=== PATIENT | male | born 1940 | race Caucasian/White ===

== ENCOUNTER 2021-01-03 23:14 | Inpatient (IN) | payer OTHER ==
--- OUTSIDE RECORDS SUMMARY | 2021-01-03 23:20 | XMS REPORT | Continuity of Care Document ---
:1940 Author Organization [facility] t Address [address] [place] [address] Care Team Providers Name Role Phone Hilary Primary Care Physician NASH ALCARAZ Attending Clinician Unavailable MICHELLE CHAPARRO Attending Clinician Unavailable NASH ALCARAZ Admitting Clinician Unavailable MICHELLE CHAPARRO Admitting Clinician Unavailable Problems Condition Condition Condition Status Onset Resolution Last Treating Co mments Source Name Details Category Date Date Treatment Clinician Date Metabolic Metabolic Disease Active [facility] alkalosis alkalosis 15 [facility] - 00:[facility]: Medical 00 [place] Cirrhosis Cirrhosis Disease Active [facility] liver 03[facility]13 [facility] 00 [place] Loose Loose Disease Active [facility] stools stools 03-11 [facility]: Medical 00 [place] Hypomagnes Hypomagnes Disease Active [facility] emia emia 03-11 [facility]:: Medical 00 [place] 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 [facility] - [facility]:: Medical 00 [place] HTN HTN Disease Active [facility] (hypertens (hypertens 03-11 [facility] - ion) ion) 00:00: Medical 00 [place] Alcohol Alcohol Disease Active [facility] abuse abuse 03-11 [facility] 00 [place] Hypoalbumi Hypoalbumi Disease Active [facility] nemia nemia 03-11 [facility]: Medical 00 [place] Arm Arm Disease Active [facility] weakness weakness 02-27 [facility] Allergies, Adverse Reactions, Alerts This patient has no known allergies or adverse reactions. Family History Family Member Diagnosis Comments Start Date Stop Date Source Natural mother Parkinsonism [facility] Social History Social Habit Start Date Stop Date Quantity Comments Source Sex Assigned At [facility] [place] Alcohol intake 2017-03-11 2017-03-11 Current drinker VIKRAM Tucker - 00:00:00 00:00:00 [facility] alcohol [facility] (finding) Alcohol Comment 2017-03-11 2017-03-11 500 ml of gonzalo VIKRAM Toney - 00:00:00 00:00:00 [facility] night [facility] History of 2015-11-22 Current smoker [facility] - tobacco use [facility]:00 [facility] Smoking Status Start Date Stop Date Source Former smoker 2017-03-11 00:00:00 2017-03-11 00:00:00 [facility] Medications Ordered Filled Start Stop Current Ordering Indication Dosage Frequency Signature Comments Components Source Medication Medication Date Date Medication? Clinician (SIG) Name Name multivitami Yes 1{tbl} QD Take [address] [facility] per 04-09 tablet by [facility] - tablet 13:22: mouth Medical 13 daily. Center Procedures This patient has no known procedures. Results Test Description Test Time Test Comments Results Result Comments Source CBC W/PLT COUNT & AUTO DIFFERENTIAL 2017-04-09 11:38:00 Test Item Value Reference Range Interpretation Comme nts WHITE BLOOD CELL COUNT (BEAKER) (test code = 775) 2.0 K/ L 4.0- 10.0 L RED BLOOD CELL COUNT (BEAKER) (test code = 761) 3.27 M/ L 4.20-5 .80 L HEMOGLOBIN (BEAKER) (test code = 410) 11.2 GM/DL 13.0-16.8 L HEMATOCRIT (BEAKER) (test code = 411) 33.2 % 40.0-50.0 L MEAN CORPUSCULAR VOLUME (BEAKER) (test code = 753) 101.0 fL 82. 0-98.0 H MEAN CORPUSCULAR HEMOGLOBIN (BEAKER) (test code = 751) 34.2 pg 27.0-33.0 H MEAN CORPUSCULAR HEMOGLOBIN CONC (BEAKER) (test code = 752) 33.7 GM/DL 32.0-36.0 RED CELL DISTRIBUTION WIDTH (BEAKER) (test code = 412) 11.9 % 10.3-14.2 PLATELET COUNT (BEAKER) (test code = 756) 58 K/CU MM 150-430 L MEAN PLATELET VOLUME (BEAKER) (test code = 754) 9.7 fL 6.5-10 .5 NUCLEATED RED BLOOD CELLS (BEAKER) (test code = 413) 0 /100 WBC 0 -0 NEUTROPHILS RELATIVE PERCENT (BEAKER) (test code = 429) 41 % LYMPHOCYTES RELATIVE PERCENT (BEAKER) (test code = 430) 43 % MONOCYTES RELATIVE PERCENT (BEAKER) (test code = 431) 11 % EOSINOPHILS RELATIVE PERCENT (BEAKER) (test code = 432) 4 % BASOPHILS RELATIVE PERCENT (BEAKER) (test code = 437) 2 % NEUTROPHILS ABSOLUTE COUNT (BEAKER) (test code = 670) 0.81 K/ L 1.80-8.00 L LYMPHOCYTES ABSOLUTE COUNT (BEAKER) (test code = 414) 0.84 K/ L 1.48-4.50 L MONOCYTES ABSOLUTE COUNT (BEAKER) (test code = 415) 0.21 K/ L 0. 00-1.30 EOSINOPHILS ABSOLUTE COUNT (BEAKER) (test code = 416) 0.09 K/ L 0.00-0.50 BASOPHILS ABSOLUTE COUNT (BEAKER) (test code = 417) 0.03 K/ L 0. 00-0.20 0.00(MANUAL DIFFERENTIAL)2017-04-09 11:38:00 Test Item Value Reference Range Interpretation Comments TOTAL COUNTED (BEAKER) (test code = 1351) WBC MORPHOLOGY (BEAKER) (test code = Normal 487) PLT MORPHOLOGY (BEAKER) (test code = Normal 486) RBC MORPHOLOGY (BEAKER) (test code = Normal 762) [id number] 06:45:00 Test Item Value Reference Range Interpretation Comments PHOSPHORUS (BEAKER) (test code = 3.5 mg/dL 2.3-4.7 604) [id number] 06:45:00 Test Item Value Reference Range Interpretation Comments MAGNESIUM (BEAKER) (test code = 1.7 mg/dL 1.6-2.6 627) BASIC METABOLIC [id number] 06:45:00 Test Item Value Reference Range Interpretation Comments SODIUM (BEAKER) 137 meq/L 136-145 (test code = 381) POTASSIUM (BEAKER) 4.7 meq/L 3.5-5.1 (test code = 379) CHLORIDE (BEAKER) 106 meq/L 98-107 (test code = 382) CO2 (BEAKER) (test 27 meq/L 22-29 code = 355) BLOOD UREA NITROGEN 29 mg/dL 7-21 H (BEAKER) (test code = 354) CREATININE (BEAKER) 0.71 mg/dL 0.57-1.25 (test code = 358) GLUCOSE RANDOM 92 mg/dL 70-105 (BEAKER) (test code = 652) CALCIUM (BEAKER) 9.6 mg/dL 8.4-10.2 (test code = 697) EGFR (BEAKER) (test 107 mL/min/1.73 ESTIM ATED GFR IS code = 1092) sq m NOT ACCURATE CREATININE CLEARANCE IN PREDICTING GLOMERULAR FILTRATION RATE . ESTIMATED GFR I S NOT APPLICABLE FOR DIALYSIS PATIEN TS. [id number] 07:18:00 Test Item Value Reference Range Interpretation Comments PHOSPHORUS (BEAKER) (test code = 3.4 mg/dL 2.3-4.7 604) [id number] 07:18:00 Test Item Value Reference Range Interpretation Comments MAGNESIUM (BEAKER) (test code = 1.6 mg/dL 1.6-2.6 627) BASIC METABOLIC [id number] 07:18:00 Test Item Value Reference Range Interpretation Comments SODIUM (BEAKER) 140 meq/L 136-145 (test code = 381) POTASSIUM (BEAKER) 4.5 meq/L 3.5-5.1 (test code = 379) CHLORIDE (BEAKER) 106 meq/L 98-107 (test code = 382) CO2 (BEAKER) (test 28 meq/L 22-29 code = 355) BLOOD UREA NITROGEN 27 mg/dL 7-21 H (BEAKER) (test code = 354) CREATININE (BEAKER) 0.72 mg/dL 0.57-1.25 (test code = 358) GLUCOSE RANDOM 79 mg/dL 70-105 (BEAKER) (test code = 652) CALCIUM (BEAKER) 9.4 mg/dL 8.4-10.2 (test code = 697) EGFR (BEAKER) (test 106 mL/min/1.73 ESTIM ATED GFR IS code = 1092) sq m NOT ACCURATE CREATININE CLEARANCE IN PREDICTING GLOMERULAR FILTRATION RATE . ESTIMATED GFR I S NOT APPLICABLE FOR DIALYSIS PATIEN TS. [id number] 05:47:00 Test Item Value Reference Range Interpretation Comments MAGNESIUM (BEAKER) (test code = 1.7 mg/dL 1.6-2.6 627) BASIC METABOLIC [id number] 05:47:00 Test Item Value Reference Range Interpretation Comments SODIUM (BEAKER) 137 meq/L 136-145 (test code = 381) POTASSIUM (BEAKER) 4.4 meq/L 3.5-5.1 (test code = 379) CHLORIDE (BEAKER) 105 meq/L 98-107 (test code = 382) CO2 (BEAKER) (test 26 meq/L 22-29 code = 355) BLOOD UREA NITROGEN 36 mg/dL 7-21 H (BEAKER) (test code = 354) CREATININE (BEAKER) 0.70 mg/dL 0.57-1.25 (test code = 358) GLUCOSE RANDOM 91 mg/dL 70-105 (BEAKER) (test code = 652) CALCIUM (BEAKER) 9.4 mg/dL 8.4-10.2 (test code = 697) EGFR (BEAKER) (test 109 mL/min/1.73 ESTIM ATED GFR IS code = 1092) sq m NOT ACCURATE CREATININE CLEARANCE IN PREDICTING GLOMERULAR FILTRATION RATE . ESTIMATED GFR I S NOT APPLICABLE FOR DIALYSIS PATIEN TS. CBC W/PLT COUNT & AUTO [id number] 09:57:00 Test Item Value Reference Range Interpretation Comments WHITE BLOOD CELL COUNT (BEAKER) 2.0 K/ L 4.0-10.0 L (test code = 775) RED BLOOD CELL COUNT (BEAKER) 3.39 M/ L 4.20-5.80 L (test code = 761) HEMOGLOBIN (BEAKER) (test code = 11.0 GM/DL 13.0-16.8 L 410) HEMATOCRIT (BEAKER) (test code = 34.3 % 40.0-50.0 L 411) MEAN CORPUSCULAR VOLUME (BEAKER) 101.0 fL 82.0-98.0 H (test code = 753) MEAN CORPUSCULAR HEMOGLOBIN 32.5 pg 27.0-33.0 (BEAKER) (test code = 751) MEAN CORPUSCULAR HEMOGLOBIN CONC 32.0 GM/DL 32.0-36.0 (BEAKER) (test code = 752) RED CELL DISTRIBUTION WIDTH 13.4 % 10.3-14.2 (BEAKER) (test code = 412) PLATELET COUNT (BEAKER) (test code 62 K/CU MM 150-430 L = 756) MEAN PLATELET VOLUME (BEAKER) 10.7 fL 6.5-10.5 H (test code = 754) NUCLEATED RED BLOOD CELLS (BEAKER) 0 /100 WBC 0-0 (test code = 413) NEUTROPHILS RELATIVE PERCENT 36 % (BEAKER) (test code = 429) LYMPHOCYTES RELATIVE PERCENT 50 % (BEAKER) (test code = 430) MONOCYTES RELATIVE PERCENT 10 % (BEAKER) (test code = 431) EOSINOPHILS RELATIVE PERCENT 5 % (BEAKER) (test code = 432) BASOPHILS RELATIVE PERCENT 0 % (BEAKER) (test code = 437) NEUTROPHILS ABSOLUTE COUNT 0.70 K/ L 1.80-8.00 L (BEAKER) (test code = 670) LYMPHOCYTES ABSOLUTE COUNT 0.98 K/ L 1.48-4.50 L (BEAKER) (test code = 414) MONOCYTES ABSOLUTE COUNT (BEAKER) 0.19 K/ L 0.00-1.30 (test code = 415) EOSINOPHILS ABSOLUTE COUNT 0.10 K/ L 0.00-0.50 (BEAKER) (test code = 416) BASOPHILS ABSOLUTE COUNT (BEAKER) 0.00 K/ L 0.00-0.20 (test code = 417) 0.00(MANUAL DIFFERENTIAL)2017-04-01 09:57:00 Test Item Value Reference Range Interpretation Comments TOTAL COUNTED (BEAKER) (test code = 1351) WBC MORPHOLOGY (BEAKER) (test code = Normal 487) PLT MORPHOLOGY (BEAKER) (test code = Normal 486) RBC MORPHOLOGY (BEAKER) (test code = Normal 762) [id number] 06:06:00 Test Item Value Reference Range Interpretation Comments MAGNESIUM (BEAKER) (test code = 1.7 mg/dL 1.6-2.6 627) BASIC METABOLIC [id number] 06:06:00 Test Item Value Reference Range Interpretation Comments SODIUM (BEAKER) 139 meq/L 136-145 (test code = 381) POTASSIUM (BEAKER) 4.6 meq/L 3.5-5.1 (test code = 379) CHLORIDE (BEAKER) 105 meq/L 98-107 (test code = 382) CO2 (BEAKER) (test 27 meq/L 22-29 code = 355) BLOOD UREA NITROGEN 37 mg/dL 7-21 H (BEAKER) (test code = 354) CREATININE (BEAKER) 0.72 mg/dL 0.57-1.25 (test code = 358) GLUCOSE RANDOM 91 mg/dL 70-105 (BEAKER) (test code = 652) CALCIUM (BEAKER) 9.5 mg/dL 8.4-10.2 (test code = 697) EGFR (BEAKER) (test 106 mL/min/1.73 ESTIM ATED GFR IS code = 1092) sq m NOT ACCURATE CREATININE CLEARANCE IN PREDICTING GLOMERULAR FILTRATION RATE . ESTIMATED GFR I S NOT APPLICABLE FOR DIALYSIS PATIEN TS. [id number] 06:35:00 Test Item Value Reference Range Interpretation Comments PHOSPHORUS (BEAKER) (test code = 3.0 mg/dL 2.3-4.7 604) [id number] 06:35:00 Test Item Value Reference Range Interpretation Comments MAGNESIUM (BEAKER) (test code = 1.7 mg/dL 1.6-2.6 627) BASIC METABOLIC [id number] 06:35:00 Test Item Value Reference Range Interpretation Comments SODIUM (BEAKER) 140 meq/L 136-145 (test code = 381) POTASSIUM (BEAKER) 4.6 meq/L 3.5-5.1 (test code = 379) CHLORIDE (BEAKER) 105 meq/L 98-107 (test code = 382) CO2 (BEAKER) (test 26 meq/L 22-29 code = 355) BLOOD UREA NITROGEN 38 mg/dL 7-21 H (BEAKER) (test code = 354) CREATININE (BEAKER) 0.72 mg/dL 0.57-1.25 (test code = 358) GLUCOSE RANDOM 98 mg/dL 70-105 (BEAKER) (test code = 652) CALCIUM (BEAKER) 9.8 mg/dL 8.4-10.2 (test code = 697) EGFR (BEAKER) (test 106 mL/min/1.73 ESTIM ATED GFR IS code = 1092) sq m NOT ACCURATE CREATININE CLEARANCE IN PREDICTING GLOMERULAR FILTRATION RATE . ESTIMATED GFR I S NOT APPLICABLE FOR DIALYSIS PATIEN TS. [id number] 07:59:00 Test Item Value Reference Range Interpretation Comments MAGNESIUM (BEAKER) (test code = 1.8 mg/dL 1.6-2.6 627) BASIC METABOLIC [id number] 07:59:00 Test Item Value Reference Range Interpretation Comments SODIUM (BEAKER) 141 meq/L 136-145 (test code = 381) POTASSIUM (BEAKER) 4.5 meq/L 3.5-5.1 (test code = 379) CHLORIDE (BEAKER) 105 meq/L 98-107 (test code = 382) CO2 (BEAKER) (test 30 meq/L 22-29 H code = 355) BLOOD UREA NITROGEN 43 mg/dL 7-21 H (BEAKER) (test code = 354) CREATININE (BEAKER) 0.72 mg/dL 0.57-1.25 (test code = 358) GLUCOSE RANDOM 84 mg/dL 70-105 (BEAKER) (test code = 652) CALCIUM (BEAKER) 9.6 mg/dL 8.4-10.2 (test code = 697) EGFR (BEAKER) (test 106 mL/min/1.73 ESTIM ATED GFR IS code = 1092) sq m NOT ACCURATE CREATININE CLEARANCE IN PREDICTING GLOMERULAR FILTRATION RATE . ESTIMATED GFR I S NOT APPLICABLE FOR DIALYSIS PATIEN TS. [id number] 06:28:00 Test Item Value Reference Range Interpretation Comments MAGNESIUM (BEAKER) (test code = 1.7 mg/dL 1.6-2.6 627) BASIC METABOLIC [id number] 06:28:00 Test Item Value Reference Range Interpretation Comments SODIUM (BEAKER) 140 meq/L 136-145 (test code = 381) POTASSIUM (BEAKER) 4.1 meq/L 3.5-5.1 (test code = 379) CHLORIDE (BEAKER) 104 meq/L 98-107 (test code = 382) CO2 (BEAKER) (test 30 meq/L 22-29 H code = 355) BLOOD UREA NITROGEN 44 mg/dL 7-21 H (BEAKER) (test code = 354) CREATININE (BEAKER) 0.76 mg/dL 0.57-1.25 (test code = 358) GLUCOSE RANDOM 92 mg/dL 70-105 (BEAKER) (test code = 652) CALCIUM (BEAKER) 9.6 mg/dL 8.4-10.2 (test code = 697) EGFR (BEAKER) (test 99 mL/min/1.73 ESTIMA NICKO GFR IS code = 1092) sq m NOT ACCURATE CREATININE CLEARANCE IN PREDICTING GLOMERULAR FILTRATION RATE . ESTIMATED GFR I S NOT APPLICABLE FOR DIALYSIS PATIEN TS. [id number] 05:37:00 Test Item Value Reference Range Interpretation Comments MAGNESIUM (BEAKER) (test code = 1.7 mg/dL 1.6-2.6 627) BASIC METABOLIC [id number] 05:37:00 Test Item Value Reference Range Interpretation Comments SODIUM (BEAKER) 140 meq/L 136-145 (test code = 381) POTASSIUM (BEAKER) 4.0 meq/L 3.5-5.1 (test code = 379) CHLORIDE (BEAKER) 103 meq/L 98-107 (test code = 382) CO2 (BEAKER) (test 31 meq/L 22-29 H code = 355) BLOOD UREA NITROGEN 36 mg/dL 7-21 H (BEAKER) (test code = 354) CREATININE (BEAKER) 0.65 mg/dL 0.57-1.25 (test code = 358) GLUCOSE RANDOM 101 mg/dL 70-105 (BEAKER) (test code = 652) CALCIUM (BEAKER) 9.9 mg/dL 8.4-10.2 (test code = 697) EGFR (BEAKER) (test 119 mL/min/1.73 ESTIM ATED GFR IS code = 1092) sq m NOT ACCURATE CREATININE CLEARANCE IN PREDICTING GLOMERULAR FILTRATION RATE . ESTIMATED GFR I S NOT APPLICABLE FOR DIALYSIS PATIEN TS. PROTEIN ELECTROPHORESIS, [id number] 11:32:00 Test Item Value Reference Range Interpretation Comments ALBUMIN FRACTION 3.2 g/dL 3.5-5.5 L (BEAKER) (test code = 405) ALPHA 1 FRACTION 0.3 g/dL 0.2-0.4 (BEAKER) (test code = 389) ALPHA 2 FRACTION 0.5 g/dL 0.5-0.9 (BEAKER) (test code = 390) BETA FRACTION 0.9 g/dL 0.6-1.1 (BEAKER) (test code = 392) GAMMA GLOBULIN 1.1 g/dL 0.7-1.7 FRACTION (BEAKER) (test code = 391) INTERPRETATION-119 All fractions present in (BEAKER) (test code = expected distribution, 2614) with minor nonspecific changes. No monoclonal bands detected. No significant change from previous study of 03-02-17. [id number] Haritha Baptiste MD (BEAKER) (test code = (electronic signature) 6374) PROTEIN TOTAL SERUM, 5.9 gm/dL 6.0-8.3 L SPEP (BEAKER) (test code = 7270) [id number] 06:11:00 Test Item Value Reference Range Interpretation Comments MAGNESIUM (BEAKER) (test code = 1.5 mg/dL 1.6-2.6 L 627) BASIC METABOLIC [id number] 06:11:00 Test Item Value Reference Range Interpretation Comments SODIUM (BEAKER) 140 meq/L 136-145 (test code = 381) POTASSIUM (BEAKER) 4.0 meq/L 3.5-5.1 (test code = 379) CHLORIDE (BEAKER) 102 meq/L 98-107 (test code = 382) CO2 (BEAKER) (test 32 meq/L 22-29 H code = 355) BLOOD UREA NITROGEN 47 mg/dL 7-21 H (BEAKER) (test code = 354) CREATININE (BEAKER) 0.70 mg/dL 0.57-1.25 (test code = 358) GLUCOSE RANDOM 97 mg/dL 70-105 (BEAKER) (test code = 652) CALCIUM (BEAKER) 9.9 mg/dL 8.4-10.2 (test code = 697) EGFR (BEAKER) (test 109 mL/min/1.73 ESTIM ATED GFR IS code = 1092) sq m NOT ACCURATE CREATININE CLEARANCE IN PREDICTING GLOMERULAR FILTRATION RATE . ESTIMATED GFR I S NOT APPLICABLE FOR DIALYSIS PATIEN TS. VITAMIN D, [id number] 08:21:00 Test Item Value Reference Range Interpretation Comments VITAMIN D 25-OH (BEAKER) (test 29.5 ng/mL 13.0-47.8 code = 2764) [id number] 06:15:00 Test Item Value Reference Range Interpretation Comments MAGNESIUM (BEAKER) (test code = 1.8 mg/dL 1.6-2.6 627) BASIC METABOLIC [id number] 06:15:00 Test Item Value Reference Range Interpretation Comments SODIUM (BEAKER) 140 meq/L 136-145 (test code = 381) POTASSIUM (BEAKER) 4.4 meq/L 3.5-5.1 (test code = 379) CHLORIDE (BEAKER) 101 meq/L 98-107 (test code = 382) CO2 (BEAKER) (test 30 meq/L 22-29 H code = 355) BLOOD UREA NITROGEN 49 mg/dL 7-21 H (BEAKER) (test code = 354) CREATININE (BEAKER) 0.78 mg/dL 0.57-1.25 (test code = 358) GLUCOSE RANDOM 94 mg/dL 70-105 (BEAKER) (test code = 652) CALCIUM (BEAKER) 10.4 mg/dL 8.4-10.2 H (test code = 697) EGFR (BEAKER) (test 96 mL/min/1.73 ESTIMA NICKO GFR IS code = 1092) sq m NOT ACCURATE CREATININE CLEARANCE IN PREDICTING GLOMERULAR FILTRATION RATE . ESTIMATED GFR I S NOT APPLICABLE FOR DIALYSIS PATIEN TS. [id number] 05:52:00 Test Item Value Reference Range Interpretation Comments MAGNESIUM (BEAKER) (test code = 1.7 mg/dL 1.6-2.6 627) BASIC METABOLIC [id number] 05:52:00 Test Item Value Reference Range Interpretation Comments SODIUM (BEAKER) 141 meq/L 136-145 (test code = 381) POTASSIUM (BEAKER) 4.5 meq/L 3.5-5.1 (test code = 379) CHLORIDE (BEAKER) 103 meq/L 98-107 (test code = 382) CO2 (BEAKER) (test 31 meq/L 22-29 H code = 355) BLOOD UREA NITROGEN 39 mg/dL 7-21 H (BEAKER) (test code = 354) CREATININE (BEAKER) 0.73 mg/dL 0.57-1.25 (test code = 358) GLUCOSE RANDOM 94 mg/dL 70-105 (BEAKER) (test code = 652) CALCIUM (BEAKER) 10.3 mg/dL 8.4-10.2 H (test code = 697) EGFR (BEAKER) (test 104 mL/min/1.73 ESTIM ATED GFR IS code = 1092) sq m NOT ACCURATE CREATININE CLEARANCE IN PREDICTING GLOMERULAR FILTRATION RATE . ESTIMATED GFR I S NOT APPLICABLE FOR DIALYSIS PATIEN TS. [id number] 06:58:00 Test Item Value Reference Range Interpretation Comments MAGNESIUM (BEAKER) (test code = 1.6 mg/dL 1.6-2.6 627) BASIC METABOLIC [id number] 06:58:00 Test Item Value Reference Range Interpretation Comments SODIUM (BEAKER) 138 meq/L 136-145 (test code = 381) POTASSIUM (BEAKER) 4.8 meq/L 3.5-5.1 (test code = 379) CHLORIDE (BEAKER) 101 meq/L 98-107 (test code = 382) CO2 (BEAKER) (test 30 meq/L 22-29 H code = 355) BLOOD UREA NITROGEN 39 mg/dL 7-21 H (BEAKER) (test code = 354) CREATININE (BEAKER) 0.73 mg/dL 0.57-1.25 (test code = 358) GLUCOSE RANDOM 85 mg/dL 70-105 (BEAKER) (test code = 652) CALCIUM (BEAKER) 10.2 mg/dL 8.4-10.2 (test code = 697) EGFR (BEAKER) (test 104 mL/min/1.73 ESTIM ATED GFR IS code = 1092) sq m NOT ACCURATE CREATININE CLEARANCE IN PREDICTING GLOMERULAR FILTRATION RATE . ESTIMATED GFR I S NOT APPLICABLE FOR DIALYSIS PATIEN TS. [id number] 04:50:00 Test Item Value Reference Range Interpretation Comments MAGNESIUM (BEAKER) (test code = 1.7 mg/dL 1.6-2.6 627) BASIC METABOLIC [id number] 04:50:00 Test Item Value Reference Range Interpretation Comments SODIUM (BEAKER) 139 meq/L 136-145 (test code = 381) POTASSIUM (BEAKER) 5.3 meq/L 3.5-5.1 H (test code = 379) CHLORIDE (BEAKER) 103 meq/L 98-107 (test code = 382) CO2 (BEAKER) (test 30 meq/L 22-29 H code = 355) BLOOD UREA NITROGEN 39 mg/dL 7-21 H (BEAKER) (test code = 354) CREATININE (BEAKER) 0.73 mg/dL 0.57-1.25 (test code = 358) GLUCOSE RANDOM 98 mg/dL 70-105 (BEAKER) (test code = 652) CALCIUM (BEAKER) 10.1 mg/dL 8.4-10.2 (test code = 697) EGFR (BEAKER) (test 104 mL/min/1.73 ESTIM ATED GFR IS code = 1092) sq m NOT ACCURATE CREATININE CLEARANCE IN PREDICTING GLOMERULAR FILTRATION RATE . ESTIMATED GFR I S NOT APPLICABLE FOR DIALYSIS PATIEN TS. [id number] 07:00:00 Test Item Value Reference Range Interpretation Comments MAGNESIUM (BEAKER) (test code = 1.7 mg/dL 1.6-2.6 627) BASIC METABOLIC [id number] 07:00:00 Test Item Value Reference Range Interpretation Comments SODIUM (BEAKER) 139 meq/L 136-145 (test code = 381) POTASSIUM (BEAKER) 5.5 meq/L 3.5-5.1 H (test code = 379) CHLORIDE (BEAKER) 102 meq/L 98-107 (test code = 382) CO2 (BEAKER) (test 30 meq/L 22-29 H code = 355) BLOOD UREA NITROGEN 39 mg/dL 7-21 H (BEAKER) (test code = 354) CREATININE (BEAKER) 0.73 mg/dL 0.57-1.25 (test code = 358) GLUCOSE RANDOM 86 mg/dL 70-105 (BEAKER) (test code = 652) CALCIUM (BEAKER) 10.0 mg/dL 8.4-10.2 (test code = 697) EGFR (BEAKER) (test 104 mL/min/1.73 ESTIM ATED GFR IS code = 1092) sq m NOT ACCURATE CREATININE CLEARANCE IN PREDICTING GLOMERULAR FILTRATION RATE . ESTIMATED GFR I S NOT APPLICABLE FOR DIALYSIS PATIEN TS. HEPATIC FUNCTION [id number] 07:00:00 Test Item Value Reference Range Interpretation Comments TOTAL PROTEIN (BEAKER) (test code = 6.2 gm/dL 6.0-8.3 770) ALBUMIN (BEAKER) (test code = 1145) 3.3 g/dL 3.5-5.0 L BILIRUBIN TOTAL (BEAKER) (test code 1.2 mg/dL 0.2-1.2 = 377) BILIRUBIN DIRECT (BEAKER) (test 0.5 mg/dL 0.1-0.5 code = 706) ALKALINE PHOSPHATASE (BEAKER) (test 94 U/L 40-150 code = 346) AST (SGOT) (BEAKER) (test code = 44 U/L 5-34 H 353) ALT (SGPT) (BEAKER) (test code = 38 U/L 6-55 347) [id number] 07:18:00 Test Item Value Reference Range Interpretation Comments MAGNESIUM (BEAKER) (test code = 1.7 mg/dL 1.6-2.6 627) BASIC METABOLIC [id number] 07:18:00 Test Item Value Reference Range Interpretation Comments SODIUM (BEAKER) 138 meq/L 136-145 (test code = 381) POTASSIUM (BEAKER) 5.7 meq/L 3.5-5.1 H (test code = 379) CHLORIDE (BEAKER) 102 meq/L 98-107 (test code = 382) CO2 (BEAKER) (test 32 meq/L 22-29 H code = 355) BLOOD UREA NITROGEN 34 mg/dL 7-21 H (BEAKER) (test code = 354) CREATININE (BEAKER) 0.77 mg/dL 0.57-1.25 (test code = 358) GLUCOSE RANDOM 82 mg/dL 70-105 (BEAKER) (test code = 652) CALCIUM (BEAKER) 9.9 mg/dL 8.4-10.2 (test code = 697) EGFR (BEAKER) (test 98 mL/min/1.73 ESTIMA NICKO GFR IS code = 1092) sq m NOT ACCURATE CREATININE CLEARANCE IN PREDICTING GLOMERULAR FILTRATION RATE . ESTIMATED GFR I S NOT APPLICABLE FOR DIALYSIS PATIEN TS. CREATININE, RANDOM [id number] 16:52:00 Test Item Value Reference Range Interpretation Comments CREATININE URINE (BEAKER) (test 113.2 mg/dL code = 375) Reference Range: No NormalsMAGNESIUM, RANDOM [id number] 16:52:00 Test Item Value Reference Range Interpretation Comments MAGNESIUM URINE (BEAKER) (test 17.9 mg/dL code = 834) Reference Range: No [id number] 06:52:00 Test Item Value Reference Range Interpretation Comments MAGNESIUM (BEAKER) (test code = 1.5 mg/dL 1.6-2.6 L 627) BASIC METABOLIC [id number] 06:52:00 Test Item Value Reference Range Interpretation Comments SODIUM (BEAKER) 139 meq/L 136-145 (test code = 381) POTASSIUM (BEAKER) 5.1 meq/L 3.5-5.1 (test code = 379) CHLORIDE (BEAKER) 102 meq/L 98-107 (test code = 382) CO2 (BEAKER) (test 30 meq/L 22-29 H code = 355) BLOOD UREA NITROGEN 28 mg/dL 7-21 H (BEAKER) (test code = 354) CREATININE (BEAKER) 0.70 mg/dL 0.57-1.25 (test code = 358) GLUCOSE RANDOM 89 mg/dL 70-105 (BEAKER) (test code = 652) CALCIUM (BEAKER) 9.9 mg/dL 8.4-10.2 (test code = 697) EGFR (BEAKER) (test 109 mL/min/1.73 ESTIM ATED GFR IS code = 1092) sq m NOT ACCURATE CREATININE CLEARANCE IN PREDICTING GLOMERULAR FILTRATION RATE . ESTIMATED GFR I S NOT APPLICABLE FOR DIALYSIS PATIEN TS. [id number] 06:05:00 Test Item Value Reference Range Interpretation Comments MAGNESIUM (BEAKER) (test code = 1.6 mg/dL 1.6-2.6 627) BASIC METABOLIC [id number] 06:05:00 Test Item Value Reference Range Interpretation Comments SODIUM (BEAKER) 139 meq/L 136-145 (test code = 381) POTASSIUM (BEAKER) 5.1 meq/L 3.5-5.1 (test code = 379) CHLORIDE (BEAKER) 103 meq/L 98-107 (test code = 382) CO2 (BEAKER) (test 28 meq/L 22-29 code = 355) BLOOD UREA NITROGEN 23 mg/dL 7-21 H (BEAKER) (test code = 354) CREATININE (BEAKER) 0.63 mg/dL 0.57-1.25 (test code = 358) GLUCOSE RANDOM 89 mg/dL 70-105 (BEAKER) (test code = 652) CALCIUM (BEAKER) 9.8 mg/dL 8.4-10.2 (test code = 697) EGFR (BEAKER) (test 123 mL/min/1.73 ESTIM ATED GFR IS code = 1092) sq m NOT ACCURATE CREATININE CLEARANCE IN PREDICTING GLOMERULAR FILTRATION RATE . ESTIMATED GFR I S NOT APPLICABLE FOR DIALYSIS PATIEN TS. HEPARIN [id number] 14:07:00 Test Item Value Reference Range Interpretation Comments HEPARIN ANTIBODY (BEAKER) (test code Negative Negative = 646) HEPARIN ANTIBODY OD (BEAKER) (test 0.062 <0.400 code = 2659) 4T TOTAL SCORE (BEAKER) (test code = 4 3733) Probability of HIT based on scoring system: 6-8 = High probability; 4-5 = intermediate probability;0-3 = low probabilityBASIC METABOLIC [id number] 05:42:00 Test Item Value Reference Range Interpretation Comments SODIUM (BEAKER) 138 meq/L 136-145 (test code = 381) POTASSIUM (BEAKER) 4.6 meq/L 3.5-5.1 (test code = 379) CHLORIDE (BEAKER) 101 meq/L 98-107 (test code = 382) CO2 (BEAKER) (test 31 meq/L 22-29 H code = 355) BLOOD UREA NITROGEN 17 mg/dL 7-21 (BEAKER) (test code = 354) CREATININE (BEAKER) 0.68 mg/dL 0.57-1.25 (test code = 358) GLUCOSE RANDOM 94 mg/dL 70-105 (BEAKER) (test code = 652) CALCIUM (BEAKER) 9.7 mg/dL 8.4-10.2 (test code = 697) EGFR (BEAKER) (test 113 mL/min/1.73 ESTIM ATED GFR IS code = 1092) sq m NOT ACCURATE CREATININE CLEARANCE IN PREDICTING GLOMERULAR FILTRATION RATE . ESTIMATED GFR I S NOT APPLICABLE FOR DIALYSIS PATIEN TS. [id number] 05:42:00 Test Item Value Reference Range Interpretation Comments MAGNESIUM (BEAKER) (test code = 1.6 mg/dL 1.6-2.6 627) CBC W/PLT COUNT & AUTO [id number] 14:48:00 Test Item Value Reference Range Interpretation Comments WHITE BLOOD CELL COUNT (BEAKER) 2.1 K/ L 4.0-10.0 L (test code = 775) RED BLOOD CELL COUNT (BEAKER) 3.80 M/ L 4.20-5.80 L (test code = 761) HEMOGLOBIN (BEAKER) (test code = 12.7 GM/DL 13.0-16.8 L 410) HEMATOCRIT (BEAKER) (test code = 38.8 % 40.0-50.0 L 411) MEAN CORPUSCULAR VOLUME (BEAKER) 101.0 fL 82.0-98.0 H (test code = 753) MEAN CORPUSCULAR HEMOGLOBIN 33.4 pg 27.0-33.0 H (BEAKER) (test code = 751) MEAN CORPUSCULAR HEMOGLOBIN CONC 33.2 GM/DL 32.0-36.0 (BEAKER) (test code = 752) RED CELL DISTRIBUTION WIDTH 13.6 % 10.3-14.2 (BEAKER) (test code = 412) PLATELET COUNT (BEAKER) (test code 69 K/CU MM 150-430 L = 756) MEAN PLATELET VOLUME (BEAKER) 9.5 fL 6.5-10.5 (test code = 754) NUCLEATED RED BLOOD CELLS (BEAKER) 0 /100 WBC 0-0 (test code = 413) NEUTROPHILS RELATIVE PERCENT 50 % (BEAKER) (test code = 429) LYMPHOCYTES RELATIVE PERCENT 37 % (BEAKER) (test code = 430) MONOCYTES RELATIVE PERCENT 10 % (BEAKER) (test code = 431) EOSINOPHILS RELATIVE PERCENT 3 % (BEAKER) (test code = 432) BASOPHILS RELATIVE PERCENT 1 % (BEAKER) (test code = 437) NEUTROPHILS ABSOLUTE COUNT 1.06 K/ L 1.80-8.00 L (BEAKER) (test code = 670) LYMPHOCYTES ABSOLUTE COUNT 0.79 K/ L 1.48-4.50 L (BEAKER) (test code = 414) MONOCYTES ABSOLUTE COUNT (BEAKER) 0.21 K/ L 0.00-1.30 (test code = 415) EOSINOPHILS ABSOLUTE COUNT 0.07 K/ L 0.00-0.50 (BEAKER) (test code = 416) BASOPHILS ABSOLUTE COUNT (BEAKER) 0.01 K/ L 0.00-0.20 (test code = 417) (MANUAL DIFFERENTIAL)2017-03-14 14:48:00 Test Item Value Reference Range Interpretation Comments TOTAL COUNTED (BEAKER) (test code = 1351) [id number] 14:18:00 Test Item Value Reference Range Interpretation Comments MAGNESIUM (BEAKER) (test code = 1.5 mg/dL 1.6-2.6 L 627) [id number] 14:18:00 Test Item Value Reference Range Interpretation Comments PHOSPHORUS (BEAKER) (test code = 3.4 mg/dL 2.3-4.7 604) BASIC METABOLIC [id number] 14:17:00 Test Item Value Reference Range Interpretation Comments SODIUM (BEAKER) 138 meq/L 136-145 (test code = 381) POTASSIUM (BEAKER) 4.3 meq/L 3.5-5.1 (test code = 379) CHLORIDE (BEAKER) 100 meq/L 98-107 (test code = 382) CO2 (BEAKER) (test 31 meq/L 22-29 H code = 355) BLOOD UREA NITROGEN 13 mg/dL 7-21 (BEAKER) (test code = 354) CREATININE (BEAKER) 0.57 mg/dL 0.57-1.25 (test code = 358) GLUCOSE RANDOM 80 mg/dL 70-105 (BEAKER) (test code = 652) CALCIUM (BEAKER) 9.6 mg/dL 8.4-10.2 (test code = 697) EGFR (BEAKER) (test 138 mL/min/1.73 ESTIM ATED GFR IS code = 1092) sq m NOT ACCURATE CREATININE CLEARANCE IN PREDICTING GLOMERULAR FILTRATION RATE . ESTIMATED GFR I S NOT APPLICABLE FOR DIALYSIS PATIEN TS. [id number] 06:24:00 Test Item Value Reference Range Interpretation Comments MAGNESIUM (BEAKER) (test code = 1.3 mg/dL 1.6-2.6 L 627) BASIC METABOLIC [id number] 06:24:00 Test Item Value Reference Range Interpretation Comments SODIUM (BEAKER) 139 meq/L 136-145 (test code = 381) POTASSIUM (BEAKER) 3.9 meq/L 3.5-5.1 (test code = 379) CHLORIDE (BEAKER) 102 meq/L 98-107 (test code = 382) CO2 (BEAKER) (test 32 meq/L 22-29 H code = 355) BLOOD UREA NITROGEN 12 mg/dL 7-21 (BEAKER) (test code = 354) CREATININE (BEAKER) 0.57 mg/dL 0.57-1.25 (test code = 358) GLUCOSE RANDOM 84 mg/dL 70-105 (BEAKER) (test code = 652) CALCIUM (BEAKER) 9.4 mg/dL 8.4-10.2 (test code = 697) EGFR (BEAKER) (test 138 mL/min/1.73 ESTIM ATED GFR IS code = 1092) sq m NOT ACCURATE CREATININE CLEARANCE IN PREDICTING GLOMERULAR FILTRATION RATE . ESTIMATED GFR I S NOT APPLICABLE FOR DIALYSIS PATIEN TS. [id number] 07:11:00 Test Item Value Reference Range Interpretation Comments MAGNESIUM (BEAKER) 1.7 mg/dL 1.6-2.6 Specimen slightly (test code = 627) hemolyzed BASIC METABOLIC [id number] 07:11:00 Test Item Value Reference Range Interpretation Comments SODIUM (BEAKER) 138 meq/L 136-145 (test code = 381) POTASSIUM (BEAKER) 3.7 meq/L 3.5-5.1 Specimen slightly (test code = 379) hemolyzed CHLORIDE (BEAKER) 100 meq/L 98-107 (test code = 382) CO2 (BEAKER) (test 29 meq/L 22-29 code = 355) BLOOD UREA NITROGEN 13 mg/dL 7-21 (BEAKER) (test code = 354) CREATININE (BEAKER) 0.54 mg/dL 0.57-1.25 L Specimen slightly (test code = 358) hemolyzed GLUCOSE RANDOM 84 mg/dL 70-105 (BEAKER) (test code = 652) CALCIUM (BEAKER) 9.4 mg/dL 8.4-10.2 (test code = 697) EGFR (BEAKER) (test 147 mL/min/1.73 ESTIM ATED GFR IS code = 1092) sq m NOT ACCURATE CREATININE CLEARANCE IN PREDICTING GLOMERULAR FILTRATION RATE . ESTIMATED GFR I S NOT APPLICABLE FOR DIALYSIS PATIEN TS. PTH, [id number] 06:59:00 Test Item Value Reference Range Interpretation Comments PARATHYROID HORMONE INTACT 27.9 pg/mL 8.5-72.5 (BEAKER) (test code = 577) Effective 08/21/2014: Reference Range ChangeNew: 8.5-72.5 Previous: 15.0-90.0 CREATININE, RANDOM [id number] 14:27:00 Test Item Value Reference Range Interpretation Comments CREATININE URINE (BEAKER) (test 174.8 mg/dL code = 375) Reference Range: No NormalsMAGNESIUM, RANDOM [id number] 14:27:00 Test Item Value Reference Range Interpretation Comments MAGNESIUM URINE (BEAKER) (test code = > mg/dL 834) Reference Range: No NormalsTISSUE [id number] 13:29:00Surgical Pathology Report Case: [id number] Authorizing Provider: Estuardo Chaparro MD Collected: [id number]/[id number] Ordering Location: [address] Received: 03/02/2017 0948 Service Pathologist: Patel Burton MD Specimen: Di sc C3-4 VERTEBRAL COLUMN,INTERVERTEBRAL DISC, C3-4, DISCECTOMY:FRAGMENTS OF FIBROCARTILAGE WITH MILD DEGENERATIVE CHANGES [id number]; [id number] myelopathyDisc C3-4The specimen is received in formalin-filled container and labeled with the patient's information and labeled "disc C3-4" and consists of multiple fragments of alicea fibrocartilaginous tissue measuring 2.5 x 0.8 x 0.5 cm in aggregate. The specimen is entirely submitted A1 for decalcification. CG/plPerformedMAGNESIUM 2017-03-11 04:50:00 Test Item Value Reference Range Interpretation Comments MAGNESIUM (BEAKER) (test code = 1.2 mg/dL 1.6-2.6 L 627) BASIC METABOLIC [id number] 04:50:00 Test Item Value Reference Range Interpretation Comments SODIUM (BEAKER) 136 meq/L 136-145 (test code = 381) POTASSIUM (BEAKER) 3.8 meq/L 3.5-5.1 (test code = 379) CHLORIDE (BEAKER) 100 meq/L 98-107 (test code = 382) CO2 (BEAKER) (test 30 meq/L 22-29 H code = 355) BLOOD UREA NITROGEN 13 mg/dL 7-21 (BEAKER) (test code = 354) CREATININE (BEAKER) 0.56 mg/dL 0.57-1.25 L (test code = 358) GLUCOSE RANDOM 93 mg/dL 70-105 (BEAKER) (test code = 652) CALCIUM (BEAKER) 9.1 mg/dL 8.4-10.2 (test code = 697) EGFR (BEAKER) (test 141 mL/min/1.73 ESTIM ATED GFR IS code = 1092) sq m NOT ACCURATE CREATININE CLEARANCE IN PREDICTING GLOMERULAR FILTRATION RATE . ESTIMATED GFR I S NOT APPLICABLE FOR DIALYSIS PATIEN TS. [id number] 07:04:00 Test Item Value Reference Range Interpretation Comments MAGNESIUM (BEAKER) (test code = 1.3 mg/dL 1.6-2.6 L 627) BASIC METABOLIC [id number] 07:04:00 Test Item Value Reference Range Interpretation Comments SODIUM (BEAKER) 137 meq/L 136-145 (test code = 381) POTASSIUM (BEAKER) 3.9 meq/L 3.5-5.1 (test code = 379) CHLORIDE (BEAKER) 99 meq/L 98-107 (test code = 382) CO2 (BEAKER) (test 30 meq/L 22-29 H code = 355) BLOOD UREA NITROGEN 17 mg/dL 7-21 (BEAKER) (test code = 354) CREATININE (BEAKER) 0.57 mg/dL 0.57-1.25 (test code = 358) GLUCOSE RANDOM 89 mg/dL 70-105 (BEAKER) (test code = 652) CALCIUM (BEAKER) 9.3 mg/dL 8.4-10.2 (test code = 697) EGFR (BEAKER) (test 138 mL/min/1.73 ESTIM ATED GFR IS code = 1092) sq m NOT ACCURATE CREATININE CLEARANCE IN PREDICTING GLOMERULAR FILTRATION RATE . ESTIMATED GFR I S NOT APPLICABLE FOR DIALYSIS PATIEN TS. [id number] 11:59:00 Test Item Value Reference Range Interpretation Comments MAGNESIUM (BEAKER) (test code = 1.4 mg/dL 1.6-2.6 L 627) BASIC METABOLIC [id number] 06:16:00 Test Item Value Reference Range Interpretation Comments SODIUM (BEAKER) 135 meq/L 136-145 L (test code = 381) POTASSIUM (BEAKER) 3.6 meq/L 3.5-5.1 (test code = 379) CHLORIDE (BEAKER) 98 meq/L 98-107 (test code = 382) CO2 (BEAKER) (test 29 meq/L 22-29 code = 355) BLOOD UREA NITROGEN 10 mg/dL 7-21 (BEAKER) (test code = 354) CREATININE (BEAKER) 0.58 mg/dL 0.57-1.25 (test code = 358) GLUCOSE RANDOM 90 mg/dL 70-105 (BEAKER) (test code = 652) CALCIUM (BEAKER) 9.0 mg/dL 8.4-10.2 (test code = 697) EGFR (BEAKER) (test 136 mL/min/1.73 ESTIM ATED GFR IS code = 1092) sq m NOT ACCURATE CREATININE CLEARANCE IN PREDICTING GLOMERULAR FILTRATION RATE . ESTIMATED GFR I S NOT APPLICABLE FOR DIALYSIS PATIEN TS. PERIPHERAL BLOOD SMEAR - HOLD [id number] 09:09:00 Test Item Value Reference Range Interpretation Comments PERIPHERAL SMEAR SAVE Mild (BEAKER) (test code = anisopikilocytosis. 1815) Essentially unremarkable white cells and platelets. No circulating blasts. Correlation with clinical follow up required to assess need for hematologic evaulation. URINE [id number] 08:40:00 Test Item Value Reference Range Interpretation Comments CULTURE (BEAKER) PSEUDOMONAS A >100,000 co l/mL (test code = 1095) AERUGINOSA Pseudomon as aeruginosa Amikacin (test code = Susceptible 0-16 S 1) , Resistant <0 or >16 Ampicillin (test code = 26) Ampicillin + Sulbactam (test code = 6) Aztreonam (test code Susceptible 0-8 S = 32) , Resistant <0 or >8 Cefazolin (test code = 9) Cefepime (test code = Susceptible 0-8 S 51) , Resistant <0 or >8 Ceftazidime (test Susceptible 0-8 S code = 27) , Resistant <0 or >8 Ceftriaxone (test code = 52) Ciprofloxacin (test Susceptible 0-1 S code = 7) , Resistant <0 or >1 Doripenem (test code Susceptible 0-2 S = 100) , Resistant <0 or >2 Ertapenem (test code = 38) Gentamicin (test code Susceptible 0-4 S = 18) , Resistant <0 or >4 Imipenem (test code = Susceptible 0-2 S 19) , Resistant <0 or >2 Levofloxacin (test Susceptible 0-2 S code = 22) , Resistant <0 or >2 Meropenem (test code Susceptible 0-2 S = 34) , Resistant <0 or >2 Minocycline (test code = 35) Nitrofurantoin (test code = 23) Piperacillin (test Susceptible 0-16 S code = 24) , Resistant <0 or >16 Piperacillin + Susceptible 0-16 S Tazobactam (test code , Resistant <0 = 29) or >16 Tetracycline (test code = 2) Ticarcillin + Clavulanic Acid (test code = 80) Tigecycline (test code = 133) Tobramycin (test code Susceptible 0-4 S = 25) , Resistant <0 or >4 Trimethoprim + Sulfamethoxazole (test code = 47) CULTURE (BEAKER) ENTEROBACTER A 10-19,000 c ol/mL (test code = 1095) CLOACAE COMPLEX Entero bacter cloacae complex Amikacin (test code = S 1) Ampicillin + Sulbactam (test code = 62) Aztreonam (test code R = 32) Cefazolin (test code = 92) Cefepime (test code = S 51) Cefoxitin (test code R = 68) Ceftazidime (test R code = 27) Ceftriaxone (test R code = 52) Ertapenem (test code = 382) Gentamicin (test code S = 18) Levofloxacin (test S code = 22) Meropenem (test code S = 34) Nitrofurantoin (test R code = 23) Piperacillin + R Tazobactam (test code = 29) Tetracycline (test S code = 2) Tigecycline (test code = 1332) Tobramycin (test code S = 25) Trimethoprim + S Sulfamethoxazole (test code = 47) CBC W/PLT COUNT & AUTO [id number] 06:12:00 Test Item Value Reference Range Interpretation Comments WHITE BLOOD CELL COUNT (BEAKER) 3.8 K/ L 4.0-10.0 L (test code = 775) RED BLOOD CELL COUNT (BEAKER) 4.12 M/ L 4.20-5.80 L (test code = 761) HEMOGLOBIN (BEAKER) (test code = 13.6 GM/DL 13.0-16.8 410) HEMATOCRIT (BEAKER) (test code = 41.1 % 40.0-50.0 411) MEAN CORPUSCULAR VOLUME (BEAKER) 99.9 fL 82.0-98.0 H (test code = 753) MEAN CORPUSCULAR HEMOGLOBIN 33.1 pg 27.0-33.0 H (BEAKER) (test code = 751) MEAN CORPUSCULAR HEMOGLOBIN CONC 33.2 GM/DL 32.0-36.0 (BEAKER) (test code = 752) RED CELL DISTRIBUTION WIDTH 13.6 % 10.3-14.2 (BEAKER) (test code = 412) PLATELET COUNT (BEAKER) (test code 68 K/CU MM 150-430 L = 756) MEAN PLATELET VOLUME (BEAKER) 8.9 fL 6.5-10.5 (test code = 754) NUCLEATED RED BLOOD CELLS (BEAKER) 0 /100 WBC 0-0 (test code = 413) NEUTROPHILS RELATIVE PERCENT 59 % (BEAKER) (test code = 429) LYMPHOCYTES RELATIVE PERCENT 23 % (BEAKER) (test code = 430) MONOCYTES RELATIVE PERCENT 14 % (BEAKER) (test code = 431) EOSINOPHILS RELATIVE PERCENT 3 % (BEAKER) (test code = 432) BASOPHILS RELATIVE PERCENT 1 % (BEAKER) (test code = 437) NEUTROPHILS ABSOLUTE COUNT 2.22 K/ L 1.80-8.00 (BEAKER) (test code = 670) LYMPHOCYTES ABSOLUTE COUNT 0.88 K/ L 1.48-4.50 L (BEAKER) (test code = 414) MONOCYTES ABSOLUTE COUNT (BEAKER) 0.53 K/ L 0.00-1.30 (test code = 415) EOSINOPHILS ABSOLUTE COUNT 0.11 K/ L 0.00-0.50 (BEAKER) (test code = 416) BASOPHILS ABSOLUTE COUNT (BEAKER) 0.02 K/ L 0.00-0.20 (test code = 417) [id number] 06:03:00 Test Item Value Reference Range Interpretation Comments MAGNESIUM (BEAKER) (test code = 1.2 mg/dL 1.6-2.6 L 627) BASIC METABOLIC [id number] 06:03:00 Test Item Value Reference Range Interpretation Comments SODIUM (BEAKER) 134 meq/L 136-145 L (test code = 381) POTASSIUM (BEAKER) 3.8 meq/L 3.5-5.1 (test code = 379) CHLORIDE (BEAKER) 97 meq/L 98-107 L (test code = 382) CO2 (BEAKER) (test 30 meq/L 22-29 H code = 355) BLOOD UREA NITROGEN 11 mg/dL 7-21 (BEAKER) (test code = 354) CREATININE (BEAKER) 0.57 mg/dL 0.57-1.25 (test code = 358) GLUCOSE RANDOM 89 mg/dL 70-105 (BEAKER) (test code = 652) CALCIUM (BEAKER) 8.9 mg/dL 8.4-10.2 (test code = 697) EGFR (BEAKER) (test 138 mL/min/1.73 ESTIM ATED GFR IS code = 1092) sq m NOT ACCURATE CREATININE CLEARANCE IN PREDICTING GLOMERULAR FILTRATION RATE . ESTIMATED GFR I S NOT APPLICABLE FOR DIALYSIS PATIEN TS. CBC W/PLT COUNT & AUTO [id number] 08:37:00 Test Item Value Reference Range Interpretation Comments WHITE BLOOD CELL COUNT (BEAKER) 3.9 K/ L 4.0-10.0 L (test code = 775) RED BLOOD CELL COUNT (BEAKER) 3.99 M/ L 4.20-5.80 L (test code = 761) HEMOGLOBIN (BEAKER) (test code = 13.2 GM/DL 13.0-16.8 410) HEMATOCRIT (BEAKER) (test code = 39.8 % 40.0-50.0 L 411) MEAN CORPUSCULAR VOLUME (BEAKER) 99.8 fL 82.0-98.0 H (test code = 753) MEAN CORPUSCULAR HEMOGLOBIN 33.0 pg 27.0-33.0 (BEAKER) (test code = 751) MEAN CORPUSCULAR HEMOGLOBIN CONC 33.1 GM/DL 32.0-36.0 (BEAKER) (test code = 752) RED CELL DISTRIBUTION WIDTH 11.9 % 10.3-14.2 (BEAKER) (test code = 412) PLATELET COUNT (BEAKER) (test code 73 K/CU MM 150-430 L = 756) MEAN PLATELET VOLUME (BEAKER) 9.4 fL 6.5-10.5 (test code = 754) NUCLEATED RED BLOOD CELLS (BEAKER) 0 /100 WBC 0-0 (test code = 413) NEUTROPHILS RELATIVE PERCENT 65 % (BEAKER) (test code = 429) LYMPHOCYTES RELATIVE PERCENT 18 % (BEAKER) (test code = 430) MONOCYTES RELATIVE PERCENT 13 % (BEAKER) (test code = 431) EOSINOPHILS RELATIVE PERCENT 3 % (BEAKER) (test code = 432) BASOPHILS RELATIVE PERCENT 1 % (BEAKER) (test code = 437) NEUTROPHILS ABSOLUTE COUNT 2.52 K/ L 1.80-8.00 (BEAKER) (test code = 670) LYMPHOCYTES ABSOLUTE COUNT 0.71 K/ L 1.48-4.50 L (BEAKER) (test code = 414) MONOCYTES ABSOLUTE COUNT (BEAKER) 0.51 K/ L 0.00-1.30 (test code = 415) EOSINOPHILS ABSOLUTE COUNT 0.10 K/ L 0.00-0.50 (BEAKER) (test code = 416) BASOPHILS ABSOLUTE COUNT (BEAKER) 0.03 K/ L 0.00-0.20 (test code = 417) [id number] 06:58:00 Test Item Value Reference Range Interpretation Comments MAGNESIUM (BEAKER) (test code = 1.5 mg/dL 1.6-2.6 L 627) BASIC METABOLIC [id number] 06:58:00 Test Item Value Reference Range Interpretation Comments SODIUM (BEAKER) 135 meq/L 136-145 L (test code = 381) POTASSIUM (BEAKER) 3.7 meq/L 3.5-5.1 (test code = 379) CHLORIDE (BEAKER) 95 meq/L 98-107 L (test code = 382) CO2 (BEAKER) (test 33 meq/L 22-29 H code = 355) BLOOD UREA NITROGEN 11 mg/dL 7-21 (BEAKER) (test code = 354) CREATININE (BEAKER) 0.54 mg/dL 0.57-1.25 L (test code = 358) GLUCOSE RANDOM 90 mg/dL 70-105 (BEAKER) (test code = 652) CALCIUM (BEAKER) 8.8 mg/dL 8.4-10.2 (test code = 697) EGFR (BEAKER) (test 147 mL/min/1.73 ESTIM ATED GFR IS code = 1092) sq m NOT ACCURATE CREATININE CLEARANCE IN PREDICTING GLOMERULAR FILTRATION RATE . ESTIMATED GFR I S NOT APPLICABLE FOR DIALYSIS GRZEGORZMOHAN TS. [id number] 05:57:00 Test Item Value Reference Range Interpretation Comments MAGNESIUM (BEAKER) (test code = 1.3 mg/dL 1.6-2.6 L 627) COMPREHENSIVE METABOLIC [id number] 05:57:00 Test Item Value Reference Range Interpretation Comments TOTAL PROTEIN 5.7 gm/dL 6.0-8.3 L (BEAKER) (test code = 770) ALBUMIN (BEAKER) 3.1 g/dL 3.5-5.0 L (test code = 1145) ALKALINE PHOSPHATASE 89 U/L 40-150 (BEAKER) (test code = 346) BILIRUBIN TOTAL 1.9 mg/dL 0.2-1.2 H (BEAKER) (test code = 377) SODIUM (BEAKER) (test 131 meq/L 136-145 L code = 381) POTASSIUM (BEAKER) 3.7 meq/L 3.5-5.1 (test code = 379) CHLORIDE (BEAKER) 94 meq/L 98-107 L (test code = 382) CO2 (BEAKER) (test 31 meq/L 22-29 H code = 355) BLOOD UREA NITROGEN 9 mg/dL 7-21 (BEAKER) (test code = 354) CREATININE (BEAKER) 0.54 mg/dL 0.57-1.25 L (test code = 358) GLUCOSE RANDOM 94 mg/dL 70-105 (BEAKER) (test code = 652) CALCIUM (BEAKER) 8.8 mg/dL 8.4-10.2 (test code = 697) AST (SGOT) (BEAKER) 36 U/L 5-34 H (test code = 353) ALT (SGPT) (BEAKER) 31 U/L 6-55 (test code = 347) EGFR (BEAKER) (test 147 ESTIMATE D GFR IS code = 1092) mL/min/1.73 sq NOT ACCURA TE m CREATININE CLEARANCE IN PREDICTING GLOMERULAR FILTRATION RATE . ESTIMATED GFR I S NOT APPLICABLE FOR DIALYSIS PATIEN TS. Specimen slightly ictericCBC W/PLT COUNT & AUTO [id number] 05:49:00 Test Item Value Reference Range Interpretation Comments WHITE BLOOD CELL COUNT (BEAKER) 3.4 K/ L 4.0-10.0 L (test code = 775) RED BLOOD CELL COUNT (BEAKER) 4.07 M/ L 4.20-5.80 L (test code = 761) HEMOGLOBIN (BEAKER) (test code = 14.2 GM/DL 13.0-16.8 410) HEMATOCRIT (BEAKER) (test code = 40.8 % 40.0-50.0 411) MEAN CORPUSCULAR VOLUME (BEAKER) 100.0 fL 82.0-98.0 H (test code = 753) MEAN CORPUSCULAR HEMOGLOBIN 35.0 pg 27.0-33.0 H (BEAKER) (test code = 751) MEAN CORPUSCULAR HEMOGLOBIN CONC 34.9 GM/DL 32.0-36.0 (BEAKER) (test code = 752) RED CELL DISTRIBUTION WIDTH 11.9 % 10.3-14.2 (BEAKER) (test code = 412) PLATELET COUNT (BEAKER) (test code 72 K/CU MM 150-430 L = 756) MEAN PLATELET VOLUME (BEAKER) 9.0 fL 6.5-10.5 (test code = 754) NUCLEATED RED BLOOD CELLS (BEAKER) 0 /100 WBC 0-0 (test code = 413) NEUTROPHILS RELATIVE PERCENT 62 % (BEAKER) (test code = 429) LYMPHOCYTES RELATIVE PERCENT 20 % (BEAKER) (test code = 430) MONOCYTES RELATIVE PERCENT 13 % (BEAKER) (test code = 431) EOSINOPHILS RELATIVE PERCENT 5 % (BEAKER) (test code = 432) BASOPHILS RELATIVE PERCENT 0 % (BEAKER) (test code = 437) NEUTROPHILS ABSOLUTE COUNT 2.15 K/ L 1.80-8.00 (BEAKER) (test code = 670) LYMPHOCYTES ABSOLUTE COUNT 0.69 K/ L 1.48-4.50 L (BEAKER) (test code = 414) MONOCYTES ABSOLUTE COUNT (BEAKER) 0.43 K/ L 0.00-1.30 (test code = 415) EOSINOPHILS ABSOLUTE COUNT 0.16 K/ L 0.00-0.50 (BEAKER) (test code = 416) BASOPHILS ABSOLUTE COUNT (BEAKER) 0.01 K/ L 0.00-0.20 (test code = 417) 0.00PROTHROMBIN [id number] 05:38:00 Test Item Value Reference Range Interpretation Comments PROTIME (BEAKER) (test code = 14.2 seconds 11.7-14.7 759) INR (BEAKER) (test code = 370) 1.1 <=5.9 RECOMMENDED COUMADIN/WARFARIN INR THERAPY RANGESSTANDARD DOSE: 2.0 - 3.0 Includes: PROPHYLAXIS forvenous thrombosis, systemic embolization; TREATMENT for venous thrombosis and/or pulmonary embolus.HIGH RISK: Target INR is 2.5-3.5 for patients with mechanical heart valves.URINALYSIS W/ [id number] 14:55:00 Test Item Value Reference Range Interpretation Comments COLOR (BEAKER) (test code Yellow = 470) CLARITY (BEAKER) (test Hazy code = 469) SPECIFIC GRAVITY UA 1.012 1.001-1.035 (BEAKER) (test code = 468) PH UA (BEAKER) (test code 8.0 5.0-8.0 = 467) PROTEIN UA (BEAKER) (test Negative Negative code = 464) GLUCOSE UA (BEAKER) (test Negative Negative code = 365) KETONES UA (BEAKER) (test Negative Negative code = 371) BILIRUBIN UA (BEAKER) Negative Negative (test code = 462) BLOOD UA (BEAKER) (test Negative Negative code = 461) NITRITE UA (BEAKER) (test Negative Negative code = 465) LEUKOCYTE ESTERASE UA Negative Negative (BEAKER) (test code = 466) UROBILINOGEN UA (BEAKER) 6.0 mg/dL 0.2-1.0 H (test code = 463) RBC UA (BEAKER) (test code 1 /HPF = 519) WBC UA (BEAKER) (test code 0 /HPF = 520) SQUAMOUS EPITHELIAL < /HPF (BEAKER) (test code = 516) CRYSTALS, URINE (BEAKER) Few (test code = 1521) AMORPHOUS CRYSTALS Rare (BEAKER) (test code = 1584) SOURCE(BEAKER) (test code Urine, Clean Catch = 2282) [id number] 21:24:00 Test Item Value Reference Range Interpretation Comments MAGNESIUM (BEAKER) (test code = 1.1 mg/dL 1.6-2.6 L 627) BASIC METABOLIC [id number] 21:24:00 Test Item Value Reference Range Interpretation Comments SODIUM (BEAKER) 133 meq/L 136-145 L (test code = 381) POTASSIUM (BEAKER) 4.1 meq/L 3.5-5.1 (test code = 379) CHLORIDE (BEAKER) 96 meq/L 98-107 L (test code = 382) CO2 (BEAKER) (test 30 meq/L 22-29 H code = 355) BLOOD UREA NITROGEN 18 mg/dL 7-21 (BEAKER) (test code = 354) CREATININE (BEAKER) 0.64 mg/dL 0.57-1.25 (test code = 358) GLUCOSE RANDOM 194 mg/dL 70-105 H (BEAKER) (test code = 652) CALCIUM (BEAKER) 9.0 mg/dL 8.4-10.2 (test code = 697) EGFR (BEAKER) (test 121 mL/min/1.73 ESTIM ATED GFR IS code = 1092) sq m NOT ACCURATE CREATININE CLEARANCE IN PREDICTING GLOMERULAR FILTRATION RATE . ESTIMATED GFR I S NOT APPLICABLE FOR DIALYSIS PATIEN TS. VITAMIN B12 AND [id number] 08:41:00 Test Item Value Reference Range Interpretation Comments VITAMIN B12 (BEAKER) (test code = 604 pg/mL 213-816 774) FOLATE (BEAKER) (test code = 362) 9.9 ng/mL >=7.0 Effective 08/21/2014: Folate Reference Range ChangeNew: >=7.0 Previous: >=5.4PERIPHERAL BLOOD SMEAR - HOLD [id number] 08:19:00 Test Item Value Reference Range Interpretation Comments PERIPHERAL SMEAR SAVE (BEAKER) (test saved code = 1815) [id number] 05:49:00 Test Item Value Reference Range Interpretation Comments PROSTATE SPECIFIC ANTIGEN (BEAKER) 5.1 ng/mL 0.0-4.0 H (test code = 844) HIV-1 ANTIGEN WITH HIV-1/2 [id number] 05:49:00 Test Item Value Reference Range Interpretation Comments HIV-1 ANTIGEN WITH HIV 1\\T\\2 Nonreactive Nonreactive ANTIBODY (2) (BEAKER) (test code = 2586) [id number] 05:43:00 Test Item Value Reference Range Interpretation Comments PHOSPHORUS (BEAKER) (test code = 2.9 mg/dL 2.3-4.7 604) [id number] 05:43:00 Test Item Value Reference Range Interpretation Comments MAGNESIUM (BEAKER) (test code = 1.4 mg/dL 1.6-2.6 L 627) BASIC METABOLIC [id number] 05:43:00 Test Item Value Reference Range Interpretation Comments SODIUM (BEAKER) 136 meq/L 136-145 (test code = 381) POTASSIUM (BEAKER) 4.5 meq/L 3.5-5.1 (test code = 379) CHLORIDE (BEAKER) 99 meq/L 98-107 (test code = 382) CO2 (BEAKER) (test 31 meq/L 22-29 H code = 355) BLOOD UREA NITROGEN 21 mg/dL 7-21 (BEAKER) (test code = 354) CREATININE (BEAKER) 0.56 mg/dL 0.57-1.25 L (test code = 358) GLUCOSE RANDOM 97 mg/dL 70-105 (BEAKER) (test code = 652) CALCIUM (BEAKER) 8.7 mg/dL 8.4-10.2 (test code = 697) EGFR (BEAKER) (test 141 mL/min/1.73 ESTIM ATED GFR IS code = 1092) sq m NOT ACCURATE CREATININE CLEARANCE IN PREDICTING GLOMERULAR FILTRATION RATE . ESTIMATED GFR I S NOT APPLICABLE FOR DIALYSIS PATIEN TS. CBC W/PLT COUNT & AUTO [id number] 05:25:00 Test Item Value Reference Range Interpretation Comments WHITE BLOOD CELL COUNT (BEAKER) 3.4 K/ L 4.0-10.0 L (test code = 775) RED BLOOD CELL COUNT (BEAKER) 3.72 M/ L 4.20-5.80 L (test code = 761) HEMOGLOBIN (BEAKER) (test code = 13.4 GM/DL 13.0-16.8 410) HEMATOCRIT (BEAKER) (test code = 38.1 % 40.0-50.0 L 411) MEAN CORPUSCULAR VOLUME (BEAKER) 102.0 fL 82.0-98.0 H (test code = 753) MEAN CORPUSCULAR HEMOGLOBIN 35.9 pg 27.0-33.0 H (BEAKER) (test code = 751) MEAN CORPUSCULAR HEMOGLOBIN CONC 35.1 GM/DL 32.0-36.0 (BEAKER) (test code = 752) RED CELL DISTRIBUTION WIDTH 12.0 % 10.3-14.2 (BEAKER) (test code = 412) PLATELET COUNT (BEAKER) (test code 82 K/CU MM 150-430 L = 756) MEAN PLATELET VOLUME (BEAKER) 8.9 fL 6.5-10.5 (test code = 754) NUCLEATED RED BLOOD CELLS (BEAKER) 0 /100 WBC 0-0 (test code = 413) NEUTROPHILS RELATIVE PERCENT 56 % (BEAKER) (test code = 429) LYMPHOCYTES RELATIVE PERCENT 24 % (BEAKER) (test code = 430) MONOCYTES RELATIVE PERCENT 15 % (BEAKER) (test code = 431) EOSINOPHILS RELATIVE PERCENT 3 % (BEAKER) (test code = 432) BASOPHILS RELATIVE PERCENT 1 % (BEAKER) (test code = 437) NEUTROPHILS ABSOLUTE COUNT 1.92 K/ L 1.80-8.00 (BEAKER) (test code = 670) LYMPHOCYTES ABSOLUTE COUNT 0.81 K/ L 1.48-4.50 L (BEAKER) (test code = 414) MONOCYTES ABSOLUTE COUNT (BEAKER) 0.52 K/ L 0.00-1.30 (test code = 415) EOSINOPHILS ABSOLUTE COUNT 0.12 K/ L 0.00-0.50 (BEAKER) (test code = 416) BASOPHILS ABSOLUTE COUNT (BEAKER) 0.04 K/ L 0.00-0.20 (test code = 417) 0.00PROTEIN ELECTROPHORESIS, [id number] 16:22:00 Test Item Value Reference Range Interpretation Comments ALBUMIN FRACTION 2.7 g/dL 3.5-5.5 L (BEAKER) (test code = 405) ALPHA 1 FRACTION 0.2 g/dL 0.2-0.4 (BEAKER) (test code = 389) ALPHA 2 FRACTION 0.6 g/dL 0.5-0.9 (BEAKER) (test code = 390) BETA FRACTION 0.9 g/dL 0.6-1.1 (BEAKER) (test code = 392) GAMMA GLOBULIN 0.9 g/dL 0.7-1.7 FRACTION (BEAKER) (test code = 391) INTERPRETATION-119 Decreased albumin with (BEAKER) (test code = concurrent relative 2615) nonspecific elevation of alpha and beta globulin fractions. No monoclonal bands detected. [id number] Haritha Bapitste MD (BEAKER) (test code = (electronic signature) 8340) PROTEIN TOTAL SERUM, 5.3 gm/dL 6.0-8.3 L SPEP (BEAKER) (test code = 2660) CBC W/PLT COUNT & AUTO [id number] 13:14:00 Test Item Value Reference Range Interpretation Comments WHITE BLOOD CELL COUNT (BEAKER) 6.1 K/ L 4.0-10.0 (test code = 775) RED BLOOD CELL COUNT (BEAKER) 4.19 M/ L 4.20-5.80 L (test code = 761) HEMOGLOBIN (BEAKER) (test code = 13.8 GM/DL 13.0-16.8 410) HEMATOCRIT (BEAKER) (test code = 42.5 % 40.0-50.0 411) MEAN CORPUSCULAR VOLUME (BEAKER) 101.0 fL 82.0-98.0 H (test code = 753) MEAN CORPUSCULAR HEMOGLOBIN 33.0 pg 27.0-33.0 (BEAKER) (test code = 751) MEAN CORPUSCULAR HEMOGLOBIN CONC 32.5 GM/DL 32.0-36.0 (BEAKER) (test code = 752) RED CELL DISTRIBUTION WIDTH 13.1 % 10.3-14.2 (BEAKER) (test code = 412) PLATELET COUNT (BEAKER) (test 106 K/CU MM 150-430 L code = 756) MEAN PLATELET VOLUME (BEAKER) 8.9 fL 6.5-10.5 (test code = 754) NUCLEATED RED BLOOD CELLS 0 /100 WBC 0-0 (BEAKER) (test code = 413) NEUTROPHILS RELATIVE PERCENT 72 % (BEAKER) (test code = 429) LYMPHOCYTES RELATIVE PERCENT 16 % (BEAKER) (test code = 430) MONOCYTES RELATIVE PERCENT 12 % (BEAKER) (test code = 431) EOSINOPHILS RELATIVE PERCENT 0 % (BEAKER) (test code = 432) BASOPHILS RELATIVE PERCENT 0 % (BEAKER) (test code = 437) NEUTROPHILS ABSOLUTE COUNT 4.39 K/ L 1.80-8.00 (BEAKER) (test code = 670) LYMPHOCYTES ABSOLUTE COUNT 0.95 K/ L 1.48-4.50 L (BEAKER) (test code = 414) MONOCYTES ABSOLUTE COUNT (BEAKER) 0.77 K/ L 0.00-1.30 (test code = 415) EOSINOPHILS ABSOLUTE COUNT 0.02 K/ L 0.00-0.50 (BEAKER) (test code = 416) BASOPHILS ABSOLUTE COUNT (BEAKER) 0.02 K/ L 0.00-0.20 (test code = 417) [id number] 06:18:00 Test Item Value Reference Range Interpretation Comments MAGNESIUM (BEAKER) 1.3 mg/dL 1.6-2.6 L Specimen slightly (test code = 627) hemolyzed [id number] 06:18:00 Test Item Value Reference Range Interpretation Comments PHOSPHORUS (BEAKER) 2.3 mg/dL 2.3-4.7 Specimen slightly (test code = 604) hemolyzed BASIC METABOLIC [id number] 06:18:00 Test Item Value Reference Range Interpretation Comments SODIUM (BEAKER) 133 meq/L 136-145 L (test code = 381) POTASSIUM (BEAKER) 4.5 meq/L 3.5-5.1 Specimen slightly (test code = 379) hemolyzed CHLORIDE (BEAKER) 101 meq/L 98-107 (test code = 382) CO2 (BEAKER) (test 25 meq/L 22-29 code = 355) BLOOD UREA NITROGEN 14 mg/dL 7-21 (BEAKER) (test code = 354) CREATININE (BEAKER) 0.53 mg/dL 0.57-1.25 L Specimen slightly (test code = 358) hemolyzed GLUCOSE RANDOM 97 mg/dL 70-105 (BEAKER) (test code = 652) CALCIUM (BEAKER) 8.4 mg/dL 8.4-10.2 (test code = 697) EGFR (BEAKER) (test 150 mL/min/1.73 ESTIM ATED GFR IS code = 1092) sq m NOT ACCURATE CREATININE CLEARANCE IN PREDICTING GLOMERULAR FILTRATION RATE . ESTIMATED GFR I S NOT APPLICABLE FOR DIALYSIS PATIEN TS. HEPATITIS PANEL, [id number] 14:32:00 Test Item Value Reference Range Interpretation Comments HEPATITIS A IGM ANTIBODY (BEAKER) Nonreactive Nonreactive (test code = 498) HEPATITIS B CORE IGM ANTIBODY Nonreactive Nonreactive (BEAKER) (test code = 645) HEPATITIS C ANTIBODY (BEAKER) Nonreactive Nonreactive (test code = 367) HEPATITIS B SURFACE ANTIGEN (2) Nonreactive Nonreactive (BEAKER) (test code = 2585) [id number] 14:13:00 Test Item Value Reference Range Interpretation Comments FIBRINOGEN LEVEL (BEAKER) (test 282 mg/dl 225-434 code = 658) LACTATE DEHYDROGENASE (LDH)[id number] 14:12:00 Test Item Value Reference Range Interpretation Comments LACTATE DEHYDROGENASE (BEAKER) (test 200 U/L 125-220 code = 635) HEPATIC FUNCTION [id number] 14:12:00 Test Item Value Reference Range Interpretation Comments TOTAL PROTEIN (BEAKER) (test code = 5.6 gm/dL 6.0-8.3 L 770) ALBUMIN (BEAKER) (test code = 1145) 3.1 g/dL 3.5-5.0 L BILIRUBIN TOTAL (BEAKER) (test code 1.4 mg/dL 0.2-1.2 H = 377) BILIRUBIN DIRECT (BEAKER) (test 0.6 mg/dL 0.1-0.5 H code = 706) ALKALINE PHOSPHATASE (BEAKER) (test 72 U/L 40-150 code = 346) AST (SGOT) (BEAKER) (test code = 35 U/L 5-34 H 353) ALT (SGPT) (BEAKER) (test code = 32 U/L 6-55 347) URINE [id number] 10:51:00 Test Item Value Reference Interpretation Comments Range CULTURE (BEAKER) STAPHYLOCOCCUS A >100,000 col/mL (test code = 1095) AUREUS Staphyloc occus aureus Ampicillin (test code = 26) Ciprofloxacin (test code = 7) Clindamycin (test S code = 10) Daptomycin (test code = 59) Erythromycin (test S code = 4) Gentamicin (test code = 18) Gentamicin High Level Synergy (test code = 241) Levofloxacin (test code = 22) Linezolid (test code S = 40) Moxifloxacin (test code = 36) Nitrofurantoin (test S code = 23) Oxacillin (test code S = 14) Rifampin (test code = S 43) Streptomycin High Level Synergy (test code = 242) Tetracycline (test S code = 2) Tigecycline (test code = 133) Trimethoprim + S Sulfamethoxazole (test code = 47) Vancomycin (test code S = 13) CBC W/PLT COUNT & AUTO [id number] 04:34:00 Test Item Value Reference Range Interpretation Comments WHITE BLOOD CELL COUNT (BEAKER) 5.1 K/ L 4.0-10.0 (test code = 775) RED BLOOD CELL COUNT (BEAKER) 4.04 M/ L 4.20-5.80 L (test code = 761) HEMOGLOBIN (BEAKER) (test code = 13.4 GM/DL 13.0-16.8 410) HEMATOCRIT (BEAKER) (test code = 40.3 % 40.0-50.0 411) MEAN CORPUSCULAR VOLUME (BEAKER) 99.9 fL 82.0-98.0 H (test code = 753) MEAN CORPUSCULAR HEMOGLOBIN 33.2 pg 27.0-33.0 H (BEAKER) (test code = 751) MEAN CORPUSCULAR HEMOGLOBIN CONC 33.3 GM/DL 32.0-36.0 (BEAKER) (test code = 752) RED CELL DISTRIBUTION WIDTH 13.4 % 10.3-14.2 (BEAKER) (test code = 412) PLATELET COUNT (BEAKER) (test code 79 K/CU MM 150-430 L = 756) MEAN PLATELET VOLUME (BEAKER) 8.9 fL 6.5-10.5 (test code = 754) NUCLEATED RED BLOOD CELLS (BEAKER) 0 /100 WBC 0-0 (test code = 413) NEUTROPHILS RELATIVE PERCENT 85 % (BEAKER) (test code = 429) LYMPHOCYTES RELATIVE PERCENT 7 % (BEAKER) (test code = 430) MONOCYTES RELATIVE PERCENT 7 % (BEAKER) (test code = 431) EOSINOPHILS RELATIVE PERCENT 0 % (BEAKER) (test code = 432) BASOPHILS RELATIVE PERCENT 0 % (BEAKER) (test code = 437) NEUTROPHILS ABSOLUTE COUNT 4.34 K/ L 1.80-8.00 (BEAKER) (test code = 670) LYMPHOCYTES ABSOLUTE COUNT 0.36 K/ L 1.48-4.50 L (BEAKER) (test code = 414) MONOCYTES ABSOLUTE COUNT (BEAKER) 0.38 K/ L 0.00-1.30 (test code = 415) EOSINOPHILS ABSOLUTE COUNT 0.01 K/ L 0.00-0.50 (BEAKER) (test code = 416) BASOPHILS ABSOLUTE COUNT (BEAKER) 0.01 K/ L 0.00-0.20 (test code = 417) [id number] 04:32:00 Test Item Value Reference Range Interpretation Comments MAGNESIUM (BEAKER) 1.1 mg/dL 1.6-2.6 L Specimen slightly (test code = 627) hemolyzed [id number] 04:32:00 Test Item Value Reference Range Interpretation Comments PHOSPHORUS (BEAKER) 2.6 mg/dL 2.3-4.7 Specimen slightly (test code = 604) hemolyzed BASIC METABOLIC [id number] 04:32:00 Test Item Value Reference Range Interpretation Comments SODIUM (BEAKER) 134 meq/L 136-145 L (test code = 381) POTASSIUM (BEAKER) 4.2 meq/L 3.5-5.1 Specimen slightly (test code = 379) hemolyzed CHLORIDE (BEAKER) 97 meq/L 98-107 L (test code = 382) CO2 (BEAKER) (test 30 meq/L 22-29 H code = 355) BLOOD UREA NITROGEN 14 mg/dL 7-21 (BEAKER) (test code = 354) CREATININE (BEAKER) 0.63 mg/dL 0.57-1.25 Specimen slightly (test code = 358) hemolyzed GLUCOSE RANDOM 145 mg/dL 70-105 H (BEAKER) (test code = 652) CALCIUM (BEAKER) 8.5 mg/dL 8.4-10.2 (test code = 697) EGFR (BEAKER) (test 123 mL/min/1.73 ESTIM ATED GFR IS code = 1092) sq m NOT ACCURATE CREATININE CLEARANCE IN PREDICTING GLOMERULAR FILTRATION RATE . ESTIMATED GFR I S NOT APPLICABLE FOR DIALYSIS PATIEN TS. [id number] 05:03:00 Test Item Value Reference Range Interpretation Comments MAGNESIUM (BEAKER) (test code = 1.1 mg/dL 1.6-2.6 L 627) CBC W/PLT COUNT & AUTO [id number] 18:39:00 Test Item Value Reference Range Interpretation Comments WHITE BLOOD CELL COUNT (BEAKER) 5.6 K/ L 4.0-10.0 (test code = 775) RED BLOOD CELL COUNT (BEAKER) 4.13 M/ L 4.20-5.80 L (test code = 761) HEMOGLOBIN (BEAKER) (test code = 14.7 GM/DL 13.0-16.8 410) HEMATOCRIT (BEAKER) (test code = 41.1 % 40.0-50.0 411) MEAN CORPUSCULAR VOLUME (BEAKER) 99.5 fL 82.0-98.0 H (test code = 753) MEAN CORPUSCULAR HEMOGLOBIN 35.5 pg 27.0-33.0 H (BEAKER) (test code = 751) MEAN CORPUSCULAR HEMOGLOBIN CONC 35.7 GM/DL 32.0-36.0 (BEAKER) (test code = 752) RED CELL DISTRIBUTION WIDTH 11.7 % 10.3-14.2 (BEAKER) (test code = 412) PLATELET COUNT (BEAKER) (test 108 K/CU MM 150-430 L code = 756) MEAN PLATELET VOLUME (BEAKER) 8.2 fL 6.5-10.5 (test code = 754) NUCLEATED RED BLOOD CELLS 0 /100 WBC 0-0 (BEAKER) (test code = 413) NEUTROPHILS RELATIVE PERCENT 81 % (BEAKER) (test code = 429) LYMPHOCYTES RELATIVE PERCENT 11 % (BEAKER) (test code = 430) MONOCYTES RELATIVE PERCENT 8 % (BEAKER) (test code = 431) EOSINOPHILS RELATIVE PERCENT 0 % (BEAKER) (test code = 432) BASOPHILS RELATIVE PERCENT 0 % (BEAKER) (test code = 437) NEUTROPHILS ABSOLUTE COUNT 4.51 K/ L 1.80-8.00 (BEAKER) (test code = 670) LYMPHOCYTES ABSOLUTE COUNT 0.59 K/ L 1.48-4.50 L (BEAKER) (test code = 414) MONOCYTES ABSOLUTE COUNT (BEAKER) 0.43 K/ L 0.00-1.30 (test code = 415) EOSINOPHILS ABSOLUTE COUNT 0.02 K/ L 0.00-0.50 (BEAKER) (test code = 416) BASOPHILS ABSOLUTE COUNT (BEAKER) 0.01 K/ L 0.00-0.20 (test code = 417) 0.00URINALYSIS W/ [id number] 11:52:00 Test Item Value Reference Range Interpretation Comments COLOR (BEAKER) (test code = Yellow 470) CLARITY (BEAKER) (test code = Hazy 469) SPECIFIC GRAVITY UA (BEAKER) 1.013 1.001-1.035 (test code = 468) PH UA (BEAKER) (test code = 7.0 5.0-8.0 467) PROTEIN UA (BEAKER) (test code 20 mg/dL Negative A = 464) GLUCOSE UA (BEAKER) (test code Negative Negative = 365) KETONES UA (BEAKER) (test code Trace Negative A = 371) BILIRUBIN UA (BEAKER) (test Negative Negative code = 462) BLOOD UA (BEAKER) (test code = Negative Negative 461) NITRITE UA (BEAKER) (test code Negative Negative = 465) LEUKOCYTE ESTERASE UA (BEAKER) Small Negative A (test code = 466) UROBILINOGEN UA (BEAKER) (test 2.0 mg/dL 0.2-1.0 H code = 463) RBC UA (BEAKER) (test code = < /HPF 519) WBC UA (BEAKER) (test code = < /HPF 520) BACTERIA (BEAKER) (test code = Occasional 517) AMORPHOUS CRYSTALS (BEAKER) Rare (test code = 1584) SOURCE(BEAKER) (test code = Urine, Voided 4225) CBC W/PLT COUNT & AUTO [id number] 11:13:00 Test Item Value Reference Range Interpretation Comments WHITE BLOOD CELL COUNT (BEAKER) 2.1 K/ L 4.0-10.0 L (test code = 775) RED BLOOD CELL COUNT (BEAKER) 4.69 M/ L 4.20-5.80 (test code = 761) HEMOGLOBIN (BEAKER) (test code = 15.4 GM/DL 13.0-16.8 410) HEMATOCRIT (BEAKER) (test code = 46.1 % 40.0-50.0 411) MEAN CORPUSCULAR VOLUME (BEAKER) 98.3 fL 82.0-98.0 H (test code = 753) MEAN CORPUSCULAR HEMOGLOBIN 32.9 pg 27.0-33.0 (BEAKER) (test code = 751) MEAN CORPUSCULAR HEMOGLOBIN CONC 33.4 GM/DL 32.0-36.0 (BEAKER) (test code = 752) RED CELL DISTRIBUTION WIDTH 13.3 % 10.3-14.2 (BEAKER) (test code = 412) PLATELET COUNT (BEAKER) (test code 85 K/CU MM 150-430 L = 756) MEAN PLATELET VOLUME (BEAKER) 8.9 fL 6.5-10.5 (test code = 754) NUCLEATED RED BLOOD CELLS (BEAKER) 0 /100 WBC 0-0 (test code = 413) NEUTROPHILS RELATIVE PERCENT 82 % (BEAKER) (test code = 429) LYMPHOCYTES RELATIVE PERCENT 14 % (BEAKER) (test code = 430) MONOCYTES RELATIVE PERCENT 3 % (BEAKER) (test code = 431) EOSINOPHILS RELATIVE PERCENT 0 % (BEAKER) (test code = 432) BASOPHILS RELATIVE PERCENT 1 % (BEAKER) (test code = 437) NEUTROPHILS ABSOLUTE COUNT 1.68 K/ L 1.80-8.00 L (BEAKER) (test code = 670) LYMPHOCYTES ABSOLUTE COUNT 0.28 K/ L 1.48-4.50 L (BEAKER) (test code = 414) MONOCYTES ABSOLUTE COUNT (BEAKER) 0.07 K/ L 0.00-1.30 (test code = 415) EOSINOPHILS ABSOLUTE COUNT 0.00 K/ L 0.00-0.50 (BEAKER) (test code = 416) BASOPHILS ABSOLUTE COUNT (BEAKER) 0.02 K/ L 0.00-0.20 (test code = 417) [id number](MANUAL DIFFERENTIAL) 2017-02-27 11:13:00 Test Item Value Reference Range Interpretation Comments TOTAL COUNTED (BEAKER) (test code = 1351) WBC MORPHOLOGY (BEAKER) (test code = Normal 487) PLT MORPHOLOGY (BEAKER) (test code = Normal 486) RBC MORPHOLOGY (BEAKER) (test code = Normal 762) COMPREHENSIVE METABOLIC [id number] 11:03:00 Test Item Value Reference Range Interpretation Comments TOTAL PROTEIN 6.9 gm/dL 6.0-8.3 (BEAKER) (test code = 770) ALBUMIN (BEAKER) 3.8 g/dL 3.5-5.0 (test code = 1145) ALKALINE PHOSPHATASE 87 U/L 40-150 (BEAKER) (test code = 346) BILIRUBIN TOTAL 1.4 mg/dL 0.2-1.2 H (BEAKER) (test code = 377) SODIUM (BEAKER) (test 133 meq/L 136-145 L code = 381) POTASSIUM (BEAKER) 4.7 meq/L 3.5-5.1 (test code = 379) CHLORIDE (BEAKER) 93 meq/L 98-107 L (test code = 382) CO2 (BEAKER) (test 34 meq/L 22-29 H code = 355) BLOOD UREA NITROGEN 12 mg/dL 7-21 (BEAKER) (test code = 354) CREATININE (BEAKER) 0.69 mg/dL 0.57-1.25 (test code = 358) GLUCOSE RANDOM 145 mg/dL 70-105 H (BEAKER) (test code = 652) CALCIUM (BEAKER) 9.5 mg/dL 8.4-10.2 (test code = 697) AST (SGOT) (BEAKER) 56 U/L 5-34 H (test code = 353) ALT (SGPT) (BEAKER) 46 U/L 6-55 (test code = 347) EGFR (BEAKER) (test 111 ESTIMATE D GFR IS code = 1092) mL/min/1.73 sq NOT ACCURA TE m CREATININE CLEARANCE IN PREDICTING GLOMERULAR FILTRATION RATE . ESTIMATED GFR I S NOT APPLICABLE FOR DIALYSIS PATIEN TS. COMPREHENSIVE METABOLIC [id number] 11:03:00 Test Item Value Reference Range Interpretation Comments TOTAL PROTEIN 6.9 gm/dL 6.0-8.3 (BEAKER) (test code = 770) ALBUMIN (BEAKER) 3.8 g/dL 3.5-5.0 (test code = 1145) ALKALINE PHOSPHATASE 86 U/L 40-150 (BEAKER) (test code = 346) BILIRUBIN TOTAL 1.4 mg/dL 0.2-1.2 H (BEAKER) (test code = 377) SODIUM (BEAKER) (test 132 meq/L 136-145 L code = 381) POTASSIUM (BEAKER) 4.5 meq/L 3.5-5.1 (test code = 379) CHLORIDE (BEAKER) 92 meq/L 98-107 L (test code = 382) CO2 (BEAKER) (test 33 meq/L 22-29 H code = 355) BLOOD UREA NITROGEN 12 mg/dL 7-21 (BEAKER) (test code = 354) CREATININE (BEAKER) 0.68 mg/dL 0.57-1.25 (test code = 358) GLUCOSE RANDOM 144 mg/dL 70-105 H (BEAKER) (test code = 652) CALCIUM (BEAKER) 9.5 mg/dL 8.4-10.2 (test code = 697) AST (SGOT) (BEAKER) 55 U/L 5-34 H (test code = 353) ALT (SGPT) (BEAKER) 45 U/L 6-55 (test code = 347) EGFR (BEAKER) (test 113 ESTIMATE D GFR IS code = 1092) mL/min/1.73 sq NOT ACCURA TE m CREATININE CLEARANCE IN PREDICTING GLOMERULAR FILTRATION RATE . ESTIMATED GFR I S NOT APPLICABLE FOR DIALYSIS PATIEN TS. [id number] 10:45:00 Test Item Value Reference Range Interpretation Comments PROTIME (BEAKER) (test code = 14.4 seconds 11.7-14.7 759) INR (BEAKER) (test code = 370) 1.1 <=5.9 PARTIAL THROMBOPLASTIN TIME 28.4 seconds 22.5-36.0 (BEAKER) (test code = 760) RECOMMENDED COUMADIN/WARFARIN INR THERAPY RANGESSTANDARD DOSE: 2.0 - 3.0 Includes: PROPHYLAXIS forvenous thrombosis, systemic embolization; TREATMENT for venous thrombosis and/or pulmonary embolus.HIGH RISK: Target INR is 2.5-3.5 for patients with mechanical heart valves.
[2021-01-03] MEDS ORDERED: IPRATROPIUM BROM 0.5MG/2.5ML ONE (23:45)
[2021-01-03] MEDS ORDERED: LEVALBUTEROL 1.25 MG/3 ML NEB ONE (23:45)
[2021-01-03] MEDS ORDERED: THIAMINE 200 MG/2 ML INJ ONE (23:45)
[2021-01-03] MEDS ORDERED: VANCOMYCIN 1 GM/VIAL ONE (23:45)
[2021-01-03] MEDS ORDERED: NA CHLORIDE 0.9% 250 ML ONE (23:46)
[2021-01-03] MEDS ORDERED: FAMOTIDINE 20 MG/2 ML VIAL IV ONE (23:46)
[2021-01-03] MEDS ORDERED: NA CHLORIDE 0.9% 1,000 ML ONE (23:46)
[2021-01-03] MEDS ORDERED: PIPER/TAZO/NS 3.375gm 3.375 GM/100 ML BAG ONE (23:46)
[2021-01-04] LABS: Protime INR 1.15
[2021-01-04 00:01] LABS: Absolute Lymphocytes (CBC) 0.3 K/uL (0.7-4.9); Basophils % 0.3 % (0-1.3); Hematocrit 37.7 % (39.6-49.0); Lymphocytes % 4.9 % (15.3-44.8); MPV 10.2 fL (7.6-11.3); RBC Red Blood Cell Count 3.96 M/uL (4.33-5.43)
--- NOTE | 2021-01-04 00:31 | ER ---
Nurse's Notes [facility] Juanis Name: Travon Melendez Age: 80 yrs Sex: Male : 1940 Arrival Date: 01/03/2021 Time: 23:15 Bed 2 Private MD: Diagnosis: Dyspnea;Obesity, unspecified;Hypoxemia;Chronic obstructive pulmonary disease with (acute) exacerbation;Hypomagnesemia;Respiratory failure, unspecified with hypercapnia;Acidosis-respiratory Presentation: 01/03 23:17 Chief complaint: EMS states: Pt living alone, initially called for lift assist, but wh when EMS got at the scene Pt with wheezing and SOB. Pt was initially hypotensive as well per EMS. Breathing treatments were given together with solu medrol. Coronavirus screen: Client denies travel out of the [place] in the last 14 days. shortness of breath, Client presents with at least one sign or symptom that may indicate coronavirus-19. Standard/surgical mask placed on the client. Provider contacted for isolation considerations. Ebola Screen: Patient negative for fever greater than or equal to 101.5 degrees Fahrenheit, and additional compatible Ebola Virus Disease symptoms Patient denies exposure to infectious person. Initial Sepsis Screen: Does the patient meet any 2 criteria? RR > 20 per min. HR > 90 bpm. Does the patient have a suspected source of infection? Yes: Productive cough/pneumonia. Risk Assessment: Do you want to hurt yourself or someone else? Patient reports no desire to harm self or others. Onset of symptoms was January 03, 2021. Care prior to arrival: Medication(s) given: Albuterol Neb Atrovent Neb Solumedrol 125 mg IV initiated. 18 GA, in the left antecubital area, Glucose check: 198 Med neb given. Oxygen administered. via nasal cannula. 23:17 Method Of Arrival: EMS: [facility] 23:17 Acuity: EVELYN 3 wh Triage Assessment: 01/04 00:30 Respiratory: Reports shortness of breath Onset: The symptoms/episode began/occurred wh suddenly, the patient has mild shortness of breath. Historical: - Allergies: 01/03 23:21 No Known Allergies; wh - PMHx: 23:21 Hypertension; wh - Immunization history:: Adult Immunizations not up to date. - Social history:: Smoking status: Patient denies any tobacco usage or history of. Screenin:22 Abuse screen: Denies threats or abuse. Denies injuries from another. Nutritional wh screening: No deficits noted. Tuberculosis screening: No symptoms or risk factors identified. Fall Risk Fall in past 12 months (25 points). Assessment: 23:24 General: Appears Behavior is calm, cooperative, appropriate for age. ea 23:24 Pain: Denies pain. Neuro: Level of Consciousness is awake, alert, obeys commands, ea Oriented to person, place, time. Cardiovascular: Patient's skin is warm and dry. Respiratory: Airway is patent Respiratory effort is labored, Respiratory pattern is symmetrical, tachypnea. Derm: Skin is pink, warm \T\ dry. 01/04 00:00 Reassessment: Patient and/or family updated on plan of care and expected duration. Pain ea level reassessed. Patient is alert, oriented x 3, equal unlabored respirations, skin warm/dry/pink. 01:50 Reassessment: Patient and/or family updated on plan of care and expected duration. Pain ea level reassessed. Pt alert and oriented x 3, remains tachypneic but symptoms improved. Vital Signs: 01/03 23:21 BP 182 / 72; Pulse 98; Resp 28; Temp 100.5; Pulse Ox 97% on 2 lpm NC; Weight 111.13 kg; Height 5 ft. 10 in. (177.80 cm); 01/04 01:13 BP 134 / 57; Pulse 100; Resp 26; Pulse Ox 97% ; ea 01:14 Temp 99.7; ea 01:56 BP 106 / 43; Pulse 103; Resp 24; Pulse Ox 91% on 2 lpm NC; 01/03 23:21 Body Mass Index 35.15 (111.13 kg, 177.80 cm) ED Course: 01/03 23:15 Patient arrived in ED. cl3 23:19 Edward Nguyen MD is Attending Physician. heraclio 23:21 Triage completed. 23:23 Patient has correct armband on for positive identification. Placed in gown. Bed in low wh position. Call light in reach. Side rails up X 1. nurse monitoring on. Pulse ox on. NIBP on. 23:24 Diya العراقي RN is Primary Nurse. ea 23:30 Arm band placed on Patient placed in an exam room, on a stretcher, on oxygen, on ea monitoring specialist, on pulse oximetry. 23:40 Inserted saline lock: 20 gauge in left hand, using aseptic technique. ea 23:44 XRAY Chest (1 view) In Process Unspecified. EDOH 01/04 00:30 Felipe Benavides DO is Hospitalizing Provider. heraclio 01:54 No provider procedures requiring assistance completed. Patient admitted, IV remains in wh place. Administered Medications: Discontinued: NS 0.9% 1000 ml IV at 1 bolus Per protocol; 1000 mL bolus 01/03 23:42 Drug: Xopenex 2.5 mg Route: Inhalation; ea 23:42 Drug: AtroVENT Aerosol 0.5 mg Route: Inhalation; ea 23:42 Drug: Thiamine 100 mg Route: IV; Rate: bolus; Site: left hand; ea 01/04 01:58 Follow up: IV Status: Completed infusion ea 01/03 23:43 Drug: Pepcid (famotidine) 20 mg Route: IVP; Site: left hand; ea 01/04 01:57 Follow up: Response: No adverse reaction ea 01/03 23:43 Drug: Zosyn 3.375 grams Route: IVPB; Infused Over: 60 mins; Site: left hand; ea 01/04 00:00 Follow up: IV Status: Completed infusion ea 01/03 23:43 Drug: NS 0.9% 1000 ml Route: IV; Rate: 1 bolus; Site: left hand; ea 01/04 00:25 Drug: Decadron - Dexamethasone 4 mg Route: IVP; Site: left hand; ea 01:57 Follow up: Response: No adverse reaction ea 00:50 Drug: Tylenol 650 mg Route: PO; ea 01:57 Follow up: Response: No adverse reaction ea 01:13 Drug: Magnesium Sulfate 2 grams Route: IVPB; Infused Over: 2 hrs; Site: left hand; ea 01:57 Follow up: IV Status: Completed infusion ea 01:20 Drug: vancoMYCIN 1 grams Route: IVPB; Infused Over: 2 hrs; Site: left hand; ea 01:59 Follow up: Response: No adverse reaction; IV Status: Infusion continued upon transfer ea 01:58 Drug: Lasix (furosemide) 40 mg Route: IVP; Site: left hand; ea 02:06 Follow up: Response: No adverse reaction ea Outcome: 00:31 Decision to Hospitalize by Provider. heraclio 01:56 Admitted to Med/surg accompanied by tech, via stretcher, room 221, with oxygen, with chart, Report called to Suzanne Rothman RN 01:56 Condition: stable 01:56 Instructed on the need for admit. 02:07 Patient left the ED. ea Signatures: Dispatcher [employer] EDEdward Johnson MD MD cha Antunez, Elena RN Edie Foster ea, RN RN wh Lewis, Charde cl3 Corrections: (The following items were deleted from the chart) 00:08 01/03 23:24 General: Appears ea ea 01/04 00:08 04 23:24 Respiratory: Airway is patent Respiratory effort is even, unlabored, ea Respiratory pattern is regular, symmetrical, ea 01/04 01:56 01:55 Respiratory: Reports [facility]
--- NOTE | 2021-01-04 00:32 | EDPHYS ---
Physician Documentation [facility] Name: Travon Melendez Age: 80 yrs Sex: Male : 1940 Arrival Date: 01/03/2021 Time: 23:15 Bed 2 Private MD: ED Physician Edawrd Nguyen HPI: 01/04 00:23 This 80 yrs old Male presents to ER via EMS with complaints of Shortness Of heraclio Breath. 00:23 The patient has shortness of breath at rest. Onset: The symptoms/episode began/occurred heraclio 3 day(s) ago. Duration: The symptoms are continuous, and are steadily getting worse. The patient's shortness of breath is aggravated by coughing, light activity, is alleviated by rest, sitting up, application of supplemental oxygen. Associated signs and symptoms: Pertinent positives: non-productive cough, dizziness, fever, nausea. Severity of symptoms: At their worst the symptoms were moderate in the emergency department the symptoms have improved mildly. The patient has experienced similar episodes in the past, multiple times. Historical: - Allergies: 01/03 23:21 No Known Allergies; wh - PMHx: 23:21 Hypertension; wh - Immunization history:: Adult Immunizations not up to date. - Social history:: Smoking status: Patient denies any tobacco usage or history of. ROS: 01/04 00:25 Eyes: Negative for injury, pain, redness, and discharge, ENT: Negative for injury, heraclio pain, and discharge, Neck: Negative for injury, pain, and swelling, Cardiovascular: Negative for chest pain, palpitations, and edema, Abdomen/GI: Negative for abdominal pain, nausea, vomiting, diarrhea, and constipation, Back: Negative for injury and pain, : Negative for injury, bleeding, discharge, and swelling, Skin: Negative for injury, rash, and discoloration, Neuro: Negative for headache, weakness, numbness, tingling, and seizure, Psych: Negative for depression, anxiety, suicide ideation, homicidal ideation, and hallucinations, Allergy/Immunology: Negative for hives, rash, and allergies, Endocrine: Negative for neck swelling, polydipsia, polyuria, polyphagia, and marked weight changes, Hematologic/Lymphatic: Negative for swollen nodes, abnormal bleeding, and unusual bruising. Constitutional: Positive for body aches, chills, fever, malaise. Respiratory: Positive for cough, shortness of breath, wheezing, inspiratory, expiratory. Abdomen/GI: Negative for abdominal pain. MS/extremity: Positive for pain, swelling, tenderness, warmth, of the right leg and left leg. Exam: 00:25 Constitutional: This is a well developed, well nourished patient who is awake, alert, heraclio and in no acute distress. Head/Face: Normocephalic, atraumatic. Eyes: Pupils equal round and reactive to light, extra-ocular motions intact. Lids and lashes normal. Conjunctiva and sclera are non-icteric and not injected. Cornea within normal limits. Periorbital areas with no swelling, redness, or edema. ENT: Nares patent. No nasal discharge, no septal abnormalities noted. Tympanic membranes are normal and external auditory canals are clear. Oropharynx with no redness, swelling, or masses, exudates, or evidence of obstruction, uvula midline. Mucous membranes moist. Neck: Trachea midline, no thyromegaly or masses palpated, and no cervical lymphadenopathy. Supple, full range of motion without nuchal rigidity, or vertebral point tenderness. No Meningismus. Chest/axilla: Normal chest wall appearance and motion. Nontender with no deformity. No lesions are appreciated. Cardiovascular: Regular rate and rhythm with a normal S1 and S2. No gallops, murmurs, or rubs. Normal PMI, no JVD. No pulse deficits. Abdomen/GI: Soft, non-tender, with normal bowel sounds. No distension or tympany. No guarding or rebound. No evidence of tenderness throughout. Back: No spinal tenderness. No costovertebral tenderness. Full range of motion. Male : Normal genitalia with no discharge or lesions. Skin: Warm, dry with normal turgor. Normal color with no rashes, no lesions, and no evidence of cellulitis. Neuro: Awake and alert, GCS 15, oriented to person, place, time, and situation. Cranial nerves II-XII grossly intact. Motor strength 5/5 in all extremities. Sensory grossly intact. Cerebellar exam normal. Normal gait. Psych: Awake, alert, with orientation to person, place and time. Behavior, mood, and affect are within normal limits. 00:25 ECG was reviewed by the Attending Physician. 00:25 Respiratory: mild respiratory distress is noted, Respirations: labored breathing, that is mild, Breath sounds: bronchial sounds, decreased breath sounds, rhonchi, wheezing: inspiratory expiratory Respiratory rate: 28 Vital Signs: 01/03 23:21 BP 182 / 72; Pulse 98; Resp 28; Temp 100.5; Pulse Ox 97% on 2 lpm NC; Weight 111.13 kg; Height 5 ft. 10 in. (177.80 cm); 01/04 01:13 BP 134 / 57; Pulse 100; Resp 26; Pulse Ox 97% ; ea 01:14 Temp 99.7; ea 01:56 BP 106 / 43; Pulse 103; Resp 24; Pulse Ox 91% on 2 lpm NC; 01/03 23:21 Body Mass Index 35.15 (111.13 kg, 177.80 cm) wh MDM: 01/03 23:19 Patient medically screened. [facility] 01/04 00:27 Differential diagnosis: asthma, Bronchitis CHF exacerbation, Chronic Obstructive heraclio Pulmonary Disease bronchitis, flu, pneumonia, pulmonary edema, Pulmonary Embolism reactive airway disease, Sepsis. Antibiotic administration: zosyn, vancomycin. The patient's Wells Deep Vein Thrombosis Score was calculated as follows: Imm/Surg in last 4 wks (1.5 Pts) Total Score: 0-2 Pts- Low Risk. The patient's pulmonary embolism risk score was calculated as follows: patient has experienced immobilization or surgery in the last four weeks (1.5 Pts) Total Score: 0-2 points. This patient was found to be at low risk for a pulmonary embolism by using the Well's assessment criteria. Immunization status: Pneumococcal vaccine: Not up to date Influenza vaccine: Not up to date. Data reviewed: vital signs, nurses notes, lab test result(s), EKG, radiologic studies, plain films. Data interpreted: research and development specialist: rate is 98 beats/min, rhythm is regular, Pulse oximetry: on room air is 97 %. Test interpretation: by ED physician or midlevel provider: ECG, plain radiologic studies. Counseling: I had a detailed discussion with the patient and/or guardian regarding: the historical points, exam findings, and any diagnostic results supporting the discharge/admit diagnosis, lab results, radiology results, the need for further work-up and treatment in the hospital. 01/03 23:23 Order name: Basic Metabolic Panel [facility] 01/03 23:23 Order name: CBC with Diff [facility] 04/02 23:23 Order name: LFT's [facility] 01/03 23:23 Order name: Magnesium [facility] 01/03 23:23 Order name: NT PRO-BNP [facility] 01/03 23:23 Order name: PT-INR [facility] 01/03 23:23 Order name: Troponin (emerg Dept Use Only) [facility] 01/03 23:23 Order name: Blood Culture Adult (2) [facility] 01/03 23:23 Order name: Lactate; Complete Time: 00:23 [facility] 01/03 23:23 Order name: Urine Culture [facility] 01/03 23:24 Order name: Basic Metabolic Panel; Complete Time: 01:04 EDMS 01/03 23:24 Order name: CBC with Automated Diff; Complete Time: 00:23 EDMS 01/03 23:23 Order name: XRAY Chest (1 view) [facility] 01/03 23:24 Order name: Liver (Hepatic) Function; Complete Time: 01:04 EDMS 01/03 23:24 Order name: Magnesium; Complete Time: 01:04 EDTN 01/03 23:24 Order name: NT PRO-BNP; Complete Time: 01:04 EDTN 01/03 23:24 Order name: Protime (+INR); Complete Time: 00:23 EDMS 01/03 23:24 Order name: Troponin (Emerg Dept Use Only); Complete Time: 01:04 EDTN 01/04 00:58 Order name: COVID-19/FLU A+B; Complete Time: 01:04 EDTN 01/04 01:35 Order name: ABG la1 01/04 01:40 Order name: Procalcitonin [facility] 01/04 01:41 Order name: Procalcitonin [facility] 01/03 23:23 Order name: EKG; Complete Time: 23:24 [facility] 01/03 23:23 Order name: Cardiac monitoring; Complete Time: 23:53 [facility] 01/03 23:23 Order name: EKG - Nurse/Tech; Complete Time: 23:53 [facility] 01/03 23:23 Order name: IV Saline Lock; Complete Time: 23:53 [facility] 01/03 23:23 Order name: Labs collected and sent; Complete Time: 23:53 [facility] 01/03 23:23 Order name: O2 Per Protocol; Complete Time: 23:53 [facility] 01/03 23:23 Order name: O2 Sat Monitoring; Complete Time: 23:53 [facility] 01/03 23:58 Order name: IV Saline Lock - Large Bore; Complete Time: 00:05 heraclio EC:25 Rate is 102 beats/min. QRS [place] is Normal. SD interval is normal. QRS interval is heraclio normal. QT interval is normal. No Q waves. T waves are Normal. No ST changes noted. Clinical impression: Abnormal EKG without significant change and No evidence of ischemia. Interpreted by me. Reviewed by me. Administered Medications: Discontinued: NS 0.9% 1000 ml IV at 1 bolus Per protocol; 1000 mL bolus 01/03 23:42 Drug: Xopenex 2.5 mg Route: Inhalation; ea 23:42 Drug: AtroVENT Aerosol 0.5 mg Route: Inhalation; ea 23:42 Drug: Thiamine 100 mg Route: IV; Rate: bolus; Site: left hand; ea 01/04 01:58 Follow up: IV Status: Completed infusion ea 01/03 23:43 Drug: Pepcid (famotidine) 20 mg Route: IVP; Site: left hand; ea 01/04 01:57 Follow up: Response: No adverse reaction ea 01/03 23:43 Drug: Zosyn 3.375 grams Route: IVPB; Infused Over: 60 mins; Site: left hand; ea 01/04 00:00 Follow up: IV Status: Completed infusion ea 01/03 23:43 Drug: NS 0.9% 1000 ml Route: IV; Rate: 1 bolus; Site: left hand; ea 01/04 00:25 Drug: Decadron - Dexamethasone 4 mg Route: IVP; Site: left hand; ea 01:57 Follow up: Response: No adverse reaction ea 00:50 Drug: Tylenol 650 mg Route: PO; ea 01:57 Follow up: Response: No adverse reaction ea 01:13 Drug: Magnesium Sulfate 2 grams Route: IVPB; Infused Over: 2 hrs; Site: left hand; ea 01:57 Follow up: IV Status: Completed infusion ea 01:20 Drug: vancoMYCIN 1 grams Route: IVPB; Infused Over: 2 hrs; Site: left hand; ea 01:59 Follow up: Response: No adverse reaction; IV Status: Infusion continued upon transfer ea 01:58 Drug: Lasix (furosemide) 40 mg Route: IVP; Site: left hand; ea 02:06 Follow up: Response: No adverse reaction ea Disposition: 01/04/21 00:31 Hospitalization ordered by Felipe Benavides for Inpatient Admission. Preliminary diagnosis are Dyspnea, Obesity, unspecified, Hypoxemia, Chronic obstructive pulmonary disease with (acute) exacerbation, Hypomagnesemia, Respiratory failure, unspecified with hypercapnia, Acidosis - respiratory. - Bed requested for Telemetry/MedSurg (Inpatient). - Status is Inpatient Admission. ea - Condition is Fair. - Problem is new. - Symptoms have worsened. Signatures: Dispatcher [employer] [facility] Edward Nguyen MD MD cha Attema, Lee, LEGAL FILE CLERK-C LEGAL FILE [id number] Page Olvera, RN RN Diya Macedo RN RN ea Habalo, Winsy, RN RN Corrections: (The following items were deleted from the chart) 00:08 01/03 23:24 Influenza Screen (A \T\ B)+BA.LAB.BRZ ordered. [facility] 01/04 00:08 01/03 23:24 CORONAVIRUS+MR.LAB.BRZ ordered. [facility] 01/04 01:05 00:31 Hospitalization Ordered by Felipe Benavides DO for Inpatient Admission. Preliminary [facility] diagnosis is Dyspnea; Obesity, unspecified; Hypoxemia; Chronic obstructive pulmonary disease with (acute) exacerbation. Bed requested for Telemetry/MedSurg (Inpatient). Status is Inpatient Admission. Condition is Fair. Problem is new. Symptoms have worsened. [facility] 01:44 01:05 01/04/2021 00:31 Hospitalization Ordered by Felipe Benavides DO for Inpatient cg Admission. Preliminary diagnosis is Dyspnea; Obesity, unspecified; Hypoxemia; Chronic obstructive pulmonary disease with (acute) exacerbation; Hypomagnesemia. Bed requested for Telemetry/MedSurg (Inpatient). Status is Inpatient Admission. Condition is Fair. Problem is new. Symptoms have worsened. [facility] 01:57 01:44 01/04/2021 00:31 Hospitalization Ordered by Felipe Benavides DO for Inpatient heraclio Admission. Preliminary diagnosis is Dyspnea; Obesity, unspecified; Hypoxemia; Chronic obstructive pulmonary disease with (acute) exacerbation; Hypomagnesemia. Bed requested for Telemetry/MedSurg (Inpatient). Status is Inpatient Admission. Condition is Fair. Problem is new. Symptoms have worsened. 01:57 01:57 01/04/2021 00:31 Hospitalization Ordered by Felipe Benavides DO for Inpatient heraclio Admission. Preliminary diagnosis is Dyspnea; Obesity, unspecified; Hypoxemia; Chronic obstructive pulmonary disease with (acute) exacerbation; Hypomagnesemia; Respiratory failure, unspecified with hypercapnia. Bed requested for Telemetry/MedSurg (Inpatient). Status is Inpatient Admission. Condition is Fair. Problem is new. Symptoms have worsened. heraclio 02:07 01:57 01/04/2021 00:31 Hospitalization Ordered by Felipe Benavides DO for Inpatient ea Admission. Preliminary diagnosis is Dyspnea; Obesity, unspecified; Hypoxemia; Chronic obstructive pulmonary disease with (acute) exacerbation; Hypomagnesemia; Respiratory failure, unspecified with hypercapnia; Acidosis - respiratory. Bed requested for Telemetry/MedSurg (Inpatient). Status is Inpatient Admission. Condition is Fair. Problem is new. Symptoms have worsened. heraclio
[2021-01-04 00:38] LABS: ALT/SGPT 21 U/L (12-78); AST/SGOT 32 U/L (15-37); Albumin 3.7 g/dL (3.4-5.0); Alkaline Phosphatase 69 U/L (45-117); BUN Blood Urea Nitrogen 13 mg/dL (7-18); Bicarbonate 30 mmol/L (21-32); Bilirubin Direct 0.5 mg/dL (0-0.2); Bilirubin Total 1.6 mg/dL (0.2-1.0); Glucose Level 172 mg/dL (74-106); NT PRO-BNP 276 pg/mL (<450); Potassium 4.1 mmol/L (3.5-5.1); Protein, Total 7.1 g/dL (6.4-8.2); Sodium Level 131 mmol/L (136-145); Troponin (Emerg Dept Use Only) < 0.02 ng/mL (0.0-0.045)
[2021-01-04] MEDS ORDERED: dexAMETHasone 4 MG/ML VIAL ONE (00:38)
[2021-01-04 00:40] LABS: Magnesium 1.2 mg/dL (1.8-2.4)
[2021-01-04 00:57] LABS: SARS-COV-2 RT PCR NEGATIVE (NEGATIVE)
[2021-01-04] MEDS ORDERED: Magnesium Sulfate 2gm IVPB 2 G/50 ML BAG IV ONE ×2 (01:26→09:00)
[2021-01-04 01:53] LABS: Arterial Blood Carboxyhemoglob 1.5 % (0-1.5); Blood Gas Oxyhemoglobin 94.2 % (94-97); Blood O2 Saturation 96.6 % (92-98.5)
--- NOTE | 2021-01-04 02:01 | P.HP ---
Certification for Inpatient Patient admitted to: Inpatient With expected LOS: >2 Midnights Patient will require the following post-hospital care: Home Health Services Practitioner: I am a practitioner with admitting privileges, knowledge of patient current condition, hospital course, and medical plan of care. Services: Services provided to patient in accordance with Admission requirements found in Title 42 Section 412.3 of the Code of Federal Regulations Patient History Date of Service: 01/04/21 Primary Care Provider: none Reason for admission: COPD exacerbation History of Present Illness: 80-year-old male with history of hypertension, tobacco abuse not currently taking any home medications presents emergency department for shortness of breath. Patient had fallen at home and call for lift assist but upon arrival of EMS patient was significantly short of breath, wheezing. Patient was transferred to the emergency department for evaluation. Patient reports that he lives alone, uses a walker to get around but I cannot get up to the shower so he has been using a wash cloth 2 days but is unable to bathe the completion of his lower extremities. Patient evaluated in the emergency department found to have significant expiratory wheezing, hypoxic in the high 80s on room air, patient given nebs, magnesium, steroids, antibiotics. Patient also noted to have pitting edema to bilateral lower extremities given Lasix. Patient very unkempt, smells of urine lower extremities very dirty. Labs in the ER significant for sodium 131, glucose 172 lactic acid 2.6 magnesium 1 point to white blood count 6.8 hemoglobin 12.7 hematocrit 37.7 COVID negative, chest x- ray suggest volume overload pattern. Patient still wheezing after treatments, ED provider wishes to admit for further evaluation and management. Allergies No Known Allergies Allergy (Verified 06/24/15 08:04) Home Medications: Multivit,Ther Iron,Ca,FA & Min [Centrum Tablet] 1 tab PO DAILY 06/23/15 Hydrocodone 7.5/APAP 325 [[place] 7.5/325 mg*] 1 tab PO Q4HP PRN #30 tab 06/25/15 Minocycline HCl [Minocin] 100 mg PO BID #20 capsule 06/25/15 Mupirocin Oint [Bactroban 2% Ointment] 22 appl TOP BID #1 tube 06/25/15 Smz./Tmp. [Bactrim Ds 800 MG/160 MG] 1 tab PO BID #20 tab 06/25/15 - Past Medical/Surgical History Diabetic: No -: Hypertension -: Suspected COPD history of tobacco abuse -: left ankle 2x Psychosocial/ Personal History: Patient is retired, lives alone - Family History Mother -: Other (see notes) Notes: parkinsons - Social History Smoking Status: Former smoker Alcohol use: Yes CD- Drugs: No Caffeine use: No Place of Residence: Home Review of Systems 10-point ROS is otherwise unremarkable General: Fever, Weakness, Malaise Respiratory: Shortness of Breath, SOB with Excertion Musculoskeletal: Pedal edema Physical Examination - Physical Exam General: Alert, In no apparent distress, Oriented x3, Obese, Other (Unkempt) HEENT: Atraumatic, Normocephalic, Mucous membr. moist/pink Neck: Supple Respiratory: Diminished, Crackles/rales, Expiratory wheezes Cardiovascular: Normal S1 S2, No murmurs, Edema (2+ pitting edema bilateral lower extremities) Capillary refill: <2 Seconds Gastrointestinal: Normal bowel sounds, No tenderness, No masses, No rebound Musculoskeletal: No contractures, No erythema, No tenderness Integumentary: Other (Bilateral lower extremities very dirty, stained with what appears to be a urine/fecal matter) Neurological: Normal strength at 5/5 x4 extr, Normal tone, Sensation intact Lymphatics: No axilla or inguinal lymphadenopathy Urinary: Martinez catheter - Studies Laboratory Data (last 24 hrs) 01/03/21 23:28: PT 13.3 H, INR 1.15 01/03/21 23:28: WBC 6.80, Hgb 12.7 L, Hct 37.7 L, Plt Count 73 L 01/03/21 23:28: Sodium 131 L, Potassium 4.1, BUN 13, Creatinine 0.61, Glucose 172 H, Magnesium 1.2 L*, Total Bilirubin 1.6 H, AST 32, ALT 21, Alkaline Phosphatase 69 Assessment and Plan - Plan Assessment Dyspnea, hypoxia secondary to COPD with exacerbation Peripheral edema suspect underlying diastolic dysfunction Hypomagnesemia Weakness, obesity, debility Chronic alcohol abuse Hypertension Hyperglycemia-not a known diabetic Plan Dyspnea, hypoxia secondary to COPD with exacerbation: Continue with IV steroids, scheduled nebs, inhaler. Patient with elevated lactic acid, fever possible pneumonia versus cellulitis, continue with Levaquin/vancomycin at this time. Pro calcitonin pending, ABG pending. Chest x-ray appears to suggest volume overload pending official read from radiology, patient still with expiratory wheezing and requiring oxygen. DVT prophylaxis Lovenox 40 mg subcutaneous once daily. Peripheral edema suspect underlying diastolic dysfunction: No previous echo available for review, patient has not seen physician in a long time, noted to have 2+ pitting edema bilateral lower extremities, will continue with cardiology consult, 1500 cc per day fluid restriction, daily weights. Lasix 40 mg IV b.i.d.. Appreciate further input from cardiology. DVT study pending. Hypomagnesemia: Magnesium protocol in place. Weakness, obesity, debility: Physical therapy consult in place, patient will likely need home health at discharge, does not wish for skilled placement. administrative services assistant consulted. Chronic alcohol abuse: Patient reports drinking half a bottle of wine and 2 16 ounce beers per day, will monitor patient for signs of withdrawal, p.r.n. Ativan. Hypertension: Patient was reportedly hypotensive upon EMS arrival but upon arrival to the ED patient was hypertensive, will monitor blood pressure and provide medication as necessary. Patient not currently taking any medications at home. Hyperglycemia-not a known diabetic: A1c with morning labs. Discharge Plan: Home Plan to discharge in: Greater than 2 days - Advance Directives Does patient have a Living Will: No Does patient have a Durable POA for Healthcare: Yes - Code Status/Comfort Care Code Status Assessed: Yes (Full code) Critical Care: No Time Spent Managing Pts Care (In Minutes): 55
[2021-01-04] MEDS ORDERED: FUROSEMIDE 40 MG/4 ML VIAL ONE (02:06)
[2021-01-04] MEDS ORDERED: LORazepam 2 MG/ML VIAL IV PRN ×2 (03:10→08:14)
[2021-01-04] MEDS ORDERED: Levofloxacin500mg IV 500 MG/100 ML BAG IV SCH (03:10)
[2021-01-04] MEDS ORDERED: VANCOMYCIN/NS 1 gm 1 GM/250 ML BAG IVPB SCH (03:10)
[2021-01-04] MEDS ORDERED: ONDANSETRON 4 MG/2 ML VIAL IV PRN (03:10)
[2021-01-04] MEDS ORDERED: ACETAMINOPHEN 500 MG TAB PO PRN (03:10)
[2021-01-04 03:51] LABS: Absolute Lymphocytes (CBC) 0.1 K/uL (0.7-4.9); Basophils % 0.3 % (0-1.3); Hematocrit 37.3 % (39.6-49.0); Lymphocytes % 1.6 % (15.3-44.8); MPV 9.8 fL (7.6-11.3); RBC Red Blood Cell Count 3.94 M/uL (4.33-5.43)
[2021-01-04] MEDS ORDERED: NA CHLORIDE 0.9% 250 ML ONE ×2 (03:52→04:04)
[2021-01-04] MEDS ORDERED: VANCOMYCIN 1 GM/VIAL ONE (04:00)
[2021-01-04] MEDS ORDERED: VANCOMYCIN/NS 1 gm 1 GM/250 ML BAG IVPB ONE (04:00)
[2021-01-04 04:14] LABS: ALT/SGPT 21 U/L (12-78); AST/SGOT 30 U/L (15-37); Albumin 3.5 g/dL (3.4-5.0); Alkaline Phosphatase 60 U/L (45-117); BUN Blood Urea Nitrogen 12 mg/dL (7-18); Bicarbonate 30 mmol/L (21-32); Bilirubin Total 1.7 mg/dL (0.2-1.0); Glucose Level 218 mg/dL (74-106); HDL Cholesterol 90 mg/dL (40-60); LDL Cholesterol, Calculated 58 (<130); Magnesium 1.5 mg/dL (1.8-2.4); Potassium 3.2 mmol/L (3.5-5.1); Protein, Total 6.8 g/dL (6.4-8.2); Sodium Level 133 mmol/L (136-145)
[2021-01-04 04:28] VITALS: BMI 39.0
[2021-01-04] MEDS: ALBUTEROL 2.5 MG/3 ML NEB SOL NEB SCH ×2 (04:30→07:56)
[2021-01-04] MEDS: IPRATROPIUM BROM 0.5MG/2.5ML NEB SCH ×2 (04:30→07:56)
--- NOTE | 2021-01-04 08:10 | P.PN ---
Subjective Date of Service: 01/04/21 Primary Care Provider: none Chief Complaint: COPD exacerbation Subjective: Other (Patient reports improvement. Stable on 4 L per nasal cannula. Patient appears disheveled and not well-kept.) Physical Examination - Vital Signs Temperature: 98.2 F Blood Pressure: 151/65 Pulse: 92 Respirations: 19 Pulse Ox (%): 95 - Studies Laboratory Data (last 24 hrs) 01/03/21 23:28: PT 13.3 H, INR 1.15 01/03/21 23:28: WBC 6.80, Hgb 12.7 L, Hct 37.7 L, Plt Count 73 L 01/03/21 23:28: Sodium 131 L, Potassium 4.1, BUN 13, Creatinine 0.61, Glucose 172 H, Magnesium 1.2 L*, Total Bilirubin 1.6 H, AST 32, ALT 21, Alkaline Phosphatase 69 Assessment & Plan Discharge Plan: Home (with HH/PT) Plan to discharge in: Greater than 2 days Physician Review Additional Text: Physical exam: Patient alert, cooperative. Patient not well kept and disheveled. Patient lives alone at home. Heart: Regular rate and rhythm Lungs: Some crackles to the bases with wheezing bilateral Abdomen: Patient obese. Soft, nontender Extremities: Patient not well kept. Mild erythema to the right lower extremity. Some edema noted bilateral. Poor foot care. Assessment Dyspnea, hypoxia secondary to COPD exacerbation complicated with likely acute on chronic diastolic CHF Peripheral edema suspect secondary to acute on chronic diastolic CHF Right lower extremity cellulitis with poor foot care hypomagnesemia Weakness, obesityBMI 39, debility Chronic alcohol abuse Hypertension Hyperglycemia likely related to steroids Thrombocytopenia suspect underlying chronic alcoholic cirrhosis Suspect underlying obstructive sleep apnea Plan Dyspnea, hypoxia secondary to COPD exacerbation complicated with likely acute on chronic diastolic CHF: Patient currently on 4 L per nasal cannula. Continue COPD medication including IV steroids and nebulizer. Continue to wean off oxygen. We will continue with IV Levaquin and vancomycin to cover for cellulitis. Pulmonology consulted to further evaluate. Await recommendation. We will also provide IV Lasix as CHF is suspected. Echocardiogram ordered. Cardiology consulted. Patient may also have underlying chronic alcoholic cirrhosis. Will need to monitor for alcohol withdrawal. DVT prophylaxis changed to SCD due to low platelets. Liver ultrasound to be obtained. We will continue to monitor patient closely. Physical therapy occupational therapy to evaluate ambulation. Patient would benefit with home health and physical therapy at discharge. Patient agrees. Will have psych social worker arrange at discharge. Patient also needs PCP at discharge. Will have social work help with this. Patient may have underlying obstructive sleep apnea. Patient should have sleep study to be done as an outpatient. Continue to wean off oxygen. Continue to monitor closely. Anticipate improvement over the next 72 hours. Peripheral edema suspect secondary to acute on chronic diastolic CHF: Continue IV Lasix. Will obtain echocardiogram. Venous Doppler pending. Cardiology consulted. Will teach on 1500 cc/day fluid restriction. Will monitor weight daily. Strict input and output. Right lower extremity cellulitis with poor foot care: Continue IV Levaquin and vancomycin. Will monitor closely. Consult Wound care to address and treat wound. Hypomagnesemia: Magnesium protocol in place. Weakness, obesityBMI 39, debility: Physical therapy and occupational therapy to be consulted. Await recommendation. Social work to help with home health and physical therapy at discharge. Chronic alcohol abuse: Patient admits alcohol use. Will monitor for alcohol withdrawal. Continue thiamine and folic acid. Will monitor closely. Hypertension: Review home medication. Will start low-dose AGUSTIN inhibitor. Hyperglycemia likely related to steroids: A1c 5.4. Will monitor lab closely. May need to check Accu-Cheks. Sliding scale may be required. Thrombocytopenia suspect underlying chronic alcoholic cirrhosis: We will monitor lab closely. Liver ultrasound to be obtained. Suspect underlying obstructive sleep apnea: Would benefit with sleep study as an outpatient. Time Spent Managing Pts Care (In Minutes): 55
[2021-01-04] MEDS ORDERED: IPRATROPIUM BROM 0.5MG/2.5ML NEB PRN (08:14)
[2021-01-04] MEDS ORDERED: ALBUTEROL 2.5 MG/3 ML NEB SOL NEB PRN (08:14)
[2021-01-04] MEDS ORDERED: FUROSEMIDE 40 MG/4 ML VIAL IV SCH (09:00)
[2021-01-04] MEDS: FAMOTIDINE 20 MG TAB PO SCH ×3 (09:00→21:07)
[2021-01-04] MEDS: THIAMINE HCL 100 MG TABLET PO SCH (09:00)
[2021-01-04] MEDS ORDERED: DULERA 100/5 (MOMETASONE/FORMOTEROL) INHALER IH SCH ×2 (09:00)
[2021-01-04] MEDS ORDERED: METHYLPREDNISOLONE 125 MG INJ IV SCH (09:00)
[2021-01-04] MEDS: lisinopriL 5 MG TAB PO SCH ×3 (09:00→21:06)
[2021-01-04] MEDS ORDERED: ENOXAPARIN 40 MG/0.4 ML SQ SCH (09:00)
[2021-01-04] MEDS: FOLIC ACID 1 MG TABLET PO SCH ×2 (09:00→11:41)
[2021-01-04] MEDS: POTASSIUM CL SA 10 MEQ TAB PO ONE ×2 (09:00→11:42)
[2021-01-04 09:52] LABS: Ferritin 46.8 ng/mL (26-388)
[2021-01-04 10:40] LABS: Barbiturates NEGATIVE (NEGATIVE); Benzodiazepines NEGATIVE (NEGATIVE); Cocaine NEGATIVE (NEGATIVE); METHAMPHETAM NEGATIVE (NEGATIVE); Methadone NEGATIVE (NEGATIVE); Opiates NEGATIVE (NEGATIVE); Phencyclidine NEGATIVE (NEGATIVE); THC Cannibis NEGATIVE (NEGATIVE)
--- NOTE | 2021-01-04 11:00 | RAD REPORT ---
EXAM DESCRIPTION: USExtrem Venous W Compress Bil01/04/2021 10:38 am CLINICAL HISTORY: Leg swelling COMPARISON: none FINDINGS: The common femoral, superficial femoral, popliteal and posterior tibial veins bilaterally are compressible and demonstrate augmentation. Doppler demonstrates good flow. IMPRESSION: No evidence of deep venous thrombosis involving either lower extremity.
--- NOTE | 2021-01-04 11:01 | RAD REPORT ---
EXAM DESCRIPTION: US - Abdomen Exam Limited - 01/04/2021 10:38 am CLINICAL HISTORY: Abdominal pain. COMPARISON: None. FINDINGS: 2.3 centimeter stone is present within the neck the gallbladder. The gallbladder wall is thickened. The common bile duct is upper limits normal caliber IMPRESSION: Cholelithiasis. Thickened gallbladder wall suspicious for cholecystitis
[2021-01-04] MEDS ORDERED: PNEUMOCOCCAL VACCINE 0.5 ML IMVAC ONE (12:00)
--- NOTE | 2021-01-04 12:00 | P.CNS ---
Date of Consult: 01/04/21 Primary Care Provider: none Chief Complaint: COPD exacerbation History of Present Illness: Patient is 80 years of age was admitted with a fall he is an alcoholic active smoker has a history of COPD does not see any doctor at leave is taking some lisinopril as not take any bronchodilators at home admitted with hypokalemia of toxemia the doing better Allergies No Known Allergies Allergy (Verified 06/24/15 08:04) Home Medications: NK [No Home Meds] 01/04/21 - Past Medical/Surgical History Diabetic: No -: Hypertension -: Suspected COPD history of tobacco abuse -: left ankle 2x Psychosocial/ Personal History: Patient is retired, lives alone - Family History Mother Medical History: Other (see notes) Notes: parkinsons - Social History Alcohol use: Yes CD- Drugs: No Caffeine use: No Place of Residence: Home Review of Systems 10-point ROS is otherwise unremarkable General: Weakness Respiratory: Shortness of Breath Physical Examination Temp Pulse Resp BP Pulse Ox 98.2 F 92 H 19 151/65 H 95 01/04/21 08:19 01/04/21 11:41 01/04/21 08:19 01/04/21 11:41 01/04/21 08:19 General: Alert, In no apparent distress, Oriented x3 Respiratory: Expiratory wheezes Cardiovascular: Edema Gastrointestinal: Normal bowel sounds, Soft and benign Laboratory Data (last 24 hrs) 01/03/21 23:28: PT 13.3 H, INR 1.15 01/03/21 23:28: WBC 6.80, Hgb 12.7 L, Hct 37.7 L, Plt Count 73 L 01/03/21 23:28: Sodium 131 L, Potassium 4.1, BUN 13, Creatinine 0.61, Glucose 172 H, Magnesium 1.2 L*, Total Bilirubin 1.6 H, AST 32, ALT 21, Alkaline Phosphatase 69 - Problems (1) COPD exacerbation Current Visit: Yes Status: Acute Plan: Patient is 80 years of age very and Chem man was on alcoholic history of COPD admitted with a fall exacerbation change him over to p.o. prednisone he will benefit from a long-acting bronchodilator also a may qualify for home oxygen Juan has underlying cirrhosis patient is thrombocytopenic ultrasound shows cirrhosis patient is also hypokalemia
[2021-01-04] MEDS: SPIRONOLACTONE 25 MG TABLET PO SCH (13:44)
--- NOTE | 2021-01-04 14:16 | RAD REPORT ---
EXAM DESCRIPTION: RAD - Chest Single View - 01/03/2021 11:44 pm CLINICAL HISTORY: 80 years, Male, Cough;COPD COMPARISON: None FINDINGS: Single view of the chest was obtained portable. No prior films are available for compariso n. There is mild hyperinflation. The cardiomediastinal silhouette demonstrate to be unremarkable. The heart is not enlarged. The thoracic aorta is mildly tortuous with intimal calcification. Minimal reticulonodular densities throughout the lungs could suggest the possibility of chronic lung changes . There is deformity of the superior lateral left ribs corresponding to old left rib fractures. No si gnificant pleural effusions is/or focal areas of consolidation. The rest of the soft tissue and bony structures demonstrate to be unremarkable. IMPRESSION: Chronic lung changes. No focal areas of acute airspace disease. Electronically signed by: Vinay Herndon MD 01/04/2021 2:07 AM CDT Due to temporary technical issues with the PACS/Fluency reporting system, reports are being signed by the in house radiologists without review as a courtesy to insure prompt reporting. The interpreting radiologist is fully responsible for the content of the report.
[2021-01-04 17:49] LABS: Magnesium 1.8 mg/dL (1.8-2.4); Potassium 3.5 mmol/L (3.5-5.1)
[2021-01-04] MEDS ORDERED: ARFORMOTEROL TARTRATE 15 MCG/2 ML VIAL.NEB NEB SCH (20:00)
[2021-01-04] MEDS: DULERA 200/5 (MOMETASONE/FORMOTEROL) INHALER IH SCH (21:00)
[2021-01-04] MEDS: predniSONE 20 MG TAB PO SCH (21:07)
[2021-01-04] MEDS: DOXYCYCLINE 100 MG CAP PO SCH (21:07)
[2021-01-04] MEDS ORDERED: VANCOMYCIN 2 GM in NA CHLORIDE 0.9% 500 ML IVPB SCH (22:00)
[2021-01-05 06:41] LABS: Absolute Lymphocytes (CBC) 0.3 K/uL (0.7-4.9); Basophils % 0.1 % (0-1.3); Hematocrit 34.1 % (39.6-49.0); MPV 10.1 fL (7.6-11.3)
[2021-01-05 07:01] LABS: ALT/SGPT 18 U/L (12-78); AST/SGOT 33 U/L (15-37); Albumin 3.1 g/dL (3.4-5.0); Alkaline Phosphatase 44 U/L (45-117); BUN Blood Urea Nitrogen 18 mg/dL (7-18); Bicarbonate 35 mmol/L (21-32); Bilirubin Total 0.9 mg/dL (0.2-1.0); Glucose Level 151 mg/dL (74-106); Magnesium 1.9 mg/dL (1.8-2.4); Potassium 3.9 mmol/L (3.5-5.1); Protein, Total 6.1 g/dL (6.4-8.2); Sodium Level 135 mmol/L (136-145)
[2021-01-05 07:43] LABS: Blood Morphology Comment NOT SEEN (NOT SEEN); Platelet Estimate DECR; White Blood Cell Scan OK (OK)
--- NOTE | 2021-01-05 08:32 | P.PN ---
Subjective Date of Service: 01/05/21 Primary Care Provider: none Chief Complaint: COPD exacerbation Subjective: Improving, Doing well (Currently on 3 L per nasal cannula.) Physical Examination - Vital Signs Temperature: 98.5 F Blood Pressure: 128/60 Pulse: 79 Respirations: 20 Pulse Ox (%): 92 Assessment & Plan Discharge Plan: Home (with Home health/PT) Plan to discharge in: 24 Hours Physician Review Additional Text: Physical exam: Patient alert, cooperative. Patient lives at home alone. Patient improved. No significant nausea, vomiting, shortness of breath or abdominal pain. Heart: Regular rate and rhythm Lungs: No crackles to the bases. Minimal wheezing bilateral. Abdomen: Patient obese. Soft, nontender, no ascites. No distention noted. Extremities: The mid to the lower extremity significantly improved. No erythema noted to the right lower extremity. Poor foot care. 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 Currently on 3 L per nasal cannula. Spoke with pulmonology yesterday. Patient will continue with Dulera, prednisone taper and COPD medication at discharge. Physical therapy recommended skilled placement but patient prefers to go home with home health. We will set up home health and physical therapy at discharge. Patient with chronic alcoholic cirrhosis. Patient now on Aldactone. Continue 1500 cc/day fluid restriction and low-salt diet. Echocardiogram pe nding to evaluate for CHF. Patient also being treated for cellulitis of the right lower extremity. Patient may continue with antibiotic at discharge. Physical therapy to continue to maximize therapy today. Alcohol cessation addressed in detail. Do not think patient will quit. Anticipate discharge tomorrow with set up of home health and physical therapy. Home oxygen will need to be arranged to maintain sats above 93%. Will ask social work to address advanced directives at discharge. Patient may benefit with hospice in the future. Patient appeared amenable to this if his condition declined in the future. Patient plans to follow-up and establish care with Dr. Landa. I will turn the service over to the hospitalist team tomorrow. I will go over the plan of care with him. Peripheral edema suspect secondary to acute on chronic diastolic CHF: Patient now on Aldactone. Await echocardiogram. Continue 1500 cc/day fluid restriction and low-salt diet. Venous Doppler negative. Continue CHF and cirrhosis education on fluids and salt restriction. Right lower extremity cellulitis with poor foot care: Continue with wound care. Continue with doxycycline as an outpatient. Hypomagnesemia: Magnesium protocol in place. Weakness, obesityBMI 39, debility: As mentioned above physical therapy recommended skilled placement. Patient prefers home health and physical therapy. We will help arrange for home health and physical therapy at discharge. Anticipate discharge tomorrow. Physical therapy to continue to maximize therapy at this time. Chronic alcohol abuse: Patient admits alcohol use. Continue thiamine and folic acid. Cessation education addressed in detail. It does not appear patient will plan to quit. Patient will need to limit fluid intake. Hypertension: Blood pressure controlled with lisinopril. Hyperglycemia likely related to steroids: A1c 5.4. Will monitor lab closely. Accu-Cheks in place. 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 Liver ultrasound confirms chronic cirrhosis. Continue Aldactone. Continue fluid restriction. Will monitor lab closely. Suspect underlying obstructive sleep apnea: Would benefit with sleep study as an outpatient. This can be done with the help of pulmonology as an outpatient. Incidental finding of cholelithiasis with 2.3 cm stone in the neck of the gallbladder: Patient without pain, nausea or vomiting. Recommend bland diet. Spoke with surgery. No surgical intervention needed at this time. This can be followed up as an outpatient. If with pain and nausea in the future then patient will need to see surgery as an outpatient. Time Spent Managing Pts Care (In Minutes): 55
[2021-01-05] MEDS: FAMOTIDINE 20 MG TAB PO SCH ×2 (08:50→20:08)
[2021-01-05] MEDS: lisinopriL 5 MG TAB PO SCH ×2 (08:50→20:08)
[2021-01-05] MEDS: FOLIC ACID 1 MG TABLET PO SCH (08:50)
[2021-01-05] MEDS: predniSONE 20 MG TAB PO SCH ×2 (08:50→20:09)
[2021-01-05] MEDS: THIAMINE HCL 100 MG TABLET PO SCH (08:50)
[2021-01-05] MEDS: DOXYCYCLINE 100 MG CAP PO SCH ×2 (08:50→20:08)
[2021-01-05] MEDS: DULERA 200/5 (MOMETASONE/FORMOTEROL) INHALER IH SCH ×2 (08:50→20:07)
[2021-01-05] MEDS: SPIRONOLACTONE 25 MG TABLET PO SCH (08:51)
--- NOTE | 2021-01-05 10:01 | RAD REPORT ---
EXAM DESCRIPTION: RAD - Chest Single View - 01/05/2021 7:08 am CLINICAL HISTORY: follow up CHF/COPD Chest pain. COMPARISON: Chest Single View dated 01/03/2021; Chest Single View dated 02/27/2017; CHEST SINGLE VIEW d ated 06/23/2015; CHEST SINGLE VIEW dated 01/23/2009 FINDINGS: Portable technique limits examination quality. The lungs are mildly emphysematous but grossly clear. The heart is normal in size. No displaced fract ures.Aortic atherosclerosis. IMPRESSION: Mild COPD.
--- NOTE | 2021-01-05 20:44 | PN ---
Subjective: Seen by bedside, is doing better, lying flat. Review of Systems: No chest pain. Minimal shortness of breath. No nausea, vomiting, diarrhea. No abdominal pain. No dysuria, polyuria, or urinary urgency. All other systems reviewed are negative. Physical Examination: Vital Signs: Temperature is 97.4, pulse 81, breathing 18, blood pressure 113/62. General: Pleasant elderly male, in no distress. Head and Neck: Pupils are equal, reactive to light. Intact eye movements. No JVD. No cervical lym phadenopathy. Neck: Supple. Thyroid is not enlarged. Lungs: Decreased breathing sounds with rhonchi and wheezing. No accessory muscle use. Heart: Regular. No extra sounds. Abdomen: Soft, nontender. Bowel sounds positive. No organomegaly. No masses or hernia. No rigidi ty or rebound. Extremities: No clubbing, cyanosis. Intact pulses. Skin: No rashes. Neurologic: Alert, awake. No acute focal deficits appreciated. Investigations: Hemoglobin 11.1 and creatinine is 0.8. Troponins are negative. Assessment And Recommendation: Hypoxia due to a combination of chronic obstructive pulmonary disease exacerbation and congestive heart failure exacerbation, responding well to diuresis. Continue curre nt management and further management of chronic obstructive pulmonary disease by primary hospitalist. Plan for echocardiogram as an outpatient. Thank you for consultation. /LIAM Voice ID: [id number] Report ID: [id number]
[2021-01-06 06:14] LABS: Absolute Lymphocytes (CBC) 0.5 K/uL (0.7-4.9); Hematocrit 35.7 % (39.6-49.0); Lymphocytes % 8.3 % (15.3-44.8); MPV 9.9 fL (7.6-11.3); RBC Red Blood Cell Count 3.75 M/uL (4.33-5.43)
[2021-01-06 06:31] LABS: ALT/SGPT 22 U/L (12-78); AST/SGOT 43 U/L (15-37); Albumin 3.1 g/dL (3.4-5.0); Alkaline Phosphatase 47 U/L (45-117); BUN Blood Urea Nitrogen 17 mg/dL (7-18); Bicarbonate 34 mmol/L (21-32); Glucose Level 127 mg/dL (74-106); Potassium 3.8 mmol/L (3.5-5.1); Protein, Total 6.2 g/dL (6.4-8.2); Sodium Level 136 mmol/L (136-145)
[2021-01-06] MEDS ORDERED: POTASSIUM CL SA 10 MEQ TAB PO ONE (07:11)
[2021-01-06] MEDS: DOXYCYCLINE 100 MG CAP PO SCH ×2 (08:12→21:23)
[2021-01-06] MEDS: FOLIC ACID 1 MG TABLET PO SCH (08:12)
[2021-01-06] MEDS: lisinopriL 5 MG TAB PO SCH ×2 (08:12→21:24)
[2021-01-06] MEDS: FAMOTIDINE 20 MG TAB PO SCH ×2 (08:12→21:23)
[2021-01-06] MEDS: predniSONE 20 MG TAB PO SCH ×2 (08:13→21:24)
[2021-01-06] MEDS: DULERA 200/5 (MOMETASONE/FORMOTEROL) INHALER IH SCH ×2 (08:13→21:24)
[2021-01-06] MEDS: SPIRONOLACTONE 25 MG TABLET PO SCH (08:14)
[2021-01-06] MEDS: THIAMINE HCL 100 MG TABLET PO SCH (08:14)
[2021-01-06] MEDS: JUVEN PACKET PO SCH (21:00)
[2021-01-06 22:29] VITALS: O2SAT 98
[2021-01-07 05:29] LABS: Absolute Lymphocytes (CBC) 0.4 K/uL (0.7-4.9); Basophils % 0.3 % (0-1.3); Hematocrit 37.5 % (39.6-49.0); Lymphocytes % 9.5 % (15.3-44.8); MPV 9.9 fL (7.6-11.3); RBC Red Blood Cell Count 3.92 M/uL (4.33-5.43)
[2021-01-07 05:42] LABS: ALT/SGPT 27 U/L (12-78); AST/SGOT 42 U/L (15-37); Albumin 3.1 g/dL (3.4-5.0); Alkaline Phosphatase 48 U/L (45-117); BUN Blood Urea Nitrogen 18 mg/dL (7-18); Bicarbonate 31 mmol/L (21-32); Bilirubin Total 1.2 mg/dL (0.2-1.0); Glucose Level 143 mg/dL (74-106); Magnesium 1.6 mg/dL (1.8-2.4); Potassium 4.4 mmol/L (3.5-5.1); Protein, Total 6.2 g/dL (6.4-8.2); Sodium Level 135 mmol/L (136-145)
[2021-01-07] MEDS ORDERED: MAGNESIUM SULFATE 1 gm IVPB 1 GM/100 ML BAG IV ONE (06:36)
--- NOTE | 2021-01-07 08:33 | ECHO ---
HEIGHT: 5 ft 11 in WEIGHT: 270 lb 9.6 oz DATE OF STUDY: 01/06/[address]: Felipe Benavides DO 2-DIMENSIONAL: YES M.MODE: YES DOPPLER: YES COLOR FLOW: YES TDS: PORTABLE: DEFINITY: BUBBLE STUDY: DIAGNOSIS: EVALUATE FOR CONGESTIVE HEART FAILURE CARDIAC HISTORY: CATHERIZATION: NO SURGERY: NO PROSTHETIC VALVE: NO PACEMAKER: NO MEASUREMENTS (cm) DIASTOLIC (NORMALS) SYSTOLIC (NORMALS) IVSd 1.2 (0.6-1.2) LA Diam 3.1 (1.9-4.0) LVEF 85% LVIDd 4.7 (3.5-5.7) LVIDs 2.1 (2.0-3.5) %FS 54% LVPWd 1.3 (0.6-1.2) Ao Diam 3.1 (2.0-3.7) 2 DIMENSIONAL ASSESSMENT: RIGHT ATRIUM: NORMAL LEFT ATRIUM: NORMAL RIGHT VENTRICLE: NORMAL LEFT VENTRICLE: NORMAL TRICUSPID VALVE: MILD TRICUSPID REGURGITAITON MITRAL VALVE: MILD MITRAL REGURGITATION PULMONIC VALVE: NORMAL AORTIC VALVE: NORMAL PERICARDIAL EFFUSION: NONE AORTIC ROOT: NORMAL LEFT VENTRICULAR WALL MOTION: NORMAL DOPPLER/COLOR FLOW: SEE BELOW COMMENTS: NORMAL LEFT VENTRICULAR EJECTION FRACTION 55-60%. NORMAL WALL MOTION. MODERATE DIASTOLIC DYSFUNCTION. MILD MITRAL REGURGITATION. MILD TRICUSPID REGURGITATION. TECHNOLOGIST: LIV CAMPUZANO
[2021-01-07] MEDS: lisinopriL 5 MG TAB PO SCH (08:43)
[2021-01-07] MEDS: FAMOTIDINE 20 MG TAB PO SCH (08:43)
[2021-01-07] MEDS: SPIRONOLACTONE 25 MG TABLET PO SCH (08:44)
[2021-01-07] MEDS: FOLIC ACID 1 MG TABLET PO SCH (08:44)
[2021-01-07] MEDS: THIAMINE HCL 100 MG TABLET PO SCH (08:44)
[2021-01-07] MEDS: predniSONE 20 MG TAB PO SCH (08:44)
[2021-01-07] MEDS: DULERA 200/5 (MOMETASONE/FORMOTEROL) INHALER IH SCH (08:45)
[2021-01-07] MEDS: DOXYCYCLINE 100 MG CAP PO SCH (08:46)
[2021-01-07] MEDS: JUVEN PACKET PO SCH (09:00)
[2021-01-07 13:29] VITALS: BP 150/63; TEMP 97.5
[2021-01-08 11:47] LABS: HIV AG/AB 4TH GEN Non-reactive (Non-reactive)
[2021-01-08 19:29] LABS: HBsAG Nonreactive (Nonreactive)
--- NOTE | 2021-01-15 05:56 | P.PN ---
Subjective Date of Service: 01/06/21 Subjective: No new changes, No C/O voiced, Improving Patient respiratory status continues to improve. Patient no new complaints. Review of Systems 10-point ROS is otherwise unremarkable Physical Examination - Vital Signs Temperature: 97.5 F Blood Pressure: 150/63 Pulse: 73 Respirations: 18 Pulse Ox (%): 96 - Physical Exam General: Alert, In no apparent distress, Oriented x3 Respiratory: Clear to auscultation bilaterally, Normal air movement Cardiovascular: Regular rate/rhythm, Normal S1 S2, No murmurs Gastrointestinal: Normal bowel sounds, Soft and benign, Non-distended, No tenderness Musculoskeletal: No clubbing, No swelling, No tenderness Neurological: Sensation intact, Cranial nerves 3-12 intact - Studies Medications List Reviewed: Yes Assessment & Plan - Problems (Diagnosis) (1) COPD exacerbation Status: Acute (2) Cellulitis of right lower extremity Onset Date: 06/24/15 Status: Acute - Plan PLAN: - nebs, steroids, and antibiotics - O2 per protocol. - outpatient spirometry or pulmonary function testing - repeat chest x-ray - pulmonary consultation - Continue with local wound care - Monitor CBC - Strict blood sugar monitoring - Pain control - GI and DVT prophylaxis Discharge Plan: Home Plan to discharge in: Greater than 2 days - Advance Directives Does patient have a Living Will: No Does patient have a Durable POA for Healthcare: Yes - Code Status/Comfort Care Code Status Assessed: Yes Code Status: Full Code Critical Care: No Time Spent Managing PTS Care (In Minutes): 45
--- NOTE | 2021-01-15 05:58 | P.DS ---
Discharge Date: 01/07/21 Primary Care Provider: none Disposition: DC HOME/HOME HEALTH CARE Discharge Condition: GOOD Reason for Admission: COPD exacerbation - Problems (1) COPD exacerbation Status: Acute (2) Cellulitis of right lower extremity Onset Date: 06/24/15 Status: Acute Brief History of Present Illness: 80-year-old male with history of hypertension, tobacco abuse not currently taking any home medications presents emergency department for shortness of breath. Patient had fallen at home and call for lift assist but upon arrival of EMS patient was significantly short of breath, wheezing. Patient was transferred to the emergency department for evaluation. Patient reports that he lives alone, uses a walker to get around but I cannot get up to the shower so he has been using a wash cloth 2 days but is unable to bathe the completion of his lower extremities. Patient evaluated in the emergency department found to have significant expiratory wheezing, hypoxic in the high 80s on room air, patient given nebs, magnesium, steroids, antibiotics. Patient also noted to have pitting edema to bilateral lower extremities given Lasix. Patient very unkempt, smells of urine lower extremities very dirty. Labs in the ER significant for sodium 131, glucose 172 lactic acid 2.6 magnesium 1 point to white blood count 6.8 hemoglobin 12.7 hematocrit 37.7 COVID negative, chest x- ray suggest volume overload pattern. Patient still wheezing after treatments, ED provider wishes to admit for further evaluation and management. Hospital Course: Patient is clinically doing much better. Patient denies any new complaints. Patient is stable for discharge home. At this time will continue with antibiotic therapy. Outpatient treatment with nebs and steroids as well. Pulmonary followup. Vital Signs/Physical Exam: Temp Pulse Resp BP Pulse Ox 97.5 F 73 18 150/63 H 96 01/15/21 05:56 01/15/21 05:56 01/15/21 05:56 01/15/21 05:56 01/15/21 05:56 General: Alert, In no apparent distress, Oriented x3 Laboratory Data at Discharge: WBC 3.90 K/uL (4.3-10.9) L D 01/07/21 05:12 Hgb 12.5 g/dL (13.6-17.9) L 01/07/21 05:12 Hct 37.5 % (39.6-49.0) L 01/07/21 05:12 Plt Count 81 K/uL (152-406) L 01/07/21 05:12 PT 13.3 SECONDS (9.5-12.5) H 01/03/21 23:28 INR 1.15 01/03/21 23:28 Sodium 135 mmol/L (136-145) L 01/07/21 05:12 Potassium 4.4 mmol/L (3.5-5.1) 01/07/21 05:12 BUN 18 mg/dL (7-18) 01/07/21 05:12 Creatinine 0.47 mg/dL (0.55-1.3) L 01/07/21 05:12 Glucose 143 mg/dL (74-106) H 01/07/21 05:12 Magnesium 1.6 mg/dL (1.8-2.4) L 01/07/21 05:12 Total Bilirubin 1.2 mg/dL (0.2-1.0) H 01/07/21 05:12 AST 42 U/L (15-37) H 01/07/21 05:12 ALT 27 U/L (12-78) 01/07/21 05:12 Alkaline Phosphatase 48 U/L (45-117) 01/07/21 05:12 Triglycerides 39 mg/dL (<150) 01/04/21 03:38 Cholesterol 156 mg/dL (<200) 01/04/21 03:38 HDL Cholesterol 90 mg/dL (40-60) H 01/04/21 03:38 Cholesterol/HDL Ratio 1.73 01/04/21 03:38 Lipase 127 U/L (73-393) 01/04/21 17:27 Home Medications: Albuterol Neb [Proventil 0.083% Neb Soln] 2.5 mg NEB [id number] PRN #60 amp 01/07/21 Famotidine [Pepcid*] 20 mg PO BID #60 tab 01/07/21 Ipratropium Neb [Atrovent*] 0.5 mg NEB [id number] PRN #60 amp 01/07/21 Gus [Gus*] 1 pkt PO BID #60 powd.pack 01/07/21 Spironolactone [Aldactone*] 25 mg PO DAILY #30 tab 01/07/21 Thiamine HCl [Vitamin B-1*] 100 mg PO DAILY #30 tablet 01/07/21 lisinopriL [Prinivil*] 5 mg PO BID #60 tab 01/07/21 predniSONE [Prednisone*] 20 mg PO BID #17 tab 01/07/21 New Medications: Spironolactone [Aldactone*] 25 mg PO DAILY #30 tab Ipratropium Neb [Atrovent*] 0.5 mg NEB [id number] PRN #60 amp PRN Reason: Shortness Of Breath Gus [Gus*] 1 pkt PO BID #60 powd.pack Famotidine [Pepcid*] 20 mg PO BID #60 tab predniSONE [Prednisone*] 20 mg PO BID #17 tab lisinopriL [Prinivil*] 5 mg PO BID #60 tab Albuterol Neb [Proventil 0.083% Neb Soln] 2.5 mg NEB [id number] PRN #60 amp PRN Reason: Shortness Of Breath Thiamine HCl [Vitamin B-1*] 100 mg PO DAILY #30 tablet Physician Discharge Instructions: OK TO DC IV AND DC HOME FOLLOW-UP WITH PRIMARY CARE PROVIDER IN 1-2 WEEKS FOLLOW-UP WITH CARDIOLOGY and scheduling agent IN 1-2 WEEKS RETURN TO THE ER IF symptoms worsen CALL or TEXT DR. PINEDA AT [phone] IF ANY QUESTIONS REGARDING HOSPITAL STAY. PLEASE CALL THE FLOOR AT [phone] IF ANY MEDICATION OR NURSING QUESTIONS. Diet: AHA Activity: Fall precautions Followup: Christopher Sims MD [ACTIVE - CAN ADMIT] - Unknown,U [Primary Care Provider] - Time spent managing pt's care (in minutes): 35
== END 2021-01-07 14:19 | disposition home health service (06) | DRG 190 ==
LOC: ER 23:14 → ERHOLD 01-04 01:35 → 2ND 01-04 01:59
PROVIDERS: ADMIT Family Medicine; ATTEND Hospitalist
DX: J44.1 Chronic obstructive pulmonary disease with (acute) exacerbation (principal); J96.01 Acute respiratory failure with hypoxia; I50.33 Acute on chronic diastolic (congestive) heart failure; L03.115 Cellulitis of right lower limb; I11.0 Hypertensive heart disease with heart failure; K70.30 Alcoholic cirrhosis of liver without ascites; L89.322 Pressure ulcer of left buttock, stage 2; F10.10 Alcohol abuse, uncomplicated; E83.42 Hypomagnesemia; D69.6 Thrombocytopenia, unspecified; K80.20 Calculus of gallbladder without cholecystitis without obstruction; F17.200 Nicotine dependence, unspecified, uncomplicated; E87.6 Hypokalemia; E66.9 Obesity, unspecified; R73.9 Hyperglycemia, unspecified; T38.0X5A Adverse effect of glucocorticoids and synthetic analogues, initial encounter; Z68.39 Body mass index [BMI] 39.0-39.9, adult; Z60.2 Problems related to living alone; Z79.899 Other long term (current) drug therapy; Z20.822 Contact with and (suspected) exposure to COVID-19
CPT/HCPCS: 0240U; 36415; 71045; 76705; 80048; 80053; 80061; 80074; 80076; 80307; 82607; 82728; 82805; 83036; 83540; 83605; 83690; 83735; 83880; 84132; 84145; 84439; 84443; 84466; 84484; 85025; 85610; 87040; 87086; 87088; 87205; 87389; 93005; 93306; 93970; 94640; 96365; 96367; 96375; 97110; 97112; 97116; 97161; 97530; 99285; J1100; J1940; J2543; J2930; J3370; J3411; J3475; J7030; J7040; J7050; J7512; J7606

== ENCOUNTER 2021-06-12 07:56 | Inpatient (IN) | payer OTHER ==
--- OUTSIDE RECORDS SUMMARY | 2021-06-12 08:02 | XMS REPORT | Continuity of Care Document ---
:1940 Author Organization [facility] t Address [address] [place] [address] Care Team Providers Name Role Phone Hilary [...] 15 [facility] s - 00:00: Medical 00 [place] Cirrhosis Cirrhosis Disease Active [facility] 00 [place] Loose Loose Disease Active [facility] stools stools 03-11 [facility] - [facility]: [facility] 00 [place] Hypomagnes Hypomagnes Disease Active [facility] emia 03-11 [facility]:: Medical 00 [place] 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 - [facility]:: Medical 00 [place] HTN HTN Disease Active [facility] (hypertens (hypertens 03-11 [facility] - ion) ion) 00:00: Medical 00 [place] Alcohol Alcohol Disease Active [facility] abuse abuse 03-11 [facility] 00 [place] Hypoalbumi Hypoalbumi Disease Active [facility] nemia nemia 03-11 [facility] - [facility]: Medical 00 [place] Arm Arm Disease Active [facility] weakness weakness 02-27 [facility] Allergies, Adverse Reactions, Alerts This patient has no known allergies or adverse reactions. Family History Family Member Diagnosis Comments Start Date Stop Date Source Natural mother Parkinsonism [facility] Social History Social Habit Start Date Stop Date Quantity Comments Source Sex Assigned At [facility] Alcohol intake 2017-03-11 2017-03-11 Current drinker VIKRAM Tucker - 00:00:00 [facility]:00 [facility] ([facility] Alcohol Comment 2017-03-11 2017-03-11 500 ml of gonzalo VIKRAM Toney - 00:00:00 00:00:00 [facility] History of 2015-11-22 Current smoker [facility] - tobacco use [facility] Sm[facility] Status Start Date Stop Date Source Former smoker 2017-03-11 00:00:00 2017-03-11 00:00:00 [facility] Medications Ordered Filled Start Stop [...] MORPHOLOGY (BEAKER) (test code = Normal 762) [id number] 06:45:00 Test Item Value Reference Range Interpretation Comments PHOSPHORUS (BEAKER) (test code = 3.5 mg/dL 2.3-4.7 604) [id number] 06:45:00 Test Item Value Reference Range Interpretation Comments MAGNESIUM (BEAKER) (test code = 1.7 mg/dL 1.6-2.6 627) BASIC METABOLIC [id number] 06:45:00 Test Item Value Reference Range Interpretation [...] S NOT APPLICABLE FOR DIALYSIS PATIEN TS. [id number] 07:18:00 Test Item Value Reference Range Interpretation Comments PHOSPHORUS (BEAKER) (test code = 3.4 mg/dL 2.3-4.7 604) [id number] 07:18:00 Test Item Value Reference Range Interpretation Comments MAGNESIUM (BEAKER) (test code = 1.6 mg/dL 1.6-2.6 627) BASIC METABOLIC [id number] 07:18:00 Test Item Value Reference Range Interpretation [...] S NOT APPLICABLE FOR DIALYSIS PATIEN TS. [id number] 05:47:00 Test Item Value Reference Range Interpretation Comments MAGNESIUM (BEAKER) (test code = 1.7 mg/dL 1.6-2.6 627) BASIC METABOLIC [id number] 05:47:00 Test Item Value Reference Range Interpretation [...] PATIEN TS. CBC W/PLT COUNT & AUTO [id number] 09:57:00 Test Item Value Reference Range Interpretation [...] MORPHOLOGY (BEAKER) (test code = Normal 762) [id number] 06:06:00 Test Item Value Reference Range Interpretation Comments MAGNESIUM (BEAKER) (test code = 1.7 mg/dL 1.6-2.6 627) BASIC METABOLIC [id number] 06:06:00 Test Item Value Reference Range Interpretation [...] S NOT APPLICABLE FOR DIALYSIS PATIEN TS. [id number] 06:35:00 Test Item Value Reference Range Interpretation Comments PHOSPHORUS (BEAKER) (test code = 3.0 mg/dL 2.3-4.7 604) [id number] 06:35:00 Test Item Value Reference Range Interpretation Comments MAGNESIUM (BEAKER) (test code = 1.7 mg/dL 1.6-2.6 627) BASIC METABOLIC [id number] 06:35:00 Test Item Value Reference Range Interpretation [...] S NOT APPLICABLE FOR DIALYSIS PATIEN TS. [id number] 07:59:00 Test Item Value Reference Range Interpretation Comments MAGNESIUM (BEAKER) (test code = 1.8 mg/dL 1.6-2.6 627) BASIC METABOLIC [id number] 07:59:00 Test Item Value Reference Range Interpretation [...] S NOT APPLICABLE FOR DIALYSIS PATIEN TS. [id number] 06:28:00 Test Item Value Reference Range Interpretation Comments MAGNESIUM (BEAKER) (test code = 1.7 mg/dL 1.6-2.6 627) BASIC METABOLIC [id number] 06:28:00 Test Item Value Reference Range Interpretation [...] S NOT APPLICABLE FOR DIALYSIS PATIEN TS. [id number] 05:37:00 Test Item Value Reference Range Interpretation Comments MAGNESIUM (BEAKER) (test code = 1.7 mg/dL 1.6-2.6 627) BASIC METABOLIC [id number] 05:37:00 Test Item Value Reference Range Interpretation [...] APPLICABLE FOR DIALYSIS PATIEN TS. PROTEIN ELECTROPHORESIS, [id number] 11:32:00 Test Item Value Reference Range Interpretation [...] in (BEAKER) (test code = expected distribution, 2613) with minor nonspecific changes. No monoclonal bands detected. No significant change from previous study of 03-02-17. [id number] Haritha Baptiste MD (BEAKER) (test code = (electronic signature) 1414) PROTEIN TOTAL SERUM, 5.9 gm/dL 6.0-8.3 L SPEP (BEAKER) (test code = 7100) [id number] 06:11:00 Test Item Value Reference Range Interpretation Comments MAGNESIUM (BEAKER) (test code = 1.5 mg/dL 1.6-2.6 L 627) BASIC METABOLIC [id number] 06:11:00 Test Item Value Reference Range Interpretation [...] APPLICABLE FOR DIALYSIS PATIEN TS. VITAMIN D, [id number] 08:21:00 Test Item Value Reference Range Interpretation Comments VITAMIN D 25-OH (BEAKER) (test 29.5 ng/mL 13.0-47.8 code = 2764) [id number] 06:15:00 Test Item Value Reference Range Interpretation Comments MAGNESIUM (BEAKER) (test code = 1.8 mg/dL 1.6-2.6 627) BASIC METABOLIC [id number] 06:15:00 Test Item Value Reference Range Interpretation [...] S NOT APPLICABLE FOR DIALYSIS PATIEN TS. [id number] 05:52:00 Test Item Value Reference Range Interpretation Comments MAGNESIUM (BEAKER) (test code = 1.7 mg/dL 1.6-2.6 627) BASIC METABOLIC [id number] 05:52:00 Test Item Value Reference Range Interpretation [...] S NOT APPLICABLE FOR DIALYSIS PATIEN TS. [id number] 06:58:00 Test Item Value Reference Range Interpretation Comments MAGNESIUM (BEAKER) (test code = 1.6 mg/dL 1.6-2.6 627) BASIC METABOLIC [id number] 06:58:00 Test Item Value Reference Range Interpretation [...] S NOT APPLICABLE FOR DIALYSIS PATIEN TS. [id number] 04:50:00 Test Item Value Reference Range Interpretation Comments MAGNESIUM (BEAKER) (test code = 1.7 mg/dL 1.6-2.6 627) BASIC METABOLIC [id number] 04:50:00 Test Item Value Reference Range Interpretation [...] S NOT APPLICABLE FOR DIALYSIS PATIEN TS. [id number] 07:00:00 Test Item Value Reference Range Interpretation Comments MAGNESIUM (BEAKER) (test code = 1.7 mg/dL 1.6-2.6 627) BASIC METABOLIC [id number] 07:00:00 Test Item Value Reference Range Interpretation [...] APPLICABLE FOR DIALYSIS PATIEN TS. HEPATIC FUNCTION [id number] 07:00:00 Test Item Value Reference Range Interpretation [...] (test code = 38 U/L 6-55 347) [id number] 07:18:00 Test Item Value Reference Range Interpretation Comments MAGNESIUM (BEAKER) (test code = 1.7 mg/dL 1.6-2.6 627) BASIC METABOLIC [id number] 07:18:00 Test Item Value Reference Range Interpretation [...] APPLICABLE FOR DIALYSIS PATIEN TS. CREATININE, RANDOM [id number] 16:52:00 Test Item Value Reference Range Interpretation Comments CREATININE URINE (BEAKER) (test 113.2 mg/dL code = 375) Reference Range: No NormalsMAGNESIUM, RANDOM [id number] 16:52:00 Test Item Value Reference Range Interpretation Comments MAGNESIUM URINE (BEAKER) (test 17.9 mg/dL code = 834) Reference Range: No [id number] 06:52:00 Test Item Value Reference Range Interpretation Comments MAGNESIUM (BEAKER) (test code = 1.5 mg/dL 1.6-2.6 L 627) BASIC METABOLIC [id number] 06:52:00 Test Item Value Reference Range Interpretation [...] S NOT APPLICABLE FOR DIALYSIS PATIEN TS. [id number] 06:05:00 Test Item Value Reference Range Interpretation Comments MAGNESIUM (BEAKER) (test code = 1.6 mg/dL 1.6-2.6 627) BASIC METABOLIC [id number] 06:05:00 Test Item Value Reference Range Interpretation [...] NOT APPLICABLE FOR DIALYSIS PATIEN TS. HEPARIN [id number] 14:07:00 Test Item Value Reference Range Interpretation Comments HEPARIN ANTIBODY (BEAKER) (test code Negative Negative = 646) HEPARIN ANTIBODY OD (BEAKER) (test 0.062 <0.400 code = 2659) 4T TOTAL SCORE (BEAKER) (test code = 4 9575) Probability of HIT based on scoring system: 6-8 = High probability; 4-5 = intermediate probability;0-3 = low probabilityBASIC METABOLIC [id number] 05:42:00 Test Item Value Reference Range Interpretation [...] S NOT APPLICABLE FOR DIALYSIS PATIEN TS. [id number] 05:42:00 Test Item Value Reference Range Interpretation Comments MAGNESIUM (BEAKER) (test code = 1.6 mg/dL 1.6-2.6 627) CBC W/PLT COUNT & AUTO [id number] 14:48:00 Test Item Value Reference Range Interpretation [...] TOTAL COUNTED (BEAKER) (test code = 1351) [id number] 14:18:00 Test Item Value Reference Range Interpretation Comments MAGNESIUM (BEAKER) (test code = 1.5 mg/dL 1.6-2.6 L 627) [id number] 14:18:00 Test Item Value Reference Range Interpretation Comments PHOSPHORUS (BEAKER) (test code = 3.4 mg/dL 2.3-4.7 604) BASIC METABOLIC [id number] 14:17:00 Test Item Value Reference Range Interpretation [...] S NOT APPLICABLE FOR DIALYSIS PATIEN TS. [id number] 06:24:00 Test Item Value Reference Range Interpretation Comments MAGNESIUM (BEAKER) (test code = 1.3 mg/dL 1.6-2.6 L 627) BASIC METABOLIC [id number] 06:24:00 Test Item Value Reference Range Interpretation [...] S NOT APPLICABLE FOR DIALYSIS PATIEN TS. [id number] 07:11:00 Test Item Value Reference Range Interpretation Comments MAGNESIUM (BEAKER) 1.7 mg/dL 1.6-2.6 Specimen slightly (test code = 627) hemolyzed BASIC METABOLIC [id number] 07:11:00 Test Item Value Reference Range Interpretation [...] NOT APPLICABLE FOR DIALYSIS PATIEN TS. PTH, [id number] 06:59:00 Test Item Value Reference Range Interpretation Comments PARATHYROID HORMONE INTACT 27.9 pg/mL 8.5-72.5 (BEAKER) (test code = 577) Effective 08/21/2014: Reference Range ChangeNew: 8.5-72.5 Previous: 15.0-90.0 CREATININE, RANDOM [id number] 14:27:00 Test Item Value Reference Range Interpretation Comments CREATININE URINE (BEAKER) (test 174.8 mg/dL code = 375) Reference Range: No NormalsMAGNESIUM, RANDOM [id number] 14:27:00 Test Item Value Reference Range Interpretation Comments MAGNESIUM URINE (BEAKER) (test code = > mg/dL 834) Reference Range: No NormalsTISSUE [id number] 13:29:00Surgical Pathology Report Case: [id number] Authorizing Provider: Estuardo Chaparro MD Collected: 02/28/2017918 Ordering Location: [address] Received: 03/02/2017 0948 Service Pathologist: Patel Burton MD Specimen: Di sc C3-4 VERTEBRAL COLUMN,INTERVERTEBRAL DISC, C3-4, DISCECTOMY:FRAGMENTS OF FIBROCARTILAGE WITH MILD DEGENERATIVE CHANGES 69868; [id number] myelopathyDisc C3-4The specimen is received in formalin-filled [...] 1.2 mg/dL 1.6-2.6 L 627) BASIC METABOLIC [id number] 04:50:00 Test Item Value Reference Range Interpretation [...] S NOT APPLICABLE FOR DIALYSIS PATIEN TS. [id number] 07:04:00 Test Item Value Reference Range Interpretation Comments MAGNESIUM (BEAKER) (test code = 1.3 mg/dL 1.6-2.6 L 627) BASIC METABOLIC [id number] 07:04:00 Test Item Value Reference Range Interpretation [...] S NOT APPLICABLE FOR DIALYSIS PATIEN TS. [id number] 11:59:00 Test Item Value Reference Range Interpretation Comments MAGNESIUM (BEAKER) (test code = 1.4 mg/dL 1.6-2.6 L 627) BASIC METABOLIC [id number] 06:16:00 Test Item Value Reference Range Interpretation [...] PATIEN TS. PERIPHERAL BLOOD SMEAR - HOLD [id number] 09:09:00 Test Item Value Reference Range Interpretation Comments PERIPHERAL SMEAR SAVE Mild (BEAKER) (test code = anisopikilocytosis. 1815) Essentially unremarkable white cells and platelets. No circulating blasts. Correlation with clinical follow up required to assess need for hematologic evaulation. URINE [id number] 08:40:00 Test Item Value Reference Range Interpretation [...] = 47) CBC W/PLT COUNT & AUTO [id number] 06:12:00 Test Item Value Reference Range Interpretation [...] K/ L 0.00-0.20 (test code = 417) [id number] 06:03:00 Test Item Value Reference Range Interpretation Comments MAGNESIUM (BEAKER) (test code = 1.2 mg/dL 1.6-2.6 L 627) BASIC METABOLIC [id number] 06:03:00 Test Item Value Reference Range Interpretation [...] PATIEN TS. CBC W/PLT COUNT & AUTO [id number] 08:37:00 Test Item Value Reference Range Interpretation [...] K/ L 0.00-0.20 (test code = 417) [id number] 06:58:00 Test Item Value Reference Range Interpretation Comments MAGNESIUM (BEAKER) (test code = 1.5 mg/dL 1.6-2.6 L 627) BASIC METABOLIC [id number] 06:58:00 Test Item Value Reference Range Interpretation [...] S NOT APPLICABLE FOR DIALYSIS GRZEGORZMOHAN TS. [id number] 05:57:00 Test Item Value Reference Range Interpretation Comments MAGNESIUM (BEAKER) (test code = 1.3 mg/dL 1.6-2.6 L 627) COMPREHENSIVE METABOLIC [id number] 05:57:00 Test Item Value Reference Range Interpretation [...] Specimen slightly ictericCBC W/PLT COUNT & AUTO [id number] 05:49:00 Test Item Value Reference Range Interpretation [...] L 0.00-0.20 (test code = 417) 0.00PROTHROMBIN [id number] 05:38:00 Test Item Value Reference Range Interpretation Comments PROTIME (BEAKER) (test code = 14.2 seconds 11.7-14.7 759) INR (BEAKER) (test code = 370) 1.1 <=5.9 RECOMMENDED COUMADIN/WARFARIN INR THERAPY RANGESSTANDARD DOSE: 2.0 - 3.0 Includes: PROPHYLAXIS forvenous thrombosis, systemic embolization; TREATMENT for venous thrombosis and/or pulmonary embolus.HIGH RISK: Target INR is 2.5-3.5 for patients with mechanical heart valves.URINALYSIS W/ [id number] 14:55:00 Test Item Value Reference Range Interpretation [...] SOURCE(BEAKER) (test code Urine, Clean Catch = 2973) [id number] 21:24:00 Test Item Value Reference Range Interpretation Comments MAGNESIUM (BEAKER) (test code = 1.1 mg/dL 1.6-2.6 L 627) BASIC METABOLIC [id number] 21:24:00 Test Item Value Reference Range Interpretation [...] FOR DIALYSIS PATIEN TS. VITAMIN B12 AND [id number] 08:41:00 Test Item Value Reference Range Interpretation Comments VITAMIN B12 (BEAKER) (test code = 604 pg/mL 213-816 774) FOLATE (BEAKER) (test code = 362) 9.9 ng/mL >=7.0 Effective 08/21/2014: Folate Reference Range ChangeNew: >=7.0 Previous: >=5.4PERIPHERAL BLOOD SMEAR - HOLD [id number] 08:19:00 Test Item Value Reference Range Interpretation Comments PERIPHERAL SMEAR SAVE (BEAKER) (test saved code = 1815) [id number] 05:49:00 Test Item Value Reference Range Interpretation Comments PROSTATE SPECIFIC ANTIGEN (BEAKER) 5.1 ng/mL 0.0-4.0 H (test code = 844) HIV-1 ANTIGEN WITH HIV-1/2 [id number] 05:49:00 Test Item Value Reference Range Interpretation Comments HIV-1 ANTIGEN WITH HIV 1\\T\\2 Nonreactive Nonreactive ANTIBODY (2) (BEAKER) (test code = 2586) [id number] 05:43:00 Test Item Value Reference Range Interpretation Comments PHOSPHORUS (BEAKER) (test code = 2.9 mg/dL 2.3-4.7 604) [id number] 05:43:00 Test Item Value Reference Range Interpretation Comments MAGNESIUM (BEAKER) (test code = 1.4 mg/dL 1.6-2.6 L 627) BASIC METABOLIC [id number] 05:43:00 Test Item Value Reference Range Interpretation [...] PATIEN TS. CBC W/PLT COUNT & AUTO [id number] 05:25:00 Test Item Value Reference Range Interpretation [...] 0.00-0.20 (test code = 417) 0.00PROTEIN ELECTROPHORESIS, [id number] 16:22:00 Test Item Value Reference Range Interpretation [...] beta globulin fractions. No monoclonal bands detected. [id number] Haritha Baptiste MD (BEAKER) (test code = (electronic signature) 9607) PROTEIN TOTAL SERUM, 5.3 gm/dL 6.0-8.3 L SPEP (BEAKER) (test code = 2660) CBC W/PLT COUNT & AUTO [id number] 13:14:00 Test Item Value Reference Range Interpretation [...] K/ L 0.00-0.20 (test code = 417) [id number] 06:18:00 Test Item Value Reference Range Interpretation Comments MAGNESIUM (BEAKER) 1.3 mg/dL 1.6-2.6 L Specimen slightly (test code = 627) hemolyzed [id number] 06:18:00 Test Item Value Reference Range Interpretation Comments PHOSPHORUS (BEAKER) 2.3 mg/dL 2.3-4.7 Specimen slightly (test code = 604) hemolyzed BASIC METABOLIC [id number] 06:18:00 Test Item Value Reference Range Interpretation [...] APPLICABLE FOR DIALYSIS PATIEN TS. HEPATITIS PANEL, [id number] 14:32:00 Test Item Value Reference Range Interpretation Comments HEPATITIS A IGM ANTIBODY (BEAKER) Nonreactive Nonreactive (test code = 498) HEPATITIS B CORE IGM ANTIBODY Nonreactive Nonreactive (BEAKER) (test code = 645) HEPATITIS C ANTIBODY (BEAKER) Nonreactive Nonreactive (test code = 367) HEPATITIS B SURFACE ANTIGEN (2) Nonreactive Nonreactive (BEAKER) (test code = 2585) [id number] 14:13:00 Test Item Value Reference Range Interpretation Comments FIBRINOGEN LEVEL (BEAKER) (test 282 mg/dl 225-434 code = 658) LACTATE DEHYDROGENASE (LDH)2017-03-01 14:12:00 Test Item Value Reference Range Interpretation Comments LACTATE DEHYDROGENASE (BEAKER) (test 200 U/L 125-220 code = 635) HEPATIC FUNCTION [id number] 14:12:00 Test Item Value Reference Range Interpretation [...] code = 32 U/L 6-55 347) URINE [id number] 10:51:00 Test Item Value Reference Interpretation Comments [...] = 13) CBC W/PLT COUNT & AUTO [id number] 04:34:00 Test Item Value Reference Range Interpretation [...] K/ L 0.00-0.20 (test code = 417) [id number] 04:32:00 Test Item Value Reference Range Interpretation Comments MAGNESIUM (BEAKER) 1.1 mg/dL 1.6-2.6 L Specimen slightly (test code = 627) hemolyzed [id number] 04:32:00 Test Item Value Reference Range Interpretation Comments PHOSPHORUS (BEAKER) 2.6 mg/dL 2.3-4.7 Specimen slightly (test code = 604) hemolyzed BASIC METABOLIC [id number] 04:32:00 Test Item Value Reference Range Interpretation [...] S NOT APPLICABLE FOR DIALYSIS PATIEN TS. [id number] 05:03:00 Test Item Value Reference Range Interpretation Comments MAGNESIUM (BEAKER) (test code = 1.1 mg/dL 1.6-2.6 L 627) CBC W/PLT COUNT & AUTO [id number] 18:39:00 Test Item Value Reference Range Interpretation [...] 0.00-0.20 (test code = 417) 0.00URINALYSIS W/ [id number] 11:52:00 Test Item Value Reference Range Interpretation [...] 1584) SOURCE(BEAKER) (test code = Urine, Voided 6720) CBC W/PLT COUNT & AUTO [id number] 11:13:00 Test Item Value Reference Range Interpretation [...] (test code = Normal 762) COMPREHENSIVE METABOLIC [id number] 11:03:00 Test Item Value Reference Range Interpretation [...] APPLICABLE FOR DIALYSIS PATIEN TS. COMPREHENSIVE METABOLIC [id number] 11:03:00 Test Item Value Reference Range Interpretation [...] S NOT APPLICABLE FOR DIALYSIS PATIEN TS. [id number] 10:45:00 Test Item Value Reference Range Interpretation [...]
[2021-06-12 09:20] LABS: Absolute Lymphocytes (CBC) 0.4 K/uL (0.7-4.9); Basophils % 0.1 % (0-1.3); Hematocrit 40.3 % (39.6-49.0); Lymphocytes % 5.2 % (15.3-44.8); MPV 8.9 fL (7.6-11.3); RBC Red Blood Cell Count 4.22 M/uL (4.33-5.43)
[2021-06-12 09:23] LABS: Protime INR 1.18
[2021-06-12 09:33] LABS: ALT/SGPT 19 U/L (12-78); AST/SGOT 27 U/L (15-37); Albumin 3.7 g/dL (3.4-5.0); Alkaline Phosphatase 109 U/L (45-117); Amylase 45 U/L (25-115); BUN Blood Urea Nitrogen 20 mg/dL (7-18); Bicarbonate 31 mmol/L (21-32); Bilirubin Direct 0.9 mg/dL (0-0.2); Bilirubin Total 2.6 mg/dL (0.2-1.0); CKMB Creatine Kinase MB 2.5 ng/mL (1.0-3.6); Creatine Phosphokinase 149 U/L (39-308); Glucose Level 113 mg/dL (74-106); Lipase 123 U/L (73-393); Potassium 4.3 mmol/L (3.5-5.1); Protein, Total 7.6 g/dL (6.4-8.2); Sodium Level 131 mmol/L (136-145); Troponin (Emerg Dept Use Only) < 0.02 ng/mL (0.0-0.045)
[2021-06-12] MEDS ORDERED: NA CHLORIDE 0.9% 1,000 ML ONE (09:34)
--- NOTE | 2021-06-12 09:46 | RAD REPORT ---
EXAM DESCRIPTION: RAD - Chest Single View - 06/12/2021 9:30 am CLINICAL HISTORY: SOB COMPARISON: January 2021 TECHNIQUE: AP portable chest image was obtained 06/12/2021 9:30 am . FINDINGS: No dense consolidation. Interstitial markings are prominent similar or slightly increased over comparison. Scattered minimal alveolar opacities are present. Heart size is normal. Pulmonary va sculature within normal limits. No measurable pleural effusion and no pneumothorax. No acute bony abn ormality seen. No acute aortic findings suspected. IMPRESSION: Interstitial opacification increased slightly over baseline. Minimal alveolar opacity se en. Heart size is normal. A mild bilateral pneumonia is a consideration and needs correlation with exam a nd lab findings. Significant failure or volume overload are not suspected.
[2021-06-12 09:58] LABS: Blood Morphology Comment NOT SEEN (NOT SEEN); Platelet Estimate DECR
[2021-06-12 10:29] LABS: Urine Bacteria LOADED /HPF (NONE SEEN); Urine RBC NONE SEEN /HPF (NONE SEEN)
--- NOTE | 2021-06-12 10:36 | EDPHYS ---
Physician Documentation [facility] Name: Travon Melendez Age: 80 yrs Sex: Male : 1940 Arrival Date: 06/12/2021 Time: 08:01 Bed 27 Private MD: ED Physician Shalom García HPI: 06/12 10:36 This 80 yrs old Male presents to ER via EMS with complaints of Lower kdr extremity swelling, shortness of breath, weakness, multiple falls. 10:36 The patient called EMS because he was unable to get out of his chair for the last few kdr days. He reports being short of breath and that his legs have been swelling and weeping. He also complains of shortness of breath and difficulty breathing with exertion. He also reports several falls in the last 12 hours. Onset: The symptoms/episode began/occurred gradually, at an unknown time. Many of these conditions are chronic.. Severity of symptoms: At their worst the symptoms were incapacitating in the emergency department the symptoms are unchanged. The patient has experienced similar episodes in the past, chronically, His condition appears to be acute on chronic. It is unknown whether or not the patient has recently seen a physician. EMS reports that the patient was covered in feces at home. Additionally there were feces about his house. Pictures of his living quarters showed considerable fecal material and unsanitary unkept conditions. Historical: - Allergies: 09:48 No Known Allergies; cc4 - PMHx: 09:48 Hypertensive disorder; cc4 - Immunization history:: Adult Immunizations up to date, Client reports having NOT received the Covid vaccine. - Social history:: Smoking status: Patient denies any tobacco usage or history of. - Family history:: not pertinent. - Code Status:: Full code. - History obtained from: EMS. ROS: 10:36 Constitutional: Negative for fever, chills, and weight loss, Eyes: Negative for injury, kdr pain, redness, and discharge, ENT: Negative for injury, pain, and discharge, Neck: Negative for injury, pain, and swelling, Abdomen/GI: Negative for abdominal pain, nausea, vomiting, diarrhea, and constipation, Back: Negative for injury and pain, : Negative for injury, bleeding, discharge, and swelling, Neuro: Negative for headache, weakness, numbness, tingling, and seizure activity. Psych: Negative for depression, anxiety, suicide ideation, homicidal ideation, and hallucinations, Allergy/Immunology: Negative for hives, rash, and allergies, Endocrine: Negative for neck swelling, polydipsia, polyuria, polyphagia, and marked weight changes, Hematologic/Lymphatic: Negative for swollen nodes, abnormal bleeding, and unusual bruising. 10:36 Cardiovascular: Positive for edema, Negative for chest pain, orthopnea, palpitations, paroxysmal nocturnal dyspnea. 10:36 Respiratory: Positive for dyspnea on exertion, shortness of breath, on exertion. Negative for hemoptysis, pleurisy, sputum production. 10:36 MS/extremity: Positive for decreased range of motion, erythema, pain, swelling, Patient has considerable acute on chronic swelling to his lower extremities with weeping. This extends up to his knees.. 10:36 Skin: Positive for Extensive breakdown and weeping of the skin on both lower extremities from the knee down. Exam: 10:36 Constitutional: This is a well developed, well nourished patient who is awake, alert, kdr and in no significant distress. Clearly the patient has been living in a dilapidated unsanitary state. He was covered with feces on arrival. Head/Face: Normocephalic, atraumatic. Eyes: Pupils equal round and reactive to light, extra-ocular motions intact. Lids and lashes normal. Conjunctiva and sclera are non-icteric and not injected. Cornea within normal limits. Periorbital areas with no swelling, redness, or edema. Neck: Trachea midline, no thyromegaly or masses palpated, and no cervical lymphadenopathy. Supple, full range of motion without nuchal rigidity, or vertebral point tenderness. No Meningismus. Chest/axilla: Normal chest wall appearance and motion. Nontender with no deformity. No lesions are appreciated. Cardiovascular: Regular rate and rhythm with a normal S1 and S2. No gallops, murmurs, or rubs. Normal PMI, no JVD. No pulse deficits. Abdomen/GI: Soft, non-tender, with normal bowel sounds. No distension or tympany. No guarding or rebound. No evidence of tenderness throughout. Back: No spinal tenderness. No costovertebral tenderness. Full range of motion. Neuro: Awake and alert, GCS 15, oriented to person, place, time, and situation. Cranial nerves II-XII grossly intact. Motor strength 5/5 in upper extremities, 4/5 in the lower extremities. Sensory grossly intact. Cerebellar exam grossly intact 10:36 Respiratory: the patient does not display signs of respiratory distress, The patient is slightly tachypneic but does not appear in any acute respiratory distress. He feels that he is wheezing although audible wheezes are not noted on initial exam without auscultation, Respirations: normal, Breath sounds: rales, that are mild, wheezing: expiratory that is mild, is scattered, is heard diffusely, Respiratory rate: 26 10:36 Musculoskeletal/extremity: Patient is extensive and acute on chronic lower extremity edema, lymphedema and cellulitis. There is also mild weeping from the skin. Vital Signs: 09:42 BP 172 / 100; Pulse 114; Resp 26; Temp 97.4(TE); Pulse Ox 100% on 2 lpm NC; cc4 09:44 BP 172 / 100; Pulse 114; Resp 26; Temp 97.4; Pulse Ox 100% on 2 lpm NC; cc4 10:52 BP 120 / 83; Pulse 103; Resp 20; Pulse Ox 100% on 2 lpm NC; cc4 12:00 BP 135 / 50; Pulse 110; Resp 20; Temp 97.0(TE); Pulse Ox 100% on R/A; kh1 15:09 BP 148 / 62; Pulse 107; Resp 20; Pulse Ox 100% ; kh1 MDM: 10:36 Patient medically screened. kdr 10:36 Data reviewed: vital signs, nurses notes, lab test result(s), radiologic studies. kdr Counseling: I had a detailed discussion with the patient and/or guardian regarding: the historical points, exam findings, and any diagnostic results supporting the discharge/admit diagnosis, lab results, radiology results, the need for further work-up and treatment in the hospital. ED course: The patient had been previously admitted to Dr. Benavides however there are also records indicating that Dr. Landa may be his physician. Will confirm prior to admission. I have currently left a message for Dr. Landa. 06/12 08:50 Order name: Amylase, Serum kdr 06/12 08:50 Order name: Basic Metabolic Panel kdr 06/12 08:50 Order name: Blood Culture Adult (2) kdr 06/12 08:50 Order name: CBC with Diff kdr 06/12 08:50 Order name: CPK kdr 06/12 08:50 Order name: Ckmb; Complete Time: 10:29 kdr 06/12 08:50 Order name: LFT's kdr 06/12 08:50 Order name: Lactate; Complete Time: 10:29 kdr 06/12 08:50 Order name: Lipase; Complete Time: 10:29 kdr 06/12 08:50 Order name: Procalcitonin; Complete Time: 10:29 kdr 06/12 08:50 Order name: Protime (+inr); Complete Time: 10:29 kdr 06/12 08:50 Order name: Ptt, Activated; Complete Time: 10: kdr 06/12 08:50 Order name: Troponin (emerg Dept Use Only); Complete Time: 10: kdr 06/12 08:50 Order name: Urine Microscopic Only; Complete Time: 13:05 [facility] 06/12 08:50 Order name: Amylase; Complete Time: 10:29 EDMA 06/12 08:50 Order name: Basic Metabolic Panel; Complete Time: 10:29 EDMA 06/12 08:50 Order name: Blood Culture EDMA 06/12 08:50 Order name: CBC with Automated Diff; Complete Time: 10:29 EDMA 06/12 08:50 Order name: Creatine Phosphokinase; Complete Time: 10:29 EDMA 06/12 08:51 Order name: Liver (Hepatic) Function; Complete Time: 10:29 EDMA 06/12 09:58 Order name: Manual Differential; Complete Time: 10:29 EDMA 06/12 10:31 Order name: Urine Culture EDMA 06/12 10:39 Order name: Urine Dipstick-Ancillary; Complete Time: 13: EDMA 06/12 11:31 Order name: SARS-COV-2 RT PCR; Complete Time: 13:05 EDMA 06/12 13:04 Order name: D-Dimer [facility] 06/12 14:50 Order name: Alcohol Serum/Plasma EDMA 06/12 15:40 Order name: Comprehensive Metabolic Panel EDMA 06/12 15:40 Order name: Thyroid Stimulating Hormone EDMA 06/12 15:40 Order name: CBC with Automated Diff EDMA 06/12 15:40 Order name: CBC with Automated Diff EDMA 06/12 08:50 Order name: Chest Single View XRAY; Complete Time: 10:29 [facility] 06/12 08:50 Order name: Accucheck; Complete Time: 10:32 kdr 06/12 08:50 Order name: Cardiac monitoring; Complete Time: 09:08 kdr 06/12 08:50 Order name: EKG - Nurse/Tech; Complete Time: 10:32 kdr 06/12 08:50 Order name: IV Saline Lock - Large Bore; Complete Time: 09:08 kdr 06/12 08:50 Order name: Labs collected and sent; Complete Time: 09:08 kdr 06/12 08:50 Order name: O2 Per Protocol; Complete Time: 09:08 kdr 06/12 08:50 Order name: O2 Sat Monitoring; Complete Time: 09:08 kdr 06/12 13:04 Order name: US Extremity Venous W Compression Blayne kdr 06/12 13:37 Order name: Labs - recollect needed: new blue top needed for d-dimer; Complete Time: em1 14:57 06/12 14:48 Order name: Diet Heart Healthy; Complete Time: 14:49 iw 06/12 14:53 Order name: CONS Physician Consult [facility] 06/12 15:31 Order name: Social Service Consult [facility] 06/12 15:40 Order name: CBC with Automated Diff [facility]MA 06/12 15:40 Order name: Comprehensive Metabolic Panel [facility] 06/12 15:40 Order name: Comprehensive Metabolic Panel [facility] 06/12 15:40 Order name: Comprehensive Metabolic Panel [facility] 06/12 15:40 Order name: CBC with Automated Diff [facility]MA 06/12 15:42 Order name: Physical Therapy Consult [facility] 06/12 15:59 Order name: Ammonia [facility]MA 06/12 15:59 Order name: Lipid Profile [facility] 06/12 15:59 Order name: Protime (+INR) [facility] Administered Medications: 11:11 Drug: Cefepime 1 grams Route: IVPB; Rate: 200 ml/hr; Infused Over: 30 mins; Site: left cc4 antecubital; Disposition Summary: 06/12/21 10:36 Hospitalization Ordered Hospitalization Status: Inpatient Admission kdr Condition: Fair kdr Problem: an ongoing problem kdr Symptoms: are unchanged kdr Bed/Room Type: Standard kdr Provider: Ashkan Landa(06/12/21 12:49) kdr Location: Telemetry/MedSurg (Inpatient)(06/12/21 16:46) em1 Room Assignment: 202(06/12/21 16:46) em1 Diagnosis - Bilateral lower extremity cellulitis and lymphedema, weakness, failure to thrive, kdr shortness of breath, tachycardia, tachypnea Forms: - Medication Reconciliation Form kdr - SBAR form kdr Signatures: Dispatcher [employer] EDShalom Messer MD MD kdr Pablo, Rolf em1 Victoria Castellanos cc4 Corrections: (The following items were deleted from the chart) 09:49 09:44 PMHx: Hypertension; cc4 cc4 12:49 10:36 Familia Caceres kdr kdr 14:57 10:36 Telemetry/MedSurg (Inpatient) kdr em1 14:57 10:36 kdr em1 16:46 14:57 [facility] ER HOLD em1 em1 16:46 14:57 ERHOLD- em1 em1
--- NOTE | 2021-06-12 10:36 | ER ---
Nurse's Notes [facility] Name: Travon Melendez Age: 80 yrs Sex: Male : 1940 Arrival Date: 06/12/2021 Time: 08:01 Bed 27 Private MD: Diagnosis: Bilateral lower extremity cellulitis and lymphedema, weakness, failure to thrive, shortness of breath, tachycardia, tachypnea Presentation: 06/12 09:37 Chief complaint: Patient states: multiple falls per pt. bilateral leg pain and cc4 swelling. States fell twice this am. Per EMS pt also has failure to thrive. Positive SOB. Denies CP. Pt is covered in feces. Bilateral leg weeping open sores noted. pt has dermal ridge formed on bilateral buttocks. Red areas noted in folds under abd and under both breast area. Coronavirus screen: Vaccine status: Patient reports being unvaccinated. pt states would like to be vaccinated Client denies travel out of the [place] in the last 14 days. 09:37 Method Of Arrival: EMS: [facility] cc4 09:42 Ebola Screen: No symptoms or risks identified at this time. Initial Sepsis Screen: Does cc4 the patient meet any 2 criteria? If YES to both, name of provider notified: Shlaom García MD Risk Assessment: Do you want to hurt yourself or someone else? Patient reports no desire to harm self or others. Onset of symptoms is unknown. 09:42 Acuity: EVELYN 2 cc4 09:50 Initial Sepsis Screen: Does the patient have a suspected source of infection? Yes: Skin cc4 breakdown/wound. Triage Assessment: 09:44 General: Appears uncomfortable, obese, unkempt, feces noted all over body. Pain: cc4 Complains of pain in right leg and left leg Pain does not radiate. Pain currently is 10 out of 10 on a pain scale. Quality of pain is described as heavy, sharp, throbbing. 09:48 General: Behavior is calm, cooperative. cc4 Historical: - Allergies: 09:48 No Known Allergies; cc4 - PMHx: 09:48 Hypertensive disorder; cc4 - Immunization history:: Adult Immunizations up to date, Client reports having NOT received the Covid vaccine. - Social history:: Smoking status: Patient denies any tobacco usage or history of. - Family history:: not pertinent. - Code Status:: Full code. - History obtained from: EMS. Screenin:47 Abuse screen: Denies threats or abuse. Nutritional screening: No deficits noted. cc4 Tuberculosis screening: No symptoms or risk factors identified. Fall Risk Fall in past 12 months (25 points). IV access (20 points). Ambulatory Aid- None/Bed Rest/Nurse Assist (0 pts). Gait- Impaired (20 pts.). Assessment: 08:30 General: Appears obese, unkempt, Behavior is calm, cooperative, Smells of feces. cc4 10:52 Reassessment: Patient appears in no apparent distress at this time. No changes from cc4 previously documented assessment. Patient and/or family updated on plan of care and expected duration. Pain level reassessed. Patient is alert, oriented x 3, equal unlabored respirations, skin warm/dry/pink. 11:53 Reassessment: Patient appears in no apparent distress at this time. No changes from [facility] previously documented assessment. Patient and/or family updated on plan of care and expected duration. Pain level reassessed. 15:06 Reassessment: Patient appears in no apparent distress at this time. No changes from 1 previously documented assessment. Patient and/or family updated on plan of care and expected duration. Pain level reassessed. Patient is alert, oriented x 3, equal unlabored respirations, skin warm/dry/pink. Vital Signs: 09:42 BP 172 / 100; Pulse 114; Resp 26; Temp 97.4(TE); Pulse Ox 100% on 2 lpm NC; cc4 09:44 BP 172 / 100; Pulse 114; Resp 26; Temp 97.4; Pulse Ox 100% on 2 lpm NC; cc4 10:52 BP 120 / 83; Pulse 103; Resp 20; Pulse Ox 100% on 2 lpm NC; cc4 12:00 BP 135 / 50; Pulse 110; Resp 20; Temp 97.0(TE); Pulse Ox 100% on R/A; kh1 15:09 BP 148 / 62; Pulse 107; Resp 20; Pulse Ox 100% ; kh1 ED Course: 08:01 Patient arrived in ED. ap3 08:35 Shalom García MD is Attending Physician. kdr 09:07 Victoria Castellanos is Primary Nurse. cc4 09:07 Liver (Hepatic) Function Sent. cc4 09:07 Blood Culture Sent. cc4 09:07 CBC with Automated Diff Sent. cc4 09:07 Creatine Phosphokinase Sent. cc4 09:08 Amylase Sent. cc4 09:08 Basic Metabolic Panel Sent. cc4 09:08 Amylase, Serum Sent. cc4 09:08 Basic Metabolic Panel Sent. cc4 09:08 CBC with Diff Sent. cc4 09:08 CPK Sent. cc4 09:08 LFT's Sent. cc4 09:08 Ckmb Sent. cc4 09:08 Lactate Sent. cc4 09:08 Lipase Sent. cc4 09:08 Procalcitonin Sent. cc4 09:08 Protime (+inr) Sent. cc4 09:08 Ptt, Activated Sent. cc4 09:08 Troponin (emerg Dept Use Only) Sent. cc4 09:30 Chest Single View XRAY In Process Unspecified. EDMS 09:44 Triage completed. cc4 09:44 Arm band placed on right wrist. cc4 09:47 No provider procedures requiring assistance completed. Inserted saline lock: 20 gauge cc4 in left antecubital area, using aseptic technique. Blood collected. 09:47 Patient has correct armband on for positive identification. Placed in gown. Bed in low cc4 position. Call light in reach. Side rails up X2. 10:31 Urine Culture Sent. cc4 10:32 Blood Culture Sent. cc4 10:32 Blood Culture Adult (2) Sent. cc4 10:33 Familia Caceres MD is Hospitalizing Provider. kdr 12:48 Ashkan Landa MD is Hospitalizing Provider. kdr 13:36 US Extremity Venous W Compression Blayne In Process Unspecified. EDMS Administered Medications: 11:11 Drug: Cefepime 1 grams Route: IVPB; Rate: 200 ml/hr; Infused Over: 30 mins; Site: left cc4 antecubital; Outcome: 10:36 Decision to Hospitalize by Provider. kdr 18:23 Patient left the ED. ap3 Signatures: Dispatcher [employer] EDMS Shalom García MD MD kdr Deb Nur RN RN ap3 [facility] Victoria Castellanos cc4 Corrections: (The following items were deleted from the chart) 09:49 09:44 PMHx: Hypertension; cc4 cc4 10:52 10:51 General: Appears obese, unkempt, Behavior is calm, cooperative, cc4 cc4
[2021-06-12 10:39] LABS: Urine Blood 2+ (Negative); Urine Glucose Negative (Negative); Urine Protein 2+ (Negative); Urine Specific Gravity 1.025 (1.005-1.030); Urine pH 5.5 (5.0-7.0)
[2021-06-12] MEDS ORDERED: CEFEPIME/SWI 1gm 10 ML ONE (11:22)
[2021-06-12] MEDS ORDERED: NA CHLORIDE 0.9% 100 ML ONE (11:23)
[2021-06-12] MEDS ORDERED: VANCOMYCIN 1.5 GM in NA CHLORIDE 0.9% 500 ML IVPB ONE (13:00)
--- NOTE | 2021-06-12 14:02 | RAD REPORT ---
EXAM DESCRIPTION: US - Extrem Venous W Compress Blayne - 06/12/2021 1:47 pm CLINICAL HISTORY: Swelling COMPARISON: None. TECHNIQUE: Real-time sonographic evaluation of the bilateral lower extremity deep venous systems was performed. FINDINGS: Normal compressibility, flow augmentation, phasic flow and spontaneous flow is identified in both the left and right lower extremity deep venous systems. No intraluminal filling defects seen. IMPRESSION: No DVT in either lower extremity.
--- NOTE | 2021-06-12 14:49 | P.HP ---
Certification for Inpatient Patient admitted to: Inpatient With expected LOS: >2 Midnights Patient will require the following post-hospital care: Home Health Services Practitioner: I am a practitioner with admitting privileges, knowledge of patient current condition, hospital course, and medical plan of care. Services: Services provided to patient in accordance with Admission requirements found in Title 42 Section 412.3 of the Code of Federal Regulations Patient History Date of Service: 06/12/21 Primary Care Provider: Syeda Reason for admission: Chf exacerbation History of Present Illness: Patient who has been seen by me sporadically He has a history of alcoholism and diastolic dysfunction The patient was sleeping in his armchair. As he got short of breath when he lies flat. Unfortunately his armchair broke 3 weeks The patient has been sleeping sitting up. The patient has been getting more swelling in his legs. has been worsening cellulitis as well. Came to the ER. Was also found to have a uti Allergies No Known Allergies Allergy (Verified 06/24/15 08:04) Home Medications: Albuterol Neb [Proventil 0.083% Neb Soln] 2.5 mg NEB [id number] PRN #60 amp 01/07/21 Famotidine [Pepcid*] 20 mg PO BID #60 tab 01/07/21 Ipratropium Neb [Atrovent*] 0.5 mg NEB [id number] PRN #60 amp 01/07/21 Gus [Gus*] 1 pkt PO BID #60 powd.pack 01/07/21 Spironolactone [Aldactone*] 25 mg PO DAILY #30 tab 01/07/21 Thiamine HCl [Vitamin B-1*] 100 mg PO DAILY #30 tablet 01/07/21 lisinopriL [Prinivil*] 5 mg PO BID #60 tab 01/07/21 predniSONE [Prednisone*] 20 mg PO BID #17 tab 01/07/21 - Past Medical/Surgical History Diabetic: No -: Hypertension -: Suspected COPD history of tobacco abuse -: left ankle 2x Psychosocial/ Personal History: Patient is retired, lives alone - Family History Mother -: Other (see notes) Notes: parkinsons - Social History Alcohol use: Yes CD- Drugs: No Caffeine use: No Review of Systems 10-point ROS is otherwise unremarkable Cardiovascular: Orthopnea, Paroxysmal Noc. Dyspnea, Edema (2+) Integumentary: Other (cellulitis of the bilateral lower extremity ) Physical Examination - Physical Exam General: Alert, In no apparent distress HEENT: Atraumatic, PERRLA, Mucous membr. moist/pink, EOMI, Sclerae nonicteric Neck: Supple, 2+ carotid pulse no bruit, No LAD, Without JVD or thyroid abnormality Respiratory: Clear to auscultation bilaterally, Normal air movement Cardiovascular: Regular rate/rhythm, Normal S1 S2, Edema (1+) Gastrointestinal: Normal bowel sounds, No tenderness Musculoskeletal: No tenderness Integumentary: No rashes, Erythema, Warmth (lower extremity) Neurological: Normal gait, Normal speech, Normal strength at 5/5 x4 extr, Normal tone, Normal affect Lymphatics: No axilla or inguinal lymphadenopathy - Studies Laboratory Data (last 24 hrs) 06/12/21 08:55: PT 13.6 H, INR 1.18, APTT 31.6 06/12/21 08:55: WBC 7.70, Hgb 13.5 L, Hct 40.3, Plt Count 93 L 06/12/21 08:55: Sodium 131 L, Potassium 4.3, BUN 20 H, Creatinine 0.69, Glucose 113 H, Total Bilirubin 2.6 H, AST 27, ALT 19, Alkaline Phosphatase 109, Amylase 45, Lipase 123 Assessment and Plan - Problems (Diagnosis) (1) CHF (congestive heart failure) Current Visit: Yes Status: Acute Plan: Will admit to the hospital and start him on lasix. Consult Dr. Sims. The patient has had a recent echocardiogram Qualifiers: Heart failure type: diastolic Heart failure chronicity: acute on chronic Qualified Code(s): I50.33 - Acute on chronic diastolic (congestive) heart failure (2) UTI (urinary tract infection) Current Visit: Yes Status: Acute Plan: will start on bactrim which will also treat his cellulitis as well Qualifiers: Urinary tract infection type: acute cystitis (3) Chronic alcohol abuse Current Visit: Yes Status: Acute Plan: will check serum alcohol. Continue thiamine. Will Consider librium (4) Cellulitis of right lower extremity Onset Date: 06/24/15 Current Visit: No Status: Acute Plan: bactrim as stated above - Advance Directives Does patient have a Living Will: No Does patient have a Durable POA for Healthcare: Yes - Code Status/Comfort Care Code Status Assessed: Yes Code Status: Full Code Physician Review: Patient Assessed, Agree with Above Assessment and Plan Critical Care: No Time Spent Managing Pts Care (In Minutes): 50
[2021-06-12] MEDS: FUROSEMIDE 40 MG/4 ML VIAL IV SCH (16:00)
[2021-06-12] MEDS ORDERED: ENOXAPARIN 40 MG/0.4 ML SQ SCH (17:00)
[2021-06-12 18:06] VITALS: BMI 43.0
[2021-06-12 18:31] LABS: Protime INR 1.25
[2021-06-12] MEDS ORDERED: FUROSEMIDE 20 MG/ 2ML VIAL ONE (18:32)
[2021-06-12] MEDS ORDERED: ENOXAPARIN 40 MG/0.4 ML SQ ONE (18:32)
[2021-06-12] MEDS: lisinopriL 5 MG TAB PO SCH (21:43)
[2021-06-12] MEDS: SMZ./TMP. 800/160 MG TABLET PO SCH (21:44)
[2021-06-13 06:36] LABS: Absolute Lymphocytes (CBC) 0.5 K/uL (0.7-4.9); Basophils % 0.3 % (0-1.3); Hematocrit 36.3 % (39.6-49.0); Lymphocytes % 8.1 % (15.3-44.8); MPV 9.1 fL (7.6-11.3); RBC Red Blood Cell Count 3.78 M/uL (4.33-5.43)
[2021-06-13 06:57] LABS: ALT/SGPT 16 U/L (12-78); AST/SGOT 29 U/L (15-37); Alkaline Phosphatase 90 U/L (45-117); BUN Blood Urea Nitrogen 18 mg/dL (7-18); Bicarbonate 31 mmol/L (21-32); Bilirubin Total 1.5 mg/dL (0.2-1.0); Glucose Level 109 mg/dL (74-106); Potassium 4.3 mmol/L (3.5-5.1); Protein, Total 6.3 g/dL (6.4-8.2); Sodium Level 135 mmol/L (136-145)
[2021-06-13] MEDS ORDERED: LORazepam 2 MG/ML VIAL IV PRN (07:51)
--- NOTE | 2021-06-13 08:32 | P.PN ---
Subjective Date of Service: 06/13/21 Primary Care Provider: Syeda Chief Complaint: Chf exacerbation Subjective: Improving Patient denies any history of dt's. He did have a seizure once with anesthesia. He had a few beers the night before his surgery. He had a negative balance of 700ml. Which does not correlate with a 20lb weight loss. Review of Systems 10-point ROS is otherwise unremarkable Physical Examination - Vital Signs Temperature: 97.8 F Blood Pressure: 136/74 Pulse: 98 Respirations: 18 Pulse Ox (%): 99 - Physical Exam General: Alert, In no apparent distress HEENT: Atraumatic, PERRLA, EOMI Neck: Supple, JVD not distended Respiratory: Clear to auscultation bilaterally, Normal air movement Cardiovascular: Regular rate/rhythm, Normal S1 S2 Gastrointestinal: Normal bowel sounds, No tenderness Musculoskeletal: No tenderness Integumentary: No rashes Neurological: Normal speech, Normal tone, Normal affect Lymphatics: No axilla or inguinal lymphadenopathy - Studies Laboratory Data (last 24 hrs) 06/12/21 08:55: PT 13.6 H, INR 1.18, APTT 31.6 06/12/21 08:55: WBC 7.70, Hgb 13.5 L, Hct 40.3, Plt Count 93 L 06/12/21 08:55: Sodium 131 L, Potassium 4.3, BUN 20 H, Creatinine 0.69, Glucose 113 H, Total Bilirubin 2.6 H, AST 27, ALT 19, Alkaline Phosphatase 109, Amylase 45, Lipase 123 Assessment & Plan - Problems (Diagnosis) (1) CHF (congestive heart failure) Current Visit: Yes Status: Acute Plan: Will admit to the hospital and start him on lasix. Consult Dr. Sims. The patient has had a recent echocardiogram 06/13 Patient is looking much better with Lasix. Will await Dr. Sims input. Possible discharge today or tomorrow Qualifiers: Heart failure type: diastolic Heart failure chronicity: acute on chronic Qualified Code(s): I50.33 - Acute on chronic diastolic (congestive) heart failure (2) UTI (urinary tract infection) Current Visit: Yes Status: Acute Plan: will start on bactrim which will also treat his cellulitis as well Qualifiers: Urinary tract infection type: acute cystitis (3) Chronic alcohol abuse Current Visit: Yes Status: Chronic Plan: will check serum alcohol. Continue thiamine. Will Consider librium 06/13 Pt wishes to go home. NO plans to stop drinking. Will have ativan prn. However at this time. No signs of DTs (4) Cellulitis of right lower extremity Onset Date: 06/24/15 Current Visit: No Status: Acute Plan: bactrim as stated above Discharge Plan: Home Plan to discharge in: 24 Hours - Code Status/Comfort Care Code Status Assessed: No Physician Review: Patient Assessed, Agree with Above Assessment and Plan Critical Care: No Time Spent Managing Pts Care (In Minutes): 20
[2021-06-13] MEDS: PANTOPRAZOLE 40MG TABLET PO SCH (09:10)
[2021-06-13] MEDS: SPIRONOLACTONE 25 MG TABLET PO SCH (09:11)
[2021-06-13] MEDS: lisinopriL 5 MG TAB PO SCH ×2 (09:11→21:24)
[2021-06-13] MEDS: SMZ./TMP. 800/160 MG TABLET PO SCH ×2 (09:11→21:24)
[2021-06-13] MEDS: FUROSEMIDE 40 MG/4 ML VIAL IV SCH (09:11)
[2021-06-13] MEDS: THIAMINE HCL 100 MG TABLET PO SCH (09:11)
[2021-06-13 09:26] LABS: Blood Morphology Comment NOT SEEN (NOT SEEN); Platelet Estimate ADEQ; White Blood Cell Scan OK (OK)
[2021-06-13] MEDS: VANCOMYCIN 2 GM in NA CHLORIDE 0.9% 500 ML IVPB SCH (13:09)
[2021-06-13] MEDS: ENOXAPARIN 30 MG/0.3 ML SQ SCH (16:29)
[2021-06-14] MEDS: VANCOMYCIN 2 GM in NA CHLORIDE 0.9% 500 ML IVPB SCH ×2 (01:59→14:57)
[2021-06-14 06:22] LABS: Absolute Lymphocytes (CBC) 0.5 K/uL (0.7-4.9); Basophils % 0.6 % (0-1.3); Lymphocytes % 14.2 % (15.3-44.8); MPV 8.7 fL (7.6-11.3)
[2021-06-14 06:44] LABS: ALT/SGPT 17 U/L (12-78); AST/SGOT 23 U/L (15-37); Albumin 2.8 g/dL (3.4-5.0); Alkaline Phosphatase 92 U/L (45-117); BUN Blood Urea Nitrogen 20 mg/dL (7-18); Bicarbonate 36 mmol/L (21-32); Bilirubin Total 0.9 mg/dL (0.2-1.0); Glucose Level 104 mg/dL (74-106); Potassium 4.1 mmol/L (3.5-5.1); Protein, Total 6.3 g/dL (6.4-8.2); Sodium Level 138 mmol/L (136-145)
--- NOTE | 2021-06-14 09:45 | P.DS ---
Admission Date: 06/12/21 Discharge Date: 06/14/21 Primary Care Provider: Syeda Disposition: ROUTINE DISCHARGE Reason for Admission: Chf exacerbation - Problems (1) CHF (congestive heart failure) Current Visit: Yes Status: Acute Qualifiers: Heart failure type: diastolic Heart failure chronicity: acute on chronic Qualified Code(s): I50.33 - Acute on chronic diastolic (congestive) heart failure (2) UTI (urinary tract infection) Current Visit: Yes Status: Acute Qualifiers: Urinary tract infection type: acute cystitis (3) Chronic alcohol abuse Current Visit: Yes Status: Chronic (4) Cellulitis of right lower extremity Onset Date: 06/24/15 Current Visit: No Status: Acute Brief History of Present Illness: Patient who has been seen by me sporadically He has a history of alcoholism and diastolic dysfunction The patient was sleeping in his armchair. As he got short of breath when he lies flat. Unfortunately his armchair broke 3 weeks The patient has been sleeping sitting up. The patient has been getting more swelling in his legs. has been worsening cellulitis as well. Came to the ER. Was also found to have a uti Hospital Course: Patient came in for chf, as well as a uti and cellulitis. He did well on lasix. He had gm -ve rods and gm +ve cocci(coagulase negative so not MRSA). The patient is doing well. Plan to discharge him home. He is worried that he will fall. Has been falling repeatedly. The patient was able to ambulate 50ft with PT. He has home health set up. Have given him my office number and will have left a message on his son's phone. He can be treated much more effectively as an outpatient and avoid hospitalizations. The patient does have a history of alcoholism. Which is not going to stop at this age. Will see if we can have him come in for more frequent follow up. Vital Signs/Physical Exam: Temp Pulse Resp BP Pulse Ox 98.8 F 95 H 28 H 121/56 L 98 06/14/21 08:00 06/14/21 08:00 06/14/21 08:00 06/14/21 08:00 06/14/21 08:00 General: Alert, In no apparent distress HEENT: Atraumatic, PERRLA, EOMI Neck: Supple, JVD not distended Respiratory: Clear to auscultation bilaterally, Normal air movement Cardiovascular: Regular rate/rhythm, Normal S1 S2 Gastrointestinal: Normal bowel sounds, No tenderness Musculoskeletal: No tenderness Integumentary: No rashes Neurological: Normal speech, Normal tone, Normal affect Lymphatics: No axilla or inguinal lymphadenopathy Laboratory Data at Discharge: WBC 3.90 K/uL (4.3-10.9) L D 06/14/21 06:05 Hgb 11.9 g/dL (13.6-17.9) L 06/14/21 06:05 Hct 36.0 % (39.6-49.0) L 06/14/21 06:05 Plt Count 93 K/uL (152-406) L 06/14/21 06:05 PT 14.4 SECONDS (9.5-12.5) H 06/12/21 18:08 INR 1.25 06/12/21 18:08 APTT 31.6 SECONDS (24.3-36.9) 06/12/21 08:55 Sodium 138 mmol/L (136-145) 06/14/21 06:05 Potassium 4.1 mmol/L (3.5-5.1) 06/14/21 06:05 BUN 20 mg/dL (7-18) H 06/14/21 06:05 Creatinine 0.48 mg/dL (0.55-1.3) L 06/14/21 06:05 Glucose 104 mg/dL (74-106) 06/14/21 06:05 Total Bilirubin 0.9 mg/dL (0.2-1.0) 06/14/21 06:05 AST 23 U/L (15-37) 06/14/21 06:05 ALT 17 U/L (12-78) 06/14/21 06:05 Alkaline Phosphatase 92 U/L (45-117) 06/14/21 06:05 Triglycerides 45 mg/dL (<150) 06/13/21 05:57 Cholesterol 130 mg/dL (<200) 06/13/21 05:57 HDL Cholesterol 90 mg/dL (40-60) H 06/13/21 05:57 Cholesterol/HDL Ratio 1.44 06/13/21 05:57 Amylase 45 U/L (25-115) 06/12/21 08:55 Lipase 123 U/L (73-393) 06/12/21 08:55 Home Medications: Albuterol Neb [Proventil 0.083% Neb Soln] 2.5 mg NEB [id number] PRN #60 amp 01/07/21 Famotidine [Pepcid*] 20 mg PO BID #60 tab 01/07/21 Ipratropium Neb [Atrovent*] 0.5 mg NEB [id number] PRN #60 amp 01/07/21 Gus [Gus*] 1 pkt PO BID #60 powd.pack 01/07/21 Spironolactone [Aldactone*] 25 mg PO DAILY #30 tab 01/07/21 Thiamine HCl [Vitamin B-1*] 100 mg PO DAILY #30 tablet 01/07/21 lisinopriL [Prinivil*] 5 mg PO BID #60 tab 01/07/21 predniSONE [Prednisone*] 20 mg PO BID #17 tab 01/07/21 Diet: Regular Activity: Fall precautions Followup: Ashkan Landa MD [ACTIVE - CAN ADMIT] - 1-2 Weeks Time spent managing pt's care (in minutes): 35
[2021-06-14] MEDS: PANTOPRAZOLE 40MG TABLET PO SCH (09:50)
[2021-06-14] MEDS: THIAMINE HCL 100 MG TABLET PO SCH (09:51)
[2021-06-14] MEDS: SPIRONOLACTONE 25 MG TABLET PO SCH (09:51)
[2021-06-14] MEDS: SMZ./TMP. 800/160 MG TABLET PO SCH ×2 (09:51→21:17)
[2021-06-14] MEDS: lisinopriL 5 MG TAB PO SCH ×2 (09:52→21:16)
[2021-06-14] MEDS: FUROSEMIDE 40 MG/4 ML VIAL IV SCH (09:52)
[2021-06-14] MEDS: ENOXAPARIN 30 MG/0.3 ML SQ SCH (17:28)
[2021-06-15] MEDS: VANCOMYCIN 2 GM in NA CHLORIDE 0.9% 500 ML IVPB SCH ×2 (01:00→10:52)
[2021-06-15 07:22] LABS: Hematocrit 35.2 % (39.6-49.0); RBC Red Blood Cell Count 3.64 M/uL (4.33-5.43)
[2021-06-15 07:23] LABS: Absolute Lymphocytes (CBC) 0.5 K/uL (0.7-4.9); Basophils % 0.8 % (0-1.3); Lymphocytes % 16.5 % (15.3-44.8); MPV 8.7 fL (7.6-11.3)
[2021-06-15 07:48] LABS: ALT/SGPT 19 U/L (12-78); AST/SGOT 28 U/L (15-37); Albumin 2.7 g/dL (3.4-5.0); Alkaline Phosphatase 89 U/L (45-117); BUN Blood Urea Nitrogen 19 mg/dL (7-18); Bicarbonate 37 mmol/L (21-32); Bilirubin Total 0.8 mg/dL (0.2-1.0); Glucose Level 111 mg/dL (74-106); Potassium 4.2 mmol/L (3.5-5.1); Protein, Total 6.1 g/dL (6.4-8.2); Sodium Level 138 mmol/L (136-145)
[2021-06-15] MEDS: PANTOPRAZOLE 40MG TABLET PO SCH (08:00)
[2021-06-15] MEDS: SPIRONOLACTONE 25 MG TABLET PO SCH (09:39)
--- NOTE | 2021-06-15 09:39 | P.PN ---
Subjective Date of Service: 06/15/21 Primary Care Provider: Syeda Chief Complaint: Chf exacerbation patient was to be discharged yesterday. However suddenly states he falls at night. the family called. He has a history of not taking care of himself. Daughter and son are struggling to keep him safe in his own home. Needs to be cleaned and made safe for him. Review of Systems 10-point ROS is otherwise unremarkable Physical Examination - Vital Signs Temperature: 98.6 F Blood Pressure: 128/58 Pulse: 86 Respirations: 26 Pulse Ox (%): 95 - Physical Exam General: Alert, In no apparent distress HEENT: Atraumatic, PERRLA, EOMI Neck: Supple, JVD not distended Respiratory: Clear to auscultation bilaterally, Normal air movement Cardiovascular: Regular rate/rhythm, Normal S1 S2 Gastrointestinal: Normal bowel sounds, No tenderness Musculoskeletal: No tenderness Integumentary: No rashes Neurological: Normal speech, Normal tone, Normal affect Lymphatics: No axilla or inguinal lymphadenopathy - Studies Microbiology Data (last 24 hrs): 06/12/21 09:25 Clean Catch Urine [place] Count - Final BETWEEN 10,000 & 100,000 CFU/ML 06/12/21 09:25 Clean Catch Urine - Final MIXED [place]. Assessment & Plan - Problems (Diagnosis) (1) Protein-energy malnutrition Current Visit: Yes Status: Acute Plan: Plan for inpatient rehab. Will have aids social worker try to arrange this on Wednesday. Qualifiers: Protein-calorie malnutrition severity: moderate Qualified Code(s): E44.0 - Moderate protein-calorie malnutrition (2) CHF (congestive heart failure) Current Visit: Yes Status: Acute Plan: Will admit to the hospital and start him on lasix. Consult Dr. Sims. The patient has had a recent echocardiogram 06/13 Patient is looking much better with Lasix. Will await Dr. Sims input. Possible discharge today or tomorrow Qualifiers: Heart failure type: diastolic Heart failure chronicity: acute on chronic Qualified Code(s): I50.33 - Acute on chronic diastolic (congestive) heart failure (3) UTI (urinary tract infection) Current Visit: Yes Status: Acute Plan: will start on bactrim which will also treat his cellulitis as well Qualifiers: Urinary tract infection type: acute cystitis (4) Chronic alcohol abuse Current Visit: Yes Status: Chronic Plan: will check serum alcohol. Continue thiamine. Will Consider librium 06/13 Pt wishes to go home. NO plans to stop drinking. Will have ativan prn. However at this time. No signs of DTs (5) Cellulitis of right lower extremity Onset Date: 06/24/15 Current Visit: No Status: Acute Plan: bactrim as stated above Discharge Plan: Home Plan to discharge in: 24 Hours - Code Status/Comfort Care Code Status Assessed: No Code Status: Full Code Physician Review: Patient Assessed, Agree with Above Assessment and Plan Critical Care: No Time Spent Managing Pts Care (In Minutes): 25
[2021-06-15] MEDS: lisinopriL 5 MG TAB PO SCH ×2 (09:40→20:24)
[2021-06-15] MEDS: THIAMINE HCL 100 MG TABLET PO SCH (09:40)
[2021-06-15] MEDS: SMZ./TMP. 800/160 MG TABLET PO SCH ×2 (09:40→20:24)
[2021-06-15] MEDS: FUROSEMIDE 40 MG/4 ML VIAL IV SCH (09:41)
[2021-06-15] MEDS: ENOXAPARIN 30 MG/0.3 ML SQ SCH (16:08)
[2021-06-16 09:41] VITALS: O2SAT 95
[2021-06-16] MEDS: SMZ./TMP. 800/160 MG TABLET PO SCH (11:29)
[2021-06-16] MEDS: THIAMINE HCL 100 MG TABLET PO SCH (11:29)
[2021-06-16] MEDS: SPIRONOLACTONE 25 MG TABLET PO SCH (11:29)
[2021-06-16] MEDS: PANTOPRAZOLE 40MG TABLET PO SCH (11:29)
[2021-06-16] MEDS: FUROSEMIDE 40 MG/4 ML VIAL IV SCH (11:30)
[2021-06-16] MEDS: lisinopriL 5 MG TAB PO SCH (11:30)
--- NOTE | 2021-06-16 12:17 | P.DS ---
Admission Date: 06/12/21 Discharge Date: 06/16/21 Primary Care Provider: Syeda Disposition: TRANSFER TO INPATIENT REHAB Discharge Condition: GOOD Reason for Admission: Chf exacerbation - Problems (1) Protein-energy malnutrition Current Visit: Yes Status: Acute Qualifiers: Protein-calorie malnutrition severity: moderate Qualified Code(s): E44.0 - Moderate protein-calorie malnutrition (2) CHF (congestive heart failure) Current Visit: Yes Status: Acute Qualifiers: Heart failure type: diastolic Heart failure chronicity: acute on chronic Qualified Code(s): I50.33 - Acute on chronic diastolic (congestive) heart failure (3) UTI (urinary tract infection) Current Visit: Yes Status: Acute Qualifiers: Urinary tract infection type: acute cystitis (4) Chronic alcohol abuse Current Visit: Yes Status: Chronic (5) Cellulitis of right lower extremity Onset Date: 06/24/15 Current Visit: No Status: Acute Brief History of Present Illness: Patient who has been seen by me sporadically He has a history of alcoholism and diastolic dysfunction The patient was sleeping in his armchair. As he got short of breath when he lies flat. Unfortunately his armchair broke 3 weeks The patient has been sleeping sitting up. The patient has been getting more swelling in his legs. has been worsening cellulitis as well. Came to the ER. Was also found to have a uti Hospital Course: Patient came in for chf, as well as a uti and cellulitis. He did well on lasix. He had gm -ve rods and gm +ve cocci(coagulase negative so not MRSA). The patient is doing well. Plan to discharge him home. He is worried that he will fall. Has been falling repeatedly. The patient was able to ambulate 50ft with PT. He has home health set up. Have given him my office number and will have left a message on his son's phone. He can be treated much more effectively as an outpatient and avoid hospitalizations. The patient does have a history of alcoholism. Which is not going to stop at this age. Will see if we can have him come in for more frequent follow up. 06/16 Patients discharge was held due to his fear of falling at home. His family was also concerned. He is most likely to be accepted to the inpatient rehab facility on the 5th floor. Thank you for allowing me to be a part of his care. Vital Signs/Physical Exam: Temp Pulse Resp BP Pulse Ox 98.4 F 82 19 146/58 H 95 06/16/21 08:00 06/16/21 08:00 06/16/21 08:00 06/16/21 08:00 06/16/21 08:00 General: Alert, In no apparent distress HEENT: Atraumatic, PERRLA, EOMI Neck: Supple, JVD not distended Respiratory: Clear to auscultation bilaterally, Normal air movement Cardiovascular: Regular rate/rhythm, Normal S1 S2 Gastrointestinal: Normal bowel sounds, No tenderness Musculoskeletal: No tenderness Integumentary: No rashes Neurological: Normal speech, Normal tone, Normal affect Lymphatics: No axilla or inguinal lymphadenopathy Laboratory Data at Discharge: WBC 3.00 K/uL (4.3-10.9) L D 06/15/21 07:03 Hgb 11.7 g/dL (13.6-17.9) L 06/15/21 07:03 Hct 35.2 % (39.6-49.0) L 06/15/21 07:03 Plt Count 94 K/uL (152-406) L 06/15/21 07:03 PT 14.4 SECONDS (9.5-12.5) H 06/12/21 18:08 INR 1.25 06/12/21 18:08 APTT 31.6 SECONDS (24.3-36.9) 06/12/21 08:55 Sodium 138 mmol/L (136-145) 06/15/21 07:03 Potassium 4.2 mmol/L (3.5-5.1) 06/15/21 07:03 BUN 19 mg/dL (7-18) H 06/15/21 07:03 Creatinine 0.47 mg/dL (0.55-1.3) L 06/15/21 07:03 Glucose 111 mg/dL (74-106) H 06/15/21 07:03 Total Bilirubin 0.8 mg/dL (0.2-1.0) 06/15/21 07:03 AST 28 U/L (15-37) 06/15/21 07:03 ALT 19 U/L (12-78) 06/15/21 07:03 Alkaline Phosphatase 89 U/L (45-117) 06/15/21 07:03 Triglycerides 45 mg/dL (<150) 06/13/21 05:57 Cholesterol 130 mg/dL (<200) 06/13/21 05:57 HDL Cholesterol 90 mg/dL (40-60) H 06/13/21 05:57 Cholesterol/HDL Ratio 1.44 06/13/21 05:57 Amylase 45 U/L (25-115) 06/12/21 08:55 Lipase 123 U/L (73-393) 06/12/21 08:55 Home Medications: Albuterol Neb [Proventil 0.083% Neb Soln] 2.5 mg NEB [id number] PRN #60 amp 01/07/21 Famotidine [Pepcid*] 20 mg PO BID #60 tab 01/07/21 Ipratropium Neb [Atrovent*] 0.5 mg NEB [id number] PRN #60 amp 01/07/21 Gus [Gus*] 1 pkt PO BID #60 powd.pack 01/07/21 Spironolactone [Aldactone*] 25 mg PO DAILY #30 tab 01/07/21 Thiamine HCl [Vitamin B-1*] 100 mg PO DAILY #30 tablet 01/07/21 lisinopriL [Prinivil*] 5 mg PO BID #60 tab 01/07/21 Furosemide 20 mg PO DAILY 7 Days #7 tablet 06/16/21 Sulfamethoxazole/Trimethoprim [Bactrim Ds Tablet] 1 each PO BID 2 Days #4 tablet 06/16/21 New Medications: Sulfamethoxazole/Trimethoprim [Bactrim Ds Tablet] 1 each PO BID 2 Days #4 tablet Furosemide 20 mg PO DAILY 7 Days #7 tablet Diet: AHA Activity: Fall precautions Followup: Ashkan Landa MD [ACTIVE - CAN ADMIT] - 1-2 Weeks Time spent managing pt's care (in minutes): 30
[2021-06-16] MEDS ORDERED: VANCOMYCIN 2 GM in NA CHLORIDE 0.9% 500 ML IVPB SCH ×4 (13:00)
[2021-06-16 16:41] VITALS: BP 136/50; TEMP 97.8
[2021-06-16] MEDS: ENOXAPARIN 30 MG/0.3 ML SQ SCH (16:52)
== END 2021-06-16 18:45 | DRG 602 ==
LOC: ER 07:56 → ERHOLD 14:51 → 2ND 17:57
PROVIDERS: ADMIT Internal Medicine; ATTEND Internal Medicine
DX: L03.115 Cellulitis of right lower limb (principal); I50.33 Acute on chronic diastolic (congestive) heart failure; N30.00 Acute cystitis without hematuria; E44.0 Moderate protein-calorie malnutrition; I11.0 Hypertensive heart disease with heart failure; F10.10 Alcohol abuse, uncomplicated; Z68.39 Body mass index [BMI] 39.0-39.9, adult; Z20.822 Contact with and (suspected) exposure to COVID-19
CPT/HCPCS: 36415; 71045; 80048; 80053; 80061; 80076; 80202; 80320; 81003; 81015; 82140; 82150; 82550; 82553; 83605; 83690; 84145; 84443; 84484; 85025; 85379; 85610; 85730; 87040; 87077; 87086; 87088; 87186; 87205; 93005; 93970; 96374; 97112; 97116; 97161; 97530; 99284; J0692; J1650; J1940; J3370; J7030; J7040; U0003

== ENCOUNTER 2021-06-16 10:46 | Inpatient (IN) | payer OTHER ==
--- NOTE | 2021-06-16 15:04 | R.PREADM ---
PRE-ADMISSION SCREENING FORM SCREENING DATE AND TIME 06/16/2021 12:22 (CDT) ANTICIPATED REHAB ADMISSION DATE 06/18/2021 REFERRING FACILITY [facility] REFERRAL DATE AND TIME 06/16/2021 12:22 (CDT) REFERRAL ROOM# 202 A ACUTE ADMIT DATE 06/12/2021 Previous Rehabilitation(s): No. ACUTE MANAGER LONG TERM CARE/DC INHALATION THERAPY AIDE FABIO ATTENDING PHYSICIAN Dr. Souza REFERRING PHYSICIAN RANDEE SOUZA REHAB FACILITY [facility] CLINICAL LIAISON Ava Merrill PHYSICIAN REVIEWER Dr. Nicolas Mckinley M.D. MR# [id number] NAME RUTHANN MELENDEZ ADDRESS [address] [place] [address] [place] [address] PHONE [facility] [id number] DATE OF 1940 AGE 80 SSN# [id number] GENDER male MARITAL STATUS RACE white PREF. LANGUAGE (IF NON-OCCITAN) Eritrean ADMIT FROM 02 - [facility] PRE-HOSPITAL LIVING SETTING 01 - Home (private home/apt. board/care, assisted living, longterm, transitional living) HOME TYPE AND DETAILS Type of home: apartment # of levels in the residence: 1 # of steps within the residence: 0 # of steps to enter the residence: 0 PRE-HOSPITAL LIVING WITH Alone FAMILY SUPPORT No PRIMARY FAMILY CONTACT NAME KIM MELENDEZ PRIMARY FAMILY CONTACT PHONE PRIMARY FAMILY CONTACT RELATIONSHIP DAUGHTER PHONE PRIMARY FAMILY CONTACT ON ADM.? no IS PRIMARY FAMILY CONTACT AUTH. REP.? no 1ST EMERGENCY CONTACT KIM MELENDEZ 1ST CONTACT PHONE 1ST CONTACT RELATIONSHIP DAUGHTER PHONE 1ST CONTACT ON ADM. no IS 1ST CONTACT AUTH. REP.? no PHONE 2ND CONTACT ON ADM.? no PATIENT EMPLOYMENT STATUS Retired (for age) PATIENT EMPLOYER No Employer PAYOR INFORMATION: 1ST PAYOR NAME MEDICARE 1ST PAYOR PHONE 1ST PAYOR 2ND PAYOR AUTHORIZATION# [employer] 2ND PAYOR INJURY/ILLNESS DUE TO ACCIDENT? No ANOTHER LIBERTARIAN RESPONSIBLE? No PRIMARY REHAB/ACUTE DIAGNOSIS: Acute exacerbation of CHF with diastolic failure ONSET DATE 06/12/2021 REHAB IMPAIRMENT CATEGORY (JESUS): 14 does NOT meet 60% rule AFFECTED EXTREMITIES: celullitis, BLE EDEMA of lower extremeties PRIMARY DIAGNOSIS-RELATED SURGERIES: N/A COMORBID REHAB/ACUTE DIAGNOSES: - CHF CHRONIC UTI, Hypertension, cellulitis INTERVENTIONS: - N/A Medications RISK FOR COMPLICATIONS: - N/A Skin Breakdown Fall Risk Pneumonia DVT - CHF Failure to Thrive Respiratory failure - Cellulites Sepsis - Infection urosepsis - Hypertension Hypertension SUMMARY OF ACUTE HOSPITALIZATION: Pt. is a 80 yo Right-handed white male. On 06/12/2021 he was admitted to [facility] with diagnosis Acute exacerbation of CHF wit h diastolic failure . His impairment category is Cardiac 09 - Cardiac Disorders (). Pre-morbidly, Pt. was independent/mod-I in Locomotion, Social Cognition, Safety Awareness, and Transf ers Control; and he had good Endurance, Communication, Sphincter Control, Self-Care, and Transfers Co ntrol. Currently, he has deficits of Locomotion, Safety Awareness, Social Cognition, Transfers Control, Sphi ncter Control, and Endurance. Pt. is now referred to [facility] for acute in-patient rehabilitation in order to maximize patient's functional independence in activities of daily living, strength, ROM, and mobi lity. Patient has realistic goal of being discharged at assistance level 7-Ind to reside at Home with Pt s elf. Ruthann Melendez is a 80 year old male that lives independently at home. He lives in a single story home with no stairs to enter the house. Prior to recent hospitalization he was doing daily activities for his self. Mr. Melendez does not require access to the 2nd floor. pt has a tub shower with a chair. He uses a rollator for ambulation. pt was Independent with ADLs and self cares.He has a past medical history of EtOH abuse, diastolic dysfunction, HTN, COPD. The patient would most definitely benefit from acute inpatient rehab and has become severely debilitated and unable to live at his prior level of activity at home.As a result he is not currently safe to return to his prior living arrangement due to reductions in balance, strength, endurance, and an inability to independently perform the necessary activities of daily living and self-care required. Getting him stronger to be back living at home independently is our goal. It is reasonable and necessary for the patient to come to acute inpatient rehab for approximately 7-10 days in order to return to his prior level of care. He is now being transferred to [facility] Inpatient rehabilitation and is medically stable with relatively stable labs. He is now medically stable but in need of 24 hour nursing, doctor supervision SPT).The patient is reasonably expected to participate in 3 hours of therapy aday/15 hours per week and receive care with intensive interdisciplinary approach. COVID-19 screening performed; spoke with patient via phone. Patient denies new onset of fever, cough, difficulty breathing, sore throat, body aches and non-allergy nasal congestion in the past 24 hours. Patient denies travel outside of [place] in the past 14 days. Patient denies any contact with someone who has a confirmed diagnosis of or is under investigation for COVID-19 in the past 14 days. Patient has been tested negative for COVID- 19. PAST MEDICAL HISTORY Chronic Alcohol Abuse Hypertension COPD CHF Cellulitis Acute cystitis (N30.0) PAST SURGICAL HISTORY: ANKLE SURGERY ON LEFT ANKLE X2 MEDICATION ALLERGIES: No Known Drug Allergies (NKDA) ENVIRONMENTAL ALLERGIES: - Substance Allergies None Known - Other Allergies None Known CODE STATUS: Not Available WEIGHT/HEIGHT/BMI: WEIGHT 272 lbs HEIGHT 5' 10" BMI 39 DIET: - Diet Type Regular - Diet - Solid Texture Regular - Diet - Liquid Texture Regular - Tube Feed N/A REVIEW OF SYSTEMS: - Gen Alert and awake Lying in bed No apparent distress Oriented to: person, time, and place - Vital Signs Temperature: 98.4 F SBP/DBP: 146/58 Pulse: 82 Resp: 19 Vital signs stable, afebrile - CVS RRR VITAL SIGNS Temperature: 98.4 F SBP/DBP: 146/58 Pulse: 82 Resp: 19 Vital signs stable, afebrile MEDICATIONS/TREATMENT: Other- See attached MAR (Medication Administration Record). CURRENT SPHINCTER CONTROL: Pre-hospital bladder status: unspecified # of bladder accidents in the last 7 days prior to screenin Pre-hospital bowel status: unspecified # of bowel accidents in the last 7 days prior to screenin Last Bowel Movement Date: 06/16/2021 CURRENT LOCOMOTION STATUS: distance walked 15 feet WITH ROLLING WALKER DETAILED CURRENT FUNCTIONAL STATUS: - Bladder accident frequency: 7-Ind - No accidents in the past 7 days - Bowel accident frequency: 7-Ind - No accidents in the past 7 days - Walking score based on distance walked: 0(N/A) score based on distance walked: 1(<=50ft) - Wheelchair score based on distance traveled: 0(N/A) QI SCORES: - Self-Care A. Eating 04-Supervision or touching assistance B. Oral hygiene 03-Partial/moderate assistance C. Toileting hygiene 03-Partial/moderate assistance E. Shower/bathe self 03-Partial/moderate assistance F. Upper body dressing 03-Partial/moderate assistance G. Lower body dressing 03-Partial/moderate assistance H. Putting on/taking off footwear 88-Not attempted due to medical condition or safety concerns - Mobility A. Roll left and right 03-Partial/moderate assistance B. Sit to lying 03-Partial/moderate assistance C. Lying to sitting on side of bed 03-Partial/moderate assistance D. Sit to stand 03-Partial/moderate assistance E. Chair/dun-pf-eltiq transfer 03-Partial/moderate assistance F. Toilet transfer 03-Partial/moderate assistance G. Car transfer 88-Not attempted due to medical condition or safety concerns I. Walk 10 feet 03-Partial/moderate assistance J. Walk 50 feet with two turns 88-Not attempted due to medical condition or safety concerns K. Walk 150 feet 88-Not attempted due to medical condition or safety concerns L. Walking 10 feet on uneven surfaces 88-Not attempted due to medical condition or safety concerns M. 1 step (curb) 88-Not attempted due to medical condition or safety concerns N. 4 steps 88-Not attempted due to medical condition or safety concerns O. 12 steps 88-Not attempted due to medical condition or safety concerns P. Picking up object 88-Not attempted due to medical condition or safety concerns R. Wheel 50 feet with two turns 88-Not attempted due to medical condition or safety concerns S. Wheel 150 feet 88-Not attempted due to medical condition or safety concerns - Bladder and Bowel Bladder continence Bowel continence - Endurance Fair - Balance Fair - Safety Awareness Fair CURRENT FUNC. DEFICITS: Self-Care, Mobility, Endurance, Balance, and Safety Awareness CURRENT / PREVIOUS ASSISTIVE DEVICES: Rolling Walker HISTORY OF FALLS. HAS THE PATIENT HAD TWO OR MORE FALLS IN THE PAST YEAR OR ANY FALL WITH INJURY IN T HE PAST YEAR?: No PRIOR SURGERY. DID THE PATIENT HAVE MAJOR SURGERY DURING THE 100 DAYS PRIOR TO ADMISSION?: No THERAPY NOTES FROM ACUTE CARE: Attached. SPECIAL NEEDS: - Safety Concerns Skin breakdown precautions needed due to skin breakdown risk PRECAUTIONS: - Weight Bearing Precaution WBAT both LE PATIENT NEEDS ACTIVE AND ONGOING THERAPEUTIC INTERVENTION OF MULTIPLE THERAPY DISCIPLINES, INCLUDING: - Dietary and Nutrition Adequate Nutrition. Nutritional Education. Nutritional Supplements. - Occupational Therapy Cognitive Retraining. Evaluate and Treat. ADL Training. Adaptive Equipment. Transfer Training. Househ old Tasks. Visual Perceptual Training. - Speech Therapy Cognitive Training. Expressive Language Skills. Memory Strategies. Receptive Language Skills. Speech Intelligibility Training. - Physical Therapy Evaluate and Treat. Gait Training. Safety Awareness. Balance Training. Transfer Training. LE Strength ening. Mobility Training. PATIENT NEEDS CLOSE MEDICAL SUPERVISION BY A REHABILITATION PHYSICIAN FOR: Coordination of Treatment Team Medical and Co-Morbidity Management Pain Management Wound Care PATIENT REQUIRES 24X7 REHAB NURSING FOR MEDICAL AND FUNCTIONAL MGT. OF THE FOLLOWING DEFICITS: Disease Management Medication Management Patient/Family Education Providing Safe Environment Bowel and Bladder Management Skin Integrity Pain Management PATIENT REQUIRES INTENSIVE, COORDINATED INTERDISCIPLINARY APPROACH TO REHAB: Arranging Home Equipment/Services Discharge Planning Family Intervention/Training Concrete Sculptor/Case Management PATIENT REHAB POTENTIAL: Tanner MELENDEZ is able and expected to receive 3 hours of individualized therapy daily on at least 5 of ever y 7 days Tanner MELENDEZ's prognosis for significant practical improvement within a reasonable period of time appears Good Expected level of measurable improvement will be of a practical value to Tanner MELENDEZ's functional capacit y or adaptations to impairments Has a viable Discharge Plan Medically appropriate; condition is sufficiently stable to participate in intensive rehab program DISCHARGE PLAN: - Estimated Length of Stay (days) 10. - Consensus on plan Discharge plan has been discussed with primary caregiver. Patient/Family is in agreement with the alisa n. Primary caregiver is in agreement with the plan. - Patient/Family Goals Return home independently. - Planned Living Setting Upon Discharge Home, to live alone. Transitional Living. Primary caregiver: Pt self. RECOMMENDED CARE LEVEL: IRF RECOMMENDATION DETAILS: Recommended Admission to Comprehensive Rehabilitation Program to Increase Functional [place] SCREENER'S COMPLETENESS CONFIRMATION: - Screening Confirmation The patient data collection on this preadmission screening form is finished PHYSICIANS REVIEW AND ADMISSION DETERMINATION Admit - Based on my review of the Pre-Admission Screening results, in my medical judgment and experie nce, I concur with the findings and recommend admission to [facility], as this patient requires an IRF level of care. SIGNATURE PANEL: Trial Mgr - [electronically] signed by Ava Merrill on 06/16/2021 at 14:37 (CDT) Trial Mgr - [electronically] signed by Vishal Cline PT on 06/16/2021 at 15:01 (CDT) Physician Reviewer - [electronically] signed by Dr. Nicolas Mckinley M.D. on 06/16/2021 at 15:04 (CDT )
--- OUTSIDE RECORDS SUMMARY | 2021-06-16 18:45 | XMS REPORT | Continuity of Care Document ---
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 alkalosis 615 [facility] - 00:00: Medical 00 [place] Cirrhosis Cirrhosis Disease Active [facility] liver 03-13 [facility]:: [facility] 00 [place] Loose Loose Disease Active [facility] stools stools 03-11 [facility] - 00:: Medical 00 [place] Hypomagnes Hypomagnes Disease Active [facility] emia 03-11 [facility] 00:: Medical 00 [place] 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 Family History Family Member Diagnosis Comments Start Date Stop Date Source Natural mother Parkinsonism [facility] Social History Social Habit Start Date Stop Date Quantity Comments Source History SDOR [facility] - Alcohol Binge Medical Joel [facility] History SDOH [facility] - [facility] Frequency Medical [facility] History SDOR [facility] - [facility] Std Drinks Medica l Center History SDOH 2017-03-11 2017-03-11 500 ml of gonzalo VIKRAM Huertas [facility] - Alcohol Comment 00:00:00 00:00:00 a night Medical C enter Alcohol intake 2017-03-11 2017-03-11 Current drinker VIKRAM S uc[facility] - 00:[facility]:00 00:00:00 of alcohol [facility] Center (finding) History of tobacco 2015-11-22 Smoker [facility] - use 00:00:00 [facility] Center Sex Assigned At [birth year] [facility] kes - 00:00:00 00:00:00 Medical Center Smoking Status Start Date Stop Date Source Former smoker 2017-03-11 00:00:00 2017-03-11 00:00:00 [facility] Medications Ordered Filled Start Stop Current Ordering Indication Dosage Frequency Signature Comments Components Source Medication Medication Date Date Medication? Clinician (SIG) Name Name [facility] Yes 1{tbl} QD Take [address] [facility] per 04-09 tablet by [facility] - tablet 13:22: mouth Medical 13 daily. Center [facility] Yes 1{tbl} QD Take 1 [facility] I [...] MORPHOLOGY (BEAKER) (test code = Normal 762) [id number] 06:45:00 Test Item Value Reference Range Interpretation Comments PHOSPHORUS (BEAKER) (test code = 3.5 mg/dL 2.3-4.7 604) [id number] 06:45:00 Test Item Value Reference Range Interpretation Comments MAGNESIUM (BEAKER) (test code = 1.7 mg/dL 1.6-2.6 627) BASIC METABOLIC [id number] 06:45:00 Test Item Value Reference Range Interpretation [...] S NOT APPLICABLE FOR DIALYSIS PATIEN TS. [id number] 07:18:00 Test Item Value Reference Range Interpretation Comments PHOSPHORUS (BEAKER) (test code = 3.4 mg/dL 2.3-4.7 604) [id number] 07:18:00 Test Item Value Reference Range Interpretation Comments MAGNESIUM (BEAKER) (test code = 1.6 mg/dL 1.6-2.6 627) BASIC METABOLIC [id number] 07:18:00 Test Item Value Reference Range Interpretation [...] S NOT APPLICABLE FOR DIALYSIS PATIEN TS. [id number] 05:47:00 Test Item Value Reference Range Interpretation Comments MAGNESIUM (BEAKER) (test code = 1.7 mg/dL 1.6-2.6 627) BASIC METABOLIC [id number] 05:47:00 Test Item Value Reference Range Interpretation [...] PATIEN TS. CBC W/PLT COUNT & AUTO [id number] 09:57:00 Test Item Value Reference Range Interpretation [...] MORPHOLOGY (BEAKER) (test code = Normal 762) [id number] 06:06:00 Test Item Value Reference Range Interpretation Comments MAGNESIUM (BEAKER) (test code = 1.7 mg/dL 1.6-2.6 627) BASIC METABOLIC [id number] 06:06:00 Test Item Value Reference Range Interpretation [...] S NOT APPLICABLE FOR DIALYSIS PATIEN TS. [id number] 06:35:00 Test Item Value Reference Range Interpretation Comments PHOSPHORUS (BEAKER) (test code = 3.0 mg/dL 2.3-4.7 604) [id number] 06:35:00 Test Item Value Reference Range Interpretation Comments MAGNESIUM (BEAKER) (test code = 1.7 mg/dL 1.6-2.6 627) BASIC METABOLIC [id number] 06:35:00 Test Item Value Reference Range Interpretation [...] S NOT APPLICABLE FOR DIALYSIS PATIEN TS. [id number] 07:59:00 Test Item Value Reference Range Interpretation Comments MAGNESIUM (BEAKER) (test code = 1.8 mg/dL 1.6-2.6 627) BASIC METABOLIC [id number] 07:59:00 Test Item Value Reference Range Interpretation [...] S NOT APPLICABLE FOR DIALYSIS PATIEN TS. [id number] 06:28:00 Test Item Value Reference Range Interpretation Comments MAGNESIUM (BEAKER) (test code = 1.7 mg/dL 1.6-2.6 627) BASIC METABOLIC [id number] 06:28:00 Test Item Value Reference Range Interpretation [...] S NOT APPLICABLE FOR DIALYSIS PATIEN TS. [id number] 05:37:00 Test Item Value Reference Range Interpretation Comments MAGNESIUM (BEAKER) (test code = 1.7 mg/dL 1.6-2.6 627) BASIC METABOLIC [id number] 05:37:00 Test Item Value Reference Range Interpretation [...] APPLICABLE FOR DIALYSIS PATIEN TS. PROTEIN ELECTROPHORESIS, [id number] 11:32:00 Test Item Value Reference Range Interpretation [...] in (BEAKER) (test code = expected distribution, 2618) with minor nonspecific changes. No monoclonal bands detected. No significant change from previous study of 03-02-17. [id number] Haritha Baptiste MD (BEAKER) (test code = (electronic signature) 0882) PROTEIN TOTAL SERUM, 5.9 gm/dL 6.0-8.3 L SPEP (BEAKER) (test code = 7370) [id number] 06:11:00 Test Item Value Reference Range Interpretation Comments MAGNESIUM (BEAKER) (test code = 1.5 mg/dL 1.6-2.6 L 627) BASIC METABOLIC [id number] 06:11:00 Test Item Value Reference Range Interpretation [...] APPLICABLE FOR DIALYSIS PATIEN TS. VITAMIN D, [id number] 08:21:00 Test Item Value Reference Range Interpretation Comments VITAMIN D 25-OH (BEAKER) (test 29.5 ng/mL 13.0-47.8 code = 2764) [id number] 06:15:00 Test Item Value Reference Range Interpretation Comments MAGNESIUM (BEAKER) (test code = 1.8 mg/dL 1.6-2.6 627) BASIC METABOLIC [id number] 06:15:00 Test Item Value Reference Range Interpretation [...] S NOT APPLICABLE FOR DIALYSIS PATIEN TS. [id number] 05:52:00 Test Item Value Reference Range Interpretation Comments MAGNESIUM (BEAKER) (test code = 1.7 mg/dL 1.6-2.6 627) BASIC METABOLIC [id number] 05:52:00 Test Item Value Reference Range Interpretation [...] S NOT APPLICABLE FOR DIALYSIS PATIEN TS. [id number] 06:58:00 Test Item Value Reference Range Interpretation Comments MAGNESIUM (BEAKER) (test code = 1.6 mg/dL 1.6-2.6 627) BASIC METABOLIC [id number] 06:58:00 Test Item Value Reference Range Interpretation [...] S NOT APPLICABLE FOR DIALYSIS PATIEN TS. [id number] 04:50:00 Test Item Value Reference Range Interpretation Comments MAGNESIUM (BEAKER) (test code = 1.7 mg/dL 1.6-2.6 627) BASIC METABOLIC [id number] 04:50:00 Test Item Value Reference Range Interpretation [...] GFR I S NOT APPLICABLE FOR DIALYSIS PATIMOHAN TS. [id number] 07:00:00 Test Item Value Reference Range Interpretation Comments MAGNESIUM (BEAKER) (test code = 1.7 mg/dL 1.6-2.6 627) BASIC METABOLIC [id number] 07:00:00 Test Item Value Reference Range Interpretation [...] APPLICABLE FOR DIALYSIS PATIEN TS. HEPATIC FUNCTION [id number] 07:00:00 Test Item Value Reference Range Interpretation [...] (test code = 38 U/L 6-55 347) [id number] 07:18:00 Test Item Value Reference Range Interpretation Comments MAGNESIUM (BEAKER) (test code = 1.7 mg/dL 1.6-2.6 627) BASIC METABOLIC [id number] 07:18:00 Test Item Value Reference Range Interpretation [...] APPLICABLE FOR DIALYSIS PATIEN TS. CREATININE, RANDOM [id number] 16:52:00 Test Item Value Reference Range Interpretation Comments CREATININE URINE (BEAKER) (test 113.2 mg/dL code = 375) Reference Range: No NormalsMAGNESIUM, RANDOM [id number] 16:52:00 Test Item Value Reference Range Interpretation Comments MAGNESIUM URINE (BEAKER) (test 17.9 mg/dL code = 834) Reference Range: No [id number] 06:52:00 Test Item Value Reference Range Interpretation Comments MAGNESIUM (BEAKER) (test code = 1.5 mg/dL 1.6-2.6 L 627) BASIC METABOLIC [id number] 06:52:00 Test Item Value Reference Range Interpretation [...] S NOT APPLICABLE FOR DIALYSIS PATIEN TS. [id number] 06:05:00 Test Item Value Reference Range Interpretation Comments MAGNESIUM (BEAKER) (test code = 1.6 mg/dL 1.6-2.6 627) BASIC METABOLIC [id number] 06:05:00 Test Item Value Reference Range Interpretation [...] NOT APPLICABLE FOR DIALYSIS PATIEN TS. HEPARIN [id number] 14:07:00 Test Item Value Reference Range Interpretation Comments HEPARIN ANTIBODY (BEAKER) (test code Negative Negative = 646) HEPARIN ANTIBODY OD (BEAKER) (test 0.062 <0.400 code = 2659) 4T TOTAL SCORE (BEAKER) (test code = 4 2150) Probability of HIT based on scoring system: 6-8 = High probability; 4-5 = intermediate probability;0-3 = low probabilityBASIC METABOLIC [id number] 05:42:00 Test Item Value Reference Range Interpretation [...] S NOT APPLICABLE FOR DIALYSIS PATIEN TS. [id number] 05:42:00 Test Item Value Reference Range Interpretation Comments MAGNESIUM (BEAKER) (test code = 1.6 mg/dL 1.6-2.6 627) CBC W/PLT COUNT & AUTO [id number] 14:48:00 Test Item Value Reference Range Interpretation [...] TOTAL COUNTED (BEAKER) (test code = 1351) [id number] 14:18:00 Test Item Value Reference Range Interpretation Comments MAGNESIUM (BEAKER) (test code = 1.5 mg/dL 1.6-2.6 L 627) [id number] 14:18:00 Test Item Value Reference Range Interpretation Comments PHOSPHORUS (BEAKER) (test code = 3.4 mg/dL 2.3-4.7 604) BASIC METABOLIC [id number] 14:17:00 Test Item Value Reference Range Interpretation [...] S NOT APPLICABLE FOR DIALYSIS PATIEN TS. [id number] 06:24:00 Test Item Value Reference Range Interpretation Comments MAGNESIUM (BEAKER) (test code = 1.3 mg/dL 1.6-2.6 L 627) BASIC METABOLIC [id number] 06:24:00 Test Item Value Reference Range Interpretation [...] S NOT APPLICABLE FOR DIALYSIS PATIEN TS. [id number] 07:11:00 Test Item Value Reference Range Interpretation Comments MAGNESIUM (BEAKER) 1.7 mg/dL 1.6-2.6 Specimen slightly (test code = 627) hemolyzed BASIC METABOLIC [id number] 07:11:00 Test Item Value Reference Range Interpretation [...] NOT APPLICABLE FOR DIALYSIS PATIEN TS. PTH, [id number] 06:59:00 Test Item Value Reference Range Interpretation Comments PARATHYROID HORMONE INTACT 27.9 pg/mL 8.5-72.5 (BEAKER) (test code = 577) Effective 08/21/2014: Reference Range ChangeNew: 8.5-72.5 Previous: 15.0-90.0 CREATININE, RANDOM [id number] 14:27:00 Test Item Value Reference Range Interpretation Comments CREATININE URINE (BEAKER) (test 174.8 mg/dL code = 375) Reference Range: No NormalsMAGNESIUM, RANDOM [id number] 14:27:00 Test Item Value Reference Range Interpretation Comments MAGNESIUM URINE (BEAKER) (test code = > mg/dL 834) Reference Range: No NormalsTISSUE [id number] 13:29:00Surgical Pathology Report Case: [id number] Authorizing Provider: Estuardo Chaparro MD Collected: 02/28/2017918 Ordering Location: [address] Received: 03/02/2017 0948 Service Pathologist: Patel Burton MD Specimen: Di sc C3-4 VERTEBRAL COLUMN,INTERVERTEBRAL DISC, C3-4, DISCECTOMY:FRAGMENTS OF FIBROCARTILAGE WITH MILD DEGENERATIVE CHANGES 12591; 07326Zodioksf myelopathyDisc C3-4The specimen is received in formalin-filled [...] 1.2 mg/dL 1.6-2.6 L 627) BASIC METABOLIC [id number] 04:50:00 Test Item Value Reference Range Interpretation [...] S NOT APPLICABLE FOR DIALYSIS PATIEN TS. [id number] 07:04:00 Test Item Value Reference Range Interpretation Comments MAGNESIUM (BEAKER) (test code = 1.3 mg/dL 1.6-2.6 L 627) BASIC METABOLIC [id number] 07:04:00 Test Item Value Reference Range Interpretation [...] S NOT APPLICABLE FOR DIALYSIS PATIEN TS. [id number] 11:59:00 Test Item Value Reference Range Interpretation Comments MAGNESIUM (BEAKER) (test code = 1.4 mg/dL 1.6-2.6 L 627) BASIC METABOLIC [id number] 06:16:00 Test Item Value Reference Range Interpretation [...] PATIEN TS. PERIPHERAL BLOOD SMEAR - HOLD [id number] 09:09:00 Test Item Value Reference Range Interpretation Comments PERIPHERAL SMEAR SAVE Mild (BEAKER) (test code = anisopikilocytosis. 1815) Essentially unremarkable white cells and platelets. No circulating blasts. Correlation with clinical follow up required to assess need for hematologic evaulation. URINE [id number] 08:40:00 Test Item Value Reference Range Interpretation [...] = 47) CBC W/PLT COUNT & AUTO [id number] 06:12:00 Test Item Value Reference Range Interpretation [...] K/ L 0.00-0.20 (test code = 417) [id number] 06:03:00 Test Item Value Reference Range Interpretation Comments MAGNESIUM (BEAKER) (test code = 1.2 mg/dL 1.6-2.6 L 627) BASIC METABOLIC [id number] 06:03:00 Test Item Value Reference Range Interpretation [...] PATIEN TS. CBC W/PLT COUNT & AUTO [id number] 08:37:00 Test Item Value Reference Range Interpretation [...] K/ L 0.00-0.20 (test code = 417) [id number] 06:58:00 Test Item Value Reference Range Interpretation Comments MAGNESIUM (BEAKER) (test code = 1.5 mg/dL 1.6-2.6 L 627) BASIC METABOLIC [id number] 06:58:00 Test Item Value Reference Range Interpretation [...] S NOT APPLICABLE FOR DIALYSIS PATIEN TS. [id number] 05:57:00 Test Item Value Reference Range Interpretation Comments MAGNESIUM (BEAKER) (test code = 1.3 mg/dL 1.6-2.6 L 627) COMPREHENSIVE METABOLIC [id number] 05:57:00 Test Item Value Reference Range Interpretation [...] Specimen slightly ictericCBC W/PLT COUNT & AUTO [id number] 05:49:00 Test Item Value Reference Range Interpretation [...] L 0.00-0.20 (test code = 417) 0.00PROTHROMBIN [id number] 05:38:00 Test Item Value Reference Range Interpretation Comments PROTIME (BEAKER) (test code = 14.2 seconds 11.7-14.7 759) INR (BEAKER) (test code = 370) 1.1 <=5.9 RECOMMENDED COUMADIN/WARFARIN INR THERAPY RANGESSTANDARD DOSE: 2.0 - 3.0 Includes: PROPHYLAXIS forvenous thrombosis, systemic embolization; TREATMENT for venous thrombosis and/or pulmonary embolus.HIGH RISK: Target INR is 2.5-3.5 for patients with mechanical heart valves.URINALYSIS W/ [id number] 14:55:00 Test Item Value Reference Range Interpretation [...] SOURCE(BEAKER) (test code Urine, Clean Catch = 4270) [id number] 21:24:00 Test Item Value Reference Range Interpretation Comments MAGNESIUM (BEAKER) (test code = 1.1 mg/dL 1.6-2.6 L 627) BASIC METABOLIC [id number] 21:24:00 Test Item Value Reference Range Interpretation [...] FOR DIALYSIS PATIEN TS. VITAMIN B12 AND [id number] 08:41:00 Test Item Value Reference Range Interpretation Comments VITAMIN B12 (BEAKER) (test code = 604 pg/mL 213-816 774) FOLATE (BEAKER) (test code = 362) 9.9 ng/mL >=7.0 Effective 08/21/2014: Folate Reference Range ChangeNew: >=7.0 Previous: >=5.4PERIPHERAL BLOOD SMEAR - HOLD [id number] 08:19:00 Test Item Value Reference Range Interpretation Comments PERIPHERAL SMEAR SAVE (BEAKER) (test saved code = 1815) [id number] 05:49:00 Test Item Value Reference Range Interpretation Comments PROSTATE SPECIFIC ANTIGEN (BEAKER) 5.1 ng/mL 0.0-4.0 H (test code = 844) HIV-1 ANTIGEN WITH HIV-1/2 [id number] 05:49:00 Test Item Value Reference Range Interpretation Comments HIV-1 ANTIGEN WITH HIV 1\\T\\2 Nonreactive Nonreactive ANTIBODY (2) (BEAKER) (test code = 2586) [id number] 05:43:00 Test Item Value Reference Range Interpretation Comments PHOSPHORUS (BEAKER) (test code = 2.9 mg/dL 2.3-4.7 604) [id number] 05:43:00 Test Item Value Reference Range Interpretation Comments MAGNESIUM (BEAKER) (test code = 1.4 mg/dL 1.6-2.6 L 627) BASIC METABOLIC [id number] 05:43:00 Test Item Value Reference Range Interpretation [...] PATIEN TS. CBC W/PLT COUNT & AUTO [id number] 05:25:00 Test Item Value Reference Range Interpretation [...] 0.00-0.20 (test code = 417) 0.00PROTEIN ELECTROPHORESIS, [id number] 16:22:00 Test Item Value Reference Range Interpretation [...] beta globulin fractions. No monoclonal bands detected. [id number] Haritha Baptiste MD (BEAKER) (test code = (electronic signature) 2616) PROTEIN TOTAL SERUM, 5.3 gm/dL 6.0-8.3 L SPEP (BEAKER) (test code = 2660) CBC W/PLT COUNT & AUTO [id number] 13:14:00 Test Item Value Reference Range Interpretation [...] K/ L 0.00-0.20 (test code = 417) [id number] 06:18:00 Test Item Value Reference Range Interpretation Comments MAGNESIUM (BEAKER) 1.3 mg/dL 1.6-2.6 L Specimen slightly (test code = 627) hemolyzed [id number] 06:18:00 Test Item Value Reference Range Interpretation Comments PHOSPHORUS (BEAKER) 2.3 mg/dL 2.3-4.7 Specimen slightly (test code = 604) hemolyzed BASIC METABOLIC [id number] 06:18:00 Test Item Value Reference Range Interpretation [...] APPLICABLE FOR DIALYSIS PATIEN TS. HEPATITIS PANEL, [id number] 14:32:00 Test Item Value Reference Range Interpretation Comments HEPATITIS A IGM ANTIBODY (BEAKER) Nonreactive Nonreactive (test code = 498) HEPATITIS B CORE IGM ANTIBODY Nonreactive Nonreactive (BEAKER) (test code = 645) HEPATITIS C ANTIBODY (BEAKER) Nonreactive Nonreactive (test code = 367) HEPATITIS B SURFACE ANTIGEN (2) Nonreactive Nonreactive (BEAKER) (test code = 2585) [id number] 14:13:00 Test Item Value Reference Range Interpretation Comments FIBRINOGEN LEVEL (BEAKER) (test 282 mg/dl 225-434 code = 658) LACTATE DEHYDROGENASE (LDH)2017-03-01 14:12:00 Test Item Value Reference Range Interpretation Comments LACTATE DEHYDROGENASE (BEAKER) (test 200 U/L 125-220 code = 635) HEPATIC FUNCTION [id number] 14:12:00 Test Item Value Reference Range Interpretation [...] code = 32 U/L 6-55 347) URINE [id number] 10:51:00 Test Item Value Reference Interpretation Comments [...] = 13) CBC W/PLT COUNT & AUTO [id number] 04:34:00 Test Item Value Reference Range Interpretation [...] K/ L 0.00-0.20 (test code = 417) [id number] 04:32:00 Test Item Value Reference Range Interpretation Comments MAGNESIUM (BEAKER) 1.1 mg/dL 1.6-2.6 L Specimen slightly (test code = 627) hemolyzed [id number] 04:32:00 Test Item Value Reference Range Interpretation Comments PHOSPHORUS (BEAKER) 2.6 mg/dL 2.3-4.7 Specimen slightly (test code = 604) hemolyzed BASIC METABOLIC [id number] 04:32:00 Test Item Value Reference Range Interpretation [...] S NOT APPLICABLE FOR DIALYSIS PATIEN TS. [id number] 05:03:00 Test Item Value Reference Range Interpretation Comments MAGNESIUM (BEAKER) (test code = 1.1 mg/dL 1.6-2.6 L 627) CBC W/PLT COUNT & AUTO [id number] 18:39:00 Test Item Value Reference Range Interpretation [...] 0.00-0.20 (test code = 417) 0.00URINALYSIS W/ [id number] 11:52:00 Test Item Value Reference Range Interpretation [...] 1584) SOURCE(BEAKER) (test code = Urine, Voided 3366) (MANUAL DIFFERENTIAL)2017-02-27 11:13:00 Test Item Value Reference Range Interpretation Comments TOTAL COUNTED (BEAKER) (test code = 1351) WBC MORPHOLOGY (BEAKER) (test code = Normal 487) PLT MORPHOLOGY (BEAKER) (test code = Normal 486) RBC MORPHOLOGY (BEAKER) (test code = Normal 762) CBC W/PLT COUNT & AUTO [id number] 11:13:00 Test Item Value Reference Range Interpretation [...] K/ L 0.00-0.20 (test code = 417) 0.001.160.000.000.000.000.000.000.000.000.000.000.000.00COMPREHENSIVE METABOLIC [id number] 11:03:00 Test Item Value Reference Range Interpretation [...] APPLICABLE FOR DIALYSIS PATIEN TS. COMPREHENSIVE METABOLIC [id number] 11:03:00 Test Item Value Reference Range Interpretation [...] S NOT APPLICABLE FOR DIALYSIS PATIEN TS. [id number] 10:45:00 Test Item Value Reference Range Interpretation [...]
[2021-06-16] MEDS ORDERED: ALBUTEROL 2.5 MG/3 ML NEB SOL NEB PRN (19:44)
[2021-06-16] MEDS ORDERED: IPRATROPIUM BROM 0.5MG/2.5ML NEB PRN (19:46)
[2021-06-16] MEDS: lisinopriL 5 MG TAB PO SCH (20:00)
[2021-06-16] MEDS: SMZ./TMP. 800/160 MG TABLET PO SCH (21:07)
[2021-06-16] MEDS: FAMOTIDINE 20 MG TAB PO SCH (21:08)
[2021-06-16] MEDS: JUVEN PACKET PO SCH (21:08)
[2021-06-16] MEDS: DOCUSATE NA/SENNA CONC 1 TAB PO PRN (21:43)
[2021-06-16 22:07] LABS: Urine Appearance CLEAR (Clear); Urine Blood NEGATIVE (Negative); Urine Color DK YELLOW (Yellow); Urine Glucose NEGATIVE (Negative); Urine Protein NEGATIVE (Negative); Urine Specific Gravity 1.015 (1.005-1.030)
[2021-06-16 22:08] LABS: Urine Bilirubin NEGATIVE (Negative)
[2021-06-16 23:51] LABS: Urine Bacteria <20 /HPF (NONE SEEN); Urine RBC <5 /HPF (NONE SEEN)
[2021-06-17 05:09] LABS: Absolute Lymphocytes (CBC) 0.5 K/uL (0.7-4.9); Basophils % 0.8 % (0-1.3); Hematocrit 36.1 % (39.6-49.0); Lymphocytes % 19.9 % (15.3-44.8); MPV 8.5 fL (7.6-11.3); RBC Red Blood Cell Count 3.76 M/uL (4.33-5.43)
[2021-06-17 05:49] LABS: Albumin 2.8 g/dL (3.4-5.0); BUN Blood Urea Nitrogen 22 mg/dL (7-18); Glucose Level 103 mg/dL (74-106); Potassium 4.1 mmol/L (3.5-5.1); Prealbumin 9.2 mg/dL (20-40); Sodium Level 136 mmol/L (136-145)
[2021-06-17 05:53] LABS: Bicarbonate 41 mmol/L (21-32)
[2021-06-17 05:54] LABS: Magnesium 1.1 mg/dL (1.8-2.4)
[2021-06-17] MEDS ORDERED: MAGNESIUM SULFATE 1 gm IVPB 1 GM/100 ML BAG IV ONE (06:34)
[2021-06-17] MEDS ORDERED: TRAMADOL HCL 50 MG TAB PO PRN (06:36)
[2021-06-17] MEDS: MAGNESIUM OXIDE 400 MG TAB PO SCH ×2 (07:04→19:06)
[2021-06-17] MEDS: ACETAMINOPHEN 500 MG TAB PO PRN ×2 (07:59→19:05)
[2021-06-17] MEDS: FAMOTIDINE 20 MG TAB PO SCH ×2 (08:00→19:06)
[2021-06-17] MEDS: lisinopriL 5 MG TAB PO SCH ×2 (08:01→19:06)
[2021-06-17] MEDS: FUROSEMIDE 20 MG TABLET PO SCH (08:01)
[2021-06-17] MEDS: SMZ./TMP. 800/160 MG TABLET PO SCH ×2 (08:01→19:06)
[2021-06-17] MEDS: THIAMINE HCL 100 MG TABLET PO SCH (08:02)
[2021-06-17] MEDS: SPIRONOLACTONE 25 MG TABLET PO SCH (08:02)
[2021-06-17] MEDS: JUVEN PACKET PO SCH ×2 (08:02→19:06)
[2021-06-17] MEDS: APIXABAN 2.5 MG TABLET PO SCH ×2 (08:04→19:05)
[2021-06-17 08:13] LABS: Albumin 2.8 g/dL (3.4-5.0); Bilirubin Direct 0.3 mg/dL (0-0.2); Bilirubin Total 0.7 mg/dL (0.2-1.0); Protein, Total 6.3 g/dL (6.4-8.2)
[2021-06-17 08:57] LABS: Blood Morphology Comment NOT SEEN (NOT SEEN); Platelet Estimate DECR
[2021-06-17] MEDS ORDERED: PNEUMOCOCCAL VACCINE 0.5 ML IMVAC ONE (09:00)
[2021-06-17] MEDS ORDERED: POLYETHYL GLY 3350 17 GM/DOSE PO PRN (14:27)
[2021-06-17] MEDS ORDERED: MAGNESIUM CITRATE 300 ML BOT PO ONE (15:00)
[2021-06-17 15:46] LABS: Arterial Blood Carboxyhemoglob 1.4 % (0-1.5); Blood Gas Oxyhemoglobin 95.2 % (94-97); Blood O2 Saturation 97.6 % (92-98.5)
[2021-06-17] MEDS: MELATONIN 3 MG TABLET PO PRN (19:06)
[2021-06-18] MEDS: lisinopriL 5 MG TAB PO SCH ×2 (08:00→20:00)
[2021-06-18] MEDS: THIAMINE HCL 100 MG TABLET PO SCH (08:22)
[2021-06-18] MEDS: SPIRONOLACTONE 25 MG TABLET PO SCH (08:22)
[2021-06-18] MEDS: FAMOTIDINE 20 MG TAB PO SCH ×2 (08:22→20:10)
[2021-06-18] MEDS: SMZ./TMP. 800/160 MG TABLET PO SCH ×2 (08:22→20:10)
[2021-06-18] MEDS: ACETAMINOPHEN 500 MG TAB PO PRN (08:23)
[2021-06-18] MEDS: FUROSEMIDE 20 MG TABLET PO SCH (08:23)
[2021-06-18] MEDS: APIXABAN 2.5 MG TABLET PO SCH ×2 (08:23→20:10)
[2021-06-18] MEDS: JUVEN PACKET PO SCH ×2 (08:24→20:11)
[2021-06-18] MEDS: MAGNESIUM OXIDE 400 MG TAB PO SCH ×2 (11:29→20:10)
--- NOTE | 2021-06-18 14:59 | R.HP ---
HISTORY AND PHYSICAL FACILITY: [facility] ENCOUNTER DATE AND TIME: 06/17/2021 17:35 (CDT) MR#: [id number] NAME RUTHANN MELENDEZ ADDRESS: [address] [place] [address] [address] CITY: [place] STATE: [place]IP [id number] PHONE: DATE OF : 1940 AGE: 80 SSN# [id number] GENDER: Male DEXTERITY Right-handed MARITAL STATUS RACE White PRE-HOSPITAL LIVING SETTING 01 - Home (private home/apt. board/care, assisted living, senior living, transitional living) PRE-HOSPITAL LIVING WITH Alone ENCOUNTER PHYSICIAN: Dr. Nicolas Mckinley M.D. REFERRING DOCTOR: RANDEE SOUZA DATE OF ADMISSION: 06/16/2021 18:41 (CDT) REFERRING FACILITY [facility] HOME TYPE AND DETAILS: Type of home: apartment # of levels in the residence: 1 # of steps within the residence: 0 # of steps to enter the residence: 0 ONSET DATE: 06/12/2021 PRIMARY DIAGNOSIS-RELATED SURGERIES: N/A SECONDARY/COMORBID DIAGNOSES (TIERED): - CHF CHRONIC UTI, Hypertension, cellulitis HISTORY OF PRESENT ILLNESS (HPI): Pt. is a 80 yo Right-handed white male. On 06/12/2021 he was admitted to [facility] with diagnosis Acute exacerbation of CHF wit h diastolic failure . His impairment category is Cardiac 09 - Cardiac Disorders (09). Pre-morbidly, Pt. was independent/mod-I in Locomotion, Social Cognition, Safety Awareness, and Transf ers Control; and he had good Endurance, Communication, Sphincter Control, Self-Care, and Transfers Co ntrol. Currently, he has deficits of Locomotion, Safety Awareness, Social Cognition, Transfers Control, Sphi ncter Control, and Endurance. Pt. is now referred to [facility] for acute in-patient rehabilitation in order to maximize patient's functional independence in activities of daily living, strength, ROM, and mobi lity. Patient has realistic goal of being discharged at assistance level 7-Ind to reside at Home with Pt s elf. Ruthann Melendez is a 80 year old male that lives independently at home. He lives in a single story home with no stairs to enter the house. Prior to recent hospitalization he was doing daily activities for his self. Mr. Melendez does not require access to the 2nd floor. pt has a tub shower with a chair. He uses a rollator for ambulation. pt was Independent with ADLs and self cares.He has a past medical history of EtOH abuse, diastolic dysfunction, HTN, COPD. The patient would most definitely benefit from acute inpatient rehab and has become severely debilitated and unable to live at his prior level of activity at home.As a result he is not currently safe to return to his prior living arrangement due to reductions in balance, strength, endurance, and an inability to independently perform the necessary activities of daily living and self-care required. Getting him stronger to be back living at home independently is our goal. It is reasonable and necessary for the patient to come to acute inpatient rehab for approximately 7-10 days in order to return to his prior level of care. He is now being transferred to [facility] Inpatient rehabilitation and is medically stable with relatively stable labs. He is now medically stable but in need of 24 hour nursing, doctor supervision SPT).The patient is reasonably expected to participate in 3 hours of therapy aday/15 hours per week and receive care with intensive interdisciplinary approach. COVID-19 screening performed; spoke with patient via phone. Patient denies new onset of fever, cough, difficulty breathing, sore throat, body aches and non-allergy nasal congestion in the past 24 hours. Patient denies travel outside of [place] in the past 14 days. Patient denies any contact with someone who has a confirmed diagnosis of or is under investigation for COVID-19 in the past 14 days. Patient has been tested negative for COVID- 19. MEDICATION ALLERGIES: No Known Drug Allergies (NKDA) ENVIRONMENTAL ALLERGIES: - Substance Allergies None Known - Other Allergies None Known PAST MEDICAL HISTORY: Chronic Alcohol Abuse Hypertension COPD CHF Cellulitis Acute cystitis (N30.0) PAST SURGICAL HISTORY: ANKLE SURGERY ON LEFT ANKLE X2 SOCIAL HISTORY: - Home Living Alone REVIEW OF SYSTEMS: - Gen No Chills Fatigue No Fever - Eyes No Double Vision No itchiness - ENMT No Difficulty Swallowing - CVS Chest Discomfort No Chest Pain Fatigue No Weight Gain - Resp No Cough Shortness of Breath - GI Continent No Abdominal Pain No Constipation No Diarrhea - Continent No Kidney Pain No Painful Urination No Urinary Urgency - MSK No Joint Pain Muscle Cramps Stiffness - Skin No Itching No Rash No Suspicious Lesions - Neuro Coordination Difficulty No Difficulty with Concentration No Memory Loss No Seizures Weakness - Psych No Anxiety No Depression No HIV Exposure No Persistent Infections No Seasonal Allergies - Endo No Cold/Heat Intolerance No Excessive Hunger No Excessive Thirst No Excessive Urination PHYSICAL EXAM - Gen Alert and awake Lying in bed No apparent distress Oriented to: person, time, and place - Skin Left leg is wrapped and had areas of hyperemia. No abnormalities - Eyes No abnormalities - ENMT No abnormalities - Neck No abnormalities - CVS RRR - Chest No abnormalities - Resp Decreased breath sound bilaterally - Abd Soft - GI Obese Deferred - No abnormalities - Ext Mild bilateral lower extremity edema. - MSK 4+/5 weakness in both lower extremities. - Neuro No focal deficits VITAL SIGNS Temperature: 98.4 F SBP/DBP: 144/48 Pulse: 83 Resp: 16 NURSING: - Shower allowing shower PRECAUTIONS: - Weight Bearing Precaution WBAT both LE ACTIVITIES OOB only with supervision QI SCORES: - Self-Care A. Eating 04-Supervision or touching assistance B. Oral hygiene 03-Partial/moderate assistance C. Toileting hygiene 03-Partial/moderate assistance E. Shower/bathe self 03-Partial/moderate assistance F. Upper body dressing 03-Partial/moderate assistance G. Lower body dressing 03-Partial/moderate assistance H. Putting on/taking off footwear 88-Not attempted due to medical condition or safety concerns - Mobility A. Roll left and right 03-Partial/moderate assistance B. Sit to lying 03-Partial/moderate assistance C. Lying to sitting on side of bed 03-Partial/moderate assistance D. Sit to stand 03-Partial/moderate assistance E. Chair/edj-cm-bspbi transfer 03-Partial/moderate assistance F. Toilet transfer 03-Partial/moderate assistance G. Car transfer 88-Not attempted due to medical condition or safety concerns I. Walk 10 feet 03-Partial/moderate assistance J. Walk 50 feet with two turns 88-Not attempted due to medical condition or safety concerns K. Walk 150 feet 88-Not attempted due to medical condition or safety concerns L. Walking 10 feet on uneven surfaces 88-Not attempted due to medical condition or safety concerns M. 1 step (curb) 88-Not attempted due to medical condition or safety concerns N. 4 steps 88-Not attempted due to medical condition or safety concerns O. 12 steps 88-Not attempted due to medical condition or safety concerns P. Picking up object 88-Not attempted due to medical condition or safety concerns R. Wheel 50 feet with two turns 88-Not attempted due to medical condition or safety concerns S. Wheel 150 feet 88-Not attempted due to medical condition or safety concerns - Bladder and Bowel Bladder continence Bowel continence - Endurance Fair - Balance Fair - Safety Awareness Fair CURRENT [facility]UNC. DEFICITS: Self-Care, Mobility, Endurance, Balance, and Safety Awareness MEDICATIONS: - Other See attached MAR (Medication Administration Record) ASSESSMENT: Pt. is a 80 yo Right-handed white male.On 06/12/2021 he was admitted to [facility] with diagnosis Acute exacerbation of CHF with diastolic failure .His impairment category is Cardiac 09 - Cardiac Disorders ().Pre-morbidly, Pt. was independent/mod-I in Locomotion, Social Cognition, Safet y Awareness, and Transfers Control; and he had good Endurance, Communication, Sphincter Control, Self -Care, and Transfers Control.Currently, he has deficits of Locomotion, Safety Awareness, Social Cogni tion, Transfers Control, Sphincter Control, and Endurance.Pt. is now referred to [facility] for acute in-patient rehabilitation in order to maximize patient's functional independe nce in activities of daily living, strength, ROM, and mobility.- Rehab Goal Patient has realistic goal of being discharged at assistance level 7-Ind to reside at Home with Pt s elf. Ruthann Melendez is a 80 year old male that lives independently at home. He lives in a single story home with no stairs to enter the house. Prior to recent hospitalization he was doing daily activities for his self. Mr. Melendez does not require access to the 2nd floor. pt has a tub shower with a chair. He uses a rollator for ambulation. pt was Independent with ADLs and self cares.He has a past medical history of EtOH abuse, diastolic dysfunction, HTN, COPD. The patient would most definitely benefit from acute inpatient rehab and has become severely debilitated and unable to live at his prior level of activity at home.As a result he is not currently safe to return to his prior living arrangement due to reductions in balance, strength, endurance, and an inability to independently perform the necessary activities of daily living and self-care required. Getting him stronger to be back living at home independently is our goal. It is reasonable and necessary for the patient to come to acute inpatient rehab for approximately 7-10 days in order to return to his prior level of care. He is now being transferred to [facility] Inpatient rehabilitation and is medically stable with relatively stable labs. He is now medically stable but in need of 24 hour nursing, doctor supervision SPT).The patient is reasonably expected to participate in 3 hours of therapy aday/15 hours per week and receive care with intensive interdisciplinary approach. COVID-19 screening performed; spoke with patient via phone. Patient denies new onset of fever, cough, difficulty breathing, sore throat, body aches and non-allergy nasal congestion in the past 24 hours. Patient denies travel outside of [place] in the past 14 days. Patient denies any contact with someone who has a confirmed diagnosis of or is under investigation for COVID-19 in the past 14 days. Patient has been tested negative for COVID- 19.REHAB PLAN: - Physical Therapy Gait dysfunction - to improve, our physical therapists will perform initial evaluation of pt's status upon admission and devise an individualized program for Gait Training, and Wheel Chair mobility Inability to transfer - to improve, our physical therapists will perform initial evaluation of pt's s tatus upon admission and devise an individualized program for Bed mobility Need for home safety evaluation - to improve, our physical therapists will perform initial evaluation of pt's status upon admission and devise an individualized program for Home Evaluation Need in caregiver upon discharge - to improve, our physical therapists will perform initial evaluatio n of pt's status upon admission and devise an individualized program for Caregiver Training Edema - to improve, our physical therapists will perform initial evaluation of pt's status upon admi ssion and devise an individualized program for Elevation Training, and Lymphedema Therapy New precaution - to improve, our physical therapists will perform initial evaluation of pt's status u rosas admission and devise an individualized program for Patient precaution education Poor endurance - to improve, our physical therapists will perform initial evaluation of pt's status u rosas admission and devise an individualized program for Endurance Training Weakness - to improve, our physical therapists will perform initial evaluation of pt's status upon ad mission and devise an individualized program for Aquatic Therapy, Neuromuscular Reeducation, and Stre ngthening Achieving independence - to improve, our physical therapists will perform initial evaluation of pt's status upon admission and devise an individualized program for Community Reintegration Activities - Occupational Therapy Cognitive deficits - to improve, our occupation therapists will perform initial evaluation of pt's st atus upon admission and devise an individualized program for Cognition - orientation Need for career coordinator - to improve, our occupation therapists will perform initial evaluation of pt's s tatus upon admission and devise an individualized program for Caregiver Training Weakness - to improve, our occupation therapists will perform initial evaluation of pt's status upon admission and devise an individualized program for Aquatic Therapy, Balance, Endurance, UE ROM, and U E strengthening MEDICAL PLAN: - Diet Type Start Regular - Diet - Liquid Texture Start Regular - Tube Feed Start N/A - Weight Bearing Precaution WBAT both LE - Other See attached MAR (Medication Administration Record) - Diet - Solid Texture Regular - Shower shower DISCHARGE PLAN: - Estimated Length of Stay (days) 10. - Consensus on plan Discharge plan has been discussed with primary caregiver. Patient/Family is in agreement with the alisa n. Primary caregiver is in agreement with the plan. - Patient/Family Goals Return home independently. - Planned Living Setting Upon Discharge Home, to live alone. Transitional Living. Primary caregiver: Pt self. SIGNATURE PANEL: (CDT)
--- NOTE | 2021-06-18 15:11 | R.PN ---
PROGRESS NOTES ENCOUNTER DATE AND TIME: 06/18/2021 15:00 (CDT) NAME RUTHANN LUNDBERG DATE OF : 1940 DATE OF ADMISSION: 06/16/2021 18:41 (CDT) Acute exacerbation of CHF with diastolic failure CHIEF COMPLAINT: Debility, diastolic heart failure, CHF exacerbation SUBJECTIVE: Pt denied any depression. Pt denied any Shortness of Breath. WBC 2.5, Hgb 11.9, Plt 99, pCO2 76.8, PO2 100.0, Mg increased to 1.7 from 1.1 ater 1 gram of Mg and 4 00 mg bid, prealbumin 9.2. Ambulated 20' with rolling walker and moderate assistance. VITAL SIGNS Temperature: 98.4 F SBP/DBP: 114/46 Pulse: 94 Resp: 16 MEDICATION ALLERGIES: No Known Drug Allergies (NKDA) ENVIRONMENTAL ALLERGIES: - Substance Allergies None Known - Other Allergies None Known NURSING: - Shower allowing shower PRECAUTIONS: - Weight Bearing Precaution WBAT both LE ACTIVITIES OOB only with supervision THERAPIES: - Dietary and Nutrition Adequate Nutrition. Nutritional Education. Nutritional Supplements. - Occupational Therapy Cognitive Retraining. Evaluate and Treat. ADL Training. Adaptive Equipment. Transfer Training. Househ old Tasks. Visual Perceptual Training. - Speech Therapy Cognitive Training. Expressive Language Skills. Memory Strategies. Receptive Language Skills. Speech Intelligibility Training. - Physical Therapy Evaluate and Treat. Gait Training. Safety Awareness. Balance Training. Transfer Training. LE Strength ening. Mobility Training. PHYSICAL EXAM - Gen Alert and awake Lying in bed No apparent distress Oriented to: person, time, and place - Skin Left leg is wrapped and had areas of hyperemia. No abnormalities - Eyes No abnormalities - ENMT No abnormalities - Neck No abnormalities - CVS RRR - Chest No abnormalities - Resp Decreased breath sound bilaterally - Abd Soft - GI Obese Deferred - No abnormalities - Ext Mild bilateral lower extremity edema. - MSK 4+/5 weakness in both lower extremities. - Neuro No focal deficits ASSESSMENT: Pt. is a 80 yo Right-handed white male.On 06/12/2021 he was admitted to [facility] with diagnosis Acute exacerbation of CHF with diastolic failure .His impairment category is Cardiac 09 - Cardiac Disorders ().Pre-morbidly, Pt. was independent/mod-I in Locomotion, Social Cognition, Safet y Awareness, and Transfers Control; and he had good Endurance, Communication, Sphincter Control, Self -Care, and Transfers Control.Currently, he has deficits of Locomotion, Safety Awareness, Social Cogni tion, Transfers Control, Sphincter Control, and Endurance.Pt. is now referred to [facility] for acute in-patient rehabilitation in order to maximize patient's functional independe nce in activities of daily living, strength, ROM, and mobility.- Rehab Goal Patient has realistic goal of being discharged at assistance level 7-Ind to reside at Home with Pt s elf. MDM/PLAN: - Physical Therapy Gait dysfunction - to improve, our physical therapists will perform initial evaluation of pt's statu s upon admission and devise an individualized program for Gait Training, and Wheel Chair mobility Inability to transfer - to improve, our physical therapists will perform initial evaluation of pt's status upon admission and devise an individualized program for Bed mobility Need for home safety evaluation - to improve, our physical therapists will perform initial evaluatio n of pt's status upon admission and devise an individualized program for Home Evaluation Need in caregiver upon discharge - to improve, our physical therapists will perform initial evaluati on of pt's status upon admission and devise an individualized program for Caregiver Training Edema - to improve, our physical therapists will perform initial evaluation of pt's status upon admis thompson and devise an individualized program for Elevation Training, and Lymphedema Therapy New precaution - to improve, our physical therapists will perform initial evaluation of pt's status upon admission and devise an individualized program for Patient precaution education Poor endurance - to improve, our physical therapists will perform initial evaluation of pt's status upon admission and devise an individualized program for Endurance Training Weakness - to improve, our physical therapists will perform initial evaluation of pt's status upon a dmission and devise an individualized program for Aquatic Therapy, Neuromuscular Reeducation, and Str engthening Achieving independence - to improve, our physical therapists will perform initial evaluation of pt's status upon admission and devise an individualized program for Community Reintegration Activities - Occupational Therapy Cognitive deficits - to improve, our occupation therapists will perform initial evaluation of pt's s tatus upon admission and devise an individualized program for Cognition - orientation Need for resident care supervisor - to improve, our occupation therapists will perform initial evaluation of pt's status upon admission and devise an individualized program for Caregiver Training Weakness - to improve, our occupation therapists will perform initial evaluation of pt's status upon admission and devise an individualized program for Aquatic Therapy, Balance, Endurance, UE ROM, and UE strengthening - Other See attached MAR (Medication Administration Record) - Diet Type Continue Regular - Diet - Liquid Texture Continue Regular - Tube Feed Continue N/A - Weight Bearing Precaution WBAT both LE - Diet - Solid Texture Continue Regular - Shower allowing shower FUNCTIONAL STATUS: - Self-Care A. Eating Ind B. Grooming Justin C. Bathing modA D. Dressing - Upper Jorge E. Dressing - Lower modA F. Toileting Jorge - Sphincter Control G. Bladder control Jorge H. Bowel control Jorge - Transfers Control I. Bed/Chair/Wheelchair modA J. Toilet modA K. Tub/Shower modA - Locomotion L. Walk/Wheelchair (B) modA M. Stairs ADNO - Communication N. Comprehension (B) Justin O. Expression (B) Justin - Social Cognition P. Social Interaction Justin Q. Problem Solving Justin R. Memory Justin - Endurance Poor - Balance Fair - Safety Awareness Fair QI SCORES: - Self-Care A. Eating 04-Supervision or touching assistance B. Oral hygiene 03-Partial/moderate assistance C. Toileting hygiene 03-Partial/moderate assistance E. Shower/bathe self 03-Partial/moderate assistance F. Upper body dressing 03-Partial/moderate assistance G. Lower body dressing 03-Partial/moderate assistance H. Putting on/taking off footwear 88-Not attempted due to medical condition or safety concerns - Mobility A. Roll left and right 03-Partial/moderate assistance B. Sit to lying 03-Partial/moderate assistance C. Lying to sitting on side of bed 03-Partial/moderate assistance D. Sit to stand 03-Partial/moderate assistance E. Chair/afm-cq-rttna transfer 03-Partial/moderate assistance F. Toilet transfer 03-Partial/moderate assistance G. Car transfer 88-Not attempted due to medical condition or safety concerns I. Walk 10 feet 03-Partial/moderate assistance J. Walk 50 feet with two turns 88-Not attempted due to medical condition or safety concerns K. Walk 150 feet 88-Not attempted due to medical condition or safety concerns L. Walking 10 feet on uneven surfaces 88-Not attempted due to medical condition or safety concerns M. 1 step (curb) 88-Not attempted due to medical condition or safety concerns N. 4 steps 88-Not attempted due to medical condition or safety concerns O. 12 steps 88-Not attempted due to medical condition or safety concerns P. Picking up object 88-Not attempted due to medical condition or safety concerns R. Wheel 50 feet with two turns 88-Not attempted due to medical condition or safety concerns S. Wheel 150 feet 88-Not attempted due to medical condition or safety concerns - Bladder and Bowel Bladder continence Bowel continence - Endurance Fair - Balance Fair - Safety Awareness Fair CURRENT [facility]. DEFICITS: Self-Care, Mobility, Endurance, Balance, and Safety Awareness SIGNATURE PANEL: (CDT)
--- NOTE | 2021-06-18 15:12 | PAPE ---
POST ADMISSION PHYSICIAN EVALUATION PATIENT: [facility] MR# [id number] REFERRING DOCTOR RANDEE SOUZA EVALUATION DATE AND TIME 06/17/2021 17:35 (CDT) NAME RUTHANN LUNDBERG DATE OF 1940 AGE 80 PHONE N# [id number] GENDER male EVALUATING PHYSICIAN Dr. Nicolas Mckinley M.D. ADMISSION DIAGNOSIS: Acute exacerbation of CHF with diastolic failure ONSET DATE 06/12/2021 SECONDARY/COMORBID DIAGNOSES TIERED: - CHF CHRONIC UTI, Hypertension, cellulitis POST-ADMISSION FUNCTIONAL/MEDICAL STATUS: - Bladder Same accident frequency: 7-Ind - No accidents in the past 7 days - Bowel Same accident frequency: 7-Ind - No accidents in the past 7 days - Walking Same score based on distance walked: 0(N/A) Same score based on distance walked: 1(<=50ft) - Wheelchair Same score based on distance traveled: 0(N/A) STATUS CHANGE EVALUATION: No change in Functional or Medical Status is identified compared with Pre-Admission screening. PATIENT NEEDS CLOSE MEDICAL SUPERVISION BY A REHABILITATION PHYSICIAN FOR: Coordination of Treatment Team Medical and Co-Morbidity Management Pain Management Wound Care PATIENT REQUIRES 24X7 REHAB NURSING FOR MEDICAL AND FUNCTIONAL MGT. OF THE FOLLOWING DEFICITS: Disease Management Medication Management Patient/Family Education Providing Safe Environment Bowel and Bladder Management Skin Integrity Pain Management PATIENT REQUIRES INTENSIVE, COORDINATED INTERDISCIPLINARY APPROACH TO REHAB: Arranging Home Equipment/Services Discharge Planning Family Intervention/Training Getter Filler/Case Management LIST OF IDENTIFIED AND POTENTIAL PROBLEMS: Alteration in leisure activities Bladder, Incontinence Blood Pressure, Hypertension/hypotension Issues Bowel, Incontinence Infection, Actual or Potential Mobility Impaired Pain, Alteration in Comfort Self Care Deficit Skin Integrity, Actual or Potential Urinary Tract Infection (UTI), Actual or Potential RISK FOR COMPLICATIONS - N/A Skin Breakdown. Fall Risk. Pneumonia. DVT. - CHF Failure to Thrive. Respiratory failure. - Cellulites Sepsis. - Infection urosepsis. - Hypertension Hypertension. INTERVENTIONS - N/A Medications. PATIENT COULD BE AT RISK FOR COMPLICATIONS FROM ADVERSE MEDICAL CONDITIONS DUE TO HIS/HER COMORBIDITI ES AND THE RIGORS OF THE INTENSIVE REHABILLITATION PROGRAM. METHODS OR INTERVENTIONS TO AVOID COMPLIC ATIONS INCLUDE: - Bleeding Assess lab values and manage abnormalities. Nursing to teach precautions for anti-coagulation therapy . Wound to be assessed every shift. - Infection Clinical staff to assess and manage the signs and symptoms of infection including fever, redness, war mth, etc. - Urinary Tract Infection - Falls Patient will be evaluated for Fall Precautions and will be placed on Fall Precautions as indicated pe r protocol. - Skin Breakdown Nursing will assess skin daily using assessment tool and will place on Skin Breakdown Precautions as indicated per protocol. - Pain Clinical staff may employ non-medication methods such as massage, distraction, decrease stimulus, etc . as needed. Clinical staff will assess patient's pain level every shift per protocol to assess and e nsure pain management effectiveness. Medications will be given and the pain level re-assessed. PRELIMINARY PLAN OF CARE: - Physical Therapy Patient needs Physical Therapy for a daily minimum of 1.5 hours at least 5 out of 7 days, to improve: Mobility, Strengthening, Transfers, Stretching, ROM, Endurance, Ability to manage stairs, Gait, and Balance. - Speech Therapy Patient needs Speech Therapy for a daily minimum of 0.5 hours at least 5 out of 7 days, to improve: S wallowing, Cognition, Language Skills, and Compensatory Strategies. - Rehabilitation Nursing Patient requires 24x7 Rehabilitation Nursing for: Pain Issues, Identifying and preventing risk factor s, Monitoring and reporting current medical conditions, Assisting with ambulation and transfer, Karine ting with all ADL-s, Teaching patients about disease process and medications, Family teaching, Provid ing safe environment, Bowel and Bladder Issues, Skin Integrity, and Medication Management. Patient needs Getter Filler and/or Case Management for: Discharge Planning, Arranging Home Equipmen t or Services, and Family Interventions. - Dietary and Nutrition Services Patient needs Dietary and Nutrition Services for: Adequate Nutrition, Nutritional Supplements, and Nu tritional Education. - Occupational Therapy Patient needs Occupational Therapy for a daily minimum of 1.5 hours at least 5 out of 7 days, to impr ove Activities of Daily Living, including: Eating, Grooming, Bathing, Dressing, Toileting, Toilet Tra nsfers, Community Reintegration, Higher functional activities, Adaptive Equipment, Splinting, Househo ld Tasks, and Other activities as determined. QI SCORES: - Self-Care A. Eating 04-Supervision or touching assistance B. Oral hygiene 03-Partial/moderate assistance C. Toileting hygiene 03-Partial/moderate assistance E. Shower/bathe self 03-Partial/moderate assistance F. Upper body dressing 03-Partial/moderate assistance G. Lower body dressing 03-Partial/moderate assistance H. Putting on/taking off footwear 88-Not attempted due to medical condition or safety concerns - Mobility A. Roll left and right 03-Partial/moderate assistance B. Sit to lying 03-Partial/moderate assistance C. Lying to sitting on side of bed 03-Partial/moderate assistance D. Sit to stand 03-Partial/moderate assistance E. Chair/khw-ub-iljog transfer 03-Partial/moderate assistance F. Toilet transfer 03-Partial/moderate assistance G. Car transfer 88-Not attempted due to medical condition or safety concerns I. Walk 10 feet 03-Partial/moderate assistance J. Walk 50 feet with two turns 88-Not attempted due to medical condition or safety concerns K. Walk 150 feet 88-Not attempted due to medical condition or safety concerns L. Walking 10 feet on uneven surfaces 88-Not attempted due to medical condition or safety concerns M. 1 step (curb) 88-Not attempted due to medical condition or safety concerns N. 4 steps 88-Not attempted due to medical condition or safety concerns O. 12 steps 88-Not attempted due to medical condition or safety concerns P. Picking up object 88-Not attempted due to medical condition or safety concerns R. Wheel 50 feet with two turns 88-Not attempted due to medical condition or safety concerns S. Wheel 150 feet 88-Not attempted due to medical condition or safety concerns - Bladder and Bowel Bladder continence Bowel continence - Endurance Fair - Balance Fair - Safety Awareness Fair POTENTIAL FUNCTIONAL GOALS FOR PATIENT TO ACHIEVE BY DISCHARGE: - Safety Precaution Patient will remain free from falls or injury at time of discharge. - Bed Mobility Patient will perform bed mobility at 4-Jorge level of assistance. - Transfers Patient will complete transfers from bed to chair at 4-Jorge level of assistance. - Mobility Patient will ambulate 150 ft with 4-Jorge level of assistance with RW. PATIENT REHAB POTENTIAL Tanner LUNDBERG is able and expected to receive 3 hours of individualized therapy daily on at least 5 of ever y 7 days Tanner LUNDBERG's prognosis for significant practical improvement within a reasonable period of time appears Good Expected level of measurable improvement will be of a practical value to Tanner LUNDBERG's functional capacit y or adaptations to impairments Has a viable Discharge Plan Medically appropriate; condition is sufficiently stable to participate in intensive rehab program DISCHARGE PLAN: - Estimated Length of Stay (days) 10. - Consensus on plan Discharge plan has been discussed with primary caregiver. Patient/Family is in agreement with the alisa n. Primary caregiver is in agreement with the plan. - Patient/Family Goals Return home independently. - Planned Living Setting Upon Discharge Home, to live alone. Transitional Living. Primary caregiver: Pt self. CONCLUSION ON REHABILITATION NECESSITY: I have evaluated patient's pre-admission functional status and, comparing it to the patient's post-ad mission functional status now, I conclude that the pre-admission assessment was accurate. Patient's c ondition on admission supports the medical necessity of admission to IRF. It is safe to proceed with patient's therapy program. SIGNATURE PANEL: (CDT)
[2021-06-18] MEDS ORDERED: DOCUSATE NA 100 MG CAP PO PRN (18:04)
[2021-06-19 05:48] LABS: Absolute Lymphocytes (CBC) 0.5 K/uL (0.7-4.9); Basophils % 0.2 % (0-1.3); Hematocrit 35.1 % (39.6-49.0); Lymphocytes % 14.2 % (15.3-44.8); MPV 9.3 fL (7.6-11.3); RBC Red Blood Cell Count 3.68 M/uL (4.33-5.43)
[2021-06-19 06:01] LABS: Albumin 2.9 g/dL (3.4-5.0); BUN Blood Urea Nitrogen 38 mg/dL (7-18); Bicarbonate 39 mmol/L (21-32); Glucose Level 100 mg/dL (74-106); Magnesium 1.7 mg/dL (1.8-2.4); Potassium 4.5 mmol/L (3.5-5.1); Prealbumin 10.2 mg/dL (20-40); Sodium Level 136 mmol/L (136-145)
--- NOTE | 2021-06-19 07:58 | P.CNS ---
Date of Consult: 06/19/21 Reason for Consult: onychomycosis Chief Complaint: Painful toenails Allergies No Known Allergies Allergy (Verified 06/24/15 08:04) Home Medications: Albuterol Neb [Proventil 0.083% Neb Soln] 2.5 mg NEB [id number] PRN #60 amp 1 Famotidine [Pepcid*] 20 mg PO BID #60 tab 01/07/21 Ipratropium Neb [Atrovent*] 0.5 mg NEB [id number] PRN #60 amp 01/07/21 Gus [Ugs*] 1 pkt PO BID #60 powd.pack 01/07/21 Spironolactone [Aldactone*] 25 mg PO DAILY #30 tab 01/07/21 Thiamine HCl [Vitamin B-1*] 100 mg PO DAILY #30 tablet 01/07/21 lisinopriL [Prinivil*] 5 mg PO BID #60 tab 01/07/21 Furosemide 20 mg PO DAILY 7 Days #7 tablet 06/16/21 Sulfamethoxazole/Trimethoprim [Bactrim Ds Tablet] 1 each PO BID 2 Days #4 tablet 06/16/21 - Past Medical/Surgical History Diabetic: No -: Hypertension -: Suspected COPD history of tobacco abuse -: Alcohol abuse -: chf exac -: uti -: cellulitis -: left ankle 2x Psychosocial/ Personal History: Patient is retired, lives alone - Family History Mother Medical History: Other (see notes) Notes: parkinsons - Social History Alcohol use: Yes CD- Drugs: No Caffeine use: Yes Place of Residence: Home Review of Systems 10-point ROS is otherwise unremarkable Physical Examination Temp Pulse Resp BP Pulse Ox 98.7 F 81 18 139/57 L 94 06/19/21 07:32 06/19/21 07:32 06/19/21 07:32 06/19/21 07:32 06/19/21 07:32 General: Alert, In no apparent distress, Oriented x3 Cardiovascular: No edema, Abnormal pulses Capillary refill: >2 Seconds Musculoskeletal: No clubbing, No swelling, No contractures, No erythema, No tenderness, No warmth Integumentary: Other (Thickened hypertrophic bilateral hallux nails with subungual debris. Digits 2-5 bilateral demonstrate elongated, dystrophic nails, Skin noted to by atrophic that is cool to touch) Neurological: Sensation intact Laboratory Data (last 24 hrs) 06/19/21 05:09: Sodium 136, Potassium 4.5, BUN 38 H, Creatinine 0.71, Glucose 100, Magnesium 1.7 L 06/19/21 05:09: WBC 3.40 L D, Hgb 11.8 L, Hct 35.1 L, Plt Count 90 L - Problems (1) Tinea unguium Current Visit: Yes Status: Acute (2) Onychogryphosis Current Visit: Yes Status: Acute (3) Generalized atherosclerosis Current Visit: Yes Status: Acute Conclusions/Impression: Debridement of nails x 10
[2021-06-19] MEDS: lisinopriL 5 MG TAB PO SCH ×2 (08:00→19:49)
[2021-06-19] MEDS: FAMOTIDINE 20 MG TAB PO SCH ×2 (08:46→19:49)
[2021-06-19] MEDS: MAGNESIUM OXIDE 400 MG TAB PO SCH ×2 (08:46→19:50)
[2021-06-19] MEDS: FUROSEMIDE 20 MG TABLET PO SCH (08:47)
[2021-06-19] MEDS: THIAMINE HCL 100 MG TABLET PO SCH (08:47)
[2021-06-19] MEDS: SMZ./TMP. 800/160 MG TABLET PO SCH ×2 (08:47→19:49)
[2021-06-19] MEDS: APIXABAN 2.5 MG TABLET PO SCH ×2 (08:47→19:50)
[2021-06-19] MEDS: JUVEN PACKET PO SCH ×2 (08:52→19:50)
[2021-06-19 09:14] LABS: Blood Morphology Comment NOT SEEN (NOT SEEN); Platelet Estimate DECR; White Blood Cell Scan OK (OK)
[2021-06-19] MEDS: MAGNESIUM OXIDE 400 MG TAB PO ONE ×2 (11:33→11:59)
[2021-06-19] MEDS: MEDIHONEY 44 ML TOPICAL TUBE TOP SCH (11:57)
[2021-06-19] MEDS: SPIRONOLACTONE 25 MG TABLET PO SCH (11:58)
[2021-06-19] MEDS: NYSTATIN PWDR 100000 UNIT/GM TOP SCH ×2 (14:14→19:48)
--- NOTE | 2021-06-19 15:23 | RAD REPORT ---
EXAM DESCRIPTION: RAD - Chest Single View - 06/19/2021 3:07 pm CLINICAL HISTORY: to compare with previous test COMPARISON: Chest Single View dated 06/12/2021; Chest Single View dated 01/05/2021; Chest Single View da owen 01/03/2021; Chest Single View dated 02/27/2017 FINDINGS: Lines: None. Lungs: No evidence of edema or pneumonia. Pleural: No significant pleural effusions or pneumothorax. Cardiac: The heart size is within normal limits. Bones: No acute fractures. Remote left-sided rib fractures. Other:Atherosclerosis. IMPRESSION: No acute cardiopulmonary disease. Grossly similar appearance to 06/12/2021.
--- NOTE | 2021-06-19 17:41 | R.PN ---
PROGRESS NOTES ENCOUNTER DATE AND TIME: 06/19/2021 17:36 (CDT) NAME RUTHANN LUNDBERG DATE OF : 1940 DATE OF ADMISSION: 06/16/2021 18:41 (CDT) Acute exacerbation of CHF with diastolic failure CHIEF COMPLAINT: Debility, diastolic heart failure, CHF exacerbation SUBJECTIVE: Pt denied any depression. Pt denied any Shortness of Breath. WBC 3.4, Hgb 11.8, Plt 90, prealbumin 10.2, pCO2 76.8, PO2 100.0, Mg 1.7 of Mg and 400 mg bid. Ambulated 36' with rolling walker and moderate assistance. VITAL SIGNS Temperature: 98.7 F SBP/DBP: 108/68 Pulse: 70 Resp: 16 MEDICATION ALLERGIES: No Known Drug Allergies (NKDA) ENVIRONMENTAL ALLERGIES: - Substance Allergies None Known - Other Allergies None Known NURSING: - Shower allowing shower PRECAUTIONS: - Weight Bearing Precaution WBAT both LE ACTIVITIES OOB only with supervision THERAPIES: - Dietary and Nutrition Adequate Nutrition. Nutritional Education. Nutritional Supplements. - Occupational Therapy Cognitive Retraining. Evaluate and Treat. ADL Training. Adaptive Equipment. Transfer Training. Househ old Tasks. Visual Perceptual Training. - Speech Therapy Cognitive Training. Expressive Language Skills. Memory Strategies. Receptive Language Skills. Speech Intelligibility Training. - Physical Therapy Evaluate and Treat. Gait Training. Safety Awareness. Balance Training. Transfer Training. LE Strength ening. Mobility Training. PHYSICAL EXAM - Gen Alert and awake Lying in bed No apparent distress Oriented to: person, time, and place - Skin Left leg is wrapped and had areas of hyperemia. No abnormalities - Eyes No abnormalities - ENMT No abnormalities - Neck No abnormalities - CVS RRR - Chest No abnormalities - Resp Decreased breath sound bilaterally - Abd Soft - GI Obese Deferred - No abnormalities - Ext Mild bilateral lower extremity edema. - MSK 4+/5 weakness in both lower extremities. - Neuro No focal deficits ASSESSMENT: Pt. is a 80 yo Right-handed white male.On 06/12/2021 he was admitted to [facility] with diagnosis Acute exacerbation of CHF with diastolic failure .His impairment category is Cardiac 09 - Cardiac Disorders ().Pre-morbidly, Pt. was independent/mod-I in Locomotion, Social Cognition, Safet y Awareness, and Transfers Control; and he had good Endurance, Communication, Sphincter Control, Self -Care, and Transfers Control.Currently, he has deficits of Locomotion, Safety Awareness, Social Cogni tion, Transfers Control, Sphincter Control, and Endurance.Pt. is now referred to [facility] for acute in-patient rehabilitation in order to maximize patient's functional independe nce in activities of daily living, strength, ROM, and mobility.- Rehab Goal Patient has realistic goal of being discharged at assistance level 7-Ind to reside at Home with Pt s elf. MDM/PLAN: - Physical Therapy Gait dysfunction - to improve, our physical therapists will perform initial evaluation of pt's statu s upon admission and devise an individualized program for Gait Training, and Wheel Chair mobility Inability to transfer - to improve, our physical therapists will perform initial evaluation of pt's status upon admission and devise an individualized program for Bed mobility Need for home safety evaluation - to improve, our physical therapists will perform initial evaluatio n of pt's status upon admission and devise an individualized program for Home Evaluation Need in caregiver upon discharge - to improve, our physical therapists will perform initial evaluati on of pt's status upon admission and devise an individualized program for Caregiver Training Edema - to improve, our physical therapists will perform initial evaluation of pt's status upon admi ssion and devise an individualized program for Elevation Training, and Lymphedema Therapy New precaution - to improve, our physical therapists will perform initial evaluation of pt's status upon admission and devise an individualized program for Patient precaution education Poor endurance - to improve, our physical therapists will perform initial evaluation of pt's status upon admission and devise an individualized program for Endurance Training Weakness - to improve, our physical therapists will perform initial evaluation of pt's status upon a dmission and devise an individualized program for Aquatic Therapy, Neuromuscular Reeducation, and Str engthening Achieving independence - to improve, our physical therapists will perform initial evaluation of pt's status upon admission and devise an individualized program for Community Reintegration Activities - Occupational Therapy Cognitive deficits - to improve, our occupation therapists will perform initial evaluation of pt's s tatus upon admission and devise an individualized program for Cognition - orientation Need for director of career services - to improve, our occupation therapists will perform initial evaluation of pt's status upon admission and devise an individualized program for Caregiver Training Weakness - to improve, our occupation therapists will perform initial evaluation of pt's status upon admission and devise an individualized program for Aquatic Therapy, Balance, Endurance, UE ROM, and UE strengthening - Other See attached MAR (Medication Administration Record) - Diet Type Continue Regular - Diet - Liquid Texture Continue Regular - Tube Feed Continue N/A - Weight Bearing Precaution WBAT both LE - Diet - Solid Texture Continue Regular - Shower allowing shower FUNCTIONAL STATUS: UPDATED AT WEEKLY TEAM CONFERENCE - Bladder Same accident frequency: 7-Ind - No accidents in the past 7 days - Bowel Same accident frequency: 7-Ind - No accidents in the past 7 days - Walking Same score based on distance walked: 0(N/A) Same score based on distance walked: 1(<=50ft) - Wheelchair Same score based on distance traveled: 0(N/A) FUNCTIONAL STATUS: - Self-Care A. Eating Ind B. Grooming Justin C. Bathing modA D. Dressing - Upper Jorge E. Dressing - Lower modA F. Toileting Jorge - Sphincter Control G. Bladder control Jorge H. Bowel control Jorge - Transfers Control I. Bed/Chair/Wheelchair modA J. Toilet modA K. Tub/Shower modA - Locomotion L. Walk/Wheelchair (B) modA M. Stairs ADNO - Communication N. Comprehension (B) Justin O. Expression (B) Justin - Social Cognition P. Social Interaction Justin Q. Problem Solving Justin R. Memory Justin - Endurance Poor - Balance Fair - Safety Awareness Fair QI SCORES: - Self-Care A. Eating 04-Supervision or touching assistance B. Oral hygiene 03-Partial/moderate assistance C. Toileting hygiene 03-Partial/moderate assistance E. Shower/bathe self 03-Partial/moderate assistance F. Upper body dressing 03-Partial/moderate assistance G. Lower body dressing 03-Partial/moderate assistance H. Putting on/taking off footwear 88-Not attempted due to medical condition or safety concerns - Mobility A. Roll left and right 03-Partial/moderate assistance B. Sit to lying 03-Partial/moderate assistance C. Lying to sitting on side of bed 03-Partial/moderate assistance D. Sit to stand 03-Partial/moderate assistance E. Chair/qov-dt-hfbao transfer 03-Partial/moderate assistance F. Toilet transfer 03-Partial/moderate assistance G. Car transfer 88-Not attempted due to medical condition or safety concerns I. Walk 10 feet 03-Partial/moderate assistance J. Walk 50 feet with two turns 88-Not attempted due to medical condition or safety concerns K. Walk 150 feet 88-Not attempted due to medical condition or safety concerns L. Walking 10 feet on uneven surfaces 88-Not attempted due to medical condition or safety concerns M. 1 step (curb) 88-Not attempted due to medical condition or safety concerns N. 4 steps 88-Not attempted due to medical condition or safety concerns O. 12 steps 88-Not attempted due to medical condition or safety concerns P. Picking up object 88-Not attempted due to medical condition or safety concerns R. Wheel 50 feet with two turns 88-Not attempted due to medical condition or safety concerns S. Wheel 150 feet 88-Not attempted due to medical condition or safety concerns - Bladder and Bowel Bladder continence Bowel continence - Endurance Fair - Balance Fair - Safety Awareness Fair CURRENT [facility]. DEFICITS: Self-Care, Mobility, Endurance, Balance, and Safety Awareness SIGNATURE PANEL: (CDT)
[2021-06-19] MEDS: TAMSULOSIN 0.4 MG SR CAP PO SCH (19:49)
[2021-06-19] MEDS: MELATONIN 3 MG TABLET PO PRN (19:49)
[2021-06-20] MEDS: lisinopriL 5 MG TAB PO SCH ×2 (07:41→19:58)
[2021-06-20] MEDS: SMZ./TMP. 800/160 MG TABLET PO SCH ×2 (07:58→19:56)
[2021-06-20] MEDS: THIAMINE HCL 100 MG TABLET PO SCH (07:59)
[2021-06-20] MEDS: FUROSEMIDE 20 MG TABLET PO SCH (07:59)
[2021-06-20] MEDS: FAMOTIDINE 20 MG TAB PO SCH ×2 (08:00→19:57)
[2021-06-20] MEDS: MAGNESIUM OXIDE 400 MG TAB PO SCH ×2 (08:00→19:57)
[2021-06-20] MEDS: SPIRONOLACTONE 25 MG TABLET PO SCH (08:01)
[2021-06-20] MEDS: APIXABAN 2.5 MG TABLET PO SCH ×2 (08:01→19:57)
[2021-06-20] MEDS: JUVEN PACKET PO SCH ×2 (08:03→19:57)
[2021-06-20] MEDS: MEDIHONEY 44 ML TOPICAL TUBE TOP SCH (09:02)
[2021-06-20] MEDS: NYSTATIN PWDR 100000 UNIT/GM TOP SCH ×2 (09:03→19:57)
--- NOTE | 2021-06-20 10:06 | P.RH.PN ---
Estimated Length of Stay: 14 Discharge Disposition Plan: Home Family Support: Yes Rehabilitation Technician Goal: Mobility, Transfers, Self Care Vital Signs: Last Vital Signs Temp 97.4 F 06/20/21 07:33 Pulse 89 06/20/21 08:01 Resp 16 06/20/21 07:33 BP 107/46 L 06/20/21 08:01 Pulse Ox 96 06/20/21 07:33 Laboratory: Laboratory Last Values WBC 3.40 K/uL (4.3-10.9) L D 06/19/21 05:09 RBC 3.68 M/uL (4.33-5.43) L 06/19/21 05:09 Hgb 11.8 g/dL (13.6-17.9) L 06/19/21 05:09 Hct 35.1 % (39.6-49.0) L 06/19/21 05:09 MCV 95.2 fL (80-100) 06/19/21 05:09 MCH 32.1 pg (27.0-35.0) 06/19/21 05:09 MCHC 33.7 g/dL (32.0-36.0) 06/19/21 05:09 RDW 13.2 % (12.1-15.2) 06/19/21 05:09 Plt Count 90 K/uL (152-406) L 06/19/21 05:09 MPV 9.3 fL (7.6-11.3) 06/19/21 05:09 Neutrophils % 56.9 % (41.7-73.7) 06/19/21 05:09 Lymphocytes % 14.2 % (15.3-44.8) L 06/19/21 05:09 Monocytes % 12.9 % (3.3-12.3) H 06/19/21 05:09 Eosinophils % 15.8 % (0-4.4) H 06/19/21 05:09 Basophils % 0.2 % (0-1.3) 06/19/21 05:09 Absolute Neutrophils 1.9 K/uL (1.8-8.0) 06/19/21 05:09 Segmented Neutrophils 57 % (40-80) 06/17/21 04:36 Absolute Lymphocytes 0.5 K/uL (0.7-4.9) L 06/19/21 05:09 Lymphocytes 20 % (15-42) 06/17/21 04:36 Monocytes 3 % (0-10) 06/17/21 04:36 Absolute Monocytes 0.4 K/uL (0.1-1.3) 06/19/21 05:09 Eosinophils 19 % (0-3) H 06/17/21 04:36 Absolute Eosinophils 0.5 K/uL (0-0.5) 06/19/21 05:09 Basophils 1 % (0-1) 06/17/21 04:36 Absolute Basophils 0.0 K/uL (0-0.5) 06/19/21 05:09 Platelet Estimate Decr 06/19/21 05:09 Morphology Comment Not seen (NOT SEEN) 06/19/21 05:09 pH 7.35 (7.35-7.45) 06/17/21 14:25 pCO2 76.8 mmHG (35-45) H 06/17/21 14:25 pO2 100.0 mmHG (75-100) 06/17/21 14:25 HCO3 41.6 mmol/L (22-28) H 06/17/21 14:25 Base Excess 15.4 mmol/L 06/17/21 14:25 Oxyhemoglobin 95.2 % (94-97) 06/17/21 14:25 ABG O2 Sat (Measured) 97.6 % (92-98.5) 06/17/21 14:25 ABG Carboxyhemoglobin 1.4 % (0-1.5) 06/17/21 14:25 ABG Methemoglobin 1.1 % (0-1.5) 06/17/21 14:25 Other Total Hgb 11.8 g/dl (12-18) L 06/17/21 14:25 Inspired O2 32.0 % 06/17/21 14:25 Sodium 136 mmol/L (136-145) 06/19/21 05:09 Potassium 4.5 mmol/L (3.5-5.1) 06/19/21 05:09 Chloride 96 mmol/L (98-107) L 06/19/21 05:09 Carbon Dioxide 39 mmol/L (21-32) H 06/19/21 05:09 BUN 38 mg/dL (7-18) H 06/19/21 05:09 Creatinine 0.71 mg/dL (0.55-1.3) 06/19/21 05:09 Estimated GFR > 90 mL/min (=/>90) 06/19/21 05:09 Glucose 100 mg/dL (74-106) 06/19/21 05:09 Calcium 9.6 mg/dL (8.5-10.1) 06/19/21 05:09 Magnesium 1.7 mg/dL (1.8-2.4) L 06/19/21 05:09 Total Bilirubin 0.7 mg/dL (0.2-1.0) 06/17/21 04:30 Direct Bilirubin 0.3 mg/dL (0-0.2) H 06/17/21 04:30 AST 25 U/L (15-37) 06/17/21 04:30 ALT 17 U/L (12-78) 06/17/21 04:30 Alkaline Phosphatase 82 U/L (45-117) 06/17/21 04:30 Serum Total Protein 6.3 g/dL (6.4-8.2) L 06/17/21 04:30 Albumin 2.9 g/dL (3.4-5.0) L 06/19/21 05:09 Globulin 3.5 g/dL (2.3-3.5) 06/17/21 04:30 Albumin/Globulin Ratio 0.8 (1.1-1.8) L 06/17/21 04:30 Prealbumin 10.2 mg/dL (20-40) L 06/19/21 05:09 Urine Color Dk yellow (Yellow) 06/16/21 21:35 Urine Appearance Clear (Clear) 06/16/21 21:35 Urine pH 7.0 (5.0-7.0) 06/16/21 21:35 Ur Specific [place] 1.015 (1.005-1.030) 06/16/21 21:35 Glucose (UA)(Auto) Negative (Negative) 06/16/21 21:35 Urine Ketones Negative (Negative) 06/16/21 21:35 Urine Blood Negative (Negative) 06/16/21 21:35 Urine Nitrite Negative (Negative) 06/16/21 21:35 Urine Bilirubin Negative (Negative) 06/16/21 21:35 Urine Urobilinogen 4.0 mg/dL (0.2-1.0) H 06/16/21 21:35 Ur Leukocyte Esterase Negative (Negative) 06/16/21 21:35 Urine RBC <5 /HPF (NONE SEEN) 06/16/21 21:35 Urine WBC None seen /HPF (<5) 06/16/21 21:35 Ur Squamous Epith Cells <5 /HPF (NONE SEEN) 06/16/21 21:35 Urine Bacteria <20 /HPF (NONE SEEN) 06/16/21 21:35 Urine Culture Reflexed Not needed 06/16/21 21:35 Urine Total Protein Negative (Negative) 06/16/21 21:35 SARS-CoV-2 Rap RNA(RT-PCR) Negative (NEGATIVE) 06/19/21 11:00 Smear Scan Ok (OK) 06/19/21 05:09 Weight: 260 lb 11.2 oz Wound Present: No Physician Update: Labs reviewed and are stable. He is making fair overall progress with all therapy. Mag is still low at 1.7. Will increase Mg to 800 mg bid. Walking 45' with minimum assistance. Transfers are at minimum assistance. He needs max assistance with all ADLs. Comment: healing cellulitis noted. red and swollen; dressing dry and intact Functional Improvement: Patient showed improved technique w/ transfers and gait tx. during yesterday's session. Patient presents w/ willingness to learn, and follows commands well. Summary: Patient's care plan and usp goals have been reviewed and revised as necessary. Please see the Rehabilitation Signature page for all necessary signatures.
[2021-06-20] MEDS ORDERED: MAGNESIUM OXIDE 400 MG TAB PO ONE (13:20)
[2021-06-20] MEDS ORDERED: MAGNESIUM SULFATE 1 gm IVPB 1 GM/100 ML BAG IV ONE (14:00)
[2021-06-20] MEDS: MELATONIN 3 MG TABLET PO PRN (19:57)
[2021-06-20] MEDS: TAMSULOSIN 0.4 MG SR CAP PO SCH (19:57)
[2021-06-20] MEDS: [UNRECOGNIZED DRUG - OTHER] PO SCH (19:57)
[2021-06-20] MEDS: SLOW MAG PO SCH (19:57)
[2021-06-21] MEDS: SLOW MAG PO SCH ×2 (08:26→20:00)
[2021-06-21] MEDS: THIAMINE HCL 100 MG TABLET PO SCH (08:26)
[2021-06-21] MEDS: [UNRECOGNIZED DRUG - OTHER] PO SCH ×2 (08:26→20:00)
[2021-06-21] MEDS: SPIRONOLACTONE 25 MG TABLET PO SCH (08:26)
[2021-06-21] MEDS: FAMOTIDINE 20 MG TAB PO SCH ×2 (08:26→20:02)
[2021-06-21] MEDS: APIXABAN 2.5 MG TABLET PO SCH ×2 (08:28→20:02)
[2021-06-21] MEDS: SMZ./TMP. 800/160 MG TABLET PO SCH ×2 (08:28→20:03)
[2021-06-21] MEDS: lisinopriL 5 MG TAB PO SCH ×2 (08:28→20:00)
[2021-06-21] MEDS: JUVEN PACKET PO SCH ×2 (08:29→20:00)
[2021-06-21] MEDS: FUROSEMIDE 20 MG TABLET PO SCH (08:29)
[2021-06-21] MEDS: MAGNESIUM OXIDE 400 MG TAB PO SCH ×2 (09:38→20:00)
[2021-06-21] MEDS: MEDIHONEY 44 ML TOPICAL TUBE TOP SCH (09:46)
[2021-06-21] MEDS: NYSTATIN PWDR 100000 UNIT/GM TOP SCH ×2 (09:46→20:00)
--- NOTE | 2021-06-21 17:18 | R.PN ---
PROGRESS NOTES ENCOUNTER DATE AND TIME: 06/21/2021 17:08 (CDT) NAME RUTHANN LUNDBERG DATE OF : 1940 DATE OF ADMISSION: 06/16/2021 18:41 (CDT) Acute exacerbation of CHF with diastolic failure CHIEF COMPLAINT: Debility, diastolic heart failure, CHF exacerbation SUBJECTIVE: Pt denied any depression. Pt denied any Shortness of Breath. WBC 3.4, Hgb 11.8, Plt 90, prealbumin 10.2, pCO2 76.8, PO2 100.0, Mg 1.7 of Mg and 400 mg bid. Ambulated 250' with rolling walker and standby assistance. VITAL SIGNS Temperature: 97.4 F SBP/DBP: 127/56 Pulse: 84 Resp: 16 MEDICATION ALLERGIES: No Known Drug Allergies (NKDA) ENVIRONMENTAL ALLERGIES: - Substance Allergies None Known - Other Allergies None Known NURSING: - Shower allowing shower PRECAUTIONS: - Weight Bearing Precaution WBAT both LE ACTIVITIES OOB only with supervision THERAPIES: - Dietary and Nutrition Adequate Nutrition. Nutritional Education. Nutritional Supplements. - Occupational Therapy Cognitive Retraining. Evaluate and Treat. ADL Training. Adaptive Equipment. Transfer Training. Househ old Tasks. Visual Perceptual Training. - Speech Therapy Cognitive Training. Expressive Language Skills. Memory Strategies. Receptive Language Skills. Speech Intelligibility Training. - Physical Therapy Evaluate and Treat. Gait Training. Safety Awareness. Balance Training. Transfer Training. LE Strength ening. Mobility Training. PHYSICAL EXAM - Gen Alert and awake Lying in bed No apparent distress Oriented to: person, time, and place - Skin Left leg is wrapped and had areas of hyperemia. No abnormalities - Eyes No abnormalities - ENMT No abnormalities - Neck No abnormalities - CVS RRR - Chest No abnormalities - Resp Decreased breath sound bilaterally - Abd Soft - GI Obese Deferred - No abnormalities - Ext Mild bilateral lower extremity edema. - MSK 4+/5 weakness in both lower extremities. - Neuro No focal deficits ASSESSMENT: Pt. is a 80 yo Right-handed white male.On 06/12/2021 he was admitted to [facility] with diagnosis Acute exacerbation of CHF with diastolic failure .His impairment category is Cardiac 09 - Cardiac Disorders ().Pre-morbidly, Pt. was independent/mod-I in Locomotion, Social Cognition, Safet y Awareness, and Transfers Control; and he had good Endurance, Communication, Sphincter Control, Self -Care, and Transfers Control.Currently, he has deficits of Locomotion, Safety Awareness, Social Cogni tion, Transfers Control, Sphincter Control, and Endurance.Pt. is now referred to [facility] for acute in-patient rehabilitation in order to maximize patient's functional independe nce in activities of daily living, strength, ROM, and mobility.- Rehab Goal Patient has realistic goal of being discharged at assistance level 7-Ind to reside at Home with Pt s elf. MDM/PLAN: - Physical Therapy Gait dysfunction - to improve, our physical therapists will perform initial evaluation of pt's statu s upon admission and devise an individualized program for Gait Training, and Wheel Chair mobility Inability to transfer - to improve, our physical therapists will perform initial evaluation of pt's status upon admission and devise an individualized program for Bed mobility Need for home safety evaluation - to improve, our physical therapists will perform initial evaluatio n of pt's status upon admission and devise an individualized program for Home Evaluation Need in caregiver upon discharge - to improve, our physical therapists will perform initial evaluati on of pt's status upon admission and devise an individualized program for Caregiver Training Edema - to improve, our physical therapists will perform initial evaluation of pt's status upon admi ssion and devise an individualized program for Elevation Training, and Lymphedema Therapy New precaution - to improve, our physical therapists will perform initial evaluation of pt's status upon admission and devise an individualized program for Patient precaution education Poor endurance - to improve, our physical therapists will perform initial evaluation of pt's status upon admission and devise an individualized program for Endurance Training Weakness - to improve, our physical therapists will perform initial evaluation of pt's status upon a dmission and devise an individualized program for Aquatic Therapy, Neuromuscular Reeducation, and Str engthening Achieving independence - to improve, our physical therapists will perform initial evaluation of pt's status upon admission and devise an individualized program for Community Reintegration Activities - Occupational Therapy Cognitive deficits - to improve, our occupation therapists will perform initial evaluation of pt's s tatus upon admission and devise an individualized program for Cognition - orientation Need for patient centered care specialist - to improve, our occupation therapists will perform initial evaluation of pt's status upon admission and devise an individualized program for Caregiver Training Weakness - to improve, our occupation therapists will perform initial evaluation of pt's status upon admission and devise an individualized program for Aquatic Therapy, Balance, Endurance, UE ROM, and UE strengthening - Other See attached MAR (Medication Administration Record) - Diet Type Continue Regular - Diet - Liquid Texture Continue Regular - Tube Feed Continue N/A - Weight Bearing Precaution WBAT both LE - Diet - Solid Texture Continue Regular - Shower allowing shower FUNCTIONAL STATUS: UPDATED AT WEEKLY TEAM CONFERENCE - Bladder Same accident frequency: 7-Ind - No accidents in the past 7 days - Bowel Same accident frequency: 7-Ind - No accidents in the past 7 days - Walking Same score based on distance walked: 0(N/A) Same score based on distance walked: 1(<=50ft) - Wheelchair Same score based on distance traveled: 0(N/A) FUNCTIONAL STATUS: - Self-Care A. Eating Ind B. Grooming Justin C. Bathing modA D. Dressing - Upper Jorge E. Dressing - Lower modA F. Toileting Jorge - Sphincter Control G. Bladder control Jorge H. Bowel control Jorge - Transfers Control I. Bed/Chair/Wheelchair modA J. Toilet modA K. Tub/Shower modA - Locomotion L. Walk/Wheelchair (B) modA M. Stairs ADNO - Communication N. Comprehension (B) Justin O. Expression (B) Justin - Social Cognition P. Social Interaction Justin Q. Problem Solving Justin R. Memory Justin - Endurance Poor - Balance Fair - Safety Awareness Fair QI SCORES: - Self-Care A. Eating 04-Supervision or touching assistance B. Oral hygiene 03-Partial/moderate assistance C. Toileting hygiene 03-Partial/moderate assistance E. Shower/bathe self 03-Partial/moderate assistance F. Upper body dressing 03-Partial/moderate assistance G. Lower body dressing 03-Partial/moderate assistance H. Putting on/taking off footwear 88-Not attempted due to medical condition or safety concerns - Mobility A. Roll left and right 03-Partial/moderate assistance B. Sit to lying 03-Partial/moderate assistance C. Lying to sitting on side of bed 03-Partial/moderate assistance D. Sit to stand 03-Partial/moderate assistance E. Chair/[id number] transfer 03-Partial/moderate assistance F. Toilet transfer 03-Partial/moderate assistance G. Car transfer 88-Not attempted due to medical condition or safety concerns I. Walk 10 feet 03-Partial/moderate assistance J. Walk 50 feet with two turns 88-Not attempted due to medical condition or safety concerns K. Walk 150 feet 88-Not attempted due to medical condition or safety concerns L. Walking 10 feet on uneven surfaces 88-Not attempted due to medical condition or safety concerns M. 1 step (curb) 88-Not attempted due to medical condition or safety concerns N. 4 steps 88-Not attempted due to medical condition or safety concerns O. 12 steps 88-Not attempted due to medical condition or safety concerns P. Picking up object 88-Not attempted due to medical condition or safety concerns R. Wheel 50 feet with two turns 88-Not attempted due to medical condition or safety concerns S. Wheel 150 feet 88-Not attempted due to medical condition or safety concerns - Bladder and Bowel Bladder continence Bowel continence - Endurance Fair - Balance Fair - Safety Awareness Fair [facility] DEFICITS: Self-Care, Mobility, Endurance, Balance, and Safety Awareness SIGNATURE PANEL: (CDT)
[2021-06-21] MEDS: TAMSULOSIN 0.4 MG SR CAP PO SCH (20:03)
[2021-06-22] MEDS: lisinopriL 5 MG TAB PO SCH ×2 (08:00→19:36)
[2021-06-22] MEDS: MAGNESIUM OXIDE 400 MG TAB PO SCH ×2 (08:00→08:20)
[2021-06-22] MEDS: [UNRECOGNIZED DRUG - OTHER] PO SCH ×2 (08:00→08:19)
[2021-06-22] MEDS: SLOW MAG PO SCH ×2 (08:00→08:19)
[2021-06-22] MEDS: THIAMINE HCL 100 MG TABLET PO SCH (08:19)
[2021-06-22] MEDS: APIXABAN 2.5 MG TABLET PO SCH ×2 (08:19→19:37)
[2021-06-22] MEDS: FUROSEMIDE 20 MG TABLET PO SCH (08:20)
[2021-06-22] MEDS: SPIRONOLACTONE 25 MG TABLET PO SCH (08:20)
[2021-06-22] MEDS: SMZ./TMP. 800/160 MG TABLET PO SCH ×2 (08:20→19:36)
[2021-06-22] MEDS: FAMOTIDINE 20 MG TAB PO SCH ×2 (08:21→19:36)
[2021-06-22] MEDS: JUVEN PACKET PO SCH ×2 (08:21→19:37)
[2021-06-22] MEDS: MEDIHONEY 44 ML TOPICAL TUBE TOP SCH (10:36)
[2021-06-22] MEDS: NYSTATIN PWDR 100000 UNIT/GM TOP SCH ×2 (10:36→19:37)
[2021-06-22 14:51] LABS: Magnesium 1.8 mg/dL (1.8-2.4)
[2021-06-22] MEDS ORDERED: LOPERAMIDE HCL 2 MG CAPSULE PO PRN (15:20)
[2021-06-22] MEDS ORDERED: MAGNESIUM SULFATE 1 gm IVPB 1 GM/100 ML BAG IV ONE (15:20)
[2021-06-22 16:33] LABS: Potassium 5.7 mmol/L (3.5-5.1)
[2021-06-22] MEDS: MELATONIN 3 MG TABLET PO PRN (19:36)
[2021-06-22] MEDS: TAMSULOSIN 0.4 MG SR CAP PO SCH (19:37)
[2021-06-23 07:31] LABS: BUN Blood Urea Nitrogen 38 mg/dL (7-18); Bicarbonate 38 mmol/L (21-32); Glucose Level 100 mg/dL (74-106); Magnesium 1.6 mg/dL (1.8-2.4); Potassium 5.2 mmol/L (3.5-5.1); Sodium Level 134 mmol/L (136-145)
[2021-06-23] MEDS: SPIRONOLACTONE 25 MG TABLET PO SCH (08:00)
[2021-06-23] MEDS: lisinopriL 5 MG TAB PO SCH ×2 (08:00→21:10)
[2021-06-23] MEDS: NYSTATIN PWDR 100000 UNIT/GM TOP SCH ×2 (08:00→21:11)
[2021-06-23] MEDS: MEDIHONEY 44 ML TOPICAL TUBE TOP SCH (08:00)
[2021-06-23] MEDS: FUROSEMIDE 20 MG TABLET PO SCH (08:42)
[2021-06-23] MEDS: APIXABAN 2.5 MG TABLET PO SCH ×2 (08:43→21:10)
[2021-06-23] MEDS: THIAMINE HCL 100 MG TABLET PO SCH (08:43)
[2021-06-23] MEDS: SMZ./TMP. 800/160 MG TABLET PO SCH ×2 (08:43→21:10)
[2021-06-23] MEDS: FAMOTIDINE 20 MG TAB PO SCH ×2 (08:43→21:10)
[2021-06-23] MEDS ORDERED: MAGNESIUM SULFATE 1 gm IVPB 1 GM/100 ML BAG IV ONE (09:15)
[2021-06-23] MEDS: JUVEN PACKET PO SCH ×2 (11:46→21:11)
[2021-06-23] MEDS: MAGNESIUM SULFATE 1 gm IVPB 1 GM/100 ML BAG IV SCH (17:00)
--- NOTE | 2021-06-23 17:29 | R.PN ---
PROGRESS NOTES ENCOUNTER DATE AND TIME: 06/23/2021 17:21 (CDT) NAME RUTHANN LUNDBERG DATE OF : 1940 DATE OF ADMISSION: 06/16/2021 18:41 (CDT) Acute exacerbation of CHF with diastolic failure CHIEF COMPLAINT: Debility, diastolic heart failure, CHF exacerbation SUBJECTIVE: Pt denied any depression. Pt denied any Shortness of Breath. WBC 3.4, Hgb 11.8, Plt 90, prealbumin 10.2, pCO2 76.8, PO2 100.0, Mg 1.6 of Mg and 400 mg bid. Na 13 4, Mg 1.6, K 5.2. He had multiple stools while taking Mg oxide and Slow Mag simultaneously. Oral Mg was d/chelsea. He will receive a total of 3 grams of magnesium IV. Ambulated 64' with rolling walker and standby assistance. VITAL SIGNS Temperature: 98.0 F SBP/DBP: 70 to 130/49 to 55 Pulse: 80 Resp: 16 MEDICATION ALLERGIES: No Known Drug Allergies (NKDA) ENVIRONMENTAL ALLERGIES: - Substance Allergies None Known - Other Allergies None Known NURSING: - Shower allowing shower PRECAUTIONS: - Weight Bearing Precaution WBAT both LE ACTIVITIES OOB only with supervision THERAPIES: - Dietary and Nutrition Adequate Nutrition. Nutritional Education. Nutritional Supplements. - Occupational Therapy Cognitive Retraining. Evaluate and Treat. ADL Training. Adaptive Equipment. Transfer Training. Househ old Tasks. Visual Perceptual Training. - Speech Therapy Cognitive Training. Expressive Language Skills. Memory Strategies. Receptive Language Skills. Speech Intelligibility Training. - Physical Therapy Evaluate and Treat. Gait Training. Safety Awareness. Balance Training. Transfer Training. LE Strength ening. Mobility Training. PHYSICAL EXAM - Gen Alert and awake Lying in bed No apparent distress Oriented to: person, time, and place - Skin Left leg is wrapped and had areas of hyperemia. No abnormalities - Eyes No abnormalities - ENMT No abnormalities - Neck No abnormalities - CVS RRR - Chest No abnormalities - Resp Decreased breath sound bilaterally - Abd Soft - GI Obese Deferred - No abnormalities - Ext Mild bilateral lower extremity edema. - MSK 4+/5 weakness in both lower extremities. - Neuro No focal deficits ASSESSMENT: Pt. is a 80 yo Right-handed white male.On 06/12/2021 he was admitted to [facility] with diagnosis Acute exacerbation of CHF with diastolic failure .His impairment category is Cardiac 09 - Cardiac Disorders (09).Pre-morbidly, Pt. was independent/mod-I in Locomotion, Social Cognition, Safet y Awareness, and Transfers Control; and he had good Endurance, Communication, Sphincter Control, Self -Care, and Transfers Control.Currently, he has deficits of Locomotion, Safety Awareness, Social Cogni tion, Transfers Control, Sphincter Control, and Endurance.Pt. is now referred to [facility] for acute in-patient rehabilitation in order to maximize patient's functional independe nce in activities of daily living, strength, ROM, and mobility.- Rehab Goal Patient has realistic goal of being discharged at assistance level 7-Ind to reside at Home with Pt s elf. MDM/PLAN: - Physical Therapy Gait dysfunction - to improve, our physical therapists will perform initial evaluation of pt's statu s upon admission and devise an individualized program for Gait Training, and Wheel Chair mobility Inability to transfer - to improve, our physical therapists will perform initial evaluation of pt's status upon admission and devise an individualized program for Bed mobility Need for home safety evaluation - to improve, our physical therapists will perform initial evaluatio n of pt's status upon admission and devise an individualized program for Home Evaluation Need in caregiver upon discharge - to improve, our physical therapists will perform initial evaluati on of pt's status upon admission and devise an individualized program for Caregiver Training Edema - to improve, our physical therapists will perform initial evaluation of pt's status upon admi ssion and devise an individualized program for Elevation Training, and Lymphedema Therapy New precaution - to improve, our physical therapists will perform initial evaluation of pt's status upon admission and devise an individualized program for Patient precaution education Poor endurance - to improve, our physical therapists will perform initial evaluation of pt's status upon admission and devise an individualized program for Endurance Training Weakness - to improve, our physical therapists will perform initial evaluation of pt's status upon a dmission and devise an individualized program for Aquatic Therapy, Neuromuscular Reeducation, and Str engthening Achieving independence - to improve, our physical therapists will perform initial evaluation of pt's status upon admission and devise an individualized program for Community Reintegration Activities - Occupational Therapy Cognitive deficits - to improve, our occupation therapists will perform initial evaluation of pt's s tatus upon admission and devise an individualized program for Cognition - orientation Need for overnight caregiver - to improve, our occupation therapists will perform initial evaluation of pt's status upon admission and devise an individualized program for Caregiver Training Weakness - to improve, our occupation therapists will perform initial evaluation of pt's status upon admission and devise an individualized program for Aquatic Therapy, Balance, Endurance, UE ROM, and UE strengthening - Other See attached MAR (Medication Administration Record) - Diet Type Continue Regular - Diet - Liquid Texture Continue Regular - Tube Feed Continue N/A - Weight Bearing Precaution WBAT both LE - Diet - Solid Texture Continue Regular - Shower allowing shower FUNCTIONAL STATUS: UPDATED AT WEEKLY TEAM CONFERENCE - Bladder Same accident frequency: 7-Ind - No accidents in the past 7 days - Bowel Same accident frequency: 7-Ind - No accidents in the past 7 days - Walking Same score based on distance walked: 0(N/A) Same score based on distance walked: 1(<=50ft) - Wheelchair Same score based on distance traveled: 0(N/A) FUNCTIONAL STATUS: - Self-Care A. Eating Ind B. Grooming Justin C. Bathing modA D. Dressing - Upper Jorge E. Dressing - Lower modA F. Toileting Jorge - Sphincter Control G. Bladder control Jorge H. Bowel control Jorge - Transfers Control I. Bed/Chair/Wheelchair modA J. Toilet modA K. Tub/Shower modA - Locomotion L. Walk/Wheelchair (B) modA M. Stairs ADNO - Communication N. Comprehension (B) Justin O. Expression (B) Justin - Social Cognition P. Social Interaction Justin Q. Problem Solving Justin R. Memory Justni - Endurance Poor - Balance Fair - Safety Awareness Fair QI SCORES: - Self-Care A. Eating 04-Supervision or touching assistance B. Oral hygiene 03-Partial/moderate assistance C. Toileting hygiene 03-Partial/moderate assistance E. Shower/bathe self 03-Partial/moderate assistance F. Upper body dressing 03-Partial/moderate assistance G. Lower body dressing 03-Partial/moderate assistance H. Putting on/taking off footwear 88-Not attempted due to medical condition or safety concerns - Mobility A. Roll left and right 03-Partial/moderate assistance B. Sit to lying 03-Partial/moderate assistance C. Lying to sitting on side of bed 03-Partial/moderate assistance D. Sit to stand 03-Partial/moderate assistance E. Chair/[id number]-sr-[id number] transfer 03-Partial/moderate assistance F. Toilet transfer 03-Partial/moderate assistance G. Car transfer 88-Not attempted due to medical condition or safety concerns I. Walk 10 feet 03-Partial/moderate assistance J. Walk 50 feet with two turns 88-Not attempted due to medical condition or safety concerns K. Walk 150 feet 88-Not attempted due to medical condition or safety concerns L. Walking 10 feet on uneven surfaces 88-Not attempted due to medical condition or safety concerns M. 1 step (curb) 88-Not attempted due to medical condition or safety concerns N. 4 steps 88-Not attempted due to medical condition or safety concerns O. 12 steps 88-Not attempted due to medical condition or safety concerns P. Picking up object 88-Not attempted due to medical condition or safety concerns R. Wheel 50 feet with two turns 88-Not attempted due to medical condition or safety concerns S. Wheel 150 feet 88-Not attempted due to medical condition or safety concerns - Bladder and Bowel Bladder continence Bowel continence - Endurance Fair - Balance Fair - Safety Awareness Fair [facility]. DEFICITS: Self-Care, Mobility, Endurance, Balance, and Safety Awareness SIGNATURE PANEL: (CDT)
[2021-06-23] MEDS: TAMSULOSIN 0.4 MG SR CAP PO SCH (21:11)
[2021-06-23] MEDS: MELATONIN 3 MG TABLET PO PRN (21:15)
[2021-06-24 06:10] LABS: Magnesium 1.8 mg/dL (1.8-2.4); Potassium 5.4 mmol/L (3.5-5.1)
[2021-06-24] MEDS: SPIRONOLACTONE 25 MG TABLET PO SCH (07:12)
[2021-06-24] MEDS: NYSTATIN PWDR 100000 UNIT/GM TOP SCH ×2 (08:00→21:00)
[2021-06-24] MEDS: lisinopriL 5 MG TAB PO SCH ×2 (08:00→20:00)
[2021-06-24] MEDS: MEDIHONEY 44 ML TOPICAL TUBE TOP SCH (08:00)
[2021-06-24] MEDS: FUROSEMIDE 20 MG TABLET PO SCH (08:00)
[2021-06-24] MEDS: JUVEN PACKET PO SCH ×2 (08:00→21:05)
[2021-06-24] MEDS: APIXABAN 2.5 MG TABLET PO SCH ×2 (09:11→21:00)
[2021-06-24] MEDS: FLUDROCORTISONE 0.1 MG TAB PO SCH (09:12)
[2021-06-24] MEDS: FAMOTIDINE 20 MG TAB PO SCH ×2 (09:13→21:00)
[2021-06-24] MEDS: THIAMINE HCL 100 MG TABLET PO SCH (09:14)
[2021-06-24] MEDS: MAGNESIUM SULFATE 1 gm IVPB 1 GM/100 ML BAG IV SCH (16:18)
--- NOTE | 2021-06-24 19:48 | R.PN ---
PROGRESS NOTES ENCOUNTER DATE AND TIME: 06/24/2021 19:42 (CDT) NAME RUTHANN LUNDBERG DATE OF : 1940 DATE OF ADMISSION: 06/16/2021 18:41 (CDT) Acute exacerbation of CHF with diastolic failure CHIEF COMPLAINT: Debility, diastolic heart failure, CHF exacerbation SUBJECTIVE: Pt denied any depression. Pt denied any Shortness of Breath. WBC 3.4, Hgb 11.8, Plt 90, prealbumin 10.2, pCO2 76.8, PO2 100.0, Mg improved to 1.8. Na 135, Mg 1.6 , K 5.4. Bed mobility done with min to mod assistance, sit to stand done with moderate assistance. Diarrhea stopped after oral magnesium was held. VITAL SIGNS Temperature: 97.9 F SBP/DBP: 103/41 Pulse: 64 Resp: 16 MEDICATION ALLERGIES: No Known Drug Allergies (NKDA) ENVIRONMENTAL ALLERGIES: - Substance Allergies None Known - Other Allergies None Known NURSING: - Shower allowing shower PRECAUTIONS: - Weight Bearing Precaution WBAT both LE ACTIVITIES OOB only with supervision THERAPIES: - Dietary and Nutrition Adequate Nutrition. Nutritional Education. Nutritional Supplements. - Occupational Therapy Cognitive Retraining. Evaluate and Treat. ADL Training. Adaptive Equipment. Transfer Training. Househ old Tasks. Visual Perceptual Training. - Speech Therapy Cognitive Training. Expressive Language Skills. Memory Strategies. Receptive Language Skills. Speech Intelligibility Training. - Physical Therapy Evaluate and Treat. Gait Training. Safety Awareness. Balance Training. Transfer Training. LE Strength ening. Mobility Training. PHYSICAL EXAM - Gen Alert and awake Lying in bed No apparent distress Oriented to: person, time, and place - Skin Left leg is wrapped and had areas of hyperemia. No abnormalities - Eyes No abnormalities - ENMT No abnormalities - Neck No abnormalities - CVS RRR - Chest No abnormalities - Resp Decreased breath sound bilaterally - Abd Soft - GI Obese Deferred - No abnormalities - Ext Mild bilateral lower extremity edema. - MSK 4+/5 weakness in both lower extremities. - Neuro No focal deficits ASSESSMENT: Pt. is a 80 yo Right-handed white male.On 06/12/2021 he was admitted to [facility] with diagnosis Acute exacerbation of CHF with diastolic failure .His impairment category is Cardiac 09 - Cardiac Disorders ().Pre-morbidly, Pt. was independent/mod-I in Locomotion, Social Cognition, Safet y Awareness, and Transfers Control; and he had good Endurance, Communication, Sphincter Control, Self -Care, and Transfers Control.Currently, he has deficits of Locomotion, Safety Awareness, Social Cogni tion, Transfers Control, Sphincter Control, and Endurance.Pt. is now referred to [facility] for acute in-patient rehabilitation in order to maximize patient's functional independe nce in activities of daily living, strength, ROM, and mobility.- Rehab Goal Patient has realistic goal of being discharged at assistance level 7-Ind to reside at Home with Pt s elf. MDM/PLAN: - Physical Therapy Gait dysfunction - to improve, our physical therapists will perform initial evaluation of pt's statu s upon admission and devise an individualized program for Gait Training, and Wheel Chair mobility Inability to transfer - to improve, our physical therapists will perform initial evaluation of pt's status upon admission and devise an individualized program for Bed mobility Need for home safety evaluation - to improve, our physical therapists will perform initial evaluatio n of pt's status upon admission and devise an individualized program for Home Evaluation Need in caregiver upon discharge - to improve, our physical therapists will perform initial evaluati on of pt's status upon admission and devise an individualized program for Caregiver Training Edema - to improve, our physical therapists will perform initial evaluation of pt's status upon admi ssion and devise an individualized program for Elevation Training, and Lymphedema Therapy New precaution - to improve, our physical therapists will perform initial evaluation of pt's status upon admission and devise an individualized program for Patient precaution education Poor endurance - to improve, our physical therapists will perform initial evaluation of pt's status upon admission and devise an individualized program for Endurance Training Weakness - to improve, our physical therapists will perform initial evaluation of pt's status upon a dmission and devise an individualized program for Aquatic Therapy, Neuromuscular Reeducation, and Str engthening Achieving independence - to improve, our physical therapists will perform initial evaluation of pt's status upon admission and devise an individualized program for Community Reintegration Activities - Occupational Therapy Cognitive deficits - to improve, our occupation therapists will perform initial evaluation of pt's s tatus upon admission and devise an individualized program for Cognition - orientation Need for caretaker resort - to improve, our occupation therapists will perform initial evaluation of pt's status upon admission and devise an individualized program for Caregiver Training Weakness - to improve, our occupation therapists will perform initial evaluation of pt's status upon admission and devise an individualized program for Aquatic Therapy, Balance, Endurance, UE ROM, and UE strengthening - Other See attached MAR (Medication Administration Record) - Diet Type Continue Regular - Diet - Liquid Texture Continue Regular - Tube Feed Continue N/A - Weight Bearing Precaution WBAT both LE - Diet - Solid Texture Continue Regular - Shower allowing shower FUNCTIONAL STATUS: UPDATED AT WEEKLY TEAM CONFERENCE - Bladder Same accident frequency: 7-Ind - No accidents in the past 7 days - Bowel Same accident frequency: 7-Ind - No accidents in the past 7 days - Walking Same score based on distance walked: 0(N/A) Same score based on distance walked: 1(<=50ft) - Wheelchair Same score based on distance traveled: 0(N/A) FUNCTIONAL STATUS: - Self-Care A. Eating Ind B. Grooming Justin C. Bathing modA D. Dressing - Upper Jorge E. Dressing - Lower modA F. Toileting Jorge - Sphincter Control G. Bladder control Jorge H. Bowel control Jorge - Transfers Control I. Bed/Chair/Wheelchair modA J. Toilet modA K. Tub/Shower modA - Locomotion L. Walk/Wheelchair (B) modA M. Stairs ADNO - Communication N. Comprehension (B) Justin O. Expression (B) Justin - Social Cognition P. Social Interaction Justin Q. Problem Solving Justin R. Memory Justin - Endurance Poor - Balance Fair - Safety Awareness Fair QI SCORES: - Self-Care A. Eating 04-Supervision or touching assistance B. Oral hygiene 03-Partial/moderate assistance C. Toileting hygiene 03-Partial/moderate assistance E. Shower/bathe self 03-Partial/moderate assistance F. Upper body dressing 03-Partial/moderate assistance G. Lower body dressing 03-Partial/moderate assistance H. Putting on/taking off footwear 88-Not attempted due to medical condition or safety concerns - Mobility A. Roll left and right 03-Partial/moderate assistance B. Sit to lying 03-Partial/moderate assistance C. Lying to sitting on side of bed 03-Partial/moderate assistance D. Sit to stand 03-Partial/moderate assistance E. Chair/[id number] transfer 03-Partial/moderate assistance F. Toilet transfer 03-Partial/moderate assistance G. Car transfer 88-Not attempted due to medical condition or safety concerns I. Walk 10 feet 03-Partial/moderate assistance J. Walk 50 feet with two turns 88-Not attempted due to medical condition or safety concerns K. Walk 150 feet 88-Not attempted due to medical condition or safety concerns L. Walking 10 feet on uneven surfaces 88-Not attempted due to medical condition or safety concerns M. 1 step (curb) 88-Not attempted due to medical condition or safety concerns N. 4 steps 88-Not attempted due to medical condition or safety concerns O. 12 steps 88-Not attempted due to medical condition or safety concerns P. Picking up object 88-Not attempted due to medical condition or safety concerns R. Wheel 50 feet with two turns 88-Not attempted due to medical condition or safety concerns S. Wheel 150 feet 88-Not attempted due to medical condition or safety concerns - Bladder and Bowel Bladder continence Bowel continence - Endurance Fair - Balance Fair - Safety Awareness Fair CURRENT [facility]. DEFICITS: Self-Care, Mobility, Endurance, Balance, and Safety Awareness SIGNATURE PANEL: (CDT)
[2021-06-24] MEDS: TAMSULOSIN 0.4 MG SR CAP PO SCH (21:00)
[2021-06-24] MEDS: DOCUSATE NA/SENNA CONC 1 TAB PO PRN (21:09)
[2021-06-25 05:37] LABS: Magnesium 1.6 mg/dL (1.8-2.4); Potassium 5.1 mmol/L (3.5-5.1)
[2021-06-25] MEDS ORDERED: MAGNESIUM SULFATE 1 gm IVPB 1 GM/100 ML BAG IV ONE (07:33)
[2021-06-25] MEDS: lisinopriL 5 MG TAB PO SCH ×2 (08:00→20:43)
[2021-06-25] MEDS: FLUDROCORTISONE 0.1 MG TAB PO SCH (08:14)
[2021-06-25] MEDS: THIAMINE HCL 100 MG TABLET PO SCH (08:14)
[2021-06-25] MEDS: APIXABAN 2.5 MG TABLET PO SCH ×2 (08:14→20:44)
[2021-06-25] MEDS: FUROSEMIDE 20 MG TABLET PO SCH (08:15)
[2021-06-25] MEDS: FAMOTIDINE 20 MG TAB PO SCH ×2 (08:15→20:45)
[2021-06-25] MEDS: JUVEN PACKET PO SCH ×2 (08:16→20:00)
[2021-06-25] MEDS: MEDIHONEY 44 ML TOPICAL TUBE TOP SCH (09:27)
[2021-06-25] MEDS: NYSTATIN PWDR 100000 UNIT/GM TOP SCH ×2 (09:28→20:00)
--- NOTE | 2021-06-25 16:29 | R.PN ---
PROGRESS NOTES ENCOUNTER DATE AND TIME: 06/25/2021 16:25 (CDT) NAME RUTHANN LUNDBERG DATE OF : 1940 DATE OF ADMISSION: 06/16/2021 18:41 (CDT) Acute exacerbation of CHF with diastolic failure CHIEF COMPLAINT: Debility, diastolic heart failure, CHF exacerbation SUBJECTIVE: Pt denied any depression. Pt denied any Shortness of Breath. WBC 3.4, Hgb 11.8, Plt 90, prealbumin 10.2, pCO2 76.8, PO2 100.0, Mg decreased to 1.6. Na 135, Mg 1. 6, K 5.4. Ambulated 70' with contact guard assistance using a rolling walker. Self-propelled wheelchair 150' w ith standby assistance. VITAL SIGNS Temperature: 97.3 F SBP/DBP: 115/48 Pulse: 95 Resp: 15 MEDICATION ALLERGIES: No Known Drug Allergies (NKDA) ENVIRONMENTAL ALLERGIES: - Substance Allergies None Known - Other Allergies None Known NURSING: - Shower allowing shower PRECAUTIONS: - Weight Bearing Precaution WBAT both LE ACTIVITIES OOB only with supervision THERAPIES: - Dietary and Nutrition Adequate Nutrition. Nutritional Education. Nutritional Supplements. - Occupational Therapy Cognitive Retraining. Evaluate and Treat. ADL Training. Adaptive Equipment. Transfer Training. Househ old Tasks. Visual Perceptual Training. - Speech Therapy Cognitive Training. Expressive Language Skills. Memory Strategies. Receptive Language Skills. Speech Intelligibility Training. - Physical Therapy Evaluate and Treat. Gait Training. Safety Awareness. Balance Training. Transfer Training. LE Strength ening. Mobility Training. PHYSICAL EXAM - Gen Alert and awake Lying in bed No apparent distress Oriented to: person, time, and place - Skin Left leg is wrapped and had areas of hyperemia. No abnormalities - Eyes No abnormalities - ENMT No abnormalities - Neck No abnormalities - CVS RRR - Chest No abnormalities - Resp Decreased breath sound bilaterally - Abd Soft - GI Obese Deferred - No abnormalities - Ext Mild bilateral lower extremity edema. - MSK 4+/5 weakness in both lower extremities. - Neuro No focal deficits ASSESSMENT: Pt. is a 80 yo Right-handed white male.On 06/12/2021 he was admitted to [facility] with diagnosis Acute exacerbation of CHF with diastolic failure .His impairment category is Cardiac 09 - Cardiac Disorders ().Pre-morbidly, Pt. was independent/mod-I in Locomotion, Social Cognition, Safet y Awareness, and Transfers Control; and he had good Endurance, Communication, Sphincter Control, Self -Care, and Transfers Control.Currently, he has deficits of Locomotion, Safety Awareness, Social Cogni tion, Transfers Control, Sphincter Control, and Endurance.Pt. is now referred to [facility] for acute in-patient rehabilitation in order to maximize patient's functional independe nce in activities of daily living, strength, ROM, and mobility.- Rehab Goal Patient has realistic goal of being discharged at assistance level 7-Ind to reside at Home with Pt s elf. MDM/PLAN: - Physical Therapy Gait dysfunction - to improve, our physical therapists will perform initial evaluation of pt's statu s upon admission and devise an individualized program for Gait Training, and Wheel Chair mobility Inability to transfer - to improve, our physical therapists will perform initial evaluation of pt's status upon admission and devise an individualized program for Bed mobility Need for home safety evaluation - to improve, our physical therapists will perform initial evaluatio n of pt's status upon admission and devise an individualized program for Home Evaluation Need in caregiver upon discharge - to improve, our physical therapists will perform initial evaluati on of pt's status upon admission and devise an individualized program for Caregiver Training Edema - to improve, our physical therapists will perform initial evaluation of pt's status upon admi ssion and devise an individualized program for Elevation Training, and Lymphedema Therapy New precaution - to improve, our physical therapists will perform initial evaluation of pt's status upon admission and devise an individualized program for Patient precaution education Poor endurance - to improve, our physical therapists will perform initial evaluation of pt's status upon admission and devise an individualized program for Endurance Training Weakness - to improve, our physical therapists will perform initial evaluation of pt's status upon a dmission and devise an individualized program for Aquatic Therapy, Neuromuscular Reeducation, and Str engthening Achieving independence - to improve, our physical therapists will perform initial evaluation of pt's status upon admission and devise an individualized program for Community Reintegration Activities - Occupational Therapy Cognitive deficits - to improve, our occupation therapists will perform initial evaluation of pt's s tatus upon admission and devise an individualized program for Cognition - orientation Need for district manager primary care sales - to improve, our occupation therapists will perform initial evaluation of pt's status upon admission and devise an individualized program for Caregiver Training Weakness - to improve, our occupation therapists will perform initial evaluation of pt's status upon admission and devise an individualized program for Aquatic Therapy, Balance, Endurance, UE ROM, and UE strengthening - Other See attached MAR (Medication Administration Record) - Diet Type Continue Regular - Diet - Liquid Texture Continue Regular - Tube Feed Continue N/A - Weight Bearing Precaution WBAT both LE - Diet - Solid Texture Continue Regular - Shower allowing shower FUNCTIONAL STATUS: UPDATED AT WEEKLY TEAM CONFERENCE - Bladder Same accident frequency: 7-Ind - No accidents in the past 7 days - Bowel Same accident frequency: 7-Ind - No accidents in the past 7 days - Walking Same score based on distance walked: 0(N/A) Same score based on distance walked: 1(<=50ft) - Wheelchair Same score based on distance traveled: 0(N/A) FUNCTIONAL STATUS: - Self-Care A. Eating Ind B. Grooming Justin C. Bathing modA D. Dressing - Upper Jorge E. Dressing - Lower modA F. Toileting Jorge - Sphincter Control G. Bladder control Jorge H. Bowel control Jorge - Transfers Control I. Bed/Chair/Wheelchair modA J. Toilet modA K. Tub/Shower modA - Locomotion L. Walk/Wheelchair (B) modA M. Stairs ADNO - Communication N. Comprehension (B) Justin O. Expression (B) Justin - Social Cognition P. Social Interaction Justin Q. Problem Solving Justin R. Memory Justin - Endurance Poor - Balance Fair - Safety Awareness Fair QI SCORES: - Self-Care A. Eating 04-Supervision or touching assistance B. Oral hygiene 03-Partial/moderate assistance C. Toileting hygiene 03-Partial/moderate assistance E. Shower/bathe self 03-Partial/moderate assistance F. Upper body dressing 03-Partial/moderate assistance G. Lower body dressing 03-Partial/moderate assistance H. Putting on/taking off footwear 88-Not attempted due to medical condition or safety concerns - Mobility A. Roll left and right 03-Partial/moderate assistance B. Sit to lying 03-Partial/moderate assistance C. Lying to sitting on side of bed 03-Partial/moderate assistance D. Sit to stand 03-Partial/moderate assistance E. Chair/[id number] transfer 03-Partial/moderate assistance F. Toilet transfer 03-Partial/moderate assistance G. Car transfer 88-Not attempted due to medical condition or safety concerns I. Walk 10 feet 03-Partial/moderate assistance J. Walk 50 feet with two turns 88-Not attempted due to medical condition or safety concerns K. Walk 150 feet 88-Not attempted due to medical condition or safety concerns L. Walking 10 feet on uneven surfaces 88-Not attempted due to medical condition or safety concerns M. 1 step (curb) 88-Not attempted due to medical condition or safety concerns N. 4 steps 88-Not attempted due to medical condition or safety concerns O. 12 steps 88-Not attempted due to medical condition or safety concerns P. Picking up object 88-Not attempted due to medical condition or safety concerns R. Wheel 50 feet with two turns 88-Not attempted due to medical condition or safety concerns S. Wheel 150 feet 88-Not attempted due to medical condition or safety concerns - Bladder and Bowel Bladder continence Bowel continence - Endurance Fair - Balance Fair - Safety Awareness Fair CURRENT COUNTS INCLUDE 234 BEDS AT THE [facility]. DEFICITS: Self-Care, Mobility, Endurance, Balance, and Safety Awareness SIGNATURE PANEL: (CDT)
[2021-06-25] MEDS: TAMSULOSIN 0.4 MG SR CAP PO SCH (20:43)
[2021-06-25] MEDS: MELATONIN 3 MG TABLET PO PRN (20:43)
[2021-06-26 06:03] LABS: Absolute Lymphocytes (CBC) 0.9 K/uL (0.7-4.9); Basophils % 2.1 % (0-1.3); Hematocrit 34.1 % (39.6-49.0); Lymphocytes % 31.2 % (15.3-44.8); MPV 10.3 fL (7.6-11.3); RBC Red Blood Cell Count 3.59 M/uL (4.33-5.43)
[2021-06-26 06:24] LABS: Albumin 3.1 g/dL (3.4-5.0); Magnesium 1.5 mg/dL (1.8-2.4); Potassium 4.4 mmol/L (3.5-5.1); Prealbumin 13.7 mg/dL (20-40)
[2021-06-26] MEDS: lisinopriL 5 MG TAB PO SCH ×2 (08:00→20:00)
[2021-06-26] MEDS: FUROSEMIDE 20 MG TABLET PO SCH (08:44)
[2021-06-26] MEDS: APIXABAN 2.5 MG TABLET PO SCH ×2 (08:45→21:31)
[2021-06-26] MEDS: THIAMINE HCL 100 MG TABLET PO SCH (08:45)
[2021-06-26] MEDS: FLUDROCORTISONE 0.1 MG TAB PO SCH (08:45)
[2021-06-26] MEDS: FAMOTIDINE 20 MG TAB PO SCH ×2 (08:45→21:31)
[2021-06-26] MEDS: JUVEN PACKET PO SCH ×2 (08:46→20:00)
[2021-06-26] MEDS: MAG PO SCH (08:50)
[2021-06-26] MEDS: SLOW MAG PO SCH (08:50)
[2021-06-26] MEDS ORDERED: MAGNESIUM SULFATE 1 gm IVPB 1 GM/100 ML BAG IV ONE ×2 (09:08→10:23)
[2021-06-26] MEDS: NYSTATIN PWDR 100000 UNIT/GM TOP SCH ×2 (09:54→20:00)
[2021-06-26] MEDS: MEDIHONEY 44 ML TOPICAL TUBE TOP SCH (09:54)
[2021-06-26] MEDS: LIDOCAINE 4% PATCH TOP SCH (10:42)
[2021-06-26] MEDS ORDERED: NA CHLORIDE 0.9% 1,000 ML IV SCH (11:00)
--- NOTE | 2021-06-26 20:20 | R.PN ---
PROGRESS NOTES ENCOUNTER DATE AND TIME: 06/26/2021 20:05 (CDT) NAME RTUHANN LUNDBERG DATE OF : 1940 DATE OF ADMISSION: 06/16/2021 18:41 (CDT) Acute exacerbation of CHF with diastolic failure CHIEF COMPLAINT: Debility, diastolic heart failure, CHF exacerbation SUBJECTIVE: Pt denied any depression. Pt denied any Shortness of Breath. WBC 2.9, Hgb 11.3, prealbumin 13.7, Mg decreased to 1.5. He had an episode of symptomatic orthostatic hypotension. Sitting 151/67, p 89, Standing 72/52, P 104 . Therapy was done in bed today due to hypotension. Encourage fluid intake. D/C lasix and cut lisinopril to 2.5 mg bid, hold if SBP is less than 120. His chest x-ray is clear. VITAL SIGNS Temperature: 97.8 F SBP/DBP: 135/71 Pulse: 67 Resp: 15 MEDICATION ALLERGIES: No Known Drug Allergies (NKDA) ENVIRONMENTAL ALLERGIES: - Substance Allergies None Known - Other Allergies None Known NURSING: - Shower allowing shower PRECAUTIONS: - Weight Bearing Precaution WBAT both LE ACTIVITIES OOB only with supervision THERAPIES: - Dietary and Nutrition Adequate Nutrition. Nutritional Education. Nutritional Supplements. - Occupational Therapy Cognitive Retraining. Evaluate and Treat. ADL Training. Adaptive Equipment. Transfer Training. Househ old Tasks. Visual Perceptual Training. - Speech Therapy Cognitive Training. Expressive Language Skills. Memory Strategies. Receptive Language Skills. Speech Intelligibility Training. - Physical Therapy Evaluate and Treat. Gait Training. Safety Awareness. Balance Training. Transfer Training. LE Strength ening. Mobility Training. PHYSICAL EXAM - Gen Alert and awake Lying in bed No apparent distress Oriented to: person, time, and place - Skin Left leg is wrapped and had areas of hyperemia. No abnormalities - Eyes No abnormalities - ENMT No abnormalities - Neck No abnormalities - CVS RRR - Chest No abnormalities - Resp Decreased breath sound bilaterally - Abd Soft - GI Obese Deferred - No abnormalities - Ext Mild bilateral lower extremity edema. - MSK 4+/5 weakness in both lower extremities. - Neuro No focal deficits ASSESSMENT: Pt. is a 80 yo Right-handed white male.On 06/12/2021 he was admitted to [facility] with diagnosis Acute exacerbation of CHF with diastolic failure .His impairment category is Cardiac 09 - Cardiac Disorders ().Pre-morbidly, Pt. was independent/mod-I in Locomotion, Social Cognition, Safet y Awareness, and Transfers Control; and he had good Endurance, Communication, Sphincter Control, Self -Care, and Transfers Control.Currently, he has deficits of Locomotion, Safety Awareness, Social Cogni tion, Transfers Control, Sphincter Control, and Endurance.Pt. is now referred to [facility] for acute in-patient rehabilitation in order to maximize patient's functional independe nce in activities of daily living, strength, ROM, and mobility.- Rehab Goal Patient has realistic goal of being discharged at assistance level 7-Ind to reside at Home with Pt s elf. MDM/PLAN: - Physical Therapy Gait dysfunction - to improve, our physical therapists will perform initial evaluation of pt's statu s upon admission and devise an individualized program for Gait Training, and Wheel Chair mobility Inability to transfer - to improve, our physical therapists will perform initial evaluation of pt's status upon admission and devise an individualized program for Bed mobility Need for home safety evaluation - to improve, our physical therapists will perform initial evaluatio n of pt's status upon admission and devise an individualized program for Home Evaluation Need in caregiver upon discharge - to improve, our physical therapists will perform initial evaluati on of pt's status upon admission and devise an individualized program for Caregiver Training Edema - to improve, our physical therapists will perform initial evaluation of pt's status upon admi ssion and devise an individualized program for Elevation Training, and Lymphedema Therapy New precaution - to improve, our physical therapists will perform initial evaluation of pt's status upon admission and devise an individualized program for Patient precaution education Poor endurance - to improve, our physical therapists will perform initial evaluation of pt's status upon admission and devise an individualized program for Endurance Training Weakness - to improve, our physical therapists will perform initial evaluation of pt's status upon a dmission and devise an individualized program for Aquatic Therapy, Neuromuscular Reeducation, and Str engthening Achieving independence - to improve, our physical therapists will perform initial evaluation of pt's status upon admission and devise an individualized program for Community Reintegration Activities - Occupational Therapy Cognitive deficits - to improve, our occupation therapists will perform initial evaluation of pt's s tatus upon admission and devise an individualized program for Cognition - orientation Need for residential care facility manager - to improve, our occupation therapists will perform initial evaluation of pt's status upon admission and devise an individualized program for Caregiver Training Weakness - to improve, our occupation therapists will perform initial evaluation of pt's status upon admission and devise an individualized program for Aquatic Therapy, Balance, Endurance, UE ROM, and UE strengthening - Other See attached MAR (Medication Administration Record) - Diet Type Continue Regular - Diet - Liquid Texture Continue Regular - Tube Feed Continue N/A - Weight Bearing Precaution WBAT both LE - Diet - Solid Texture Continue Regular - Shower allowing shower FUNCTIONAL STATUS: UPDATED AT WEEKLY TEAM CONFERENCE - Bladder Same accident frequency: 7-Ind - No accidents in the past 7 days - Bowel Same accident frequency: 7-Ind - No accidents in the past 7 days - Walking Same score based on distance walked: 0(N/A) Same score based on distance walked: 1(<=50ft) - Wheelchair Same score based on distance traveled: 0(N/A) FUNCTIONAL STATUS: - Self-Care A. Eating Ind B. Grooming Justin C. Bathing modA D. Dressing - Upper Jorge E. Dressing - Lower modA F. Toileting Jorge - Sphincter Control G. Bladder control Jorge H. Bowel control Jorge - Transfers Control I. Bed/Chair/Wheelchair modA J. Toilet modA K. Tub/Shower modA - Locomotion L. Walk/Wheelchair (B) modA M. Stairs ADNO - Communication N. Comprehension (B) Justin O. Expression (B) Justin - Social Cognition P. Social Interaction Justin Q. Problem Solving Justin R. Memory Justin - Endurance Poor - Balance Fair - Safety Awareness Fair QI SCORES: - Self-Care A. Eating 04-Supervision or touching assistance B. Oral hygiene 03-Partial/moderate assistance C. Toileting hygiene 03-Partial/moderate assistance E. Shower/bathe self 03-Partial/moderate assistance F. Upper body dressing 03-Partial/moderate assistance G. Lower body dressing 03-Partial/moderate assistance H. Putting on/taking off footwear 88-Not attempted due to medical condition or safety concerns - Mobility A. Roll left and right 03-Partial/moderate assistance B. Sit to lying 03-Partial/moderate assistance C. Lying to sitting on side of bed 03-Partial/moderate assistance D. Sit to stand 03-Partial/moderate assistance E. Chair/[id number] transfer 03-Partial/moderate assistance F. Toilet transfer 03-Partial/moderate assistance G. Car transfer 88-Not attempted due to medical condition or safety concerns I. Walk 10 feet 03-Partial/moderate assistance J. Walk 50 feet with two turns 88-Not attempted due to medical condition or safety concerns K. Walk 150 feet 88-Not attempted due to medical condition or safety concerns L. Walking 10 feet on uneven surfaces 88-Not attempted due to medical condition or safety concerns M. 1 step (curb) 88-Not attempted due to medical condition or safety concerns N. 4 steps 88-Not attempted due to medical condition or safety concerns O. 12 steps 88-Not attempted due to medical condition or safety concerns P. Picking up object 88-Not attempted due to medical condition or safety concerns R. Wheel 50 feet with two turns 88-Not attempted due to medical condition or safety concerns S. Wheel 150 feet 88-Not attempted due to medical condition or safety concerns - Bladder and Bowel Bladder continence Bowel continence - Endurance Fair - Balance Fair - Safety Awareness Fair [facility] DEFIC[facility]: Self-Care, Mobility, Endurance, Balance, and Safety Awareness SIGNATURE PANEL: (CDT)
[2021-06-26] MEDS: MELATONIN 3 MG TABLET PO PRN (21:31)
[2021-06-26] MEDS: TAMSULOSIN 0.4 MG SR CAP PO SCH (21:34)
[2021-06-27] MEDS ORDERED: MAGNESIUM SULFATE 1 gm IVPB 1 GM/100 ML BAG IV ONE (08:00)
[2021-06-27] MEDS: FAMOTIDINE 20 MG TAB PO SCH ×2 (08:21→20:17)
[2021-06-27] MEDS: NYSTATIN PWDR 100000 UNIT/GM TOP SCH ×2 (08:21→20:18)
[2021-06-27] MEDS: FLUDROCORTISONE 0.1 MG TAB PO SCH (08:21)
[2021-06-27] MEDS: THIAMINE HCL 100 MG TABLET PO SCH (08:21)
[2021-06-27] MEDS: lisinopriL 5 MG TAB PO SCH ×2 (08:21→20:00)
[2021-06-27] MEDS: SLOW MAG PO SCH (08:22)
[2021-06-27] MEDS: APIXABAN 2.5 MG TABLET PO SCH ×2 (08:22→20:17)
[2021-06-27] MEDS: MAG PO SCH (08:22)
[2021-06-27] MEDS: MEDIHONEY 44 ML TOPICAL TUBE TOP SCH (08:22)
[2021-06-27] MEDS: JUVEN PACKET PO SCH ×2 (08:23→20:18)
[2021-06-27] MEDS: LIDOCAINE 4% PATCH TOP SCH (08:23)
--- NOTE | 2021-06-27 09:55 | P.RH.PN ---
Estimated Length of Stay: 14 Expected Discharge Date: 06/29/21 Discharge Disposition Plan: Home Family Support: Yes Senior Living Goal: Mobility, Transfers, Self Care Vital Signs: Last Vital Signs Temp 97.2 F 06/27/21 07:50 Pulse 81 06/27/21 08:21 Resp 18 06/27/21 07:50 BP 130/54 L 06/27/21 08:21 Pulse Ox 96 06/27/21 07:50 Laboratory: Laboratory Last Values WBC 2.90 K/uL (4.3-10.9) L D 06/26/21 05:20 RBC 3.59 M/uL (4.33-5.43) L 06/26/21 05:20 Hgb 11.3 g/dL (13.6-17.9) L 06/26/21 05:20 Hct 34.1 % (39.6-49.0) L 06/26/21 05:20 MCV 95.1 fL (80-100) 06/26/21 05:20 MCH 31.5 pg (27.0-35.0) 06/26/21 05:20 MCHC 33.1 g/dL (32.0-36.0) 06/26/21 05:20 RDW 12.7 % (12.1-15.2) 06/26/21 05:20 Plt Count 100 K/uL (152-406) L 06/26/21 05:20 MPV 10.3 fL (7.6-11.3) D 06/26/21 05:20 Neutrophils % 42.9 % (41.7-73.7) 06/26/21 05:20 Lymphocytes % 31.2 % (15.3-44.8) 06/26/21 05:20 Monocytes % 16.1 % (3.3-12.3) H 06/26/21 05:20 Eosinophils % 7.7 % (0-4.4) H 06/26/21 05:20 Basophils % 2.1 % (0-1.3) H 06/26/21 05:20 Absolute Neutrophils 1.2 K/uL (1.8-8.0) L 06/26/21 05:20 Segmented Neutrophils 57 % (40-80) 06/17/21 04:36 Absolute Lymphocytes 0.9 K/uL (0.7-4.9) 06/26/21 05:20 Lymphocytes 20 % (15-42) 06/17/21 04:36 Monocytes 3 % (0-10) 06/17/21 04:36 Absolute Monocytes 0.5 K/uL (0.1-1.3) 06/26/21 05:20 Eosinophils 19 % (0-3) H 06/17/21 04:36 Absolute Eosinophils 0.2 K/uL (0-0.5) 06/26/21 05:20 Basophils 1 % (0-1) 06/17/21 04:36 Absolute Basophils 0.1 K/uL (0-0.5) 06/26/21 05:20 Platelet Estimate Decr 06/19/21 05:09 Morphology Comment Not seen (NOT SEEN) 06/19/21 05:09 pH 7.35 (7.35-7.45) 06/17/21 14:25 pCO2 76.8 mmHG (35-45) H 06/17/21 14:25 pO2 100.0 mmHG (75-100) 06/17/21 14:25 HCO3 41.6 mmol/L (22-28) H 06/17/21 14:25 Base Excess 15.4 mmol/L 06/17/21 14:25 Oxyhemoglobin 95.2 % (94-97) 06/17/21 14:25 ABG O2 Sat (Measured) 97.6 % (92-98.5) 06/17/21 14:25 ABG Carboxyhemoglobin 1.4 % (0-1.5) 06/17/21 14:25 ABG Methemoglobin 1.1 % (0-1.5) 06/17/21 14:25 Other Total Hgb 11.8 g/dl (12-18) L 06/17/21 14:25 Inspired O2 32.0 % 06/17/21 14:25 Sodium 137 mmol/L (136-145) 06/26/21 05:20 Potassium 4.4 mmol/L (3.5-5.1) 06/26/21 05:20 Chloride 99 mmol/L (98-107) 06/26/21 05:20 Carbon Dioxide 35 mmol/L (21-32) H 06/26/21 05:20 BUN 39 mg/dL (7-18) H 06/26/21 05:20 Creatinine 0.94 mg/dL (0.55-1.3) 06/26/21 05:20 Estimated GFR 77 mL/min (=/>90) L 06/26/21 05:20 Glucose 108 mg/dL (74-106) H 06/26/21 05:20 Calcium 9.1 mg/dL (8.5-10.1) 06/26/21 05:20 Magnesium 1.5 mg/dL (1.8-2.4) L 06/26/21 05:20 Total Bilirubin 0.7 mg/dL (0.2-1.0) 06/17/21 04:30 Direct Bilirubin 0.3 mg/dL (0-0.2) H 06/17/21 04:30 AST 25 U/L (15-37) 06/17/21 04:30 ALT 17 U/L (12-78) 06/17/21 04:30 Alkaline Phosphatase 82 U/L (45-117) 06/17/21 04:30 Serum Total Protein 6.3 g/dL (6.4-8.2) L 06/17/21 04:30 Albumin 3.1 g/dL (3.4-5.0) L 06/26/21 05:20 Globulin 3.5 g/dL (2.3-3.5) 06/17/21 04:30 Albumin/Globulin Ratio 0.8 (1.1-1.8) L 06/17/21 04:30 Prealbumin 13.7 mg/dL (20-40) L 06/26/21 05:20 Urine Color Dk yellow (Yellow) 06/16/21 21:35 Urine Appearance Clear (Clear) 06/16/21 21:35 Urine pH 7.0 (5.0-7.0) 06/16/21 21:35 Ur Specific [place] 1.015 (1.005-1.030) 06/16/21 21:35 Glucose (UA)(Auto) Negative (Negative) 06/16/21 21:35 Urine Ketones Negative (Negative) 06/16/21 21:35 Urine Blood Negative (Negative) 06/16/21 21:35 Urine Nitrite Negative (Negative) 06/16/21 21:35 Urine Bilirubin Negative (Negative) 06/16/21 21:35 Urine Urobilinogen 4.0 mg/dL (0.2-1.0) H 06/16/21 21:35 Ur Leukocyte Esterase Negative (Negative) 06/16/21 21:35 Urine RBC <5 /HPF (NONE SEEN) 06/16/21 21:35 Urine WBC None seen /HPF (<5) 06/16/21 21:35 Ur Squamous Epith Cells <5 /HPF (NONE SEEN) 06/16/21 21:35 Urine Bacteria <20 /HPF (NONE SEEN) 06/16/21 21:35 Urine Culture Reflexed Not needed 06/16/21 21:35 Urine Total Protein Negative (Negative) 06/16/21 21:35 SARS-CoV-2 Rap RNA(RT-PCR) Negative (NEGATIVE) 06/26/21 14:25 Smear Scan Ok (OK) 06/19/21 05:09 Weight: 253 lb 3.2 oz Wound Present: Yes Closed Surgical Incision Present: No Negative Pressure Wound Therapy Present: No Physician Update: He is making good progress with all therapy. He is set up for home health. He reuses to get dressed with underwear. He only wants to wear a gown. He will be discharged on Wednesday. Comment: healing cellulitis noted. red and swollen; dressing dry and intact Functional Improvement: Patient has met short-term goals at this time, and is progressing well toward long-term goals. Patient has been severely limited by his BP. Patient presents w/ good work ethic toward therapy. Summary: Patient's care plan and assistant terminal manager goals have been reviewed and revised as necessary. Please see the Rehabilitation Signature page for all necessary signatures.
[2021-06-27] MEDS: TAMSULOSIN 0.4 MG SR CAP PO SCH (20:17)
[2021-06-27] MEDS: MELATONIN 3 MG TABLET PO PRN (20:18)
[2021-06-28 06:01] LABS: BUN Blood Urea Nitrogen 42 mg/dL (7-18); Bicarbonate 35 mmol/L (21-32); Glucose Level 103 mg/dL (74-106); Magnesium 1.5 mg/dL (1.8-2.4); Potassium 4.5 mmol/L (3.5-5.1); Sodium Level 138 mmol/L (136-145)
[2021-06-28] MEDS: lisinopriL 5 MG TAB PO SCH ×2 (08:00→20:00)
[2021-06-28] MEDS: LIDOCAINE 4% PATCH TOP SCH (08:04)
[2021-06-28] MEDS: FLUDROCORTISONE 0.1 MG TAB PO SCH (08:05)
[2021-06-28] MEDS: FAMOTIDINE 20 MG TAB PO SCH ×2 (08:05→20:02)
[2021-06-28] MEDS: JUVEN PACKET PO SCH ×2 (08:05→20:02)
[2021-06-28] MEDS: THIAMINE HCL 100 MG TABLET PO SCH (08:05)
[2021-06-28] MEDS: APIXABAN 2.5 MG TABLET PO SCH ×2 (08:14→20:02)
[2021-06-28] MEDS ORDERED: MAGNESIUM SULFATE 1 gm IVPB 1 GM/100 ML BAG IV ONE ×2 (08:15→11:47)
[2021-06-28] MEDS: MEDIHONEY 44 ML TOPICAL TUBE TOP SCH (08:18)
[2021-06-28] MEDS: NYSTATIN PWDR 100000 UNIT/GM TOP SCH ×2 (08:18→20:01)
[2021-06-28] MEDS: SLOW MAG PO SCH (08:18)
[2021-06-28] MEDS: MAG PO SCH (08:18)
[2021-06-28] MEDS: DOCUSATE NA/SENNA CONC 1 TAB PO PRN (20:01)
[2021-06-28] MEDS: TAMSULOSIN 0.4 MG SR CAP PO SCH (20:02)
[2021-06-28] MEDS: MELATONIN 3 MG TABLET PO PRN (20:02)
[2021-06-29 05:42] VITALS: BMI 35.7
[2021-06-29 07:40] VITALS: BP 144/61; TEMP 98.4
[2021-06-29] MEDS: SLOW MAG PO SCH (08:00)
[2021-06-29] MEDS: MAG PO SCH (08:00)
[2021-06-29] MEDS ORDERED: MAG PO SCH (08:15)
[2021-06-29] MEDS ORDERED: SLOW MAG PO SCH (08:15)
[2021-06-29] MEDS ORDERED: MAGNESIUM SULFATE 1 gm IVPB 1 GM/100 ML BAG IV ONE (09:00)
[2021-06-29 09:59] VITALS: O2SAT 94
[2021-06-29] MEDS: NYSTATIN PWDR 100000 UNIT/GM TOP SCH (10:12)
[2021-06-29] MEDS: THIAMINE HCL 100 MG TABLET PO SCH (10:13)
[2021-06-29] MEDS: lisinopriL 5 MG TAB PO SCH (10:13)
[2021-06-29] MEDS: LIDOCAINE 4% PATCH TOP SCH (10:13)
[2021-06-29] MEDS: APIXABAN 2.5 MG TABLET PO SCH (10:14)
[2021-06-29] MEDS: FLUDROCORTISONE 0.1 MG TAB PO SCH (10:14)
[2021-06-29] MEDS: FAMOTIDINE 20 MG TAB PO SCH (10:14)
[2021-06-29] MEDS: JUVEN PACKET PO SCH (10:14)
[2021-06-29] MEDS: MEDIHONEY 44 ML TOPICAL TUBE TOP SCH (10:15)
[2021-06-29] MEDS ORDERED: NA CHLORIDE 0.9% 250 ML ONE (11:22)
== END 2021-06-29 14:53 | disposition home or self-care (01) | DRG 292 ==
LOC: 5TH 18:41
PROVIDERS: ADMIT Psychiatry & Neurology Neurology with Special Qualifications in Child Neurology; ATTEND Psychiatry & Neurology Neurology with Special Qualifications in Child Neurology
DX: I11.0 Hypertensive heart disease with heart failure (principal); L03.119 Cellulitis of unspecified part of limb; I50.33 Acute on chronic diastolic (congestive) heart failure; J44.9 Chronic obstructive pulmonary disease, unspecified; R53.81 Other malaise; B35.1 Tinea unguium; L60.2 Onychogryphosis; I95.1 Orthostatic hypotension; Z20.822 Contact with and (suspected) exposure to COVID-19
CPT/HCPCS: 36415; 71045; 80048; 80076; 81001; 82040; 82805; 83735; 84134; 85025; 87086; 87088; 94010; 94640; 97110; 97112; 97116; 97161; 97530; 97542; 99251; J3475; J7030; J7050; U0003

== ENCOUNTER 2022-02-27 14:42 | Emergency (ER) | payer OTHER ==
--- OUTSIDE RECORDS SUMMARY | 2022-02-27 14:47 | XMS REPORT | Continuity of Care Document ---
:1940 Author Organization [facility] t Address [address] [place] [address] Care Team Providers Name Role Phone Hilary Primary Care Physician NASH ALCARAZ Attending Clinician Unavailable MICHELLE CHAPARRO Attending Clinician Unavailable NASH ALCARAZ Admitting Clinician Unavailable MICHELLE CHAPARRO Admitting Clinician Unavailable Problems Condition Condition Condition Status Onset Resolution Last Treating Co mments Source Name Details Category Date Date Treatment Clinician Date Metabolic Metabolic Disease Active [facility] alkalosis alkalosis 6-15 [facility] 00:[facility]: [facility] 00 [place] Cirrhosis Cirrhosis Disease Active [facility] 00 [place] Hypomagnes Hypomagnes Disease Active [facility] em[facility] 08 [facility] 00 [place] 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 Family History Family Member Diagnosis Comments Start Date Stop Date Source Natural mother Parkinsonism [facility] Social History Social Habit Start Date Stop Date Quantity Comments Source History SDOH [facility] SDOH [facility] SDOH [facility] Alcohol Binge [facility] Alcohol intake 2017-03-11 2017-03-11 5 /d [facility] 00:[facility]00 00:00:00 [facility] Center Alcohol Comment 2017-03-11 2017-03-11 500 ml of gonzalo [facility] History of tobacco 2015-11-[address] [facility] use 00:00:00 [facility] Center Sex Assigned At [address] vill[facility]ñors 00:00:00 00:00:00 [facility] Center Smoking Status Start Date Stop Date Source Former smoker 2017-03-03 00:00:00 2017-03-03 00:00:00 [facility] Medications Ordered Filled Start Stop Current Ordering Indication Dosage Frequency Signature Comments Components Source Medication Medication Date Date Medication? Clinician (SIG) Name Name multivitami Yes 1{tbl} QD Take [address] [facility] per 707 tablet by [facility] tablet 13:22: [facility]} QD Take [address] [facility] per 7-07 tablet by [facility] tablet 13:22: mouth Medical 13 daily. Center [...] MORPHOLOGY (BEAKER) (test code = Normal 762) [id number] 06:45:00 Test Item Value Reference Range Interpretation Comments PHOSPHORUS (BEAKER) (test code = 3.5 mg/dL 2.3-4.7 604) [id number] 06:45:00 Test Item Value Reference Range Interpretation Comments MAGNESIUM (BEAKER) (test code = 1.7 mg/dL 1.6-2.6 627) BASIC METABOLIC [id number] 06:45:00 Test Item Value Reference Range Interpretation [...] S NOT APPLICABLE FOR DIALYSIS PATIEN TS. [id number] 07:18:00 Test Item Value Reference Range Interpretation Comments PHOSPHORUS (BEAKER) (test code = 3.4 mg/dL 2.3-4.7 604) [id number] 07:18:00 Test Item Value Reference Range Interpretation Comments MAGNESIUM (BEAKER) (test code = 1.6 mg/dL 1.6-2.6 627) BASIC METABOLIC [id number] 07:18:00 Test Item Value Reference Range Interpretation [...] S NOT APPLICABLE FOR DIALYSIS PATIEN TS. [id number] 05:47:00 Test Item Value Reference Range Interpretation Comments MAGNESIUM (BEAKER) (test code = 1.7 mg/dL 1.6-2.6 627) BASIC METABOLIC [id number] 05:47:00 Test Item Value Reference Range Interpretation [...] PATIEN TS. CBC W/PLT COUNT & AUTO [id number] 09:57:00 Test Item Value Reference Range Interpretation [...] MORPHOLOGY (BEAKER) (test code = Normal 762) [id number] 06:06:00 Test Item Value Reference Range Interpretation Comments MAGNESIUM (BEAKER) (test code = 1.7 mg/dL 1.6-2.6 627) BASIC METABOLIC [id number] 06:06:00 Test Item Value Reference Range Interpretation [...] S NOT APPLICABLE FOR DIALYSIS PATIEN TS. [id number] 06:35:00 Test Item Value Reference Range Interpretation Comments PHOSPHORUS (BEAKER) (test code = 3.0 mg/dL 2.3-4.7 604) [id number] 06:35:00 Test Item Value Reference Range Interpretation Comments MAGNESIUM (BEAKER) (test code = 1.7 mg/dL 1.6-2.6 627) BASIC METABOLIC [id number] 06:35:00 Test Item Value Reference Range Interpretation [...] S NOT APPLICABLE FOR DIALYSIS PATIEN TS. BASIC METABOLIC [id number] 07:59:00 Test Item Value Reference Range Interpretation [...] S NOT APPLICABLE FOR DIALYSIS PATIEN TS. [id number] 07:59:00 Test Item Value Reference Range Interpretation Comments MAGNESIUM (BEAKER) (test code = 1.8 mg/dL 1.6-2.6 627) [id number] 06:28:00 Test Item Value Reference Range Interpretation Comments MAGNESIUM (BEAKER) (test code = 1.7 mg/dL 1.6-2.6 627) BASIC METABOLIC [id number] 06:28:00 Test Item Value Reference Range Interpretation [...] S NOT APPLICABLE FOR DIALYSIS PATIEN TS. [id number] 05:37:00 Test Item Value Reference Range Interpretation Comments MAGNESIUM (BEAKER) (test code = 1.7 mg/dL 1.6-2.6 627) BASIC METABOLIC [id number] 05:37:00 Test Item Value Reference Range Interpretation [...] APPLICABLE FOR DIALYSIS PATIEN TS. PROTEIN ELECTROPHORESIS, [id number] 11:32:00 Test Item Value Reference Range Interpretation [...] significant change from previous study of 03-02-17. [id number] Haritha Baptiste MD (BEAKER) (test code = (electronic signature) 4334) PROTEIN TOTAL SERUM, 5.9 gm/dL 6.0-8.3 L SPEP (BEAKER) (test code = 5530) [id number] 06:11:00 Test Item Value Reference Range Interpretation Comments MAGNESIUM (BEAKER) (test code = 1.5 mg/dL 1.6-2.6 L 627) BASIC METABOLIC [id number] 06:11:00 Test Item Value Reference Range Interpretation [...] APPLICABLE FOR DIALYSIS PATIEN TS. VITAMIN D, [id number] 08:21:00 Test Item Value Reference Range Interpretation Comments VITAMIN D 25-OH (BEAKER) (test 29.5 ng/mL 13.0-47.8 code = 2764) [id number] 06:15:00 Test Item Value Reference Range Interpretation Comments MAGNESIUM (BEAKER) (test code = 1.8 mg/dL 1.6-2.6 627) BASIC METABOLIC [id number] 06:15:00 Test Item Value Reference Range Interpretation [...] S NOT APPLICABLE FOR DIALYSIS PATIEN TS. [id number] 05:52:00 Test Item Value Reference Range Interpretation Comments MAGNESIUM (BEAKER) (test code = 1.7 mg/dL 1.6-2.6 627) BASIC METABOLIC [id number] 05:52:00 Test Item Value Reference Range Interpretation [...] S NOT APPLICABLE FOR DIALYSIS PATIEN TS. [id number] 06:58:00 Test Item Value Reference Range Interpretation Comments MAGNESIUM (BEAKER) (test code = 1.6 mg/dL 1.6-2.6 627) BASIC METABOLIC [id number] 06:58:00 Test Item Value Reference Range Interpretation [...] S NOT APPLICABLE FOR DIALYSIS PATIEN TS. [id number] 04:50:00 Test Item Value Reference Range Interpretation Comments MAGNESIUM (BEAKER) (test code = 1.7 mg/dL 1.6-2.6 627) BASIC METABOLIC [id number] 04:50:00 Test Item Value Reference Range Interpretation [...] S NOT APPLICABLE FOR DIALYSIS PATIEN TS. [id number] 07:00:00 Test Item Value Reference Range Interpretation Comments MAGNESIUM (BEAKER) (test code = 1.7 mg/dL 1.6-2.6 627) BASIC METABOLIC [id number] 07:00:00 Test Item Value Reference Range Interpretation [...] APPLICABLE FOR DIALYSIS PATIEN TS. HEPATIC FUNCTION [id number] 07:00:00 Test Item Value Reference Range Interpretation [...] (test code = 38 U/L 6-55 347) [id number] 07:18:00 Test Item Value Reference Range Interpretation Comments MAGNESIUM (BEAKER) (test code = 1.7 mg/dL 1.6-2.6 627) BASIC METABOLIC [id number] 07:18:00 Test Item Value Reference Range Interpretation [...] APPLICABLE FOR DIALYSIS PATIEN TS. CREATININE, RANDOM [id number] 16:52:00 Test Item Value Reference Range Interpretation Comments CREATININE URINE (BEAKER) (test 113.2 mg/dL code = 375) Reference Range: No NormalsMAGNESIUM, RANDOM [id number] 16:52:00 Test Item Value Reference Range Interpretation Comments MAGNESIUM URINE (BEAKER) (test 17.9 mg/dL code = 834) Reference Range: No [id number] 06:52:00 Test Item Value Reference Range Interpretation Comments MAGNESIUM (BEAKER) (test code = 1.5 mg/dL 1.6-2.6 L 627) BASIC METABOLIC [id number] 06:52:00 Test Item Value Reference Range Interpretation [...] S NOT APPLICABLE FOR DIALYSIS PATIEN TS. [id number] 06:05:00 Test Item Value Reference Range Interpretation Comments MAGNESIUM (BEAKER) (test code = 1.6 mg/dL 1.6-2.6 627) BASIC METABOLIC [id number] 06:05:00 Test Item Value Reference Range Interpretation [...] NOT APPLICABLE FOR DIALYSIS PATIEN TS. HEPARIN [id number] 14:07:00 Test Item Value Reference Range Interpretation Comments HEPARIN ANTIBODY (BEAKER) (test code Negative Negative = 646) HEPARIN ANTIBODY OD (BEAKER) (test 0.062 <0.400 code = 2659) 4T TOTAL SCORE (BEAKER) (test code = 4 2920) Probability of HIT based on scoring system: 6-8 = High probability; 4-5 = intermediate probability;0-3 = low probabilityBASIC METABOLIC [id number] 05:42:00 Test Item Value Reference Range Interpretation [...] S NOT APPLICABLE FOR DIALYSIS PATIEN TS. [id number] 05:42:00 Test Item Value Reference Range Interpretation Comments MAGNESIUM (BEAKER) (test code = 1.6 mg/dL 1.6-2.6 627) CBC W/PLT COUNT & AUTO [id number] 14:48:00 Test Item Value Reference Range Interpretation [...] TOTAL COUNTED (BEAKER) (test code = 1351) [id number] 14:18:00 Test Item Value Reference Range Interpretation Comments MAGNESIUM (BEAKER) (test code = 1.5 mg/dL 1.6-2.6 L 627) [id number] 14:18:00 Test Item Value Reference Range Interpretation Comments PHOSPHORUS (BEAKER) (test code = 3.4 mg/dL 2.3-4.7 604) BASIC METABOLIC [id number] 14:17:00 Test Item Value Reference Range Interpretation [...] S NOT APPLICABLE FOR DIALYSIS PATIEN TS. [id number] 06:24:00 Test Item Value Reference Range Interpretation Comments MAGNESIUM (BEAKER) (test code = 1.3 mg/dL 1.6-2.6 L 627) BASIC METABOLIC [id number] 06:24:00 Test Item Value Reference Range Interpretation [...] S NOT APPLICABLE FOR DIALYSIS PATIEN TS. [id number] 07:11:00 Test Item Value Reference Range Interpretation Comments MAGNESIUM (BEAKER) 1.7 mg/dL 1.6-2.6 Specimen slightly (test code = 627) hemolyzed BASIC METABOLIC [id number] 07:11:00 Test Item Value Reference Range Interpretation [...] NOT APPLICABLE FOR DIALYSIS PATIEN TS. PTH, [id number] 06:59:00 Test Item Value Reference Range Interpretation Comments PARATHYROID HORMONE INTACT 27.9 pg/mL 8.5-72.5 (BEAKER) (test code = 577) Effective 08/21/2014: Reference Range ChangeNew: 8.5-72.5 Previous: 15.0-90.0 CREATININE, RANDOM [id number] 14:27:00 Test Item Value Reference Range Interpretation Comments CREATININE URINE (BEAKER) (test 174.8 mg/dL code = 375) Reference Range: No NormalsMAGNESIUM, RANDOM [id number] 14:27:00 Test Item Value Reference Range Interpretation Comments MAGNESIUM URINE (BEAKER) (test code = > mg/dL 834) Reference Range: No NormalsTISSUE [id number] 13:29:00Surgical Pathology Report Case: [id number] Authorizing Provider: Estuardo Chaparro MD Collected: 02/28/201719 Ordering Location: [address] Received: 03/02/2017 0948 Service Pathologist: Patel Burton MD Specimen: Di sc C3-4 VERTEBRAL COLUMN,INTERVERTEBRAL DISC, C3-4, DISCECTOMY:FRAGMENTS OF FIBROCARTILAGE WITH MILD DEGENERATIVE CHANGES 92034; 26433Elnpfenu myelopathyDisc C3-4The specimen is received in formalin-filled [...] 1.2 mg/dL 1.6-2.6 L 627) BASIC METABOLIC [id number] 04:50:00 Test Item Value Reference Range Interpretation [...] S NOT APPLICABLE FOR DIALYSIS PATIEN TS. [id number] 07:04:00 Test Item Value Reference Range Interpretation Comments MAGNESIUM (BEAKER) (test code = 1.3 mg/dL 1.6-2.6 L 627) BASIC METABOLIC [id number] 07:04:00 Test Item Value Reference Range Interpretation [...] S NOT APPLICABLE FOR DIALYSIS PATIEN TS. [id number] 11:59:00 Test Item Value Reference Range Interpretation Comments MAGNESIUM (BEAKER) (test code = 1.4 mg/dL 1.6-2.6 L 627) BASIC METABOLIC [id number] 06:16:00 Test Item Value Reference Range Interpretation [...] PATIEN TS. PERIPHERAL BLOOD SMEAR - HOLD [id number] 09:09:00 Test Item Value Reference Range Interpretation Comments PERIPHERAL SMEAR SAVE Mild (BEAKER) (test code = anisopikilocytosis. 1815) Essentially unremarkable white cells and platelets. No circulating blasts. Correlation with clinical follow up required to assess need for hematologic evaulation. URINE [id number] 08:40:00 Test Item Value Reference Range Interpretation [...] = 47) CBC W/PLT COUNT & AUTO [id number] 06:12:00 Test Item Value Reference Range Interpretation [...] K/ L 0.00-0.20 (test code = 417) [id number] 06:03:00 Test Item Value Reference Range Interpretation Comments MAGNESIUM (BEAKER) (test code = 1.2 mg/dL 1.6-2.6 L 627) BASIC METABOLIC [id number] 06:03:00 Test Item Value Reference Range Interpretation [...] PATIEN TS. CBC W/PLT COUNT & AUTO [id number] 08:37:00 Test Item Value Reference Range Interpretation [...] K/ L 0.00-0.20 (test code = 417) [id number] 06:58:00 Test Item Value Reference Range Interpretation Comments MAGNESIUM (BEAKER) (test code = 1.5 mg/dL 1.6-2.6 L 627) BASIC METABOLIC [id number] 06:58:00 Test Item Value Reference Range Interpretation [...] S NOT APPLICABLE FOR DIALYSIS PATIEN TS. [id number] 05:57:00 Test Item Value Reference Range Interpretation Comments MAGNESIUM (BEAKER) (test code = 1.3 mg/dL 1.6-2.6 L 627) COMPREHENSIVE METABOLIC [id number] 05:57:00 Test Item Value Reference Range Interpretation [...] Specimen slightly ictericCBC W/PLT COUNT & AUTO [id number] 05:49:00 Test Item Value Reference Range Interpretation [...] L 0.00-0.20 (test code = 417) 0.00PROTHROMBIN [id number] 05:38:00 Test Item Value Reference Range Interpretation Comments PROTIME (BEAKER) (test code = 14.2 seconds 11.7-14.7 759) INR (BEAKER) (test code = 370) 1.1 <=5.9 RECOMMENDED COUMADIN/WARFARIN INR THERAPY RANGESSTANDARD DOSE: 2.0 - 3.0 Includes: PROPHYLAXIS forvenous thrombosis, systemic embolization; TREATMENT for venous thrombosis and/or pulmonary embolus.HIGH RISK: Target INR is 2.5-3.5 for patients with mechanical heart valves.URINALYSIS W/ [id number] 14:55:00 Test Item Value Reference Range Interpretation [...] SOURCE(BEAKER) (test code Urine, Clean Catch = 2005) [id number] 21:24:00 Test Item Value Reference Range Interpretation Comments MAGNESIUM (BEAKER) (test code = 1.1 mg/dL 1.6-2.6 L 627) BASIC METABOLIC [id number] 21:24:00 Test Item Value Reference Range Interpretation [...] FOR DIALYSIS PATIEN TS. VITAMIN B12 AND [id number] 08:41:00 Test Item Value Reference Range Interpretation Comments VITAMIN B12 (BEAKER) (test code = 604 pg/mL 213816 774) FOLATE (BEAKER) (test code = 362) 9.9 ng/mL >=7.0 Effective 08/21/2014: Folate Reference Range ChangeNew: >=7.0 Previous: >=5.4PERIPHERAL BLOOD SMEAR - HOLD [id number] 08:19:00 Test Item Value Reference Range Interpretation Comments PERIPHERAL SMEAR SAVE (BEAKER) (test saved code = 1815) [id number] 05:49:00 Test Item Value Reference Range Interpretation Comments PROSTATE SPECIFIC ANTIGEN (BEAKER) 5.1 ng/mL 0.0-4.0 H (test code = 844) HIV-1 ANTIGEN WITH HIV-1/2 [id number] 05:49:00 Test Item Value Reference Range Interpretation Comments HIV-1 ANTIGEN WITH HIV 1\\T\\2 Nonreactive Nonreactive ANTIBODY (2) (BEAKER) (test code = 2586) [id number] 05:43:00 Test Item Value Reference Range Interpretation Comments PHOSPHORUS (BEAKER) (test code = 2.9 mg/dL 2.3-4.7 604) [id number] 05:43:00 Test Item Value Reference Range Interpretation Comments MAGNESIUM (BEAKER) (test code = 1.4 mg/dL 1.6-2.6 L 627) BASIC METABOLIC [id number] 05:43:00 Test Item Value Reference Range Interpretation [...] PATIEN TS. CBC W/PLT COUNT & AUTO [id number] 05:25:00 Test Item Value Reference Range Interpretation [...] 0.00-0.20 (test code = 417) 0.00PROTEIN ELECTROPHORESIS, [id number] 16:22:00 Test Item Value Reference Range Interpretation [...] beta globulin fractions. No monoclonal bands detected. [id number] Haritha Baptiste MD (BEAKER) (test code = (electronic signature) 2616) PROTEIN TOTAL SERUM, 5.3 gm/dL 6.0-8.3 L SPEP (BEAKER) (test code = 4880) CBC W/PLT COUNT & AUTO [id number] 13:14:00 Test Item Value Reference Range Interpretation [...] K/ L 0.00-0.20 (test code = 417) [id number] 06:18:00 Test Item Value Reference Range Interpretation Comments MAGNESIUM (BEAKER) 1.3 mg/dL 1.6-2.6 L Specimen slightly (test code = 627) hemolyzed [id number] 06:18:00 Test Item Value Reference Range Interpretation Comments PHOSPHORUS (BEAKER) 2.3 mg/dL 2.3-4.7 Specimen slightly (test code = 604) hemolyzed BASIC METABOLIC [id number] 06:18:00 Test Item Value Reference Range Interpretation [...] APPLICABLE FOR DIALYSIS PATIEN TS. HEPATITIS PANEL, [id number] 14:32:00 Test Item Value Reference Range Interpretation Comments HEPATITIS A IGM ANTIBODY (BEAKER) Nonreactive Nonreactive (test code = 498) HEPATITIS B CORE IGM ANTIBODY Nonreactive Nonreactive (BEAKER) (test code = 645) HEPATITIS C ANTIBODY (BEAKER) Nonreactive Nonreactive (test code = 367) HEPATITIS B SURFACE ANTIGEN (2) Nonreactive Nonreactive (BEAKER) (test code = 2585) [id number] 14:13:00 Test Item Value Reference Range Interpretation Comments FIBRINOGEN LEVEL (BEAKER) (test 282 mg/dl 225-434 code = 658) LACTATE DEHYDROGENASE (LDH)2017-03-01 14:12:00 Test Item Value Reference Range Interpretation Comments LACTATE DEHYDROGENASE (BEAKER) (test 200 U/L 125-220 code = 635) HEPATIC FUNCTION [id number] 14:12:00 Test Item Value Reference Range Interpretation [...] code = 32 U/L 6-55 347) URINE [id number] 10:51:00 Test Item Value Reference Interpretation Comments [...] = 13) CBC W/PLT COUNT & AUTO [id number] 04:34:00 Test Item Value Reference Range Interpretation [...] K/ L 0.00-0.20 (test code = 417) [id number] 04:32:00 Test Item Value Reference Range Interpretation Comments MAGNESIUM (BEAKER) 1.1 mg/dL 1.6-2.6 L Specimen slightly (test code = 627) hemolyzed [id number] 04:32:00 Test Item Value Reference Range Interpretation Comments PHOSPHORUS (BEAKER) 2.6 mg/dL 2.3-4.7 Specimen slightly (test code = 604) hemolyzed BASIC METABOLIC [id number] 04:32:00 Test Item Value Reference Range Interpretation [...] S NOT APPLICABLE FOR DIALYSIS PATIEN TS. [id number] 05:03:00 Test Item Value Reference Range Interpretation Comments MAGNESIUM (BEAKER) (test code = 1.1 mg/dL 1.6-2.6 L 627) CBC W/PLT COUNT & AUTO [id number] 18:39:00 Test Item Value Reference Range Interpretation [...] 0.00-0.20 (test code = 417) 0.00URINALYSIS W/ [id number] 11:52:00 Test Item Value Reference Range Interpretation [...] 1584) SOURCE(BEAKER) (test code = Urine, Voided 4120) CBC W/PLT COUNT & AUTO [id number] 11:13:00 Test Item Value Reference Range Interpretation [...] (test code = Normal 762) COMPREHENSIVE METABOLIC [id number] 11:03:00 Test Item Value Reference Range Interpretation [...] APPLICABLE FOR DIALYSIS PATIEN TS. COMPREHENSIVE METABOLIC [id number] 11:03:00 Test Item Value Reference Range Interpretation [...] S NOT APPLICABLE FOR DIALYSIS PATIMOHAN TS. [id number] 10:45:00 Test Item Value Reference Range Interpretation [...]
[2022-02-27 15:47] LABS: Absolute Lymphocytes (CBC) 0.3 K/uL (0.7-4.9); Hematocrit 30.7 % (39.6-49.0); Lymphocytes % 11.9 % (15.3-44.8); MPV 9.3 fL (7.6-11.3); RBC Red Blood Cell Count 3.37 M/uL (4.33-5.43)
[2022-02-27 15:58] LABS: Protime INR 1.35
--- NOTE | 2022-02-27 16:03 | RAD REPORT ---
EXAM DESCRIPTION: CT - Head C Spine Cap Wo Con - 02/27/2022 3:44 pm CLINICAL HISTORY: fall COMPARISON: No comparisons TECHNIQUE: CT head without contrast. CT cervical spine without contrast with coronal and sagittal reformatted images. CT chest, abdomen and pelvis with coronal and sagittal reformatted images of the spine. No contrast a dministered. All CT scans are performed using dose optimization technique as appropriate and may include automated exposure control or mA/KV adjustment according to patient size. FINDINGS: CT HEAD WITHOUT CONTRAST: Small hyperattenuating focus in the left frontal lobe in the periventricular region measuring 8 dylan meters. There is surrounding edema. No acute large vascular territory infarct. The paranasal sinuses and mastoids are clear. The calvarium is intact. CT CERVICAL SPINE WITHOUT CONTRAST: No fracture or subluxation. Status post C3-C4 ACDF. Multilevel cervical spondylosis is noted. This in volves neural foraminal narrowing most notably at C4-5 and C5-6. The prevertebral soft tissues are normal in thickness. CT CHEST, ABDOMEN, PELVIS: Thorax: Chest Wall: No abnormal mass Lungs: Mild paraseptal emphysema. Pleura: No effusions or pneumothorax. Angela/Mediastinum: No lymphadenopathy. Paraesophageal varices. Aorta/Pulmonary Arteries: Unremarkable Heart: Normal size. Multi-vessel coronary artery disease. Abdomen/Pelvis: Liver: Cirrhotic liver morphology. Biliary: Cholelithiasis. Stomach: No significant focal abnormality. Duodenum: No significant focal abnormality. Pancreas: No significant abnormality. Spleen: No significant abnormality. Adrenal: Bilateral adrenal thickening. Kidney/ureter: No hydronephrosis. No renal calculi. Retroperitoneum: Retroperitoneal lymphadenopathy is present. For example, there is a retroperitoneal lymph node measuring 2.5 cm in short axis. Vascular: No aneurysm. Bowel: No significant focal abnormality. Peritoneum: Trace free fluid. Bladder: Grossly unremarkable. Reproductive: Mild prostatomegaly. Bones: Remote left obturator ring fracture. Remote rib fractures. Remote appearing L3 compression fra cture. Anterolisthesis of L4 on L5. Other: n/a IMPRESSION: 1. Small hyperattenuating focus in the periventricular deep white matter of the left fro ntal lobe could represent either a lesion or small intraparenchymal hemorrhage. Consider MRI brain wi th and without contrast for further evaluation. 2. No acute fracture traumatic malalignment of the cervical spine. 3. No evidence of significant trauma to the chest, abdomen, or pelvis. 4. Cirrhosis with evidence of portal hypertension including splenomegaly and varices. 5. Retroperitoneal lymphadenopathy. While retroperitoneal lymph nodes can be enlarged in the setting of liver disease, this is more than expected. Consider nonemergent CT of the abdomen pelvis with cont rast to better assess the lymphadenopathy as well as the liver and pancreas.
[2022-02-27] MEDS ORDERED: NA CHLORIDE 0.9% 500 ML ONE (16:04)
--- NOTE | 2022-02-27 16:11 | RAD REPORT ---
EXAM DESCRIPTION: RAD - Chest Single View - 02/27/2022 3:53 pm CLINICAL HISTORY: fall COMPARISON: Chest Single View dated 06/19/2021; Chest Single View dated 06/12/2021; Chest Single View d ated 01/05/2021; Chest Single View dated 01/03/2021 FINDINGS: Lines: None. Lungs: No evidence of edema or pneumonia. Pleural: No significant pleural effusions or pneumothorax. Cardiac: The heart size is within normal limits. Bones: No acute fractures. Other: IMPRESSION: No acute cardiopulmonary disease.
[2022-02-27 16:24] LABS: Albumin 3.2 g/dL (3.4-5.0); Bilirubin Direct 1.7 mg/dL (0-0.2); Bilirubin Total 2.5 mg/dL (0.2-1.0); Potassium 4.4 mmol/L (3.5-5.1); Protein, Total 6.6 g/dL (6.4-8.2); Troponin High Sensitivity 20.5 pg/mL (<58.9)
[2022-02-27 16:28] LABS: Magnesium 0.9 mg/dL (1.8-2.4)
--- NOTE | 2022-02-27 16:49 | EDPHYS ---
Physician Documentation [facility] Name: Travon Melendez Age: 81 yrs Sex: Male : 1940 Arrival Date: 02/27/2022 Time: 14:46 Bed 3 Private MD: ED Physician Shravan Caceres HPI: 02/27 15:20 This 81 yrs old Male presents to ER via EMS with complaints of Fall Injury. cp 15:20 Details of fall: The patient fell from an upright position, while walking. cp 15:20 Onset: The symptoms/episode began/occurred today. Associated injuries: The patient cp sustained injury to the head, laceration, of the occipital area. 15:20 Patient reports losing balance and falling backward causing him to strike head. Denies cp LOC. Reports fall occurred earlier today. Admits to daily drinking with last drink this afternoon. Historical: - Allergies: 14:56 No Known Allergies; bp - PMHx: 14:56 Hypertensive disorder; bp - Immunization history:: Adult Immunizations unknown. - Social history:: Smoking status: unknown. ROS: 15:25 Constitutional: Negative for body aches, chills, fever, poor PO intake. cp 15:25 Eyes: Negative for injury, pain, redness, and discharge. cp 15:25 Cardiovascular: Negative for chest pain, palpitations. cp 15:25 Respiratory: Negative for cough, shortness of breath, wheezing. 15:25 Abdomen/GI: Negative for abdominal pain, vomiting, diarrhea, constipation, black/tarry stool, rectal bleeding. 15:25 Neck: Negative for pain with movement, pain at rest, stiffness. cp 15:25 : Negative for urinary symptoms. 15:25 Neuro: Negative for altered mental status, headache, seizure activity, syncope. 15:25 All other systems are negative. Exam: 15:30 Constitutional: The patient appears in no acute distress, alert, awake, cp non-diaphoretic, non-toxic, well developed, well nourished. 15:30 Head/Face: Normocephalic, atraumatic. cp 15:30 Eyes: Periorbital structures: appear normal, Pupils: equal, round, and reactive to light and accomodation, Extraocular movements: intact throughout, Conjunctiva: normal, no exudate, no injection, Sclera: no appreciated abnormality, Lids and lashes: appear normal, bilaterally. 15:30 ENT: External ear(s): are unremarkable, Ear canal(s): are normal, clear, TM's: dullness, bilaterally, Nose: is normal, Mouth: Lips: dry, Oral mucosa: pink and intact, moist, Posterior pharynx: Airway: no evidence of obstruction, patent. 15:30 Neck: C-spine: vertebral tenderness, is not appreciated, crepitus, is not appreciated, ROM/movement: pain, is not appreciated, limited range of motion, is not appreciated. 15:30 Chest/axilla: Inspection: normal, Palpation: is normal, no crepitus, no tenderness. 15:30 Cardiovascular: Rate: tachycardic, Rhythm: irregular, Edema: is not appreciated, JVD: is not appreciated. 15:30 Respiratory: the patient does not display signs of respiratory distress, Respirations: normal, no use of accessory muscles, no retractions, labored breathing, is not present, Breath sounds: are clear throughout, no decreased breath sounds, no stridor, no wheezing. 15:30 Abdomen/GI: Inspection: abdomen appears normal, Bowel sounds: active, all quadrants, Palpation: abdomen is soft and non-tender, in all quadrants, Rectal exam: Stool: brown, guaiac negative. 15:30 Back: pain, is absent, ROM is normal. 15:30 Musculoskeletal/extremity: Exam is negative for decreased range of motion, deformity. 15:30 Skin: cellulitis, is not appreciated. 15:30 Neuro: Orientation: to person, place \\T\\ time. Mentation: able to follow commands, slow to respond, Motor: moves all fours, general weakness with no focal deficits, Sensation: is normal. 15:33 ECG was reviewed by the Attending Physician. cp Vital Signs: 14:47 BP 92 / 45; Pulse 113; Resp 20; Temp 98; Pulse Ox 97% ; bp 16:14 BP 146 / 78; Pulse 102; Resp 22; Pulse Ox 98% on R/A; Weight 113.4 kg; Height 5 ft. 10 vg1 in. (177.80 cm); 16:30 BP 177 / 87; Pulse 107; Resp 25; Pulse Ox 96% on R/A; vg1 16:42 BP 179 / 66; Pulse 108; Resp 26; Pulse Ox 97% on R/A; vg1 19:19 BP 133 / 67; Pulse 96; Resp 21; Pulse Ox 99% ; ll3 16:14 Body Mass Index 35.87 (113.40 kg, 177.80 cm) vg1 MDM: 15:09 Patient medically screened. 16:57 Physician consultation: was contacted at 16:57, regarding regarding transfer, to [facility]. spoke with DR Vaughn, neurosurgery, will consult on patient. 17:00 Data reviewed: vital signs, nurses notes, lab test result(s), EKG, radiologic studies, cp CT scan, plain films. 17:00 Test interpretation: by ED physician or midlevel provider: ECG, plain radiologic cp studies. Counseling: I had a detailed discussion with the patient and/or guardian regarding: the historical points, exam findings, and any diagnostic results supporting the discharge/admit diagnosis, lab results, radiology results, the need to transfer to another facility. 18:21 ED course: transfer initiated 2 hours ago with [facility] transfer center and no acceptance at this time. 18:44 Physician consultation: was contacted at 18:45, regarding regarding transfer, to [facility]. spoke with DR Santos, neurosurgery, will consult on patient. Accepting physician will be DR Paolo Barksdale. 02/27 15:10 Order name: Basic Metabolic Panel; Complete Time: 16:37 02/27 16:37 Interpretation: Normal except: NA 124; CL 87; GFR 86. 02/27 15:10 Order name: CBC with Diff; Complete Time: 17:31 02/27 16:12 Interpretation: Normal except: WBC 2.8; RBC 3.37; HGB 10.7; HCT 30.7; MCV 91.1; PLT 86; cp LYM% 11.9; MN% 16.4; LYMA 0.3. 02/27 15:10 Order name: LFT's; Complete Time: 16:37 02/27 16:38 Interpretation: Normal except: AST 77; ALK 242; BILIT 2.5; BILID 1.7; ALB 3.2; A/G 0.9. 02/27 15:10 Order name: Magnesium; Complete Time: 16:37 02/27 15:10 Order name: NT PRO-BNP; Complete Time: 16:37 02/27 15:10 Order name: PT-INR; Complete Time: 16:12 cp 02/27 16:38 Interpretation: Normal except: PT 14.9. cp 02/27 15:10 Order name: Troponin HS; Complete Time: 16:37 02/27 15:10 Order name: Lactate; Complete Time: 16:37 02/27 15:10 Order name: Blood Culture Adult (2) cp 02/27 15:10 Order name: Procalcitonin; Complete Time: 16:37 02/27 15:10 Order name: Urine Microscopic Only; Complete Time: 17:31 cp 02/27 18:40 Interpretation: Normal except: UWBC 10-20; UBACT 20-50. 02/27 15:54 Order name: CBC Smear Scan; Complete Time: 17:31 EDME 02/27 16:47 Order name: ETOH Level; Complete Time: 17:31 02/27 16:47 Order name: LAB Add On 02/27 15:10 Order name: XRAY Chest (1 view); Complete Time: 16:14 02/27 15:10 Order name: EKG; Complete Time: 15:12 02/27 15:10 Order name: Cardiac monitoring; Complete Time: 15:31 02/27 15:10 Order name: EKG - Nurse/Tech; Complete Time: 15:31 02/27 15:10 Order name: IV Saline Lock; Complete Time: 15:31 02/27 15:10 Order name: Labs collected and sent; Complete Time: 15:32 02/27 15:10 Order name: O2 Per Protocol; Complete Time: 15:32 02/27 15:10 Order name: O2 Sat Monitoring; Complete Time: 15:32 02/27 15:10 Order name: CT Traumagram (Head C Spine CAP wo con); Complete Time: 16:12 02/27 15:10 Order name: Urine Dipstick-Ancillary (obtain specimen); Complete Time: 17:01 02/27 16:54 Order name: Urine Dipstick-Ancillary; Complete Time: 16:55 EDME 02/27 16:56 Interpretation: Normal except: UKET 1+; UBLD Trace-lysed; UPROT Trace; U NIT Positive. 02/27 17:24 Order name: Urine Culture EDMS 02/27 17:39 Order name: COVID-19 SARS RT PCR (Document "Date of Onset" if Symptomatic) cp EC:33 Rate is 108 beats/min. Rhythm is irregular. QRS interval is normal. QT interval is cp normal. T waves are Inverted in lead aVR. Interpreted by me. Reviewed by me. Administered Medications: 16:14 Drug: NS 0.9% 500 ml Route: IV; Rate: bolus; Site: right wrist; vg1 16:54 Follow up: IV Status: Completed infusion; IV Intake: 500ml vg1 17:12 Drug: NS 0.9% 1000 ml Route: IV; Rate: 75 ml/hr; Site: right wrist; vg1 20:21 Follow up: Response: No adverse reaction ll3 Disposition Summary: 02/27/22 16:48 Transfer Ordered Reason: Higher level of care cp Condition: Stable cp Problem: new cp Symptoms: have improved cp Transfer Location: [facility](02/27/22 18:46) cp Accepting Physician: DR Paolo Barksdale(02/27/22 20:19) jb4 Diagnosis - Fall on same level, unspecified cp - Hypo-osmolality and hyponatremia cp - Unspecified atrial flutter cp Forms: - Medication Reconciliation Form cp - SBAR form cp Addendum: 03/01/2022 23:55 Co-signature as Attending Physician, Shravan Caceres MD. r n Signatures: Dispatcher [employer] Shravan Patton MD MD rn Page, Corey, PA PA cp Chance Bejarano RN RN jb4 Irving Jain RN RN bp Garcia, Victoria, RN RN vg1 Messi Robles RN ll3 Corrections: (The following items were deleted from the chart) 02/27 15:54 15:11 Martinez ordered. cp vg1 16:49 16:48 Doctor cp cp 16:49 16:48 Fall (on) (from) other stairs and steps cp cp 18:46 16:48 [facility] cp cp 18:46 16:49 Doctor cp cp 18:46 18:46 DR Paolo Barksdale cp cp 20:19 18:46 DR Paolo Barksdale cp jb4
--- NOTE | 2022-02-27 16:49 | ER ---
Nurse's Notes [facility] Name: Travon Melendez Age: 81 yrs Sex: Male : 1940 Arrival Date: 02/27/2022 Time: 14:46 Bed 3 Private MD: Diagnosis: Fall on same level, unspecified;Hypo-osmolality and hyponatremia;Unspecified atrial flutter Presentation: 02/27 14:47 Chief complaint: EMS states: UNWITNESSED FALL. Coronavirus screen: At this time, the bp client does not indicate any symptoms associated with coronavirus-19. Ebola Screen: No symptoms or risks identified at this time. Initial Sepsis Screen: Does the patient meet any 2 criteria? No. Patient's initial sepsis screen is negative. Does the patient have a suspected source of infection? No. Patient's initial sepsis screen is negative. Risk Assessment: Do you want to hurt yourself or someone else? Patient reports no desire to harm self or others. Onset of symptoms is unknown. 14:47 Method Of Arrival: EMS: [facility] bp 14:47 Acuity: EVELYN 3 bp Triage Assessment: 14:56 General: Appears unkempt, malnourished, Behavior is calm, cooperative, appropriate for bp age. Pain: Complains of pain in back of head. EENT: No deficits noted. Neuro: Level of Consciousness is awake, alert, obeys commands, Oriented to Appropriate for age. Cardiovascular: Rhythm is sinus tachycardia. Respiratory: No deficits noted. GI: No signs and/or symptoms were reported involving the gastrointestinal system. : No signs and/or symptoms were reported regarding the genitourinary system. Derm: No deficits noted. Musculoskeletal: No deficits noted. Historical: - Allergies: 14:56 No Known Allergies; bp - PMHx: 14:56 Hypertensive disorder; bp - Immunization history:: Adult Immunizations unknown. - Social history:: Smoking status: unknown. Screenin:58 Abuse screen: Denies threats or abuse. Denies injuries from another. Nutritional bp screening: No deficits noted. Tuberculosis screening: No symptoms or risk factors identified. Fall Risk None identified. Assessment: 14:30 Reassessment: pt appears to be cover in dirt, leaves and feces; pt smells of urine and vg1 feces. 14:58 General: SEE TRIAGE. bp 16:59 Reassessment: Patient and/or family updated on plan of care and expected duration. Pain vg1 level reassessed. Patient is alert, oriented x 3, equal unlabored respirations, skin warm/dry/pink. pt c/o of neck pain, rates 2/10, denies headache, nausea, dizziness, but stated "I have a little bit of blurred vision" Pt son at bedside. 18:00 Reassessment: Patient appears in no apparent distress at this time. Pt resting with vg1 eyes closed. 19:29 Reassessment: Patient and/or family updated on plan of care and expected duration. Pain ll3 level reassessed. Patient is alert, oriented x 3, equal unlabored respirations, skin warm/dry/pink. Vital Signs: 14:47 BP 92 / 45; Pulse 113; Resp 20; Temp 98; Pulse Ox 97% ; bp 16:14 BP 146 / 78; Pulse 102; Resp 22; Pulse Ox 98% on R/A; Weight 113.4 kg; Height 5 ft. 10 vg1 in. (177.80 cm); 16:30 BP 177 / 87; Pulse 107; Resp 25; Pulse Ox 96% on R/A; vg1 16:42 BP 179 / 66; Pulse 108; Resp 26; Pulse Ox 97% on R/A; vg1 19:19 BP 133 / 67; Pulse 96; Resp 21; Pulse Ox 99% ; ll3 16:14 Body Mass Index 35.87 (113.40 kg, 177.80 cm) vg1 ED Course: 14:46 Patient arrived in ED. bp 14:50 Edward Doshi PA is PHCP. cp 14:50 Shravan Caceres MD is Attending Physician. cp 14:56 Triage completed. bp 14:56 Arm band placed on. bp 14:58 Patient has correct armband on for positive identification. Bed in low position. Call bp light in reach. Side rails up X2. 14:58 Inserted saline lock: 20 gauge in right wrist, using aseptic technique. Blood collected.bp 15:30 Connie Olvera, RN is Primary Nurse. vg1 15:38 EKG done, by ED staff, reviewed by Edward CLEMENTE. mb7 15:39 Pt was cleaned with bath wipes and bathed with soap and water; linen changed; warm vg1 blankets applied to pt. 15:46 CT Traumagram (Head C Spine CAP wo con) In Process Unspecified. EDMS 15:54 XRAY Chest (1 view) In Process Unspecified. EDMS 16:22 Initiated transfer with [facility] with Kerry. dh3 18:35 Initiated transfer with Debbie at [facility]. 3 18:42 administrative approval given by Debbie Atkinson/ patient has been accepted to [address] to the ER/ Dr. Barksdale accepted the patient in transfer/report to be called to [phone]. 19:25 Primary Nurse role handed off by Connie Olvera, ALETHEA 2 Administered Medications: 16:14 Drug: NS 0.9% 500 ml Route: IV; Rate: bolus; Site: right wrist; vg1 16:54 Follow up: IV Status: Completed infusion; IV Intake: 500ml vg1 17:12 Drug: NS 0.9% 1000 ml Route: IV; Rate: 75 ml/hr; Site: right wrist; vg1 20:21 Follow up: Response: No adverse reaction 3 Medication: 14:58 VIS not applicable for this client. bp Intake: 16:54 IV: 500ml; Total: 500ml. vg1 Outcome: 16:48 ER care complete, transfer ordered by MD. cp 20:19 Patient left the ED. jb4 Signatures: Dispatcher [employer] EDMS Edward Doshi PA PA cp Bryson, James, RN RN jb4 Laine Jimenez 3 Irving Jain RN RN Shantel Huang [facility] Connie Olvera, RN RN vg1 Messi Robles RN RN 3 Estella Borges 7 Corrections: (The following items were deleted from the chart) 15:02 14:56 General: Appears in no apparent distress. comfortable, Behavior is calm, bp cooperative, appropriate for age, bp 15:41 15:39 Pt was cleaned with bath wipes and bathed; linen changed; warm blankets applied vg1 to pt. vg1
[2022-02-27 16:53] LABS: Urine Blood Trace-lysed (Negative); Urine Glucose Negative (Negative); Urine Protein Trace (Negative)
[2022-02-27 17:09] LABS: Blood Morphology Comment NOT SEEN (NOT SEEN); Platelet Estimate DECR; White Blood Cell Scan OK (OK)
[2022-02-27] MEDS ORDERED: NA CHLORIDE 0.9% 1,000 ML ONE (17:11)
[2022-02-27 17:21] LABS: Urine Bacteria 20-50 /HPF (NONE SEEN); Urine RBC <5 /HPF (NONE SEEN)
[2022-02-27 20:29] VITALS: TEMP 98
[2022-02-27 20:34] VITALS: BP 133/67; O2SAT 99
--- NOTE | 2022-03-04 07:57 | EKG ---
Test Date: 2022-02-27 Test Time: 15:27:44 Seasoning Sprayer: MB MEASUREMENT RESULTS: Intervals: Rate: 108 SC: QRSD: 66 QT: 320 QTc: 428 [place]: P: 93 SC: QRS: 65 T: 69 INTERPRETIVE STATEMENTS: Atrial flutter with variable AV block Low voltage QRS Septal infarct, age undetermined Abnormal ECG Compared to ECG 06/12/2021 09:20:38 Low QRS voltage now present Sinus tachycardia no longer present Myocardial infarct finding still present Electronically Signed On 03-04-22 07:51:01 CDT by Christopher Sims
== END 2022-02-27 20:19 | disposition short-term general hospital (02) ==
LOC: ER 14:42
DX: S01.81XA Laceration without foreign body of other part of head, initial encounter (principal); E87.1 Hypo-osmolality and hyponatremia; I48.91 Unspecified atrial fibrillation; R51.9 Headache, unspecified; H53.8 Other visual disturbances; I10 Essential (primary) hypertension; W18.30XA Fall on same level, unspecified, initial encounter; Z20.822 Contact with and (suspected) exposure to COVID-19
CPT/HCPCS: 93005; 87040 ×2; 87088; 85025; 87086; 80048; 36415; 80320; 83735; 85610; 80076; 83605 ×2; 84484; 84145; 83880; 70450; 71250; 72125; 71045; 96360; 99284; U0003; J7040; J7030; 81003; 81015

== ENCOUNTER 2022-03-09 10:46 | Inpatient (IN) | payer OTHER ==
--- NOTE | 2022-03-11 12:27 | R.PREADM ---
PRE-ADMISSION SCREENING FORM SCREENING DATE AND TIME 03/10/2022 13:09 (CDT) ANTICIPATED REHAB ADMISSION DATE 03/11/2022 REFERRING FACILITY [facility] REFERRAL DATE AND TIME 03/06/2022 13:09 (CDT) REFERRAL ROOM# [id number] ACUTE ADMIT DATE 02/28/2022 Previous Rehabilitation(s): No. 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 Nicolas Mckinley M.D. MR# [id number] NAME RUTHANN LUNDBERG ADDRESS [address] [place] [address] PHONE [facility] [id number] DATE OF 1940 AGE 81 SSN# [id number] GENDER male MARITAL STATUS PREF. LANGUAGE (IF NON-OCCITAN) Slovak ADMIT FROM 02 - [facility] PRE-HOSPITAL LIVING SETTING 01 - Home (private home/apt. board/care, assisted living, snf, transitional living) HOME TYPE AND DETAILS Type of home: single family house # of levels in the residence: 1 # of steps within the residence: 0 # of steps to enter the residence: 0 PRE-HOSPITAL LIVING WITH Alone FAMILY SUPPORT No PRIMARY FAMILY CONTACT NAME RUTHANN LUNDBERG PRIMARY FAMILY CONTACT PHONE PHONE PRIMARY FAMILY CONTACT ON ADM.? no IS PRIMARY FAMILY CONTACT AUTH. REP.? no 1ST EMERGENCY CONTACT RUTHANN LUNDBERG 1ST CONTACT PHONE PHONE 1ST CONTACT ON ADM. no IS 1ST CONTACT AUTH. REP.? no PHONE 2ND CONTACT ON ADM.? no PATIENT EMPLOYMENT STATUS Retired (for age) PATIENT EMPLOYER No Employer PAYOR INFORMATION: 1ST PAYOR NAME Medicare 1ST PAYOR PHONE 1ST PAYOR INJURY/ILLNESS DUE TO ACCIDENT? No ANOTHER CONSTITUTION PARTY RESPONSIBLE? 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 - Brain Lesions Monitor pt plt. Maintain >100 Monitor pt CA 19-9. Currently elevated Administer medications indicated by physician and monitor for effectiveness. - Emphysema/COPD Administer inhalation medications indicated by physician and monitor for effectivness - Failure to Thrive Monitor pt weight Implement healthy diet - Hyponatremia 2l fluid restriction Boost glucose (high protein) - Pancytopenia Monitor pt labs - Hyperglycemia SSI Monitor pt labs - Benign prostatic hyperplasia Administer inhalation medications indicated by physician and monitor for effectivness RISK FOR COMPLICATIONS: - DVT Active and Passive ROM exercises Assist patient with frequent position changes Elevate BLE - Skin Breakdown Encourage ambulation as tolerated Repositioning q 2 hours Use of pillows or foam wedges while in bed - Falls Assess for alcohol withdrawal Assess for medication side effects Maintain call light within patient reach for easy access to nursing assistance Provide assistance getting out of bed and with ambulation Provide assistive devices - Stroke Monitor and maintain patient pain level Monitor patient blood pressure - Bleeding Maintain pt safety Monitor pt for injury - Respiratory Failure Administer supplemental O2 as needed Monitor pt O2 sats - Cardiac Failure Monitor pt cardiac status - Pain Educate patient on relaxation and deep breathing techniques Anticipate the need for pain medication for optimal pain managment Administer prescribed pain medication as needed - Failure to Thrive Monitor pt labs Nutrition to follow SUMMARY OF ACUTE HOSPITALIZATION: Pt. is a 81 yo Right-handed male. On 02/27/2022 he was admitted to [facility] with diagnosis C79.31 Metastasis to brain of unknow n origin. His impairment category is Medically Complex Conditions 17 - Neoplasms (17.2). Pre-morbidly, Pt. was independent/mod-I in Locomotion, Social Cognition, Balance, and Safety Awarenes s; and he had good Transfers Control, Sphincter Control, Self-Care, Communication, and Endurance. Currently, he has deficits of Locomotion, Social Cognition, Safety Awareness, Balance, Transfers Cont rol, Sphincter Control, Communication, Self-Care, and Endurance. Pt. is now referred to [facility] for acute in-patient rehabilitation in order to maximize patient's functional independence in activities of daily living, strength, ROM, and mobi lity. Patient has realistic goal of being discharged at assistance level 7-Ind to reside at Home with Pt s elf. PAST MEDICAL HISTORY HTN BPH COPD PAST SURGICAL HISTORY: L ANKLE FX REPAIR CERVICAL SPINE SURGERY MEDICATION ALLERGIES: No Known Drug Allergies (NKDA) ENVIRONMENTAL ALLERGIES: - Substance Allergies None Known - Other Allergies None Known CODE STATUS: Full code WEIGHT/HEIGHT/BMI: WEIGHT unknown lbs HEIGHT 5' unknoiwn" BMI N/A DIET: - Diet Type Regular - Diet - Solid Texture Regular - Diet - Liquid Texture Regular - Tube Feed N/A SKIN DIAGRAM: IV on Right arm; extent - small; stage - NS(Not Stageable). Treatment - Per Physician's Orders. IV on Left arm; extent - small; stage - NS(Not Stageable). Treatment - Per Physician's Orders. REVIEW OF SYSTEMS: - Gen Alert and awake Lying in bed No apparent distress Oriented to: person, time, and place - Vital Signs Temperature: 97.5 F SBP/DBP: 164/80 Pulse: 66 Resp: 18 Vital signs stable, afebrile - CVS RRR VITAL SIGNS Temperature: 97.5 F SBP/DBP: 164/80 Pulse: 66 Resp: 18 Vital signs stable, afebrile MEDICATIONS/TREATMENT: Other- See attached MAR (Medication Administration Record). CURRENT SPHINCTER CONTROL: Pre-hospital bladder status: unspecified # of bladder accidents in the last 7 days prior to screenin Pre-hospital bowel status: unspecified # of bowel accidents in the last 7 days prior to screenin Last Bowel Movement Date: 03/06/2022 CURRENT LOCOMOTION STATUS: distance walked 0 feet DETAILED CURRENT FUNCTIONAL STATUS: - Bladder accident frequency: 7-Ind - No accidents in the past 7 days - Bowel accident frequency: 7-Ind - No accidents in the past 7 days - Walking score based on distance walked: 0(N/A) - Wheelchair score based on distance traveled: 0(N/A) QI SCORES: - Self-Care A. Eating 04-Supervision or touching assistance B. Oral hygiene 04-Supervision or touching assistance C. Toileting hygiene 03-Partial/moderate assistance E. Shower/bathe self 03-Partial/moderate assistance F. Upper body dressing 04-Supervision or touching assistance G. Lower body dressing 03-Partial/moderate assistance H. Putting on/taking off footwear 03-Partial/moderate assistance - Mobility A. Roll left and right 04-Supervision or touching assistance B. Sit to lying 04-Supervision or touching assistance C. Lying to sitting on side of bed 04-Supervision or touching assistance D. Sit to stand 03-Partial/moderate assistance E. Chair/[id number]-[id number]-[id number] transfer 02-Substantial/maximal assistance F. Toilet transfer 02-Substantial/maximal assistance G. Car transfer 88-Not attempted due to medical condition or safety concerns I. Walk 10 feet 88-Not attempted due to medical condition or safety concerns J. Walk 50 feet with two turns 88-Not attempted due to medical condition or safety concerns K. Walk 150 feet 88-Not attempted due to medical condition or safety concerns L. Walking 10 feet on uneven surfaces 88-Not attempted due to medical condition or safety concerns M. 1 step (curb) 88-Not attempted due to medical condition or safety concerns N. 4 steps 88-Not attempted due to medical condition or safety concerns O. 12 steps 88-Not attempted due to medical condition or safety concerns P. Picking up object 88-Not attempted due to medical condition or safety concerns R. Wheel 50 feet with two turns 88-Not attempted due to medical condition or safety concerns S. Wheel 150 feet 88-Not attempted due to medical condition or safety concerns - Bladder and Bowel Bladder continence Bowel continence - Endurance Fair - Balance Fair - Safety Awareness Fair CURRENT FUNC. DEFICITS: Self-Care, Mobility, Endurance, Balance, and Safety Awareness CURRENT / PREVIOUS ASSISTIVE DEVICES: Rolling Walker HISTORY OF FALLS. HAS THE PATIENT HAD TWO OR MORE FALLS IN THE PAST YEAR OR ANY FALL WITH INJURY IN T HE PAST YEAR?: Yes PRIOR SURGERY. DID THE PATIENT HAVE MAJOR SURGERY DURING THE 100 DAYS PRIOR TO ADMISSION?: No THERAPY NOTES FROM ACUTE CARE: Attached. SPECIAL NEEDS: - Safety Concerns Skin breakdown and Fall precautions needed due to skin breakdown risk, Poor balance, Risk of injury, and Fall history - IV IVF inserted on 02/28/2022 IVF inserted on 03/01/2022 - Fall Precautions Due to poor balance - Substance Abuse Alcohol - Varies drinks per day PRECAUTIONS: - Fall Precaution Bed alarm TABS alarm Wheel chair alarm - Bleeding Risk Lovenox - DVT Risk due to restricted mobility and age - Skin Breakdown Risk due to restricted mobility and age - Cardiac Precaution Monitor blood pressure, heart rate, lower extremity edema, notify MD for shortness of breath or chest pain Monitor patient for excessive elevation of heart rate and blood pressure during therapy PATIENT NEEDS ACTIVE AND ONGOING THERAPEUTIC INTERVENTION OF MULTIPLE THERAPY DISCIPLINES, INCLUDING: - Dietary and Nutrition Adequate Nutrition. Nutritional Education. Nutritional Supplements. Evaluate and Treat. - Occupational Therapy Cognitive Retraining. Patient needs Occupational Therapy for a daily minimum of 1.5 hours at least 5 out of 7 days, to improve Activities of Daily Living, including: Eating, Grooming, Bathing, Dressing, Toileting, Toilet Transfers, Community Reintegration, Higher functional activities, Adaptive Equipme nt, Splinting, Household Tasks, and Other activities as determined. Visual Perceptual Training. Evalu ate and Treat. ADL Training. Household Tasks. Patient/Family Education. Safety Awareness. Transfer Tr aining. - Speech Therapy Cognitive Training. Expressive Language Skills. Memory Strategies. Patient needs Speech Therapy for a daily minimum of 1.5 hours at least 5 out of 7 days, to improve: Swallowing, Cognition, Language Ski lls, and Compensatory Strategies. Receptive Language Skills. Speech Intelligibility Training. Evaluat e and Treat. - Physical Therapy Patient needs Physical Therapy for a daily minimum of 1.5 hours at least 5 out of 7 days, to improve: Mobility, Strengthening, Transfers, Stretching, ROM, Endurance, Ability to manage stairs, Gait, and Balance. Balance Training. Evaluate and Treat. Gait Training. Safety Awareness. LE Strengthening. Mob ility Training. Transfer Training. PATIENT NEEDS CLOSE MEDICAL SUPERVISION BY A REHABILITATION PHYSICIAN FOR: Coordination of Treatment Team Bowel and Bladder Management Medical and Co-Morbidity Management Pain Management PATIENT REQUIRES 24X7 REHAB NURSING FOR MEDICAL AND FUNCTIONAL MGT. OF THE FOLLOWING DEFICITS: Patient requires 24x7 Rehabilitation Nursing for: Pain Issues, Identifying and preventing risk factor s, Monitoring and reporting current medical conditions, Assisting with ambulation and transfer, Karine ting with all ADL-s, Teaching patients about disease process and medications, Family teaching, Provid ing safe environment, Bowel and Bladder Issues, Skin Integrity, and Medication Management PATIENT REQUIRES INTENSIVE, COORDINATED INTERDISCIPLINARY APPROACH TO REHAB: Patient needs Dietary and Nutrition Services for: Adequate Nutrition, Nutritional Supplements, and Nu tritional Education Patient needs Drilling Field Professional and/or Case Management for: Discharge Planning, Arranging Home Equipmen t or Services, and Family Interventions PATIENT REHAB POTENTIAL: Tanner LUNDBERG is able and expected to receive 3 hours of individualized therapy daily on at least 5 of ever y 7 days Tanner LUNDBERG's prognosis for significant practical improvement within a reasonable period of time appears Good Expected level of measurable improvement will be of a practical value to Tanner LUNDBERG's functional capacit y or adaptations to impairments Has a viable Discharge Plan Medically appropriate; condition is sufficiently stable to participate in intensive rehab program DISCHARGE PLAN: - Estimated Length of Stay (days) 13. - Consensus on plan Discharge plan has been discussed with primary caregiver. Patient/Family is in agreement with the alisa n. Primary caregiver is in agreement with the plan. - Patient/Family Goals Return home independently. - Potential barriers to discharge Any lines must be removed or patient/caregiver needs to be educated on line care. - Planned Living Setting Upon Discharge Home, to live alone. Transitional Living. Primary caregiver: Pt self. RECOMMENDED CARE LEVEL: IRF RECOMMENDATION DETAILS: Recommended Admission to Comprehensive Rehabilitation Program to Increase Functional [place] SCREENER'S COMPLETENESS CONFIRMATION: - Screening Confirmation The patient data collection on this preadmission screening form is finished PHYSICIANS REVIEW AND ADMISSION DETERMINATION Admit - Based on my review of the Pre-Admission Screening results, in my medical judgment and experie nce, I concur with the findings and recommend admission to [facility], as this patient requires an IRF level of care. SIGNATURE PANEL: Clinical Liaison - [electronically] signed by Gypsy Gonzalez on 03/10/2022 at 15:06 (CDT) Physician Reviewer - [electronically] signed by Dr. Nicolas Mckinley M.D. on 03/11/2022 at 12:26 (CDT )
--- OUTSIDE RECORDS SUMMARY | 2022-03-11 17:51 | XMS REPORT | Continuity of Care Document ---
:1940 Author Organization [facility] t Address [address] [place] [address] Care Team Providers Name Role Phone SHARPLESS Primary Care Physician Unavailable NASH ALCARAZ Attending Clinician Unavailable MICHELLE CHAPARRO Attending Clinician Unavailable NASH ALCARAZ Admitting Clinician Unavailable MICHELLE CHAPARRO Admitting Clinician Unavailable Payers Payer Name Policy Type Policy Number Effective Date Expiration Date Pb reeder MEDICARE A B [id number] 2003 00:00:00 [employer] INDEMNITY [id number] NON CONTR 00:00:00 Problems Condition Condition Condition Status Onset Resolution Last Treating Co mments Source Name Details Category Date Date Treatment Clinician Date Metabolic Metabolic Disease Active [facility]osis [facility]-15 [facility] 00:00: Medical 00 [place] Cirrhosis Cirrhosis Disease Active [facility] 00 [place] Hypomagnes Hypomagnes Disease Active [facility] emia 03[facility] 00 [place] 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 [facility]11 [facility]es 00:00: Medical 00 [place] HTN HTN Disease Active [facility] (hypertens (hypertens 03-11 Beth kes ion) ion) 00:00: Medical 00 Center Alcohol Alcohol Disease Active [facility] abuse abuse [facility] 00 [place] Hypoalbumi Hypoalbumi Disease Active [facility] nemia nemia 08 [facility] 00:[facility]: Medical 00 [place] Loose Loose Disease Active 2017-[address] [facility] stools stools 03-11 [facility] 00:[facility]: Medical 00 [place] Arm Arm Disease Active [facility] weakness weakness 02-27 [facility] 00 Center Allergies, Adverse Reactions, Alerts Allergy Allergy Status Severity Reaction(s) Onset Inactive Treating Comm ents Source Name Type Date Date Clinician NO KNOWN Allergy Active [facility]ERGIE [facility] Family History Family Member Diagnosis Comments Start Date Stop Date Source Natural mother Parkinsonism [facility] Social History Social Habit Start Date Stop Date Quantity Comments Source History SDOH [facility] SDOH [facility] Alcohol Std Drinks [facility] History SDOH [facility] Alcohol Binge [facility] Alcohol intake 2017-03-11 2017-03-11 5 /d [facility] Cathleen es 00:00:00 00:00:00 [facility] Alcohol Comment 2017-03-11 2017-03-11 500 ml of gonzalo [facility]00 [facility]:00:00 a night [facility] History of tobacco 2015-11-[address] [facility] use 00:00:00 [facility] Sex Ass[birth year] At 1940 [address] [facility] [address] Beth kes 00:00:00 00:00:00 [facility] Smoking Status Start Date Stop Date Source Former smoker 2017-03-03 00:00:00 2017-03-03 00:00:00 [facility] Medications Ordered Filled Start Stop Current Ordering Indication Dosage Frequency Signature Comments Components Source Medication Medication Date Date Medication? Clinician (SIG) Name Name [facility] Yes 1{tbl} QD Take [address] [facility] per 04-09 tablet by [facility] tablet 13:22: mouth [facility] 13 daily. [facility] Yes 1{tbl} QD Take [address] [facility] per 04-09 tablet by [facility] tablet 13:22: mouth Medical 13 daily. [place] Procedures This patient has no known procedures. Encounters Start End Encounter Admission Attending Care Care Encounter Source Date/Time Date/Time Type Type Clinicians Facility Department ID 2022-02-27 Inpatient ER [facility] Neurology [id number] 16:38:31 [facility] Results Test Description Test Time Test Comments [...] MORPHOLOGY (BEAKER) (test code = Normal 762) [id number] 06:45:00 Test Item Value Reference Range Interpretation Comments PHOSPHORUS (BEAKER) (test code = 3.5 mg/dL 2.3-4.7 604) [id number] 06:45:00 Test Item Value Reference Range Interpretation Comments MAGNESIUM (BEAKER) (test code = 1.7 mg/dL 1.6-2.6 627) BASIC METABOLIC [id number] 06:45:00 Test Item Value Reference Range Interpretation [...] S NOT APPLICABLE FOR DIALYSIS PATIEN TS. [id number] 07:18:00 Test Item Value Reference Range Interpretation Comments PHOSPHORUS (BEAKER) (test code = 3.4 mg/dL 2.3-4.7 604) [id number] 07:18:00 Test Item Value Reference Range Interpretation Comments MAGNESIUM (BEAKER) (test code = 1.6 mg/dL 1.6-2.6 627) BASIC METABOLIC [id number] 07:18:00 Test Item Value Reference Range Interpretation [...] S NOT APPLICABLE FOR DIALYSIS PATIEN TS. [id number] 05:47:00 Test Item Value Reference Range Interpretation Comments MAGNESIUM (BEAKER) (test code = 1.7 mg/dL 1.6-2.6 627) BASIC METABOLIC [id number] 05:47:00 Test Item Value Reference Range Interpretation [...] PATIEN TS. CBC W/PLT COUNT & AUTO [id number] 09:57:00 Test Item Value Reference Range Interpretation [...] MORPHOLOGY (BEAKER) (test code = Normal 762) [id number] 06:06:00 Test Item Value Reference Range Interpretation Comments MAGNESIUM (BEAKER) (test code = 1.7 mg/dL 1.6-2.6 627) BASIC METABOLIC [id number] 06:06:00 Test Item Value Reference Range Interpretation [...] S NOT APPLICABLE FOR DIALYSIS PATIEN TS. [id number] 06:35:00 Test Item Value Reference Range Interpretation Comments PHOSPHORUS (BEAKER) (test code = 3.0 mg/dL 2.3-4.7 604) [id number] 06:35:00 Test Item Value Reference Range Interpretation Comments MAGNESIUM (BEAKER) (test code = 1.7 mg/dL 1.6-2.6 627) BASIC METABOLIC [id number] 06:35:00 Test Item Value Reference Range Interpretation [...] S NOT APPLICABLE FOR DIALYSIS PATIEN TS. [id number] 07:59:00 Test Item Value Reference Range Interpretation Comments MAGNESIUM (BEAKER) (test code = 1.8 mg/dL 1.6-2.6 627) BASIC METABOLIC [id number] 07:59:00 Test Item Value Reference Range Interpretation [...] S NOT APPLICABLE FOR DIALYSIS PATIEN TS. [id number] 06:28:00 Test Item Value Reference Range Interpretation Comments MAGNESIUM (BEAKER) (test code = 1.7 mg/dL 1.6-2.6 627) BASIC METABOLIC [id number] 06:28:00 Test Item Value Reference Range Interpretation [...] APPLICABLE FOR DIALYSIS PATIEN TS. BASIC METABOLIC [id number] 05:37:00 Test Item Value Reference Range Interpretation [...] S NOT APPLICABLE FOR DIALYSIS PATIEN TS. [id number] 05:37:00 Test Item Value Reference Range Interpretation Comments MAGNESIUM (BEAKER) (test code = 1.7 mg/dL 1.6-2.6 627) PROTEIN ELECTROPHORESIS, [id number] 11:32:00 Test Item Value Reference Range Interpretation [...] in (BEAKER) (test code = expected distribution, 261) with minor nonspecific changes. No monoclonal bands detected. No significant change from previous study of 03-02-17. [id number] Haritha Baptiste MD (BEAKER) (test code = (electronic signature) 3193) PROTEIN TOTAL SERUM, 5.9 gm/dL 6.0-8.3 L SPEP (BEAKER) (test code = 0861) [id number] 06:11:00 Test Item Value Reference Range Interpretation Comments MAGNESIUM (BEAKER) (test code = 1.5 mg/dL 1.6-2.6 L 627) BASIC METABOLIC [id number] 06:11:00 Test Item Value Reference Range Interpretation [...] APPLICABLE FOR DIALYSIS PATIEN TS. VITAMIN D, [id number] 08:21:00 Test Item Value Reference Range Interpretation Comments VITAMIN D 25-OH (BEAKER) (test 29.5 ng/mL 13.0-47.8 code = 2764) [id number] 06:15:00 Test Item Value Reference Range Interpretation Comments MAGNESIUM (BEAKER) (test code = 1.8 mg/dL 1.6-2.6 627) BASIC METABOLIC [id number] 06:15:00 Test Item Value Reference Range Interpretation [...] S NOT APPLICABLE FOR DIALYSIS PATIEN TS. [id number] 05:52:00 Test Item Value Reference Range Interpretation Comments MAGNESIUM (BEAKER) (test code = 1.7 mg/dL 1.6-2.6 627) BASIC METABOLIC [id number] 05:52:00 Test Item Value Reference Range Interpretation [...] S NOT APPLICABLE FOR DIALYSIS PATIEN TS. [id number] 06:58:00 Test Item Value Reference Range Interpretation Comments MAGNESIUM (BEAKER) (test code = 1.6 mg/dL 1.6-2.6 627) BASIC METABOLIC [id number] 06:58:00 Test Item Value Reference Range Interpretation [...] S NOT APPLICABLE FOR DIALYSIS PATIEN TS. [id number] 04:50:00 Test Item Value Reference Range Interpretation Comments MAGNESIUM (BEAKER) (test code = 1.7 mg/dL 1.6-2.6 627) BASIC METABOLIC [id number] 04:50:00 Test Item Value Reference Range Interpretation [...] S NOT APPLICABLE FOR DIALYSIS PATIEN TS. [id number] 07:00:00 Test Item Value Reference Range Interpretation Comments MAGNESIUM (BEAKER) (test code = 1.7 mg/dL 1.6-2.6 627) BASIC METABOLIC [id number] 07:00:00 Test Item Value Reference Range Interpretation [...] APPLICABLE FOR DIALYSIS PATIEN TS. HEPATIC FUNCTION [id number] 07:00:00 Test Item Value Reference Range Interpretation [...] (test code = 38 U/L 6-55 347) [id number] 07:18:00 Test Item Value Reference Range Interpretation Comments MAGNESIUM (BEAKER) (test code = 1.7 mg/dL 1.6-2.6 627) BASIC METABOLIC [id number] 07:18:00 Test Item Value Reference Range Interpretation [...] APPLICABLE FOR DIALYSIS PATIEN TS. CREATININE, RANDOM [id number] 16:52:00 Test Item Value Reference Range Interpretation Comments CREATININE URINE (BEAKER) (test 113.2 mg/dL code = 375) Reference Range: No NormalsMAGNESIUM, RANDOM [id number] 16:52:00 Test Item Value Reference Range Interpretation Comments MAGNESIUM URINE (BEAKER) (test 17.9 mg/dL code = 834) Reference Range: No [id number] 06:52:00 Test Item Value Reference Range Interpretation Comments MAGNESIUM (BEAKER) (test code = 1.5 mg/dL 1.6-2.6 L 627) BASIC METABOLIC [id number] 06:52:00 Test Item Value Reference Range Interpretation [...] S NOT APPLICABLE FOR DIALYSIS PATIEN TS. [id number] 06:05:00 Test Item Value Reference Range Interpretation Comments MAGNESIUM (BEAKER) (test code = 1.6 mg/dL 1.6-2.6 627) BASIC METABOLIC [id number] 06:05:00 Test Item Value Reference Range Interpretation [...] NOT APPLICABLE FOR DIALYSIS PATIEN TS. HEPARIN [id number] 14:07:00 Test Item Value Reference Range Interpretation Comments HEPARIN ANTIBODY (BEAKER) (test code Negative Negative = 646) HEPARIN ANTIBODY OD (BEAKER) (test 0.062 <0.400 code = 6088) 4T TOTAL SCORE (BEAKER) (test code = 4 1347) Probability of HIT based on scoring system: 6-8 = High probability; 4-5 = intermediate probability;0-3 = low probabilityBASIC METABOLIC [id number] 05:42:00 Test Item Value Reference Range Interpretation [...] S NOT APPLICABLE FOR DIALYSIS PATIEN TS. [id number] 05:42:00 Test Item Value Reference Range Interpretation Comments MAGNESIUM (BEAKER) (test code = 1.6 mg/dL 1.6-2.6 627) CBC W/PLT COUNT & AUTO [id number] 14:48:00 Test Item Value Reference Range Interpretation [...] TOTAL COUNTED (BEAKER) (test code = 1351) [id number] 14:18:00 Test Item Value Reference Range Interpretation Comments MAGNESIUM (BEAKER) (test code = 1.5 mg/dL 1.6-2.6 L 627) [id number] 14:18:00 Test Item Value Reference Range Interpretation Comments PHOSPHORUS (BEAKER) (test code = 3.4 mg/dL 2.3-4.7 604) BASIC METABOLIC [id number] 14:17:00 Test Item Value Reference Range Interpretation [...] S NOT APPLICABLE FOR DIALYSIS PATIEN TS. [id number] 06:24:00 Test Item Value Reference Range Interpretation Comments MAGNESIUM (BEAKER) (test code = 1.3 mg/dL 1.6-2.6 L 627) BASIC METABOLIC [id number] 06:24:00 Test Item Value Reference Range Interpretation [...] S NOT APPLICABLE FOR DIALYSIS PATIEN TS. [id number] 07:11:00 Test Item Value Reference Range Interpretation Comments MAGNESIUM (BEAKER) 1.7 mg/dL 1.6-2.6 Specimen slightly (test code = 627) hemolyzed BASIC METABOLIC [id number] 07:11:00 Test Item Value Reference Range Interpretation [...] NOT APPLICABLE FOR DIALYSIS PATIEN TS. PTH, [id number] 06:59:00 Test Item Value Reference Range Interpretation Comments PARATHYROID HORMONE INTACT 27.9 pg/mL 8.5-72.5 (BEAKER) (test code = 577) Effective 08/21/2014: Reference Range ChangeNew: 8.5-72.5 Previous: 15.0-90.0 CREATININE, RANDOM [id number] 14:27:00 Test Item Value Reference Range Interpretation Comments CREATININE URINE (BEAKER) (test 174.8 mg/dL code = 375) Reference Range: No NormalsMAGNESIUM, RANDOM [id number] 14:27:00 Test Item Value Reference Range Interpretation Comments MAGNESIUM URINE (BEAKER) (test code = > mg/dL 834) Reference Range: No NormalsTISSUE [id number] 13:29:00Surgical Pathology Report Case: [id number] Authorizing Provider: Estuardo Chaparro MD Collected: 02/28/2017 0919 Ordering Location: [address] Received: 03/02/2017 0948 Service Pathologist: Patel Burton MD Specimen: Di sc C3-4 VERTEBRAL COLUMN,INTERVERTEBRAL DISC, C3-4, DISCECTOMY:FRAGMENTS OF FIBROCARTILAGE WITH MILD DEGENERATIVE CHANGES 65260; [id number] myelopathyDisc C3-4The specimen is received in formalin-filled [...] 1.2 mg/dL 1.6-2.6 L 627) BASIC METABOLIC [id number] 04:50:00 Test Item Value Reference Range Interpretation [...] S NOT APPLICABLE FOR DIALYSIS PATIEN TS. [id number] 07:04:00 Test Item Value Reference Range Interpretation Comments MAGNESIUM (BEAKER) (test code = 1.3 mg/dL 1.6-2.6 L 627) BASIC METABOLIC [id number] 07:04:00 Test Item Value Reference Range Interpretation [...] S NOT APPLICABLE FOR DIALYSIS PATIEN TS. [id number] 11:59:00 Test Item Value Reference Range Interpretation Comments MAGNESIUM (BEAKER) (test code = 1.4 mg/dL 1.6-2.6 L 627) BASIC METABOLIC [id number] 06:16:00 Test Item Value Reference Range Interpretation [...] PATIEN TS. PERIPHERAL BLOOD SMEAR - HOLD [id number] 09:09:00 Test Item Value Reference Range Interpretation Comments PERIPHERAL SMEAR SAVE Mild (BEAKER) (test code = anisopikilocytosis. 1815) Essentially unremarkable white cells and platelets. No circulating blasts. Correlation with clinical follow up required to assess need for hematologic evaulation. URINE [id number] 08:40:00 Test Item Value Reference Range Interpretation [...] = 47) CBC W/PLT COUNT & AUTO [id number] 06:12:00 Test Item Value Reference Range Interpretation [...] K/ L 0.00-0.20 (test code = 417) [id number] 06:03:00 Test Item Value Reference Range Interpretation Comments MAGNESIUM (BEAKER) (test code = 1.2 mg/dL 1.6-2.6 L 627) BASIC METABOLIC [id number] 06:03:00 Test Item Value Reference Range Interpretation [...] PATIEN TS. CBC W/PLT COUNT & AUTO [id number] 08:37:00 Test Item Value Reference Range Interpretation [...] K/ L 0.00-0.20 (test code = 417) [id number] 06:58:00 Test Item Value Reference Range Interpretation Comments MAGNESIUM (BEAKER) (test code = 1.5 mg/dL 1.6-2.6 L 627) BASIC METABOLIC [id number] 06:58:00 Test Item Value Reference Range Interpretation [...] S NOT APPLICABLE FOR DIALYSIS PATIEN TS. [id number] 05:57:00 Test Item Value Reference Range Interpretation Comments MAGNESIUM (BEAKER) (test code = 1.3 mg/dL 1.6-2.6 L 627) COMPREHENSIVE METABOLIC [id number] 05:57:00 Test Item Value Reference Range Interpretation [...] Specimen slightly ictericCBC W/PLT COUNT & AUTO [id number] 05:49:00 Test Item Value Reference Range Interpretation [...] L 0.00-0.20 (test code = 417) 0.00PROTHROMBIN [id number] 05:38:00 Test Item Value Reference Range Interpretation Comments PROTIME (BEAKER) (test code = 14.2 seconds 11.7-14.7 759) INR (BEAKER) (test code = 370) 1.1 <=5.9 RECOMMENDED COUMADIN/WARFARIN INR THERAPY RANGESSTANDARD DOSE: 2.0 - 3.0 Includes: PROPHYLAXIS forvenous thrombosis, systemic embolization; TREATMENT for venous thrombosis and/or pulmonary embolus.HIGH RISK: Target INR is 2.5-3.5 for patients with mechanical heart valves.URINALYSIS W/ [id number] 14:55:00 Test Item Value Reference Range Interpretation [...] SOURCE(BEAKER) (test code Urine, Clean Catch = 2795) [id number] 21:24:00 Test Item Value Reference Range Interpretation Comments MAGNESIUM (BEAKER) (test code = 1.1 mg/dL 1.6-2.6 L 627) BASIC METABOLIC [id number] 21:24:00 Test Item Value Reference Range Interpretation [...] FOR DIALYSIS PATIEN TS. VITAMIN B12 AND [id number] 08:41:00 Test Item Value Reference Range Interpretation Comments VITAMIN B12 (BEAKER) (test code = 604 pg/mL 213-816 774) FOLATE (BEAKER) (test code = 362) 9.9 ng/mL >=7.0 Effective 08/21/2014: Folate Reference Range ChangeNew: >=7.0 Previous: >=5.4PERIPHERAL BLOOD SMEAR - HOLD [id number] 08:19:00 Test Item Value Reference Range Interpretation Comments PERIPHERAL SMEAR SAVE (BEAKER) (test saved code = 1815) [id number] 05:49:00 Test Item Value Reference Range Interpretation Comments PROSTATE SPECIFIC ANTIGEN (BEAKER) 5.1 ng/mL 0.0-4.0 H (test code = 844) HIV-1 ANTIGEN WITH HIV-1/2 [id number] 05:49:00 Test Item Value Reference Range Interpretation Comments HIV-1 ANTIGEN WITH HIV 1\\T\\2 Nonreactive Nonreactive ANTIBODY (2) (BEAKER) (test code = 2586) [id number] 05:43:00 Test Item Value Reference Range Interpretation Comments PHOSPHORUS (BEAKER) (test code = 2.9 mg/dL 2.3-4.7 604) [id number] 05:43:00 Test Item Value Reference Range Interpretation Comments MAGNESIUM (BEAKER) (test code = 1.4 mg/dL 1.6-2.6 L 627) BASIC METABOLIC [id number] 05:43:00 Test Item Value Reference Range Interpretation [...] PATIEN TS. CBC W/PLT COUNT & AUTO [id number] 05:25:00 Test Item Value Reference Range Interpretation [...] 0.00-0.20 (test code = 417) 0.00PROTEIN ELECTROPHORESIS, [id number] 16:22:00 Test Item Value Reference Range Interpretation [...] beta globulin fractions. No monoclonal bands detected. [id number] Haritha Baptiste MD (BEAKER) (test code = (electronic signature) 2619) PROTEIN TOTAL SERUM, 5.3 gm/dL 6.0-8.3 L SPEP (BEAKER) (test code = 6300) CBC W/PLT COUNT & AUTO [id number] 13:14:00 Test Item Value Reference Range Interpretation [...] K/ L 0.00-0.20 (test code = 417) [id number] 06:18:00 Test Item Value Reference Range Interpretation Comments MAGNESIUM (BEAKER) 1.3 mg/dL 1.6-2.6 L Specimen slightly (test code = 627) hemolyzed [id number] 06:18:00 Test Item Value Reference Range Interpretation Comments PHOSPHORUS (BEAKER) 2.3 mg/dL 2.3-4.7 Specimen slightly (test code = 604) hemolyzed BASIC METABOLIC [id number] 06:18:00 Test Item Value Reference Range Interpretation [...] APPLICABLE FOR DIALYSIS PATIEN TS. HEPATITIS PANEL, [id number] 14:32:00 Test Item Value Reference Range Interpretation Comments HEPATITIS A IGM ANTIBODY (BEAKER) Nonreactive Nonreactive (test code = 498) HEPATITIS B CORE IGM ANTIBODY Nonreactive Nonreactive (BEAKER) (test code = 645) HEPATITIS C ANTIBODY (BEAKER) Nonreactive Nonreactive (test code = 367) HEPATITIS B SURFACE ANTIGEN (2) Nonreactive Nonreactive (BEAKER) (test code = 2585) [id number] 14:13:00 Test Item Value Reference Range Interpretation Comments FIBRINOGEN LEVEL (BEAKER) (test 282 mg/dl 225-434 code = 658) LACTATE DEHYDROGENASE (LDH)2017-03-01 14:12:00 Test Item Value Reference Range Interpretation Comments LACTATE DEHYDROGENASE (BEAKER) (test 200 U/L 125-220 code = 635) HEPATIC FUNCTION [id number] 14:12:00 Test Item Value Reference Range Interpretation [...] code = 32 U/L 6-55 347) URINE [id number] 10:51:00 Test Item Value Reference Interpretation Comments [...] = 13) CBC W/PLT COUNT & AUTO [id number] 04:34:00 Test Item Value Reference Range Interpretation [...] K/ L 0.00-0.20 (test code = 417) [id number] 04:32:00 Test Item Value Reference Range Interpretation Comments MAGNESIUM (BEAKER) 1.1 mg/dL 1.6-2.6 L Specimen slightly (test code = 627) hemolyzed [id number] 04:32:00 Test Item Value Reference Range Interpretation Comments PHOSPHORUS (BEAKER) 2.6 mg/dL 2.3-4.7 Specimen slightly (test code = 604) hemolyzed BASIC METABOLIC [id number] 04:32:00 Test Item Value Reference Range Interpretation [...] S NOT APPLICABLE FOR DIALYSIS PATIEN TS. [id number] 05:03:00 Test Item Value Reference Range Interpretation Comments MAGNESIUM (BEAKER) (test code = 1.1 mg/dL 1.6-2.6 L 627) CBC W/PLT COUNT & AUTO [id number] 18:39:00 Test Item Value Reference Range Interpretation [...] 0.00-0.20 (test code = 417) 0.00URINALYSIS W/ [id number] 11:52:00 Test Item Value Reference Range Interpretation [...] 1584) SOURCE(BEAKER) (test code = Urine, Voided 0119) CBC W/PLT COUNT & AUTO [id number] 11:13:00 Test Item Value Reference Range Interpretation [...] (test code = Normal 762) COMPREHENSIVE METABOLIC [id number] 11:03:00 Test Item Value Reference Range Interpretation [...] APPLICABLE FOR DIALYSIS PATIEN TS. COMPREHENSIVE METABOLIC [id number] 11:03:00 Test Item Value Reference Range Interpretation [...] S NOT APPLICABLE FOR DIALYSIS PATIEN TS. [id number] 10:45:00 Test Item Value Reference Range Interpretation [...]
[2022-03-11 18:53] VITALS: BMI 30.8
[2022-03-11] MEDS ORDERED: MELATONIN 3 MG TABLET PO PRN (19:01)
[2022-03-11] MEDS ORDERED: ACETAMINOPHEN 500 MG TAB PO PRN (19:01)
[2022-03-11] MEDS ORDERED: DOCUSATE NA/SENNA CONC 1 TAB PO PRN (19:02)
[2022-03-11] MEDS: guaiFENesin 100 MG/5 ML UCUP PO SCH (19:33)
[2022-03-11] MEDS: dexAMETHasone 4 MG TAB PO SCH (19:33)
[2022-03-11] MEDS: APIXABAN 2.5 MG TABLET PO SCH (19:33)
[2022-03-11 22:22] LABS: Urine Blood Negative (Negative); Urine Glucose Negative (Negative); Urine Protein 1+ (Negative)
[2022-03-11 22:33] LABS: Urine Appearance CLEAR (Clear); Urine Color DK YELLOW (Yellow)
[2022-03-11 22:34] LABS: Urine Bilirubin POSITIVE (Negative); Urine Microscopic Reflex ORDER UMIC
[2022-03-11 23:46] LABS: Urine Amorphous Sediment 2+ /HPF (NONE SEEN); Urine Bacteria LOADED /HPF (NONE SEEN); Urine Mucus 2+ /HPF (NONE SEEN); Urine RBC <5 /HPF (NONE SEEN)
[2022-03-12 06:32] LABS: Absolute Lymphocytes (CBC) 0.3 K/uL (0.7-4.9); Lymphocytes % 3.6 % (15.3-44.8); MCV 92.8 fL (80-100); MPV 8.8 fL (7.6-11.3)
[2022-03-12 06:52] LABS: Albumin 2.6 g/dL (3.4-5.0); Magnesium 1.6 mg/dL (1.8-2.4); Prealbumin 15.5 mg/dL (20-40)
[2022-03-12] MEDS: APIXABAN 2.5 MG TABLET PO SCH (07:50)
[2022-03-12] MEDS: lisinopriL 5 MG TAB PO SCH (07:50)
[2022-03-12] MEDS: SODIUM CHLORIDE 1 GM TAB PO SCH (07:50)
[2022-03-12] MEDS: TAMSULOSIN 0.4 MG SR CAP PO SCH (07:50)
[2022-03-12] MEDS: guaiFENesin 100 MG/5 ML UCUP PO SCH ×4 (07:50→19:28)
[2022-03-12] MEDS: dexAMETHasone 4 MG TAB PO SCH ×2 (07:50→19:28)
[2022-03-12] MEDS ORDERED: SODIUM BICARB 325 MG TAB PO SCH (08:00)
[2022-03-12 08:56] LABS: Blood Morphology Comment NOT SEEN (NOT SEEN); Platelet Estimate DECR; White Blood Cell Scan OK (OK)
[2022-03-12] MEDS: FORMULATION-R RECTAL 57GM PR PRN (13:59)
[2022-03-12] MEDS: NYSTATIN PWDR 100000 UNIT/GM TOP SCH ×2 (13:59→19:29)
--- NOTE | 2022-03-12 17:31 | R.HP ---
HISTORY AND PHYSICAL FACILITY: [facility] ENCOUNTER DATE AND TIME: 03/12/2022 17:22 (CDT) MR#: [id number] NAME RUTHANN LUNDBERG ADDRESS: [address] [place] [address] CITY: [place]IP [address] PHONE: DATE OF : 1940 AGE: 81 SSN# [id number] GENDER: Male MARITAL STATUS PRE-HOSPITAL LIVING SETTING 01 - Home (private home/apt. board/care, assisted living, care home, transitional living) PRE-HOSPITAL LIVING WITH Alone ENCOUNTER PHYSICIAN: Dr. Nicolas Mckinley M.D. REFERRING DOCTOR: HOMAR HAMMOND MD DATE OF ADMISSION: 03/11/2022 17:46 (CDT) REFERRING FACILITY [facility] HOME TYPE AND DETAILS: Type of home: single family house # of levels in the residence: 1 # of steps within the residence: 0 # of steps to enter the residence: 0 ONSET DATE: 02/27/2022 PRIMARY DIAGNOSIS-RELATED SURGERIES: None HISTORY OF PRESENT ILLNESS (HPI): Pt. is a 81 yo Right-handed male. 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 His impairment category is Medically Complex Conditions 17 - Neoplasms (17.2). Pre-morbidly, Pt. was independent/mod-I in Locomotion, Social Cognition, Balance, and Safety Awarenes s; and he had good Transfers Control, Sphincter Control, Self-Care, Communication, and Endurance. Currently, he has deficits of Locomotion, Social Cognition, Safety Awareness, Balance, Transfers Cont rol, Sphincter Control, Communication, Self-Care, and Endurance. Pt. is now referred to [facility] for acute in-patient rehabilitation in order to maximize patient's functional independence in activities of daily living, strength, ROM, and mobi lity. Patient has realistic goal of being discharged at assistance level 7-Ind to reside at Home with Pt s elf. MEDICATION ALLERGIES: No Known Drug Allergies (NKDA) ENVIRONMENTAL ALLERGIES: - Substance Allergies None Known - Other Allergies None Known PAST MEDICAL HISTORY: HTN BPH COPD PAST SURGICAL HISTORY: L ANKLE FX REPAIR CERVICAL SPINE SURGERY SOCIAL HISTORY: - Home Living Alone REVIEW OF SYSTEMS: - Gen No Chills Fatigue No Fever - Eyes No Double Vision No itchiness - ENMT No Difficulty Swallowing - CVS No Chest Discomfort No Chest Pain Fatigue No Weight Gain - Resp No Cough Shortness of Breath - GI Continent No Abdominal Pain No Constipation No Diarrhea - Continent No Kidney Pain No Painful Urination No Urinary Urgency - MSK No Joint Pain Muscle Cramps Stiffness - Skin No Itching No Rash No Suspicious Lesions - Neuro Coordination Difficulty No Difficulty with Concentration No Memory Loss No Seizures Weakness - Psych No Anxiety No Depression No HIV Exposure No Persistent Infections No Seasonal Allergies - Endo No Cold/Heat Intolerance No Excessive Hunger No Excessive Thirst No Excessive Urination PHYSICAL EXAM - Gen Alert and awake Lying in bed No apparent distress Oriented to: person, time, and place - Skin No skin breakdown. Normacephalicand disheveled with long stephens - Eyes No abnormalities - ENMT No abnormalities - Neck No abnormalities - CVS RRR - Chest Mildly decreased breath sounds bilaterally. - Resp No wheezing - Abd Soft - GI + bowel sounds Deferred - No abnormalities - Ext Mild bilateral lower extremity edema. - MSK 4/5 weakness in both lower extremities. - Neuro No focal deficits - Psych No abnormalities VITAL SIGNS Temperature: 98.2 F SBP/DBP: 145/80 Pulse: 91 Resp: 16 NURSING: - Shower allowing shower PRECAUTIONS: - Fall Precaution Bed alarm TABS alarm Wheel chair alarm - Bleeding Risk Lovenox - DVT Risk due to restricted mobility and age - Skin Breakdown Risk due to restricted mobility and age - Cardiac Precaution Monitor blood pressure, heart rate, lower extremity edema, notify MD for shortness of breath or chest pain Monitor patient for excessive elevation of heart rate and blood pressure during therapy ACTIVITIES OOB only with supervision QI SCORES: - Self-Care A. Eating 04-Supervision or touching assistance B. Oral hygiene 04-Supervision or touching assistance C. Toileting hygiene 03-Partial/moderate assistance E. Shower/bathe self 03-Partial/moderate assistance F. Upper body dressing 04-Supervision or touching assistance G. Lower body dressing 03-Partial/moderate assistance H. Putting on/taking off footwear 03-Partial/moderate assistance - Mobility A. Roll left and right 04-Supervision or touching assistance B. Sit to lying 04-Supervision or touching assistance C. Lying to sitting on side of bed 04-Supervision or touching assistance D. Sit to stand 03-Partial/moderate assistance E. Chair/awb-la-pkijf transfer 02-Substantial/maximal assistance F. Toilet transfer 02-Substantial/maximal assistance G. Car transfer 88-Not attempted due to medical condition or safety concerns I. Walk 10 feet 88-Not attempted due to medical condition or safety concerns J. Walk 50 feet with two turns 88-Not attempted due to medical condition or safety concerns K. Walk 150 feet 88-Not attempted due to medical condition or safety concerns L. Walking 10 feet on uneven surfaces 88-Not attempted due to medical condition or safety concerns M. 1 step (curb) 88-Not attempted due to medical condition or safety concerns N. 4 steps 88-Not attempted due to medical condition or safety concerns O. 12 steps 88-Not attempted due to medical condition or safety concerns P. Picking up object 88-Not attempted due to medical condition or safety concerns R. Wheel 50 feet with two turns 88-Not attempted due to medical condition or safety concerns S. Wheel 150 feet 88-Not attempted due to medical condition or safety concerns - Bladder and Bowel Bladder continence Bowel continence - Endurance Fair - Balance Fair - Safety Awareness Fair CURRENT FUNC. DEFICITS: Self-Care, Mobility, Endurance, Balance, and Safety Awareness MEDICATIONS: - Other See attached MAR (Medication Administration Record) ASSESSMENT: Pt. is a 81 yo Right-handed male.On 02/27/2022 he was admitted to [facility] with diagnosis C79 .31 Metastasis to brain of unknown origin.His impairment category is Medically Complex Conditions 17 - Neoplasms (17.2).Pre-morbidly, Pt. was independent/mod-I in Locomotion, Social Cognition, Balance, and Safety Awareness; and he had good Transfers Control, Sphincter Control, Self-Care, Communication , and Endurance.Currently, he has deficits of Locomotion, Social Cognition, Safety Awareness, Balance , Transfers Control, Sphincter Control, Communication, Self-Care, and Endurance.Pt. is now referred t [facility] for acute in-patient rehabilitation in order to maximize patient' s functional independence in activities of daily living, strength, ROM, and mobility.- Rehab Goal Patient has realistic goal of being discharged at assistance level 7-Ind to reside at Home with Pt s elf. - Physical Therapy Gait dysfunction - to improve, our physical therapists will perform initial evaluation of pt's status upon admission and devise an individualized program for Gait Training, and Wheel Chair mobility Inability to transfer - to improve, our physical therapists will perform initial evaluation of pt's s tatus upon admission and devise an individualized program for Bed mobility Need for home safety evaluation - to improve, our physical therapists will perform initial evaluation of pt's status upon admission and devise an individualized program for Home Evaluation Need in caregiver upon discharge - to improve, our physical therapists will perform initial evaluatio n of pt's status upon admission and devise an individualized program for Caregiver Training New precaution - to improve, our physical therapists will perform initial evaluation of pt's status u rosas admission and devise an individualized program for Patient precaution education Edema - to improve, our physical therapists will perform initial evaluation of pt's status upon admi ssion and devise an individualized program for Elevation Training, and Lymphedema Therapy Poor balance - to improve, our physical therapists will perform initial evaluation of pt's status upo n admission and devise an individualized program for Balance Training Poor endurance - to improve, our physical therapists will perform initial evaluation of pt's status u rosas admission and devise an individualized program for Endurance Training Weakness - to improve, our physical therapists will perform initial evaluation of pt's status upon ad mission and devise an individualized program for Aquatic Therapy, Neuromuscular Reeducation, and Stre ngthening Achieving independence - to improve, our physical therapists will perform initial evaluation of pt's status upon admission and devise an individualized program for Community Reintegration Activities - Occupational Therapy ADL deficits - to improve, our occupation therapists will perform initial evaluation of pt's status u rosas admission and devise an individualized program for Bathing, Bed mobility, Community Reintegration , Cooking, Dressing, Eating, Fine Motor Skills, Grooming, Homemaking, Kitchen Mobility, Laundry, Shirin ent Education, Safety Awareness, Splinting - Positioning, Transfers(Toilet, Tub, Shower), and Wheel C hair Management Cognitive deficits - to improve, our occupation therapists will perform initial evaluation of pt's st atus upon admission and devise an individualized program for Cognition - orientation Need for child care director - to improve, our occupation therapists will perform initial evaluation of pt's s tatus upon admission and devise an individualized program for Caregiver Training Weakness - to improve, our occupation therapists will perform initial evaluation of pt's status upon admission and devise an individualized program for Aquatic Therapy, Balance, Endurance, UE ROM, and U E strengthening MEDICAL PLAN: - Diet Type Start Regular - Diet - Liquid Texture Start Regular - Tube Feed Start N/A - Bleeding Risk Lovenox - DVT Risk due to restricted mobility and age - Skin Breakdown Risk due to restricted mobility and age - Cardiac Precaution Monitor blood pressure, heart rate, lower extremity edema, notify MD for shortness of breath or ches t pain Monitor patient for excessive elevation of heart rate and blood pressure during therapy - Fall Precaution Bed alarm TABS alarm Wheel chair alarm - Other See attached MAR (Medication Administration Record) - Diet - Solid Texture Regular - Shower shower DISCHARGE PLAN: - Estimated Length of Stay (days) 13. - Consensus on plan Discharge plan has been discussed with primary caregiver. Patient/Family is in agreement with the alisa n. Primary caregiver is in agreement with the plan. - Patient/Family Goals Return home independently. - Potential barriers to discharge Any lines must be removed or patient/caregiver needs to be educated on line care. - Planned Living Setting Upon Discharge Home, to live alone. Transitional Living. Primary caregiver: Pt self. SIGNATURE PANEL: (CDT)
--- NOTE | 2022-03-12 17:34 | PAPE ---
POST ADMISSION PHYSICIAN EVALUATION PATIENT: [facility] MR# [id number] REFERRING DOCTOR HOMAR HAMMOND MD EVALUATION DATE AND TIME 03/12/2022 17:32 (CDT) NAME RUTHANN LUNDBERG DATE OF 1940 AGE 81 PHONE SSN# [id number] GENDER male EVALUATING PHYSICIAN Dr. Nicolas Mckinley M.D. ADMISSION DIAGNOSIS: C79.31 Metastasis to brain of unknown origin ONSET DATE 02/27/2022 POST-ADMISSION FUNCTIONAL/MEDICAL STATUS: - Bladder Same accident frequency: 7-Ind - No accidents in the past 7 days - Bowel Same accident frequency: 7-Ind - No accidents in the past 7 days - Walking Same score based on distance walked: 0(N/A) - Wheelchair Same score based on distance traveled: 0(N/A) STATUS CHANGE EVALUATION: No change in Functional or Medical Status is identified compared with Pre-Admission screening. PATIENT NEEDS CLOSE MEDICAL SUPERVISION BY A REHABILITATION PHYSICIAN FOR: Coordination of Treatment Team Bowel and Bladder Management Medical and Co-Morbidity Management Pain Management PATIENT REQUIRES 24X7 REHAB NURSING FOR MEDICAL AND FUNCTIONAL MGT. OF THE FOLLOWING DEFICITS: Patient requires 24x7 Rehabilitation Nursing for: Pain Issues, Identifying and preventing risk factor s, Monitoring and reporting current medical conditions, Assisting with ambulation and transfer, Karine ting with all ADL-s, Teaching patients about disease process and medications, Family teaching, Provid ing safe environment, Bowel and Bladder Issues, Skin Integrity, and Medication Management PATIENT REQUIRES INTENSIVE, COORDINATED INTERDISCIPLINARY APPROACH TO REHAB: Patient needs Dietary and Nutrition Services for: Adequate Nutrition, Nutritional Supplements, and Nu tritional Education Patient needs Invasive Manager and/or Case Management for: Discharge Planning, Arranging Home Equipmen t or Services, and Family Interventions LIST OF IDENTIFIED AND POTENTIAL PROBLEMS: Alteration in leisure activities Bladder, Incontinence Bowel, Incontinence Falls, Actual or Potential Infection, Actual or Potential Mobility Impaired Pain, Alteration in Comfort Self Care Deficit Skin Integrity, Actual or Potential Urinary Tract Infection (UTI), Actual or Potential RISK FOR COMPLICATIONS - DVT Active and Passive ROM exercises. Assist patient with frequent position changes. Elevate BLE. - Skin Breakdown Encourage ambulation as tolerated. Repositioning q 2 hours. Use of pillows or foam wedges while in be d. - Falls Assess for alcohol withdrawal. Assess for medication side effects. Maintain call light within patient reach for easy access to nursing assistance. Provide assistance getting out of bed and with ambulati on. Provide assistive devices. - Stroke Monitor and maintain patient pain level. Monitor patient blood pressure. - Bleeding Maintain pt safety. Monitor pt for injury. - Respiratory Failure Administer supplemental O2 as needed. Monitor pt O2 sats. - Cardiac Failure Monitor pt cardiac status. - Pain Educate patient on relaxation and deep breathing techniques. Anticipate the need for pain medication for optimal pain managment. Administer prescribed pain medication as needed. - Failure to Thrive Monitor pt labs. Nutrition to follow. INTERVENTIONS - Alcohol Abuse [facility] protocol. Administer prescribed medications per MD order. - Anemia Monitor pt labs. - Hypertension Implement healthy diet. Promote regular physical activity. Provide comfort measures. Limit patient co nsumption of alcohol. Monitor patient B/P regularly. Administer medications indicated by physician an d monitor for effectiveness. - Brain Lesions Monitor pt plt. Maintain >100. Monitor pt CA 19-9. Currently elevated. Administer medications indicat ed by physician and monitor for effectiveness. - Emphysema/COPD Administer inhalation medications indicated by physician and monitor for effectivness. - Failure to Thrive Monitor pt weight. Implement healthy diet. - Hyponatremia 2l fluid restriction. Boost glucose (high protein). - Pancytopenia Monitor pt labs. - Hyperglycemia SSI. Monitor pt labs. - Benign prostatic hyperplasia Administer inhalation medications indicated by physician and monitor for effectivness. PATIENT COULD BE AT RISK FOR COMPLICATIONS FROM ADVERSE MEDICAL CONDITIONS DUE TO HIS/HER COMORBIDITI ES AND THE RIGORS OF THE INTENSIVE REHABILLITATION PROGRAM. METHODS OR INTERVENTIONS TO AVOID COMPLIC ATIONS INCLUDE: - Infection Clinical staff to assess and manage the signs and symptoms of infection including fever, redness, war mth, etc. - Urinary Tract Infection - Falls Patient will be evaluated for Fall Precautions and will be placed on Fall Precautions as indicated pe r protocol. - Skin Breakdown Nursing will assess skin daily using assessment tool and will place on Skin Breakdown Precautions as indicated per protocol. - Pain Clinical staff may employ non-medication methods such as massage, distraction, decrease stimulus, etc . as needed. Clinical staff will assess patient's pain level every shift per protocol to assess and e nsure pain management effectiveness. Medications will be given and the pain level re-assessed. PRELIMINARY PLAN OF CARE: - Physical Therapy Patient needs Physical Therapy for a daily minimum of 1.5 hours at least 5 out of 7 days, to improve: Mobility, Strengthening, Transfers, Stretching, ROM, Endurance, Ability to manage stairs, Gait, and Balance. - Speech Therapy Patient needs Speech Therapy for a daily minimum of 0.5 hours at least 5 out of 7 days, to improve: S wallowing, Cognition, Language Skills, and Compensatory Strategies. - Rehabilitation Nursing Patient requires 24x7 Rehabilitation Nursing for: Pain Issues, Identifying and preventing risk factor s, Monitoring and reporting current medical conditions, Assisting with ambulation and transfer, Karine ting with all ADL-s, Teaching patients about disease process and medications, Family teaching, Provid ing safe environment, Bowel and Bladder Issues, Skin Integrity, and Medication Management. Patient needs Invasive Manager and/or Case Management for: Discharge Planning, Arranging Home Equipmen t or Services, and Family Interventions. - Dietary and Nutrition Services Patient needs Dietary and Nutrition Services for: Adequate Nutrition, Nutritional Supplements, and Nu tritional Education. - Occupational Therapy Patient needs Occupational Therapy for a daily minimum of 1.5 hours at least 5 out of 7 days, to impr ove Activities of Daily Living, including: Eating, Grooming, Bathing, Dressing, Toileting, Toilet Tra nsfers, Community Reintegration, Higher functional activities, Adaptive Equipment, Splinting, Househo ld Tasks, and Other activities as determined. QI SCORES: - Self-Care A. Eating 04-Supervision or touching assistance B. Oral hygiene 04-Supervision or touching assistance C. Toileting hygiene 03-Partial/moderate assistance E. Shower/bathe self 03-Partial/moderate assistance F. Upper body dressing 04-Supervision or touching assistance G. Lower body dressing 03-Partial/moderate assistance H. Putting on/taking off footwear 03-Partial/moderate assistance - Mobility A. Roll left and right 04-Supervision or touching assistance B. Sit to lying 04-Supervision or touching assistance C. Lying to sitting on side of bed 04-Supervision or touching assistance D. Sit to stand 03-Partial/moderate assistance E. Chair/dsy-cy-xyuaq transfer 02-Substantial/maximal assistance F. Toilet transfer 02-Substantial/maximal assistance G. Car transfer 88-Not attempted due to medical condition or safety concerns I. Walk 10 feet 88-Not attempted due to medical condition or safety concerns J. Walk 50 feet with two turns 88-Not attempted due to medical condition or safety concerns K. Walk 150 feet 88-Not attempted due to medical condition or safety concerns L. Walking 10 feet on uneven surfaces 88-Not attempted due to medical condition or safety concerns M. 1 step (curb) 88-Not attempted due to medical condition or safety concerns N. 4 steps 88-Not attempted due to medical condition or safety concerns O. 12 steps 88-Not attempted due to medical condition or safety concerns P. Picking up object 88-Not attempted due to medical condition or safety concerns R. Wheel 50 feet with two turns 88-Not attempted due to medical condition or safety concerns S. Wheel 150 feet 88-Not attempted due to medical condition or safety concerns - Bladder and Bowel Bladder continence Bowel continence - Endurance Fair - Balance Fair - Safety Awareness Fair POTENTIAL FUNCTIONAL GOALS FOR PATIENT TO ACHIEVE BY DISCHARGE: - Safety Precaution Patient will remain free from falls or injury at time of discharge. - Bed Mobility Patient will perform bed mobility at 4-Jorge level of assistance. - Transfers Patient will complete transfers from bed to chair at 4-Jorge level of assistance. - Mobility Patient will ambulate 150 ft with 4-Jorge level of assistance with RW. PATIENT REHAB POTENTIAL Tanner LUNDBERG is able and expected to receive 3 hours of individualized therapy daily on at least 5 of ever y 7 days Tanner LUNDBERG's prognosis for significant practical improvement within a reasonable period of time appears Good Expected level of measurable improvement will be of a practical value to Tanner LUNDBERG's functional capacit y or adaptations to impairments Has a viable Discharge Plan Medically appropriate; condition is sufficiently stable to participate in intensive rehab program DISCHARGE PLAN: - Estimated Length of Stay (days) 13. - Consensus on plan Discharge plan has been discussed with primary caregiver. Patient/Family is in agreement with the alisa n. Primary caregiver is in agreement with the plan. - Patient/Family Goals Return home independently. - Potential barriers to discharge Any lines must be removed or patient/caregiver needs to be educated on line care. - Planned Living Setting Upon Discharge Home, to live alone. Transitional Living. Primary caregiver: Pt self. CONCLUSION ON REHABILITATION NECESSITY: I have evaluated patient's pre-admission functional status and, comparing it to the patient's post-ad mission functional status now, I conclude that the pre-admission assessment was accurate. Patient's c ondition on admission supports the medical necessity of admission to [facility]. It is safe to proceed with patient's therapy program. SIGNATURE PANEL: (CDT)
[2022-03-12] MEDS: CRANBERRY FRUIT EXTRACT 400 MG CAP PO SCH (19:28)
[2022-03-12] MEDS: APIXABAN 5 MG TABLET PO SCH (19:28)
[2022-03-12] MEDS: ENSURE HIGH PROTEIN 237 ML CAN PO SCH (19:29)
[2022-03-13] MEDS: guaiFENesin 100 MG/5 ML UCUP PO SCH ×4 (07:29→20:28)
[2022-03-13] MEDS: CRANBERRY FRUIT EXTRACT 400 MG CAP PO SCH ×2 (07:29→20:29)
[2022-03-13] MEDS: APIXABAN 5 MG TABLET PO SCH ×2 (07:30→20:28)
[2022-03-13] MEDS: NYSTATIN PWDR 100000 UNIT/GM TOP SCH ×2 (07:30→20:28)
[2022-03-13] MEDS: lisinopriL 5 MG TAB PO SCH (07:30)
[2022-03-13] MEDS: FOLIC ACID 1 MG TABLET PO SCH (07:30)
[2022-03-13] MEDS: MULTIVITAMIN TAB PO SCH (07:30)
[2022-03-13] MEDS: FORMULATION-R RECTAL 57GM PR PRN (07:30)
[2022-03-13] MEDS: TAMSULOSIN 0.4 MG SR CAP PO SCH (07:30)
[2022-03-13] MEDS: SODIUM CHLORIDE 1 GM TAB PO SCH (07:31)
[2022-03-13] MEDS: dexAMETHasone 4 MG TAB PO SCH ×2 (07:31→20:28)
[2022-03-13] MEDS: THIAMINE HCL 100 MG TABLET PO SCH (07:31)
[2022-03-13] MEDS: ENSURE HIGH PROTEIN 237 ML CAN PO SCH ×2 (07:31→20:28)
[2022-03-13] MEDS ORDERED: LOPERAMIDE HCL 2 MG CAPSULE PO PRN (09:50)
--- NOTE | 2022-03-13 09:51 | P.RH.PN ---
Estimated Length of Stay: 15 Expected Discharge Date: 03/26/22 Discharge Disposition Plan: Home Family Support: Yes Jail Goal: Mobility, Transfers, Self Care Vital Signs: Last Vital Signs Temp 97 F 03/13/22 09:01 Pulse 88 03/13/22 09:01 Resp 17 03/13/22 09:01 BP 119/60 03/13/22 09:01 Pulse Ox 94 03/13/22 09:01 Laboratory: Laboratory Last Values WBC 8.3 K/uL (4.3-10.9) D 03/12/22 05:50 RBC 4.10 M/uL (4.33-5.43) L D 03/12/22 05:50 Hgb 13.1 g/dL (13.6-17.9) L 03/12/22 05:50 Hct 38.0 % (39.6-49.0) L D 03/12/22 05:50 MCV 92.8 fL (80-100) 03/12/22 05:50 MCH 32.1 pg (27.0-35.0) 03/12/22 05:50 MCHC 34.5 g/dL (32.0-36.0) 03/12/22 05:50 RDW 14.6 % (12.1-15.2) 03/12/22 05:50 Plt Count 95 K/uL (152-406) L 03/12/22 05:50 MPV 8.8 fL (7.6-11.3) 03/12/22 05:50 Neutrophils % 89.5 % (41.7-73.7) H 03/12/22 05:50 Lymphocytes % 3.6 % (15.3-44.8) L 03/12/22 05:50 Monocytes % 6.6 % (3.3-12.3) 03/12/22 05:50 Eosinophils % 0.0 % (0-4.4) 03/12/22 05:50 Basophils % 0.3 % (0-1.3) 03/12/22 05:50 Absolute Neutrophils 7.4 K/uL (1.8-8.0) 03/12/22 05:50 Absolute Lymphocytes 0.3 K/uL (0.7-4.9) L 03/12/22 05:50 Absolute Monocytes 0.5 K/uL (0.1-1.3) 03/12/22 05:50 Absolute Eosinophils 0.0 K/uL (0-0.5) 03/12/22 05:50 Absolute Basophils 0.0 K/uL (0-0.5) 03/12/22 05:50 Platelet Estimate Decr 03/12/22 05:50 Morphology Comment Not seen (NOT SEEN) 03/12/22 05:50 Sodium 135 mmol/L (136-145) L 03/12/22 05:50 Potassium 4.0 mmol/L (3.5-5.1) 03/12/22 05:50 Chloride 103 mmol/L (98-107) 03/12/22 05:50 Carbon Dioxide 26 mmol/L (21-32) 03/12/22 05:50 Anion Gap 10.0 mEq/L (5.0-15.0) 03/12/22 05:50 BUN 39 mg/dL (7-18) H D 03/12/22 05:50 Creatinine 0.64 mg/dL (0.55-1.3) 03/12/22 05:50 Est GFR (CKD-EPI) 94 ml/min (=/>90) 03/12/22 05:50 Glucose 129 mg/dL (74-106) H 03/12/22 05:50 Calcium 8.6 mg/dL (8.5-10.1) 03/12/22 05:50 Magnesium 1.6 mg/dL (1.8-2.4) L D 03/12/22 05:50 Albumin 2.6 g/dL (3.4-5.0) L 03/12/22 05:50 Prealbumin 15.5 mg/dL (20-40) L 03/12/22 05:50 Urine Color Dk yellow (Yellow) 03/11/22 22:20 Urine Appearance Clear (Clear) 03/11/22 22:20 Urine pH 7.0 (5.0-7.0) 03/11/22 22:20 Ur Specific [place] 1.020 (1.005-1.030) 03/11/22 22:20 Glucose (UA)(Auto) Negative (Negative) 03/11/22 22:20 Urine Ketones Negative (Negative) 03/11/22 22:20 Urine Blood Negative (Negative) 03/11/22 22:20 Urine Nitrite Negative (Negative) 03/11/22 22:20 Urine Bilirubin Positive (Negative) H 03/11/22 22:20 Urine Urobilinogen 1.0 mg/dL (0.2-1.0) 03/11/22 22:20 Ur Leukocyte Esterase 2+ (Negative) H 03/11/22 22:20 Urine RBC <5 /HPF (NONE SEEN) 03/11/22 22:20 Urine WBC 10-20 /HPF (<5) H 03/11/22 22:20 Ur Squamous Epith Cells 5-10 /HPF (NONE SEEN) H 03/11/22 22:20 Ur Urothelial Cells Cancelled 03/11/22 18:50 Ur Urothelial Cells Cancelled 03/11/22 18:50 Calcium Oxalate Crystal Cancelled 03/11/22 18:50 Calcium Oxalate Crystal Cancelled 03/11/22 18:50 Uric Acid Crystals Cancelled 03/11/22 18:50 Uric Acid Crystals Cancelled 03/11/22 18:50 Triple Phos Crystals Cancelled 03/11/22 18:50 Triple Phos Crystals Cancelled 03/11/22 18:50 Other Crystals Cancelled 03/11/22 18:50 Other Crystals Cancelled 03/11/22 18:50 Amorphous Sediment 2+ /HPF (NONE SEEN) H 03/11/22 22:20 Glitter Cells Cancelled 03/11/22 18:50 Glitter Cells Cancelled 03/11/22 18:50 Urine Bacteria Loaded /HPF (NONE SEEN) H 03/11/22 22:20 Hyaline Casts Cancelled 03/11/22 18:50 Hyaline Casts Cancelled 03/11/22 18:50 Fine Granular Casts Cancelled 03/11/22 18:50 Fine Granular Casts Cancelled 03/11/22 18:50 Coarse Granular Casts Cancelled 03/11/22 18:50 Coarse Granular Casts Cancelled 03/11/22 18:50 Waxy Casts Cancelled 03/11/22 18:50 Waxy Casts Cancelled 03/11/22 18:50 RBC Casts Cancelled 03/11/22 18:50 RBC Casts Cancelled 03/11/22 18:50 WBC Casts Cancelled 03/11/22 18:50 WBC Casts Cancelled 03/11/22 18:50 Urine Mucus 2+ /HPF (NONE SEEN) 03/11/22 22:20 Urine Other Cancelled 03/11/22 18:50 Urine Other Cancelled 03/11/22 18:50 Urine Trichomonas Cancelled 03/11/22 18:50 Urine Trichomonas Cancelled 03/11/22 18:50 Urine Yeast Cancelled 03/11/22 18:50 Urine Yeast Cancelled 03/11/22 18:50 Ur Yeast w Hyphae Cancelled 03/11/22 18:50 Ur Yeast w Hyphae Cancelled 03/11/22 18:50 Urine Yeast (Budding) Cancelled 03/11/22 18:50 Urine Yeast (Budding) Cancelled 03/11/22 18:50 Urine Sperm Cancelled 03/11/22 18:50 Urine Sperm Cancelled 03/11/22 18:50 Urine Culture Reflexed Not needed 03/11/22 22:20 Urine Total Volume Cancelled 03/11/22 18:50 Urine Total Volume Cancelled 03/11/22 18:50 Urine Total Protein 1+ (Negative) H 03/11/22 22:20 SARS-CoV-2 Rap RNA(RT-PCR) Negative (NEGATIVE) 03/11/22 19:17 Smear Scan Ok (OK) 03/12/22 05:50 Weight: 215 lb Wound Present: No Physician Update: Labs reviewed. Mg is low on replacement. Min assistance, bed transfers. Sit to stand is max. Max assistance for toileting. Dependent lower body dressing, Max for upper body dressing toileting. Imodium is started for loose stools. Summary: Patient's care plan and senior care goals have been reviewed and revised as necessary. Please see the Rehabilitation Signature page for all necessary signatures.
--- NOTE | 2022-03-13 10:59 | EKG ---
Test Date: 2022-03-12 Test Time: 14:19:36 Plater Hot Dip: [place] MEASUREMENT RESULTS: Intervals: Rate: 88 NM: QRSD: 82 QT: 378 QTc: 457 [place]: P: NM: QRS: 33 T: 57 INTERPRETIVE STATEMENTS: Atrial fibrillation Low voltage QRS Septal infarct, age undetermined Abnormal ECG Compared to ECG 02/27/2022 15:27:44 Atrial flutter no longer present Myocardial infarct finding still present Electronically Signed On 03-13-22 10:58:28 CDT by Christopher Sims
[2022-03-13] MEDS: MAGNESIUM OXIDE 400 MG TAB PO SCH (20:00)
[2022-03-13] MEDS: JUVEN PACKET PO SCH (20:28)
[2022-03-14] MEDS: APIXABAN 5 MG TABLET PO SCH ×2 (07:31→20:01)
[2022-03-14] MEDS: lisinopriL 5 MG TAB PO SCH (08:00)
[2022-03-14] MEDS: MAGNESIUM OXIDE 400 MG TAB PO SCH ×2 (08:00→20:00)
[2022-03-14] MEDS: TAMSULOSIN 0.4 MG SR CAP PO SCH (08:58)
[2022-03-14] MEDS: FOLIC ACID 1 MG TABLET PO SCH (08:58)
[2022-03-14] MEDS: CRANBERRY FRUIT EXTRACT 400 MG CAP PO SCH ×2 (08:58→20:01)
[2022-03-14] MEDS: MULTIVITAMIN TAB PO SCH (08:58)
[2022-03-14] MEDS: dexAMETHasone 4 MG TAB PO SCH ×2 (08:58→20:01)
[2022-03-14] MEDS: SODIUM CHLORIDE 1 GM TAB PO SCH (08:58)
[2022-03-14] MEDS: THIAMINE HCL 100 MG TABLET PO SCH (08:58)
[2022-03-14] MEDS: guaiFENesin 100 MG/5 ML UCUP PO SCH ×4 (09:00→20:01)
[2022-03-14] MEDS: ENSURE HIGH PROTEIN 237 ML CAN PO SCH ×2 (09:19→20:02)
[2022-03-14] MEDS: JUVEN PACKET PO SCH ×2 (09:20→20:02)
[2022-03-14] MEDS: NYSTATIN PWDR 100000 UNIT/GM TOP SCH ×2 (09:39→20:00)
--- NOTE | 2022-03-14 13:34 | RAD REPORT ---
EXAM DESCRIPTION: RAD - Chest Single View - 03/14/2022 1:11 pm CLINICAL HISTORY: coughing COMPARISON: Portable 02/27/2022 TECHNIQUE: AP portable chest image was obtained 03/14/2022 1:11 pm . FINDINGS: Left lung field chronic interstitial pattern matches comparison. No new left-sided lung pa renchymal finding. No left-sided pneumothorax or pleural effusion. Old rib fractures noted in the upp er left chest. Heart and vasculature are normal. Trachea is midline. Increased opacification is seen in the pleural space right apex with hazy opacification in the right base partially obscuring the right hemidiaphragm. These are new from the short interval February 27 study . Right-side pleural effusion is the etiology. Pleural thickening would not develop over such a short interval. Patient could have infiltrate or atelectasis at the right base. No acute bone finding. IMPRESSION: Small right-sided pleural fluid collection has developed since February 27. Atelectasis versus infiltrate right lung base.
[2022-03-14] MEDS ORDERED: FUROSEMIDE 20 MG TABLET PO ONE (15:31)
--- NOTE | 2022-03-14 16:25 | R.PN ---
PROGRESS NOTES ENCOUNTER DATE AND TIME: 03/14/2022 16:16 (CDT) NAME RUTHANN LUNDBERG DATE OF : 1940 DATE OF ADMISSION: 03/11/2022 17:46 (CDT) C79.31 Metastasis to brain of unknown originCHIEF COMPLAINT: Metastatic brain tumor SUBJECTIVE: Pt denied any Shortness of Breath. Pt denied any depression. WBC 8.3, Hgb 13.1, Plt 95, prealbumin 15.5, Na 135, BUN 39. UA: loaded with bacteria, WBC 10-20, teresita rase 2+. COVID-19 is negative. Self-propelled wheelchair 250' with standby assistance. O2 sat iss 94% on room air. VITAL SIGNS Temperature: 97.0 F SBP/DBP: 109/60 Pulse: 99 Resp: 16 MEDICATION ALLERGIES: No Known Drug Allergies (NKDA) ENVIRONMENTAL ALLERGIES: - Substance Allergies None Known - Other Allergies None Known NURSING: - Shower allowing shower PRECAUTIONS: - Fall Precaution Bed alarm TABS alarm Wheel chair alarm - Bleeding Risk Lovenox - DVT Risk due to restricted mobility and age - Skin Breakdown Risk due to restricted mobility and age - Cardiac Precaution Monitor blood pressure, heart rate, lower extremity edema, notify MD for shortness of breath or chest pain Monitor patient for excessive elevation of heart rate and blood pressure during therapy ACTIVITIES OOB only with supervision THERAPIES: - Dietary and Nutrition Adequate Nutrition. Nutritional Education. Nutritional Supplements. Evaluate and Treat. - Occupational Therapy Cognitive Retraining. Patient needs Occupational Therapy for a daily minimum of 1.5 hours at least 5 out of 7 days, to improve Activities of Daily Living, including: Eating, Grooming, Bathing, Dressing, Toileting, Toilet Transfers, Community Reintegration, Higher functional activities, Adaptive Equipme nt, Splinting, Household Tasks, and Other activities as determined. Visual Perceptual Training. Evalu ate and Treat. ADL Training. Household Tasks. Patient/Family Education. Safety Awareness. Transfer Tr robin. - Speech Therapy Cognitive Training. Expressive Language Skills. Memory Strategies. Patient needs Speech Therapy for a daily minimum of 1.5 hours at least 5 out of 7 days, to improve: Swallowing, Cognition, Language Ski lls, and Compensatory Strategies. Receptive Language Skills. Speech Intelligibility Training. Evaluat e and Treat. - Physical Therapy Patient needs Physical Therapy for a daily minimum of 1.5 hours at least 5 out of 7 days, to improve: Mobility, Strengthening, Transfers, Stretching, ROM, Endurance, Ability to manage stairs, Gait, and Balance. Balance Training. Evaluate and Treat. Gait Training. Safety Awareness. LE Strengthening. Mob ility Training. Transfer Training. PHYSICAL EXAM - Gen Alert and awake Lying in bed No apparent distress Oriented to: person, time, and place - Skin No skin breakdown. Normacephalicand disheveled with long stephens - Eyes No abnormalities - ENMT No abnormalities - Neck No abnormalities - CVS RRR - Chest Mildly decreased breath sounds bilaterally. - Resp No wheezing - Abd Soft - GI + bowel sounds Deferred - No abnormalities - Ext Mild bilateral lower extremity edema. - MSK 4/5 weakness in both lower extremities. - Neuro No focal deficits - Psych No abnormalities ASSESSMENT: Pt. 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 was independent/mod-I in Locomotion, Social Cognition, Balance, and Safety Awareness; and he had good Transfers Control, Sphincter Control, Self-Care, Communication , and Endurance.Currently, he has deficits of Locomotion, Social Cognition, Safety Awareness, Balance , Transfers Control, Sphincter Control, Communication, Self-Care, and Endurance.Pt. is now referred t [facility] for acute in-patient rehabilitation in order to maximize patient' s functional independence in activities of daily living, strength, ROM, and mobility.- Rehab Goal Patient has realistic goal of being discharged at assistance level 7-Ind to reside at Home with Pt s elf. MDM/PLAN: - Physical Therapy Gait dysfunction - to improve, our physical therapists will perform initial evaluation of pt's statu s upon admission and devise an individualized program for Gait Training, and Wheel Chair mobility Inability to transfer - to improve, our physical therapists will perform initial evaluation of pt's status upon admission and devise an individualized program for Bed mobility Need for home safety evaluation - to improve, our physical therapists will perform initial evaluatio n of pt's status upon admission and devise an individualized program for Home Evaluation Need in caregiver upon discharge - to improve, our physical therapists will perform initial evaluati on of pt's status upon admission and devise an individualized program for Caregiver Training New precaution - to improve, our physical therapists will perform initial evaluation of pt's status upon admission and devise an individualized program for Patient precaution education Edema - to improve, our physical therapists will perform initial evaluation of pt's status upon admis thompson and devise an individualized program for Elevation Training, and Lymphedema Therapy Poor balance - to improve, our physical therapists will perform initial evaluation of pt's status up on admission and devise an individualized program for Balance Training Poor endurance - to improve, our physical therapists will perform initial evaluation of pt's status upon admission and devise an individualized program for Endurance Training Weakness - to improve, our physical therapists will perform initial evaluation of pt's status upon a dmission and devise an individualized program for Aquatic Therapy, Neuromuscular Reeducation, and Str engthening Achieving independence - to improve, our physical therapists will perform initial evaluation of pt's status upon admission and devise an individualized program for Community Reintegration Activities - Occupational Therapy ADL deficits - to improve, our occupation therapists will perform initial evaluation of pt's status upon admission and devise an individualized program for Bathing, Bed mobility, Community Reintegratio n, Cooking, Dressing, Eating, Fine Motor Skills, Grooming, Homemaking, Kitchen Mobility, Laundry, Pat ient Education, Safety Awareness, Splinting - Positioning, Transfers(Toilet, Tub, Shower), and Wheel Chair Management Cognitive deficits - to improve, our occupation therapists will perform initial evaluation of pt's s tatus upon admission and devise an individualized program for Cognition - orientation Need for director of home care hospice - to improve, our occupation therapists will perform initial evaluation of pt's status upon admission and devise an individualized program for Caregiver Training Weakness - to improve, our occupation therapists will perform initial evaluation of pt's status upon admission and devise an individualized program for Aquatic Therapy, Balance, Endurance, UE ROM, and UE strengthening - Other See attached MAR (Medication Administration Record) - Diet Type Continue Regular - Diet - Liquid Texture Continue Regular - Tube Feed Continue N/A - Bleeding Risk Lovenox - DVT Risk due to restricted mobility and age - Skin Breakdown Risk due to restricted mobility and age - Cardiac Precaution Monitor blood pressure, heart rate, lower extremity edema, notify MD for shortness of breath or chest pain Monitor patient for excessive elevation of heart rate and blood pressure during therapy - Fall Precaution Bed alarm TABS alarm Wheel chair alarm - Diet - Solid Texture Continue Regular - Shower allowing shower FUNCTIONAL STATUS: UPDATED AT WEEKLY TEAM CONFERENCE - Bladder Same accident frequency: 7-Ind - No accidents in the past 7 days - Bowel Same accident frequency: 7-Ind - No accidents in the past 7 days - Walking Same score based on distance walked: 0(N/A) - Wheelchair Same score based on distance traveled: 0(N/A) FUNCTIONAL STATUS: - Self-Care A. Eating Ind B. Grooming sup C. Bathing maxA D. Dressing - Upper Jorge E. Dressing - Lower maxA F. Toileting Jorge - Sphincter Control G. Bladder control Justin H. Bowel control Justin - Transfers Control I. Bed/Chair/Wheelchair modA J. Toilet modA K. Tub/Shower modA - Locomotion L. Walk/Wheelchair (B) modA M. Stairs ADNO - Communication N. Comprehension (B) Justin O. Expression (B) Justin - Social Cognition P. Social Interaction Ind Q. Problem Solving Jorge R. Memory Justin - Endurance Poor - Balance Poor - Safety Awareness Fair QI SCORES: - Self-Care A. Eating 04-Supervision or touching assistance B. Oral hygiene 04-Supervision or touching assistance C. Toileting hygiene 03-Partial/moderate assistance E. Shower/bathe self 03-Partial/moderate assistance F. Upper body dressing 04-Supervision or touching assistance G. Lower body dressing 03-Partial/moderate assistance H. Putting on/taking off footwear 03-Partial/moderate assistance - Mobility A. Roll left and right 04-Supervision or touching assistance B. Sit to lying 04-Supervision or touching assistance C. Lying to sitting on side of bed 04-Supervision or touching assistance D. Sit to stand 03-Partial/moderate assistance E. Chair/[id number] transfer 02-Substantial/maximal assistance F. Toilet transfer 02-Substantial/maximal assistance G. Car transfer 88-Not attempted due to medical condition or safety concerns I. Walk 10 feet 88-Not attempted due to medical condition or safety concerns J. Walk 50 feet with two turns 88-Not attempted due to medical condition or safety concerns K. Walk 150 feet 88-Not attempted due to medical condition or safety concerns L. Walking 10 feet on uneven surfaces 88-Not attempted due to medical condition or safety concerns M. 1 step (curb) 88-Not attempted due to medical condition or safety concerns N. 4 steps 88-Not attempted due to medical condition or safety concerns O. 12 steps 88-Not attempted due to medical condition or safety concerns P. Picking up object 88-Not attempted due to medical condition or safety concerns R. Wheel 50 feet with two turns 88-Not attempted due to medical condition or safety concerns S. Wheel 150 feet 88-Not attempted due to medical condition or safety concerns - Bladder and Bowel Bladder continence Bowel continence - Endurance Fair - Balance Fair - Safety Awareness Fair CURRENT [facility]. DEFICITS: Self-Care, Mobility, Endurance, Balance, and Safety Awareness SIGNATURE PANEL: (CDT)
[2022-03-14] MEDS: FORMULATION-R RECTAL 57GM PR PRN (20:01)
[2022-03-15] MEDS: MAGNESIUM OXIDE 400 MG TAB PO SCH ×3 (08:00→20:00)
[2022-03-15] MEDS: NYSTATIN PWDR 100000 UNIT/GM TOP SCH ×2 (08:03→20:08)
[2022-03-15] MEDS: JUVEN PACKET PO SCH ×2 (08:03→20:08)
[2022-03-15] MEDS: FORMULATION-R RECTAL 57GM PR PRN ×2 (08:03→20:08)
[2022-03-15] MEDS: CRANBERRY FRUIT EXTRACT 400 MG CAP PO SCH ×2 (08:04→20:08)
[2022-03-15] MEDS: THIAMINE HCL 100 MG TABLET PO SCH (08:04)
[2022-03-15] MEDS: guaiFENesin 100 MG/5 ML UCUP PO SCH ×4 (08:04→20:08)
[2022-03-15] MEDS: TAMSULOSIN 0.4 MG SR CAP PO SCH (08:04)
[2022-03-15] MEDS: FOLIC ACID 1 MG TABLET PO SCH (08:04)
[2022-03-15] MEDS: lisinopriL 5 MG TAB PO SCH (08:05)
[2022-03-15] MEDS: SODIUM CHLORIDE 1 GM TAB PO SCH (08:05)
[2022-03-15] MEDS: APIXABAN 5 MG TABLET PO SCH ×2 (08:05→20:08)
[2022-03-15] MEDS: dexAMETHasone 4 MG TAB PO SCH ×2 (08:05→20:08)
[2022-03-15] MEDS: MULTIVITAMIN TAB PO SCH (08:05)
[2022-03-15] MEDS: ENSURE HIGH PROTEIN 237 ML CAN PO SCH ×2 (08:06→20:08)
[2022-03-15] MEDS ORDERED: MAGNESIUM SULFATE 1 gm IVPB 1 GM/100 ML BAG IV ONE (09:48)
[2022-03-16] MEDS ORDERED: MAGNESIUM SULFATE 1 gm IVPB 1 GM/100 ML BAG IV ONE ×2 (05:28→06:30)
[2022-03-16] MEDS: APIXABAN 5 MG TABLET PO SCH ×2 (07:33→20:08)
[2022-03-16] MEDS: guaiFENesin 100 MG/5 ML UCUP PO SCH ×4 (07:49→20:08)
[2022-03-16] MEDS: FOLIC ACID 1 MG TABLET PO SCH (07:49)
[2022-03-16] MEDS: FORMULATION-R RECTAL 57GM PR PRN (07:49)
[2022-03-16] MEDS: dexAMETHasone 4 MG TAB PO SCH ×2 (07:49→20:08)
[2022-03-16] MEDS: NYSTATIN PWDR 100000 UNIT/GM TOP SCH ×2 (07:49→20:08)
[2022-03-16] MEDS: MULTIVITAMIN TAB PO SCH (07:51)
[2022-03-16] MEDS: CRANBERRY FRUIT EXTRACT 400 MG CAP PO SCH ×2 (07:51→20:08)
[2022-03-16] MEDS: TAMSULOSIN 0.4 MG SR CAP PO SCH (07:51)
[2022-03-16] MEDS: lisinopriL 5 MG TAB PO SCH (07:52)
[2022-03-16] MEDS: THIAMINE HCL 100 MG TABLET PO SCH (07:52)
[2022-03-16] MEDS: SODIUM CHLORIDE 1 GM TAB PO SCH (07:52)
[2022-03-16] MEDS: ENSURE HIGH PROTEIN 237 ML CAN PO SCH ×2 (08:16→20:00)
[2022-03-16] MEDS: JUVEN PACKET PO SCH ×2 (08:17→20:00)
--- NOTE | 2022-03-16 18:15 | R.PN ---
PROGRESS NOTES ENCOUNTER DATE AND TIME: 03/16/2022 18:11 (CDT) NAME RUTHANN LUNDBERG DATE OF : 1940 DATE OF ADMISSION: 03/11/2022 17:46 (CDT) C79.31 Metastasis to brain of unknown originCHIEF COMPLAINT: Metastatic brain tumor SUBJECTIVE: Pt denied any Shortness of Breath. Pt denied any depression. WBC 8.3, Hgb 13.1, Plt 95, prealbumin 15.5, Na 135, BUN 39. UA: loaded with bacteria, WBC 10-20, teresita rase 2+. COVID-19 is negative. Self-propelled wheelchair 250' with standby assistance. Mg 1.3. Will give 2 grams of IV magnesium. 9 VITAL SIGNS Temperature: 97.2F SBP/DBP: 133/78 Pulse: 90 Resp: 15 MEDICATION ALLERGIES: No Known Drug Allergies (NKDA) ENVIRONMENTAL ALLERGIES: - Substance Allergies None Known - Other Allergies None Known NURSING: - Shower allowing shower PRECAUTIONS: - Fall Precaution Bed alarm TABS alarm Wheel chair alarm - Bleeding Risk Lovenox - DVT Risk due to restricted mobility and age - Skin Breakdown Risk due to restricted mobility and age - Cardiac Precaution Monitor blood pressure, heart rate, lower extremity edema, notify MD for shortness of breath or chest pain Monitor patient for excessive elevation of heart rate and blood pressure during therapy ACTIVITIES OOB only with supervision THERAPIES: - Dietary and Nutrition Adequate Nutrition. Nutritional Education. Nutritional Supplements. Evaluate and Treat. - Occupational Therapy Cognitive Retraining. Patient needs Occupational Therapy for a daily minimum of 1.5 hours at least 5 out of 7 days, to improve Activities of Daily Living, including: Eating, Grooming, Bathing, Dressing, Toileting, Toilet Transfers, Community Reintegration, Higher functional activities, Adaptive Equipme nt, Splinting, Household Tasks, and Other activities as determined. Visual Perceptual Training. Evalu ate and Treat. ADL Training. Household Tasks. Patient/Family Education. Safety Awareness. Transfer Tr robin. - Speech Therapy Cognitive Training. Expressive Language Skills. Memory Strategies. Patient needs Speech Therapy for a daily minimum of 1.5 hours at least 5 out of 7 days, to improve: Swallowing, Cognition, Language Ski lls, and Compensatory Strategies. Receptive Language Skills. Speech Intelligibility Training. Evaluat e and Treat. - Physical Therapy Patient needs Physical Therapy for a daily minimum of 1.5 hours at least 5 out of 7 days, to improve: Mobility, Strengthening, Transfers, Stretching, ROM, Endurance, Ability to manage stairs, Gait, and Balance. Balance Training. Evaluate and Treat. Gait Training. Safety Awareness. LE Strengthening. Mob ility Training. Transfer Training. PHYSICAL EXAM - Gen Alert and awake Lying in bed No apparent distress Oriented to: person, time, and place - Skin No skin breakdown. Normacephalicand disheveled with long stephens - Eyes No abnormalities - ENMT No abnormalities - Neck No abnormalities - CVS RRR - Chest Mildly decreased breath sounds bilaterally. - Resp No wheezing - Abd Soft - GI + bowel sounds Deferred - No abnormalities - Ext Mild bilateral lower extremity edema. - MSK 4/5 weakness in both lower extremities. - Neuro No focal deficits - Psych No abnormalities ASSESSMENT: Pt. 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 was independent/mod-I in Locomotion, Social Cognition, Balance, and Safety Awareness; and he had good Transfers Control, Sphincter Control, Self-Care, Communication , and Endurance.Currently, he has deficits of Locomotion, Social Cognition, Safety Awareness, Balance , Transfers Control, Sphincter Control, Communication, Self-Care, and Endurance.Pt. is now referred t [facility] for acute in-patient rehabilitation in order to maximize patient' s functional independence in activities of daily living, strength, ROM, and mobility.- Rehab Goal Patient has realistic goal of being discharged at assistance level 7-Ind to reside at Home with Pt s elf. MDM/PLAN: - Physical Therapy Gait dysfunction - to improve, our physical therapists will perform initial evaluation of pt's statu s upon admission and devise an individualized program for Gait Training, and Wheel Chair mobility Inability to transfer - to improve, our physical therapists will perform initial evaluation of pt's status upon admission and devise an individualized program for Bed mobility Need for home safety evaluation - to improve, our physical therapists will perform initial evaluatio n of pt's status upon admission and devise an individualized program for Home Evaluation Need in caregiver upon discharge - to improve, our physical therapists will perform initial evaluati on of pt's status upon admission and devise an individualized program for Caregiver Training New precaution - to improve, our physical therapists will perform initial evaluation of pt's status upon admission and devise an individualized program for Patient precaution education Edema - to improve, our physical therapists will perform initial evaluation of pt's status upon admi ssion and devise an individualized program for Elevation Training, and Lymphedema Therapy Poor balance - to improve, our physical therapists will perform initial evaluation of pt's status up on admission and devise an individualized program for Balance Training Poor endurance - to improve, our physical therapists will perform initial evaluation of pt's status upon admission and devise an individualized program for Endurance Training Weakness - to improve, our physical therapists will perform initial evaluation of pt's status upon a dmission and devise an individualized program for Aquatic Therapy, Neuromuscular Reeducation, and Str engthening Achieving independence - to improve, our physical therapists will perform initial evaluation of pt's status upon admission and devise an individualized program for Community Reintegration Activities - Occupational Therapy ADL deficits - to improve, our occupation therapists will perform initial evaluation of pt's status upon admission and devise an individualized program for Bathing, Bed mobility, Community Reintegratio n, Cooking, Dressing, Eating, Fine Motor Skills, Grooming, Homemaking, Kitchen Mobility, Laundry, Pat ient Education, Safety Awareness, Splinting - Positioning, Transfers(Toilet, Tub, Shower), and Wheel Chair Management Cognitive deficits - to improve, our occupation therapists will perform initial evaluation of pt's s tatus upon admission and devise an individualized program for Cognition - orientation Need for medicare insurance specialist - to improve, our occupation therapists will perform initial evaluation of pt's status upon admission and devise an individualized program for Caregiver Training Weakness - to improve, our occupation therapists will perform initial evaluation of pt's status upon admission and devise an individualized program for Aquatic Therapy, Balance, Endurance, UE ROM, and UE strengthening - Other See attached MAR (Medication Administration Record) - Diet Type Continue Regular - Diet - Liquid Texture Continue Regular - Tube Feed Continue N/A - Bleeding Risk Lovenox - DVT Risk due to restricted mobility and age - Skin Breakdown Risk due to restricted mobility and age - Cardiac Precaution Monitor blood pressure, heart rate, lower extremity edema, notify MD for shortness of breath or ches t pain Monitor patient for excessive elevation of heart rate and blood pressure during therapy - Fall Precaution Bed alarm TABS alarm Wheel chair alarm - Diet - Solid Texture Continue Regular - Shower allowing shower FUNCTIONAL STATUS: UPDATED AT WEEKLY TEAM CONFERENCE - Bladder Same accident frequency: 7-Ind - No accidents in the past 7 days - Bowel Same accident frequency: 7-Ind - No accidents in the past 7 days - Walking Same score based on distance walked: 0(N/A) - Wheelchair Same score based on distance traveled: 0(N/A) FUNCTIONAL STATUS: - Self-Care A. Eating Ind B. Grooming sup C. Bathing maxA D. Dressing - Upper Jorge E. Dressing - Lower maxA F. Toileting Jorge - Sphincter Control G. Bladder control Justin H. Bowel control Justin - Transfers Control I. Bed/Chair/Wheelchair modA J. Toilet modA K. Tub/Shower modA - Locomotion L. Walk/Wheelchair (B) modA M. Stairs ADNO - Communication N. Comprehension (B) Justin O. Expression (B) Justin - Social Cognition P. Social Interaction Ind Q. Problem Solving Jorge R. Memory Justin - Endurance Poor - Balance Poor - Safety Awareness Fair QI SCORES: - Self-Care A. Eating 04-Supervision or touching assistance B. Oral hygiene 04-Supervision or touching assistance C. Toileting hygiene 03-Partial/moderate assistance E. Shower/bathe self 03-Partial/moderate assistance F. Upper body dressing 04-Supervision or touching assistance G. Lower body dressing 03-Partial/moderate assistance H. Putting on/taking off footwear 03-Partial/moderate assistance - Mobility A. Roll left and right 04-Supervision or touching assistance B. Sit to lying 04-Supervision or touching assistance C. Lying to sitting on side of bed 04-Supervision or touching assistance D. Sit to stand 03-Partial/moderate assistance E. Chair/[id number] transfer 02-Substantial/maximal assistance F. Toilet transfer 02-Substantial/maximal assistance G. Car transfer 88-Not attempted due to medical condition or safety concerns I. Walk 10 feet 88-Not attempted due to medical condition or safety concerns J. Walk 50 feet with two turns 88-Not attempted due to medical condition or safety concerns K. Walk 150 feet 88-Not attempted due to medical condition or safety concerns L. Walking 10 feet on uneven surfaces 88-Not attempted due to medical condition or safety concerns M. 1 step (curb) 88-Not attempted due to medical condition or safety concerns N. 4 steps 88-Not attempted due to medical condition or safety concerns O. 12 steps 88-Not attempted due to medical condition or safety concerns P. Picking up object 88-Not attempted due to medical condition or safety concerns R. Wheel 50 feet with two turns 88-Not attempted due to medical condition or safety concerns S. Wheel 150 feet 88-Not attempted due to medical condition or safety concerns - Bladder and Bowel Bladder continence Bowel continence - Endurance Fair - Balance Fair - Safety Awareness Fair CURRENT [facility]. DEFICITS: Self-Care, Mobility, Endurance, Balance, and Safety Awareness SIGNATURE PANEL: (CDT)
[2022-03-17 05:25] LABS: Magnesium 1.6 mg/dL (1.8-2.4)
[2022-03-17] MEDS: APIXABAN 5 MG TABLET PO SCH ×2 (07:28→20:33)
[2022-03-17] MEDS: lisinopriL 5 MG TAB PO SCH (07:34)
[2022-03-17] MEDS: dexAMETHasone 4 MG TAB PO SCH ×2 (07:34→20:34)
[2022-03-17] MEDS: TAMSULOSIN 0.4 MG SR CAP PO SCH (07:35)
[2022-03-17] MEDS: FOLIC ACID 1 MG TABLET PO SCH (07:35)
[2022-03-17] MEDS: SODIUM CHLORIDE 1 GM TAB PO SCH (09:12)
[2022-03-17] MEDS: CRANBERRY FRUIT EXTRACT 400 MG CAP PO SCH ×2 (09:12→20:33)
[2022-03-17] MEDS: ENSURE HIGH PROTEIN 237 ML CAN PO SCH ×2 (09:12→20:37)
[2022-03-17] MEDS: THIAMINE HCL 100 MG TABLET PO SCH (09:12)
[2022-03-17] MEDS: MULTIVITAMIN TAB PO SCH (09:12)
[2022-03-17] MEDS: guaiFENesin 100 MG/5 ML UCUP PO SCH ×4 (09:12→20:33)
[2022-03-17] MEDS: JUVEN PACKET PO SCH ×2 (09:13→20:37)
[2022-03-17] MEDS: NYSTATIN PWDR 100000 UNIT/GM TOP SCH ×2 (10:32→20:34)
[2022-03-17] MEDS ORDERED: MAGNESIUM SULFATE 1 gm IVPB 1 GM/100 ML BAG IV ONE (11:22)
[2022-03-17] MEDS: MAGNESIUM SULFATE 1 gm IVPB 1 GM/100 ML BAG IV SCH (14:49)
--- NOTE | 2022-03-17 17:18 | R.PN ---
PROGRESS NOTES ENCOUNTER DATE AND TIME: 03/17/2022 10:56 (CDT) NAME RUTHANN LUNDBERG DATE OF : 1940 DATE OF ADMISSION: 03/11/2022 17:46 (CDT) C79.31 Metastasis to brain of unknown originCHIEF COMPLAINT: Metastatic brain tumor SUBJECTIVE: Pt denied any Shortness of Breath. Pt denied any depression. WBC 8.3, Hgb 13.1, Plt 95, prealbumin 15.5, Na 135, BUN 39. UA: loaded with bacteria, WBC 10-20, teresita rase 2+. COVID-19 is negative. Self-propelled wheelchair 250' with standby assistance. Mg 1.6. Will give 2 grams of IV magnesium. Chest x-ray 03-14-22 showed small right-sided pleural fluid collection. VITAL SIGNS Temperature: 97.8 F SBP/DBP: 143/76 Pulse: 88 Resp: 16 MEDICATION ALLERGIES: No Known Drug Allergies (NKDA) ENVIRONMENTAL ALLERGIES: - Substance Allergies None Known - Other Allergies None Known NURSING: - Shower allowing shower PRECAUTIONS: - Fall Precaution Bed alarm TABS alarm Wheel chair alarm - Bleeding Risk Lovenox - DVT Risk due to restricted mobility and age - Skin Breakdown Risk due to restricted mobility and age - Cardiac Precaution Monitor blood pressure, heart rate, lower extremity edema, notify MD for shortness of breath or chest pain Monitor patient for excessive elevation of heart rate and blood pressure during therapy ACTIVITIES OOB only with supervision THERAPIES: - Dietary and Nutrition Adequate Nutrition. Nutritional Education. Nutritional Supplements. Evaluate and Treat. - Occupational Therapy Cognitive Retraining. Patient needs Occupational Therapy for a daily minimum of 1.5 hours at least 5 out of 7 days, to improve Activities of Daily Living, including: Eating, Grooming, Bathing, Dressing, Toileting, Toilet Transfers, Community Reintegration, Higher functional activities, Adaptive Equipme nt, Splinting, Household Tasks, and Other activities as determined. Visual Perceptual Training. Evalu ate and Treat. ADL Training. Household Tasks. Patient/Family Education. Safety Awareness. Transfer Tr aining. - Speech Therapy Cognitive Training. Expressive Language Skills. Memory Strategies. Patient needs Speech Therapy for a daily minimum of 1.5 hours at least 5 out of 7 days, to improve: Swallowing, Cognition, Language Ski lls, and Compensatory Strategies. Receptive Language Skills. Speech Intelligibility Training. Evaluat e and Treat. - Physical Therapy Patient needs Physical Therapy for a daily minimum of 1.5 hours at least 5 out of 7 days, to improve: Mobility, Strengthening, Transfers, Stretching, ROM, Endurance, Ability to manage stairs, Gait, and Balance. Balance Training. Evaluate and Treat. Gait Training. Safety Awareness. LE Strengthening. Mob ility Training. Transfer Training. PHYSICAL EXAM - Gen Alert and awake Lying in bed No apparent distress Oriented to: person, time, and place - Skin No skin breakdown. Normacephalicand disheveled with long stephens - Eyes No abnormalities - ENMT No abnormalities - Neck No abnormalities - CVS RRR - Chest Mildly decreased breath sounds bilaterally. - Resp No wheezing - Abd Soft - GI + bowel sounds Deferred - No abnormalities - Ext Mild bilateral lower extremity edema. - MSK 4/5 weakness in both lower extremities. - Neuro No focal deficits - Psych No abnormalities ASSESSMENT: Pt. 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 was independent/mod-I in Locomotion, Social Cognition, Balance, and Safety Awareness; and he had good Transfers Control, Sphincter Control, Self-Care, Communication , and Endurance.Currently, he has deficits of Locomotion, Social Cognition, Safety Awareness, Balance , Transfers Control, Sphincter Control, Communication, Self-Care, and Endurance.Pt. is now referred t [facility] for acute in-patient rehabilitation in order to maximize patient' s functional independence in activities of daily living, strength, ROM, and mobility.- Rehab Goal Patient has realistic goal of being discharged at assistance level 7-Ind to reside at Home with Pt s elf. MDM/PLAN: - Physical Therapy Gait dysfunction - to improve, our physical therapists will perform initial evaluation of pt's statu s upon admission and devise an individualized program for Gait Training, and Wheel Chair mobility Inability to transfer - to improve, our physical therapists will perform initial evaluation of pt's status upon admission and devise an individualized program for Bed mobility Need for home safety evaluation - to improve, our physical therapists will perform initial evaluatio n of pt's status upon admission and devise an individualized program for Home Evaluation Need in caregiver upon discharge - to improve, our physical therapists will perform initial evaluati on of pt's status upon admission and devise an individualized program for Caregiver Training New precaution - to improve, our physical therapists will perform initial evaluation of pt's status upon admission and devise an individualized program for Patient precaution education Edema - to improve, our physical therapists will perform initial evaluation of pt's status upon admi ssion and devise an individualized program for Elevation Training, and Lymphedema Therapy Poor balance - to improve, our physical therapists will perform initial evaluation of pt's status up on admission and devise an individualized program for Balance Training Poor endurance - to improve, our physical therapists will perform initial evaluation of pt's status upon admission and devise an individualized program for Endurance Training Weakness - to improve, our physical therapists will perform initial evaluation of pt's status upon a dmission and devise an individualized program for Aquatic Therapy, Neuromuscular Reeducation, and Str engthening Achieving independence - to improve, our physical therapists will perform initial evaluation of pt's status upon admission and devise an individualized program for Community Reintegration Activities - Occupational Therapy ADL deficits - to improve, our occupation therapists will perform initial evaluation of pt's status upon admission and devise an individualized program for Bathing, Bed mobility, Community Reintegratio n, Cooking, Dressing, Eating, Fine Motor Skills, Grooming, Homemaking, Kitchen Mobility, Laundry, Pat ient Education, Safety Awareness, Splinting - Positioning, Transfers(Toilet, Tub, Shower), and Wheel Chair Management Cognitive deficits - to improve, our occupation therapists will perform initial evaluation of pt's s tatus upon admission and devise an individualized program for Cognition - orientation Need for career technical education teacher - to improve, our occupation therapists will perform initial evaluation of pt's status upon admission and devise an individualized program for Caregiver Training Weakness - to improve, our occupation therapists will perform initial evaluation of pt's status upon admission and devise an individualized program for Aquatic Therapy, Balance, Endurance, UE ROM, and UE strengthening - Other See attached MAR (Medication Administration Record) - Diet Type Continue Regular - Diet - Liquid Texture Continue Regular - Tube Feed Continue N/A - Bleeding Risk Lovenox - DVT Risk due to restricted mobility and age - Skin Breakdown Risk due to restricted mobility and age - Cardiac Precaution Monitor blood pressure, heart rate, lower extremity edema, notify MD for shortness of breath or ches t pain Monitor patient for excessive elevation of heart rate and blood pressure during therapy - Fall Precaution Bed alarm TABS alarm Wheel chair alarm - Diet - Solid Texture Continue Regular - Shower allowing shower FUNCTIONAL STATUS: UPDATED AT WEEKLY TEAM CONFERENCE - Bladder Same accident frequency: 7-Ind - No accidents in the past 7 days - Bowel Same accident frequency: 7-Ind - No accidents in the past 7 days - Walking Same score based on distance walked: 0(N/A) - Wheelchair Same score based on distance traveled: 0(N/A) FUNCTIONAL STATUS: - Self-Care A. Eating Ind B. Grooming sup C. Bathing maxA D. Dressing - Upper Jorge E. Dressing - Lower maxA F. Toileting Jorge - Sphincter Control G. Bladder control Justin H. Bowel control Justin - Transfers Control I. Bed/Chair/Wheelchair modA J. Toilet modA K. Tub/Shower modA - Locomotion L. Walk/Wheelchair (B) modA M. Stairs ADNO - Communication N. Comprehension (B) Justin O. Expression (B) Justin - Social Cognition P. Social Interaction Ind Q. Problem Solving Jorge R. Memory Justin - Endurance Poor - Balance Poor - Safety Awareness Fair QI SCORES: - Self-Care A. Eating 04-Supervision or touching assistance B. Oral hygiene 04-Supervision or touching assistance C. Toileting hygiene 03-Partial/moderate assistance E. Shower/bathe self 03-Partial/moderate assistance F. Upper body dressing 04-Supervision or touching assistance G. Lower body dressing 03-Partial/moderate assistance H. Putting on/taking off footwear 03-Partial/moderate assistance - Mobility A. Roll left and right 04-Supervision or touching assistance B. Sit to lying 04-Supervision or touching assistance C. Lying to sitting on side of bed 04-Supervision or touching assistance D. Sit to stand 03-Partial/moderate assistance E. Chair/[id number] transfer 02-Substantial/maximal assistance F. Toilet transfer 02-Substantial/maximal assistance G. Car transfer 88-Not attempted due to medical condition or safety concerns I. Walk 10 feet 88-Not attempted due to medical condition or safety concerns J. Walk 50 feet with two turns 88-Not attempted due to medical condition or safety concerns K. Walk 150 feet 88-Not attempted due to medical condition or safety concerns L. Walking 10 feet on uneven surfaces 88-Not attempted due to medical condition or safety concerns M. 1 step (curb) 88-Not attempted due to medical condition or safety concerns N. 4 steps 88-Not attempted due to medical condition or safety concerns O. 12 steps 88-Not attempted due to medical condition or safety concerns P. Picking up object 88-Not attempted due to medical condition or safety concerns R. Wheel 50 feet with two turns 88-Not attempted due to medical condition or safety concerns S. Wheel 150 feet 88-Not attempted due to medical condition or safety concerns - Bladder and Bowel Bladder continence Bowel continence - Endurance Fair - Balance Fair - Safety Awareness Fair [facility] DEFICITS: Self-Care, Mobility, Endurance, Balance, and Safety Awareness SIGNATURE PANEL: (CDT)
[2022-03-18 04:34] LABS: Absolute Lymphocytes (CBC) 0.3 K/uL (0.7-4.9); Hematocrit 34.6 % (39.6-49.0); Lymphocytes % 4.2 % (15.3-44.8); MCV 92.7 fL (80-100); MPV 9.1 fL (7.6-11.3); RBC Red Blood Cell Count 3.73 M/uL (4.33-5.43)
[2022-03-18 05:03] LABS: Albumin 2.4 g/dL (3.4-5.0); Magnesium 1.7 mg/dL (1.8-2.4); Potassium 3.8 mmol/L (3.5-5.1); Prealbumin 18.7 mg/dL (20-40)
[2022-03-18] MEDS: NYSTATIN PWDR 100000 UNIT/GM TOP SCH ×2 (08:09→20:07)
[2022-03-18] MEDS: FORMULATION-R RECTAL 57GM PR PRN ×2 (08:09→20:07)
[2022-03-18] MEDS: guaiFENesin 100 MG/5 ML UCUP PO SCH ×4 (08:09→20:08)
[2022-03-18] MEDS: lisinopriL 5 MG TAB PO SCH (08:10)
[2022-03-18] MEDS: MULTIVITAMIN TAB PO SCH (08:10)
[2022-03-18] MEDS: CRANBERRY FRUIT EXTRACT 400 MG CAP PO SCH ×2 (08:10→20:08)
[2022-03-18] MEDS: THIAMINE HCL 100 MG TABLET PO SCH (08:10)
[2022-03-18] MEDS: SODIUM CHLORIDE 1 GM TAB PO SCH (08:10)
[2022-03-18] MEDS: FOLIC ACID 1 MG TABLET PO SCH (08:11)
[2022-03-18] MEDS: dexAMETHasone 4 MG TAB PO SCH ×2 (08:11→20:08)
[2022-03-18] MEDS: APIXABAN 5 MG TABLET PO SCH ×2 (08:11→20:08)
[2022-03-18] MEDS: ENSURE HIGH PROTEIN 237 ML CAN PO SCH ×2 (08:11→20:08)
[2022-03-18] MEDS: TAMSULOSIN 0.4 MG SR CAP PO SCH (08:11)
[2022-03-18] MEDS: JUVEN PACKET PO SCH ×2 (08:12→20:08)
--- NOTE | 2022-03-18 09:52 | P.RH.PN ---
Estimated Length of Stay: 15 Expected Discharge Date: 03/26/22 Discharge Disposition Plan: Home Family Support: Yes Care Home Goal: Mobility, Transfers, Self Care Vital Signs: Last Vital Signs Temp 96.8 F 03/18/22 08:26 Pulse 91 H 03/18/22 08:26 Resp 18 03/18/22 08:26 BP 125/68 03/18/22 08:26 Pulse Ox 97 03/18/22 08:26 Laboratory: Laboratory Last Values WBC 6.0 K/uL (4.3-10.9) D 03/18/22 04:06 RBC 3.73 M/uL (4.33-5.43) L 03/18/22 04:06 Hgb 11.8 g/dL (13.6-17.9) L 03/18/22 04:06 Hct 34.6 % (39.6-49.0) L 03/18/22 04:06 MCV 92.7 fL (80-100) 03/18/22 04:06 MCH 31.6 pg (27.0-35.0) 03/18/22 04:06 MCHC 34.0 g/dL (32.0-36.0) 03/18/22 04:06 RDW 14.7 % (12.1-15.2) 03/18/22 04:06 Plt Count 59 K/uL (152-406) L D 03/18/22 04:06 MPV 9.1 fL (7.6-11.3) 03/18/22 04:06 Neutrophils % 89.4 % (41.7-73.7) H 03/18/22 04:06 Lymphocytes % 4.2 % (15.3-44.8) L 03/18/22 04:06 Monocytes % 6.0 % (3.3-12.3) 03/18/22 04:06 Eosinophils % 0.1 % (0-4.4) 03/18/22 04:06 Basophils % 0.3 % (0-1.3) 03/18/22 04:06 Absolute Neutrophils 5.4 K/uL (1.8-8.0) 03/18/22 04:06 Absolute Lymphocytes 0.3 K/uL (0.7-4.9) L 03/18/22 04:06 Absolute Monocytes 0.4 K/uL (0.1-1.3) 03/18/22 04:06 Absolute Eosinophils 0.0 K/uL (0-0.5) 03/18/22 04:06 Absolute Basophils 0.0 K/uL (0-0.5) 03/18/22 04:06 Platelet Estimate Decr 03/12/22 05:50 Morphology Comment Not seen (NOT SEEN) 03/12/22 05:50 Sodium 138 mmol/L (136-145) 03/18/22 04:06 Potassium 3.8 mmol/L (3.5-5.1) 03/18/22 04:06 Chloride 105 mmol/L (98-107) 03/18/22 04:06 Carbon Dioxide 28 mmol/L (21-32) 03/18/22 04:06 Anion Gap 8.8 mEq/L (5.0-15.0) 03/18/22 04:06 BUN 43 mg/dL (7-18) H 03/18/22 04:06 Creatinine 0.64 mg/dL (0.55-1.3) 03/18/22 04:06 Est GFR (CKD-EPI) 94 ml/min (=/>90) 03/18/22 04:06 Glucose 157 mg/dL (74-106) H 03/18/22 04:06 Calcium 8.7 mg/dL (8.5-10.1) 03/18/22 04:06 Magnesium 1.7 mg/dL (1.8-2.4) L 03/18/22 04:06 NT-Pro-B Natriuret Pep 801 pg/mL (<450) H 03/17/22 04:11 Albumin 2.4 g/dL (3.4-5.0) L 03/18/22 04:06 Prealbumin 18.7 mg/dL (20-40) L 03/18/22 04:06 Urine Color Dk yellow (Yellow) 03/11/22 22:20 Urine Appearance Clear (Clear) 03/11/22 22:20 Urine pH 7.0 (5.0-7.0) 03/11/22 22:20 Ur Specific [place] 1.020 (1.005-1.030) 03/11/22 22:20 Glucose (UA)(Auto) Negative (Negative) 03/11/22 22:20 Urine Ketones Negative (Negative) 03/11/22 22:20 Urine Blood Negative (Negative) 03/11/22 22:20 Urine Nitrite Negative (Negative) 03/11/22 22:20 Urine Bilirubin Positive (Negative) H 03/11/22 22:20 Urine Urobilinogen 1.0 mg/dL (0.2-1.0) 03/11/22 22:20 Ur Leukocyte Esterase 2+ (Negative) H 03/11/22 22:20 Urine RBC <5 /HPF (NONE SEEN) 03/11/22 22:20 Urine WBC 10-20 /HPF (<5) H 03/11/22 22:20 Ur Squamous Epith Cells 5-10 /HPF (NONE SEEN) H 03/11/22 22:20 Ur Urothelial Cells Cancelled 03/11/22 18:50 Ur Urothelial Cells Cancelled 03/11/22 18:50 Calcium Oxalate Crystal Cancelled 03/11/22 18:50 Calcium Oxalate Crystal Cancelled 03/11/22 18:50 Uric Acid Crystals Cancelled 03/11/22 18:50 Uric Acid Crystals Cancelled 03/11/22 18:50 Triple Phos Crystals Cancelled 03/11/22 18:50 Triple Phos Crystals Cancelled 03/11/22 18:50 Other Crystals Cancelled 03/11/22 18:50 Other Crystals Cancelled 03/11/22 18:50 Amorphous Sediment 2+ /HPF (NONE SEEN) H 03/11/22 22:20 Glitter Cells Cancelled 03/11/22 18:50 Glitter Cells Cancelled 03/11/22 18:50 Urine Bacteria Loaded /HPF (NONE SEEN) H 03/11/22 22:20 Hyaline Casts Cancelled 03/11/22 18:50 Hyaline Casts Cancelled 03/11/22 18:50 Fine Granular Casts Cancelled 03/11/22 18:50 Fine Granular Casts Cancelled 03/11/22 18:50 Coarse Granular Casts Cancelled 03/11/22 18:50 Coarse Granular Casts Cancelled 03/11/22 18:50 Waxy Casts Cancelled 03/11/22 18:50 Waxy Casts Cancelled 03/11/22 18:50 RBC Casts Cancelled 03/11/22 18:50 RBC Casts Cancelled 03/11/22 18:50 WBC Casts Cancelled 03/11/22 18:50 WBC Casts Cancelled 03/11/22 18:50 Urine Mucus 2+ /HPF (NONE SEEN) 03/11/22 22:20 Urine Other Cancelled 03/11/22 18:50 Urine Other Cancelled 03/11/22 18:50 Urine Trichomonas Cancelled 03/11/22 18:50 Urine Trichomonas Cancelled 03/11/22 18:50 Urine Yeast Cancelled 03/11/22 18:50 Urine Yeast Cancelled 03/11/22 18:50 Ur Yeast w Hyphae Cancelled 03/11/22 18:50 Ur Yeast w Hyphae Cancelled 03/11/22 18:50 Urine Yeast (Budding) Cancelled 03/11/22 18:50 Urine Yeast (Budding) Cancelled 03/11/22 18:50 Urine Sperm Cancelled 03/11/22 18:50 Urine Sperm Cancelled 03/11/22 18:50 Urine Culture Reflexed Not needed 03/11/22 22:20 Urine Total Volume Cancelled 03/11/22 18:50 Urine Total Volume Cancelled 03/11/22 18:50 Urine Total Protein 1+ (Negative) H 03/11/22 22:20 SARS-CoV-2 Rap RNA(RT-PCR) Negative (NEGATIVE) 03/11/22 19:17 Smear Scan Ok (OK) 03/12/22 05:50 Weight: 215 lb Wound Present: No Physician Update: Labs reviewed and are stable. Max le to bathing, toilet and shower transfers, mod le for upper body dressing, dependent for foot wear and lower body dressing. Not walking. Wheelchair standby at 300'. Summary: Patient's care plan and adjunct faculty for medical terminology goals have been reviewed and revised as necessary. Please see the Rehabilitation Signature page for all necessary signatures.
[2022-03-18] MEDS: MAGNESIUM SULFATE 1 gm IVPB 1 GM/100 ML BAG IV SCH (13:23)
--- NOTE | 2022-03-18 17:20 | P.CNS ---
Date of Consult: 03/18/22 Reason for Consult: Painful toenails Allergies No Known Allergies Allergy (Verified 03/11/22 18:33) Home Medications: Sodium Chloride Tab [Sodium Chloride*] 1 gm PO DAILY 03/11/22 Tamsulosin [Flomax*] 0.4 mg PO DAILY 03/11/22 dexAMETHasone [Decadron*] 4 mg PO BID 03/11/22 guaiFENesin [Guaifenesin] 100 mg PO QID 03/11/22 lisinopriL [Lisinopril] 5 mg PO DAILY 03/11/22 - Past Medical/Surgical History Diabetic: No -: Hypertension -: Suspected COPD history of tobacco abuse -: Alcohol abuse; DT 2008 -: chf exac -: uti -: cellulitis -: BPH -: left ankle 2x Psychosocial/ Personal History: Patient is retired, lives alone - Family History Mother Medical History: Other (see notes) Notes: parkinsons - Social History Smoking Status: Unknown if ever smoked Alcohol use: Yes CD- Drugs: No Caffeine use: Yes Place of Residence: Home Review of Systems 10-point ROS is otherwise unremarkable Physical Examination Temp Pulse Resp BP Pulse Ox 96.8 F 91 H 18 125/68 97 03/18/22 08:26 03/18/22 08:26 03/18/22 08:26 03/18/22 08:26 03/18/22 08:26 General: Alert, In no apparent distress, Oriented x3 Cardiovascular: Edema (+1 pitting edema bilateral lower extremity), Abnormal pulses (nonpalpable pedal pulses bilateral feet) Capillary refill: >2 Seconds Musculoskeletal: No clubbing, No swelling, No contractures, No erythema, No tenderness, No warmth Integumentary: Other (Thickened hypertrophic bilateral hallux nails. Elongated, discolored nails 2-5 bilateral. Skin is cool to touch with absent hair growth) Neurological: Sensation intact Laboratory Data (last 24 hrs) 03/18/22 04:06: Sodium 138, Potassium 3.8, BUN 43 H, Creatinine 0.64, Glucose 157 H, Magnesium 1.7 L 03/18/22 04:06: WBC 6.0 D, Hgb 11.8 L, Hct 34.6 L, Plt Count 59 L D - Problems (1) Generalized atherosclerosis Current Visit: No Status: Acute (2) Onychogryphosis Current Visit: No Status: Acute (3) Tinea unguium Current Visit: No Status: Acute Conclusions/Impression: Debridement of nails at bedside
[2022-03-19] MEDS: NYSTATIN PWDR 100000 UNIT/GM TOP SCH ×2 (07:39→19:55)
[2022-03-19] MEDS: FORMULATION-R RECTAL 57GM PR PRN ×2 (07:39→19:55)
[2022-03-19] MEDS: CRANBERRY FRUIT EXTRACT 400 MG CAP PO SCH ×2 (07:40→19:54)
[2022-03-19] MEDS: FOLIC ACID 1 MG TABLET PO SCH (07:40)
[2022-03-19] MEDS: SODIUM CHLORIDE 1 GM TAB PO SCH (07:40)
[2022-03-19] MEDS: dexAMETHasone 4 MG TAB PO SCH ×2 (07:40→19:54)
[2022-03-19] MEDS: guaiFENesin 100 MG/5 ML UCUP PO SCH ×4 (07:40→19:54)
[2022-03-19] MEDS: lisinopriL 5 MG TAB PO SCH (07:40)
[2022-03-19] MEDS: TAMSULOSIN 0.4 MG SR CAP PO SCH (07:40)
[2022-03-19] MEDS: APIXABAN 5 MG TABLET PO SCH ×2 (07:40→19:54)
[2022-03-19] MEDS: MULTIVITAMIN TAB PO SCH (07:40)
[2022-03-19] MEDS: THIAMINE HCL 100 MG TABLET PO SCH (07:40)
[2022-03-19] MEDS: JUVEN PACKET PO SCH ×2 (07:41→19:55)
[2022-03-19] MEDS: ENSURE HIGH PROTEIN 237 ML CAN PO SCH ×2 (07:41→19:55)
[2022-03-19] MEDS: MAGNESIUM SULFATE 1 gm IVPB 1 GM/100 ML BAG IV SCH (11:49)
[2022-03-20] MEDS: CRANBERRY FRUIT EXTRACT 400 MG CAP PO SCH ×2 (10:09→20:27)
[2022-03-20] MEDS: FOLIC ACID 1 MG TABLET PO SCH (10:09)
[2022-03-20] MEDS: guaiFENesin 100 MG/5 ML UCUP PO SCH ×4 (10:09→20:30)
[2022-03-20] MEDS: lisinopriL 5 MG TAB PO SCH (10:11)
[2022-03-20] MEDS: ENSURE HIGH PROTEIN 237 ML CAN PO SCH ×3 (10:12→20:27)
[2022-03-20] MEDS: MULTIVITAMIN TAB PO SCH (10:12)
[2022-03-20] MEDS: JUVEN PACKET PO SCH ×3 (10:12→20:27)
[2022-03-20] MEDS: NYSTATIN PWDR 100000 UNIT/GM TOP SCH ×2 (10:12→20:29)
[2022-03-20] MEDS: THIAMINE HCL 100 MG TABLET PO SCH (10:12)
[2022-03-20] MEDS: APIXABAN 5 MG TABLET PO SCH ×2 (10:12→20:27)
[2022-03-20] MEDS: SODIUM CHLORIDE 1 GM TAB PO SCH (10:13)
[2022-03-20] MEDS: MAGNESIUM SULFATE 1 gm IVPB 1 GM/100 ML BAG IV SCH (13:00)
[2022-03-20] MEDS: MAGNESIUM OXIDE 400 MG TAB PO SCH ×2 (17:00→17:15)
[2022-03-20] MEDS ORDERED: MAGNESIUM CHLORIDE 64 MG TAB PO ONE (18:00)
[2022-03-20] MEDS: dexAMETHasone 4 MG TAB PO SCH (20:27)
[2022-03-20] MEDS: FORMULATION-R RECTAL 57GM PR PRN (20:27)
[2022-03-21] MEDS: APIXABAN 5 MG TABLET PO SCH (07:25)
[2022-03-21] MEDS: CRANBERRY FRUIT EXTRACT 400 MG CAP PO SCH ×2 (08:22→19:14)
[2022-03-21] MEDS: THIAMINE HCL 100 MG TABLET PO SCH (08:22)
[2022-03-21] MEDS: TAMSULOSIN 0.4 MG SR CAP PO SCH (08:22)
[2022-03-21] MEDS: SODIUM CHLORIDE 1 GM TAB PO SCH (08:22)
[2022-03-21] MEDS: FOLIC ACID 1 MG TABLET PO SCH (08:22)
[2022-03-21] MEDS: guaiFENesin 100 MG/5 ML UCUP PO SCH ×4 (08:22→20:14)
[2022-03-21] MEDS: MULTIVITAMIN TAB PO SCH (08:22)
[2022-03-21] MEDS: lisinopriL 5 MG TAB PO SCH (08:23)
[2022-03-21] MEDS: NYSTATIN PWDR 100000 UNIT/GM TOP SCH ×2 (08:23→19:14)
[2022-03-21] MEDS: ENSURE HIGH PROTEIN 237 ML CAN PO SCH ×2 (08:24→19:14)
[2022-03-21] MEDS: JUVEN PACKET PO SCH ×2 (08:24→19:14)
[2022-03-21 11:58] LABS: Absolute Lymphocytes (CBC) 0.7 K/uL (0.7-4.9); Hematocrit 36.9 % (39.6-49.0); Lymphocytes % 9.5 % (15.3-44.8); MCV 94.3 fL (80-100); MPV 9.4 fL (7.6-11.3); RBC Red Blood Cell Count 3.91 M/uL (4.33-5.43)
[2022-03-21 12:12] LABS: Magnesium 1.6 mg/dL (1.8-2.4); Potassium 4.2 mmol/L (3.5-5.1)
[2022-03-21 12:17] LABS: Blood Morphology Comment NOT SEEN (NOT SEEN); Platelet Estimate DECR; White Blood Cell Scan OK (OK)
[2022-03-21] MEDS: FORMULATION-R RECTAL 57GM PR PRN (19:14)
[2022-03-21] MEDS ORDERED: NA CHLORIDE 0.9% 250 ML ONE (19:52)
[2022-03-21] MEDS ORDERED: MAGNESIUM SULFATE 1 gm IVPB 1 GM/100 ML BAG IV ONE (20:00)
[2022-03-22 06:30] LABS: Absolute Lymphocytes (CBC) 0.6 K/uL (0.7-4.9); Hematocrit 38.5 % (39.6-49.0); Lymphocytes % 10.6 % (15.3-44.8); MCV 93.5 fL (80-100); MPV 9.4 fL (7.6-11.3); RBC Red Blood Cell Count 4.12 M/uL (4.33-5.43)
[2022-03-22 06:51] LABS: Albumin 2.5 g/dL (3.4-5.0); Magnesium 1.5 mg/dL (1.8-2.4); Protein, Total 5.5 g/dL (6.4-8.2)
[2022-03-22 06:52] LABS: Bilirubin Total 5.6 mg/dL (0.2-1.0)
[2022-03-22] MEDS ORDERED: MAGNESIUM SULFATE 1 gm IVPB 1 GM/100 ML BAG IV ONE ×2 (06:57→09:11)
[2022-03-22] MEDS: ENSURE HIGH PROTEIN 237 ML CAN PO SCH ×2 (08:00→20:00)
[2022-03-22] MEDS: JUVEN PACKET PO SCH ×2 (08:00→20:00)
[2022-03-22] MEDS: guaiFENesin 100 MG/5 ML UCUP PO SCH ×4 (08:38→20:07)
[2022-03-22] MEDS: NYSTATIN PWDR 100000 UNIT/GM TOP SCH ×2 (08:38→20:07)
[2022-03-22] MEDS: CRANBERRY FRUIT EXTRACT 400 MG CAP PO SCH ×2 (08:39→20:07)
[2022-03-22] MEDS: SODIUM CHLORIDE 1 GM TAB PO SCH (08:39)
[2022-03-22] MEDS: MULTIVITAMIN TAB PO SCH (08:39)
[2022-03-22] MEDS: THIAMINE HCL 100 MG TABLET PO SCH (08:39)
[2022-03-22] MEDS: TAMSULOSIN 0.4 MG SR CAP PO SCH (08:39)
[2022-03-22] MEDS: FOLIC ACID 1 MG TABLET PO SCH (08:39)
[2022-03-22] MEDS: lisinopriL 5 MG TAB PO SCH (08:40)
[2022-03-22] MEDS: NA CHLORIDE 0.9% 1,000 ML IV SCH (09:51)
--- NOTE | 2022-03-22 21:53 | RAD REPORT ---
EXAM DESCRIPTION: US - Abdomen Exam Complete - 03/22/2022 9:36 pm CLINICAL HISTORY: Cirrhosis COMPARISON: Abdomen Exam Limited dated 01/04/2021; CTANGIO CHEST FOR PE dated 01/22/2009 FINDINGS: No aortic aneurysm. Coarsened echotexture of the liver with nodular configuration consistent with cirrhosis. The portal vein is patent. The IVC at the level of the liver is unremarkable. Small volume of ascites. Distended gallbladder with stones and sludge. No biliary ductal dilatation. The common bile duct duarte ures 5 millimeters. The pancreatic duct is dilated. No mass is visualized. The right kidney measures 11.2 cm normal echotexture. No hydronephrosis. No suspicious masses. Renal cortical thinning is present. The left kidney was not visualized. The spleen is unremarkable. IMPRESSION: 1. Cirrhotic liver morphology and small volume of ascites. 2. Cholelithiasis with distended gallbladder with sludge. No biliary ductal dilatation. 3. Pancreatic ductal dilatation of uncertain etiology. Consider cross-sectional imaging with contrast -enhanced CT or MRI for further evaluation.
[2022-03-23] MEDS: NA CHLORIDE 0.9% 1,000 ML IV SCH ×2 (05:08→09:57)
[2022-03-23 06:07] LABS: Absolute Lymphocytes (CBC) 0.5 K/uL (0.7-4.9); Hematocrit 31.6 % (39.6-49.0); MCV 93.3 fL (80-100); MPV 9.2 fL (7.6-11.3); RBC Red Blood Cell Count 3.39 M/uL (4.33-5.43)
[2022-03-23 06:15] LABS: Protime INR 2.11
--- NOTE | 2022-03-23 06:58 | RAD REPORT ---
EXAM DESCRIPTION: RAD - Chest Single View - 03/23/2022 6:32 am CLINICAL HISTORY: ff-up, shortness breath, pleural effusion COMPARISON: March 14 TECHNIQUE: AP portable chest image was obtained 03/23/2022 6:32 am . FINDINGS: Lung volume is reduced compared to prior study. This accentuates the baseline interstitial pattern. Heart size and upper lobe vasculature within normal limits. No pneumothorax is seen. Hazy r ight base opacification and right costophrenic angle blunting are present. This is a stable appearanc e and is most likely persistent small right pleural effusion. No acute bony abnormality seen. No acut e aortic findings suspected. IMPRESSION: Small right pleural effusion similar to prior imaging.
[2022-03-23 07:02] LABS: Albumin 2.2 g/dL (3.4-5.0); Magnesium 1.7 mg/dL (1.8-2.4); Potassium 4.4 mmol/L (3.5-5.1); Protein, Total 5.2 g/dL (6.4-8.2)
[2022-03-23 07:06] LABS: Bilirubin Total 5.8 mg/dL (0.2-1.0)
[2022-03-23] MEDS: NYSTATIN PWDR 100000 UNIT/GM TOP SCH ×2 (08:17→20:43)
[2022-03-23] MEDS: CRANBERRY FRUIT EXTRACT 400 MG CAP PO SCH ×2 (08:17→20:44)
[2022-03-23] MEDS: MULTIVITAMIN TAB PO SCH (08:17)
[2022-03-23] MEDS: guaiFENesin 100 MG/5 ML UCUP PO SCH ×4 (08:17→20:43)
[2022-03-23] MEDS: SODIUM CHLORIDE 1 GM TAB PO SCH (08:18)
[2022-03-23] MEDS: TAMSULOSIN 0.4 MG SR CAP PO SCH (08:18)
[2022-03-23] MEDS: JUVEN PACKET PO SCH ×2 (08:18→20:44)
[2022-03-23] MEDS: lisinopriL 5 MG TAB PO SCH (08:18)
[2022-03-23] MEDS: THIAMINE HCL 100 MG TABLET PO SCH (08:18)
[2022-03-23] MEDS: ENSURE HIGH PROTEIN 237 ML CAN PO SCH ×2 (08:18→20:44)
[2022-03-23] MEDS: FOLIC ACID 1 MG TABLET PO SCH (08:18)
[2022-03-23] MEDS: FORMULATION-R RECTAL 57GM PR PRN ×2 (08:20→20:44)
[2022-03-23] MEDS ORDERED: MAGNESIUM SULFATE 1 gm IVPB 1 GM/100 ML BAG IV ONE (09:03)
[2022-03-23 09:05] LABS: Blood Morphology Comment NOT SEEN (NOT SEEN); Platelet Estimate DECR
[2022-03-23] MEDS: CIPROFLOXACIN HCL 500 MG TAB PO SCH ×2 (16:17→20:44)
--- NOTE | 2022-03-23 18:30 | R.PN ---
PROGRESS NOTES ENCOUNTER DATE AND TIME: 03/23/2022 18:18 (CDT) NAME RUTHANN LUNDBERG DATE OF : 1940 DATE OF ADMISSION: 03/11/2022 17:46 (CDT) C79.31 Metastasis to brain of unknown originCHIEF COMPLAINT: Metastatic brain tumor SUBJECTIVE: Pt denied any Shortness of Breath. Pt denied any depression. WBC 4.8, Hgb 10.9, Plt 58, prealbumin 15.5, Na 140, BUN 44. Lactic acid 4.0, procalcitonin 20.22UA: l oaded with bacteria, WBC 10-20, esterase 2+. COVID-19 is negative. LFTs are elevated. Ammonia is norm al. Abdominal ultrasound shows cirrhotic liver, ascites, cholelithiasis and pancreatic ductal dilata tion. GI is consulted Mg 1.6. Will give 2 grams of IV magnesium. Repeat chest x-ray 03-23-22 showe unchanged small right-sided pleural fluid collection. Therapeutic exercised done with supervision. VITAL SIGNS Temperature: 97.0 F SBP/DBP: 124/56 Pulse: 91 Resp: 16 MEDICATION ALLERGIES: No Known Drug Allergies (NKDA) ENVIRONMENTAL ALLERGIES: - Substance Allergies None Known - Other Allergies None Known NURSING: - Shower allowing shower PRECAUTIONS: - Fall Precaution Bed alarm TABS alarm Wheel chair alarm - Bleeding Risk Lovenox - DVT Risk due to restricted mobility and age - Skin Breakdown Risk due to restricted mobility and age - Cardiac Precaution Monitor blood pressure, heart rate, lower extremity edema, notify MD for shortness of breath or chest pain Monitor patient for excessive elevation of heart rate and blood pressure during therapy ACTIVITIES OOB only with supervision THERAPIES: - Dietary and Nutrition Adequate Nutrition. Nutritional Education. Nutritional Supplements. Evaluate and Treat. - Occupational Therapy Cognitive Retraining. Patient needs Occupational Therapy for a daily minimum of 1.5 hours at least 5 out of 7 days, to improve Activities of Daily Living, including: Eating, Grooming, Bathing, Dressing, Toileting, Toilet Transfers, Community Reintegration, Higher functional activities, Adaptive Equipme nt, Splinting, Household Tasks, and Other activities as determined. Visual Perceptual Training. Evalu ate and Treat. ADL Training. Household Tasks. Patient/Family Education. Safety Awareness. Transfer Tr robin. - Speech Therapy Cognitive Training. Expressive Language Skills. Memory Strategies. Patient needs Speech Therapy for a daily minimum of 1.5 hours at least 5 out of 7 days, to improve: Swallowing, Cognition, Language Ski lls, and Compensatory Strategies. Receptive Language Skills. Speech Intelligibility Training. Evaluat e and Treat. - Physical Therapy Patient needs Physical Therapy for a daily minimum of 1.5 hours at least 5 out of 7 days, to improve: Mobility, Strengthening, Transfers, Stretching, ROM, Endurance, Ability to manage stairs, Gait, and Balance. Balance Training. Evaluate and Treat. Gait Training. Safety Awareness. LE Strengthening. Mob ility Training. Transfer Training. PHYSICAL EXAM - Gen Alert and awake Lying in bed No apparent distress Oriented to: person, time, and place - Skin No skin breakdown. Normacephalicand disheveled with long stephens - Eyes No abnormalities - ENMT No abnormalities - Neck No abnormalities - CVS RRR - Chest Mildly decreased breath sounds bilaterally. - Resp No wheezing - Abd Soft - GI + bowel sounds Deferred - No abnormalities - Ext Mild bilateral lower extremity edema. - MSK 4/5 weakness in both lower extremities. - Neuro No focal deficits - Psych No abnormalities ASSESSMENT: Pt. 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 was independent/mod-I in Locomotion, Social Cognition, Balance, and Safety Awareness; and he had good Transfers Control, Sphincter Control, Self-Care, Communication , and Endurance.Currently, he has deficits of Locomotion, Social Cognition, Safety Awareness, Balance , Transfers Control, Sphincter Control, Communication, Self-Care, and Endurance.Pt. is now referred t [facility] for acute in-patient rehabilitation in order to maximize patient' s functional independence in activities of daily living, strength, ROM, and mobility.- Rehab Goal Patient has realistic goal of being discharged at assistance level 7-Ind to reside at Home with Pt s elf. MDM/PLAN: - Physical Therapy Gait dysfunction - to improve, our physical therapists will perform initial evaluation of pt's statu s upon admission and devise an individualized program for Gait Training, and Wheel Chair mobility Inability to transfer - to improve, our physical therapists will perform initial evaluation of pt's status upon admission and devise an individualized program for Bed mobility Need for home safety evaluation - to improve, our physical therapists will perform initial evaluatio n of pt's status upon admission and devise an individualized program for Home Evaluation Need in caregiver upon discharge - to improve, our physical therapists will perform initial evaluati on of pt's status upon admission and devise an individualized program for Caregiver Training New precaution - to improve, our physical therapists will perform initial evaluation of pt's status upon admission and devise an individualized program for Patient precaution education Edema - to improve, our physical therapists will perform initial evaluation of pt's status upon admi ssion and devise an individualized program for Elevation Training, and Lymphedema Therapy Poor balance - to improve, our physical therapists will perform initial evaluation of pt's status up on admission and devise an individualized program for Balance Training Poor endurance - to improve, our physical therapists will perform initial evaluation of pt's status upon admission and devise an individualized program for Endurance Training Weakness - to improve, our physical therapists will perform initial evaluation of pt's status upon a dmission and devise an individualized program for Aquatic Therapy, Neuromuscular Reeducation, and Str engthening Achieving independence - to improve, our physical therapists will perform initial evaluation of pt's status upon admission and devise an individualized program for Community Reintegration Activities - Occupational Therapy ADL deficits - to improve, our occupation therapists will perform initial evaluation of pt's status upon admission and devise an individualized program for Bathing, Bed mobility, Community Reintegratio n, Cooking, Dressing, Eating, Fine Motor Skills, Grooming, Homemaking, Kitchen Mobility, Laundry, Pat ient Education, Safety Awareness, Splinting - Positioning, Transfers(Toilet, Tub, Shower), and Wheel Chair Management Cognitive deficits - to improve, our occupation therapists will perform initial evaluation of pt's s tatus upon admission and devise an individualized program for Cognition - orientation Need for insurance healthcare representative - to improve, our occupation therapists will perform initial evaluation of pt's status upon admission and devise an individualized program for Caregiver Training Weakness - to improve, our occupation therapists will perform initial evaluation of pt's status upon admission and devise an individualized program for Aquatic Therapy, Balance, Endurance, UE ROM, and UE strengthening - Other See attached MAR (Medication Administration Record) - Diet Type Continue Regular - Diet - Liquid Texture Continue Regular - Tube Feed Continue N/A - Bleeding Risk Lovenox - DVT Risk due to restricted mobility and age - Skin Breakdown Risk due to restricted mobility and age - Cardiac Precaution Monitor blood pressure, heart rate, lower extremity edema, notify MD for shortness of breath or ches t pain Monitor patient for excessive elevation of heart rate and blood pressure during therapy - Fall Precaution Bed alarm TABS alarm Wheel chair alarm - Diet - Solid Texture Continue Regular - Shower allowing shower FUNCTIONAL STATUS: UPDATED AT WEEKLY TEAM CONFERENCE - Bladder Same accident frequency: 7-Ind - No accidents in the past 7 days - Bowel Same accident frequency: 7-Ind - No accidents in the past 7 days - Walking Same score based on distance walked: 0(N/A) - Wheelchair Same score based on distance traveled: 0(N/A) FUNCTIONAL STATUS: - Self-Care A. Eating Ind B. Grooming sup C. Bathing maxA D. Dressing - Upper Jorge E. Dressing - Lower maxA F. Toileting Jorge - Sphincter Control G. Bladder control Justin H. Bowel control Justin - Transfers Control I. Bed/Chair/Wheelchair modA J. Toilet modA K. Tub/Shower modA - Locomotion L. Walk/Wheelchair (B) modA M. Stairs ADNO - Communication N. Comprehension (B) Justin O. Expression (B) Justin - Social Cognition P. Social Interaction Ind Q. Problem Solving Jorge R. Memory Justin - Endurance Poor - Balance Poor - Safety Awareness Fair QI SCORES: - Self-Care A. Eating 04-Supervision or touching assistance B. Oral hygiene 04-Supervision or touching assistance C. Toileting hygiene 03-Partial/moderate assistance E. Shower/bathe self 03-Partial/moderate assistance F. Upper body dressing 04-Supervision or touching assistance G. Lower body dressing 03-Partial/moderate assistance H. Putting on/taking off footwear 03-Partial/moderate assistance - Mobility A. Roll left and right 04-Supervision or touching assistance B. Sit to lying 04-Supervision or touching assistance C. Lying to sitting on side of bed 04-Supervision or touching assistance D. Sit to stand 03-Partial/moderate assistance E. Chair/[id number] transfer 02-Substantial/maximal assistance F. Toilet transfer 02-Substantial/maximal assistance G. Car transfer 88-Not attempted due to medical condition or safety concerns I. Walk 10 feet 88-Not attempted due to medical condition or safety concerns J. Walk 50 feet with two turns 88-Not attempted due to medical condition or safety concerns K. Walk 150 feet 88-Not attempted due to medical condition or safety concerns L. Walking 10 feet on uneven surfaces 88-Not attempted due to medical condition or safety concerns M. 1 step (curb) 88-Not attempted due to medical condition or safety concerns N. 4 steps 88-Not attempted due to medical condition or safety concerns O. 12 steps 88-Not attempted due to medical condition or safety concerns P. Picking up object 88-Not attempted due to medical condition or safety concerns R. Wheel 50 feet with two turns 88-Not attempted due to medical condition or safety concerns S. Wheel 150 feet 88-Not attempted due to medical condition or safety concerns - Bladder and Bowel Bladder continence Bowel continence - Endurance Fair - Balance Fair - Safety Awareness Fair CURRENT [facility]. DEFICITS: Self-Care, Mobility, Endurance, Balance, and Safety Awareness SIGNATURE PANEL: (CDT)
[2022-03-24] MEDS: NA CHLORIDE 0.9% 1,000 ML IV SCH (05:05)
[2022-03-24 05:07] LABS: Magnesium 1.8 mg/dL (1.8-2.4); Potassium 4.3 mmol/L (3.5-5.1)
[2022-03-24] MEDS ORDERED: MAGNESIUM SULFATE 1 gm IVPB 1 GM/100 ML BAG IV ONE (06:03)
[2022-03-24] MEDS: FORMULATION-R RECTAL 57GM PR PRN ×2 (07:34→19:20)
[2022-03-24] MEDS: CIPROFLOXACIN HCL 500 MG TAB PO SCH ×2 (07:34→19:20)
[2022-03-24] MEDS: NYSTATIN PWDR 100000 UNIT/GM TOP SCH ×2 (07:34→19:20)
[2022-03-24] MEDS: CRANBERRY FRUIT EXTRACT 400 MG CAP PO SCH ×2 (07:35→19:20)
[2022-03-24] MEDS: MULTIVITAMIN TAB PO SCH (07:35)
[2022-03-24] MEDS: FOLIC ACID 1 MG TABLET PO SCH (07:35)
[2022-03-24] MEDS: SODIUM CHLORIDE 1 GM TAB PO SCH (07:35)
[2022-03-24] MEDS: THIAMINE HCL 100 MG TABLET PO SCH (07:35)
[2022-03-24] MEDS: lisinopriL 5 MG TAB PO SCH (07:37)
[2022-03-24] MEDS: guaiFENesin 100 MG/5 ML UCUP PO SCH ×4 (07:37→19:20)
[2022-03-24] MEDS: JUVEN PACKET PO SCH ×2 (07:38→19:20)
[2022-03-24] MEDS: ENSURE HIGH PROTEIN 237 ML CAN PO SCH ×2 (07:38→19:20)
[2022-03-24] MEDS: TAMSULOSIN 0.4 MG SR CAP PO SCH (08:07)
--- NOTE | 2022-03-24 18:01 | R.PN ---
PROGRESS NOTES ENCOUNTER DATE AND TIME: 03/24/2022 17:54 (CDT) NAME RUTHANN LUNDBERG DATE OF : 1940 DATE OF ADMISSION: 03/11/2022 17:46 (CDT) C79.31 Metastasis to brain of unknown originCHIEF COMPLAINT: Metastatic brain tumor SUBJECTIVE: Pt denied any Shortness of Breath. Pt denied any depression. WBC 4.8, Hgb 10.9, Plt 58, prealbumin 15.5, Na 140, BUN 44. Lactic acid 4.0, procalcitonin 0.22. UA: loaded with bacteria, WBC 10-20, esterase 2+. COVID-19 is negative. LFTs are elevated. Ammonia is nor mal. Abdominal ultrasound shows cirrhotic liver, ascites, cholelithiasis and pancreatic ductal dilat ation. GI is consulted. Mg 1.6. Will give 2 grams of IV magnesium. Repeat chest x-ray 03-23-22 showe unchanged small right-sided pleural fluid collection. Therapeutic exercised done with supervision. Thanks Dr. Higuera for nail debridement following Tinea unguium. Thanks GI for help. VITAL SIGNS Temperature: 97.2F SBP/DBP: 162/70 Pulse: 80 Resp: 16 MEDICATION ALLERGIES: No Known Drug Allergies (NKDA) ENVIRONMENTAL ALLERGIES: - Substance Allergies None Known - Other Allergies None Known NURSING: - Shower allowing shower PRECAUTIONS: - Fall Precaution Bed alarm TABS alarm Wheel chair alarm - Bleeding Risk Lovenox - DVT Risk due to restricted mobility and age - Skin Breakdown Risk due to restricted mobility and age - Cardiac Precaution Monitor blood pressure, heart rate, lower extremity edema, notify MD for shortness of breath or chest pain Monitor patient for excessive elevation of heart rate and blood pressure during therapy ACTIVITIES OOB only with supervision THERAPIES: - Dietary and Nutrition Adequate Nutrition. Nutritional Education. Nutritional Supplements. Evaluate and Treat. - Occupational Therapy Cognitive Retraining. Patient needs Occupational Therapy for a daily minimum of 1.5 hours at least 5 out of 7 days, to improve Activities of Daily Living, including: Eating, Grooming, Bathing, Dressing, Toileting, Toilet Transfers, Community Reintegration, Higher functional activities, Adaptive Equipme nt, Splinting, Household Tasks, and Other activities as determined. Visual Perceptual Training. Evalu ate and Treat. ADL Training. Household Tasks. Patient/Family Education. Safety Awareness. Transfer Tr aining. - Speech Therapy Cognitive Training. Expressive Language Skills. Memory Strategies. Patient needs Speech Therapy for a daily minimum of 1.5 hours at least 5 out of 7 days, to improve: Swallowing, Cognition, Language Ski lls, and Compensatory Strategies. Receptive Language Skills. Speech Intelligibility Training. Evaluat e and Treat. - Physical Therapy Patient needs Physical Therapy for a daily minimum of 1.5 hours at least 5 out of 7 days, to improve: Mobility, Strengthening, Transfers, Stretching, ROM, Endurance, Ability to manage stairs, Gait, and Balance. Balance Training. Evaluate and Treat. Gait Training. Safety Awareness. LE Strengthening. Mob ility Training. Transfer Training. PHYSICAL EXAM - Gen Alert and awake Lying in bed No apparent distress Oriented to: person, time, and place - Skin No skin breakdown. Normacephalicand disheveled with long stephens - Eyes No abnormalities - ENMT No abnormalities - Neck No abnormalities - CVS RRR - Chest Mildly decreased breath sounds bilaterally. - Resp No wheezing - Abd Soft - GI + bowel sounds Deferred - No abnormalities - Ext Mild bilateral lower extremity edema. - MSK 4/5 weakness in both lower extremities. - Neuro No focal deficits - Psych No abnormalities ASSESSMENT: Pt. 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 was independent/mod-I in Locomotion, Social Cognition, Balance, and Safety Awareness; and he had good Transfers Control, Sphincter Control, Self-Care, Communication , and Endurance.Currently, he has deficits of Locomotion, Social Cognition, Safety Awareness, Balance , Transfers Control, Sphincter Control, Communication, Self-Care, and Endurance.Pt. is now referred t [facility] for acute in-patient rehabilitation in order to maximize patient' s functional independence in activities of daily living, strength, ROM, and mobility.- Rehab Goal Patient has realistic goal of being discharged at assistance level 7-Ind to reside at Home with Pt s elf. MDM/PLAN: - Physical Therapy Gait dysfunction - to improve, our physical therapists will perform initial evaluation of pt's statu s upon admission and devise an individualized program for Gait Training, and Wheel Chair mobility Inability to transfer - to improve, our physical therapists will perform initial evaluation of pt's status upon admission and devise an individualized program for Bed mobility Need for home safety evaluation - to improve, our physical therapists will perform initial evaluatio n of pt's status upon admission and devise an individualized program for Home Evaluation Need in caregiver upon discharge - to improve, our physical therapists will perform initial evaluati on of pt's status upon admission and devise an individualized program for Caregiver Training New precaution - to improve, our physical therapists will perform initial evaluation of pt's status upon admission and devise an individualized program for Patient precaution education Edema - to improve, our physical therapists will perform initial evaluation of pt's status upon admi ssion and devise an individualized program for Elevation Training, and Lymphedema Therapy Poor balance - to improve, our physical therapists will perform initial evaluation of pt's status up on admission and devise an individualized program for Balance Training Poor endurance - to improve, our physical therapists will perform initial evaluation of pt's status upon admission and devise an individualized program for Endurance Training Weakness - to improve, our physical therapists will perform initial evaluation of pt's status upon a dmission and devise an individualized program for Aquatic Therapy, Neuromuscular Reeducation, and Str engthening Achieving independence - to improve, our physical therapists will perform initial evaluation of pt's status upon admission and devise an individualized program for Community Reintegration Activities - Occupational Therapy ADL deficits - to improve, our occupation therapists will perform initial evaluation of pt's status upon admission and devise an individualized program for Bathing, Bed mobility, Community Reintegratio n, Cooking, Dressing, Eating, Fine Motor Skills, Grooming, Homemaking, Kitchen Mobility, Laundry, Pat ient Education, Safety Awareness, Splinting - Positioning, Transfers(Toilet, Tub, Shower), and Wheel Chair Management Cognitive deficits - to improve, our occupation therapists will perform initial evaluation of pt's s tatus upon admission and devise an individualized program for Cognition - orientation Need for animal care provider - to improve, our occupation therapists will perform initial evaluation of pt's status upon admission and devise an individualized program for Caregiver Training Weakness - to improve, our occupation therapists will perform initial evaluation of pt's status upon admission and devise an individualized program for Aquatic Therapy, Balance, Endurance, UE ROM, and UE strengthening - Other See attached MAR (Medication Administration Record) - Diet Type Continue Regular - Diet - Liquid Texture Continue Regular - Tube Feed Continue N/A - Bleeding Risk Lovenox - DVT Risk due to restricted mobility and age - Skin Breakdown Risk due to restricted mobility and age - Cardiac Precaution Monitor blood pressure, heart rate, lower extremity edema, notify MD for shortness of breath or ches t pain Monitor patient for excessive elevation of heart rate and blood pressure during therapy - Fall Precaution Bed alarm TABS alarm Wheel chair alarm - Diet - Solid Texture Continue Regular - Shower allowing shower FUNCTIONAL STATUS: UPDATED AT WEEKLY TEAM CONFERENCE - Bladder Same accident frequency: 7-Ind - No accidents in the past 7 days - Bowel Same accident frequency: 7-Ind - No accidents in the past 7 days - Walking Same score based on distance walked: 0(N/A) - Wheelchair Same score based on distance traveled: 0(N/A) FUNCTIONAL STATUS: - Self-Care A. Eating Ind B. Grooming sup C. Bathing maxA D. Dressing - Upper Jorge E. Dressing - Lower maxA F. Toileting Jorge - Sphincter Control G. Bladder control Justin H. Bowel control Justin - Transfers Control I. Bed/Chair/Wheelchair modA J. Toilet modA K. Tub/Shower modA - Locomotion L. Walk/Wheelchair (B) modA M. Stairs ADNO - Communication N. Comprehension (B) Justin O. Expression (B) Justin - Social Cognition P. Social Interaction Ind Q. Problem Solving Jorge R. Memory Justin - Endurance Poor - Balance Poor - Safety Awareness Fair QI SCORES: - Self-Care A. Eating 04-Supervision or touching assistance B. Oral hygiene 04-Supervision or touching assistance C. Toileting hygiene 03-Partial/moderate assistance E. Shower/bathe self 03-Partial/moderate assistance F. Upper body dressing 04-Supervision or touching assistance G. Lower body dressing 03-Partial/moderate assistance H. Putting on/taking off footwear 03-Partial/moderate assistance - Mobility A. Roll left and right 04-Supervision or touching assistance B. Sit to lying 04-Supervision or touching assistance C. Lying to sitting on side of bed 04-Supervision or touching assistance D. Sit to stand 03-Partial/moderate assistance E. Chair/[id number] transfer 02-Substantial/maximal assistance F. Toilet transfer 02-Substantial/maximal assistance G. Car transfer 88-Not attempted due to medical condition or safety concerns I. Walk 10 feet 88-Not attempted due to medical condition or safety concerns J. Walk 50 feet with two turns 88-Not attempted due to medical condition or safety concerns K. Walk 150 feet 88-Not attempted due to medical condition or safety concerns L. Walking 10 feet on uneven surfaces 88-Not attempted due to medical condition or safety concerns M. 1 step (curb) 88-Not attempted due to medical condition or safety concerns N. 4 steps 88-Not attempted due to medical condition or safety concerns O. 12 steps 88-Not attempted due to medical condition or safety concerns P. Picking up object 88-Not attempted due to medical condition or safety concerns R. Wheel 50 feet with two turns 88-Not attempted due to medical condition or safety concerns S. Wheel 150 feet 88-Not attempted due to medical condition or safety concerns - Bladder and Bowel Bladder continence Bowel continence - Endurance Fair - Balance Fair - Safety Awareness Fair CURRENT [facility]. DEFICITS: Self-Care, Mobility, Endurance, Balance, and Safety Awareness SIGNATURE PANEL: (CDT)
[2022-03-25] MEDS: NA CHLORIDE 0.9% 1,000 ML IV SCH (00:22)
[2022-03-25] MEDS ORDERED: MAGNESIUM SULFATE 1 gm IVPB 1 GM/100 ML BAG IV ONE (05:51)
[2022-03-25] MEDS: guaiFENesin 100 MG/5 ML UCUP PO SCH ×4 (08:49→19:53)
[2022-03-25] MEDS: TAMSULOSIN 0.4 MG SR CAP PO SCH (08:50)
[2022-03-25] MEDS: CRANBERRY FRUIT EXTRACT 400 MG CAP PO SCH ×2 (08:51→19:53)
[2022-03-25] MEDS: SODIUM CHLORIDE 1 GM TAB PO SCH (08:51)
[2022-03-25] MEDS: CIPROFLOXACIN HCL 500 MG TAB PO SCH ×2 (08:51→19:53)
[2022-03-25] MEDS: FOLIC ACID 1 MG TABLET PO SCH (08:51)
[2022-03-25] MEDS: lisinopriL 5 MG TAB PO SCH (08:52)
[2022-03-25] MEDS: THIAMINE HCL 100 MG TABLET PO SCH (08:53)
[2022-03-25] MEDS: JUVEN PACKET PO SCH ×2 (08:53→20:00)
[2022-03-25] MEDS: ENSURE HIGH PROTEIN 237 ML CAN PO SCH ×2 (08:53→20:00)
[2022-03-25] MEDS: MULTIVITAMIN TAB PO SCH (08:53)
[2022-03-25] MEDS: NYSTATIN PWDR 100000 UNIT/GM TOP SCH ×2 (08:54→19:54)
--- NOTE | 2022-03-25 10:51 | RAD REPORT ---
EXAM DESCRIPTION: Luan Single View03/25/2022 9:14 am CLINICAL HISTORY: Cough COMPARISON: March 23, 2022 FINDINGS: Worsening in the right basilar opacity. Left lung appears clear. The heart is normal size IMPRESSION: Worsening in the right basilar opacity which probably represents a combination of pleura l effusion and pneumonia or atelectasis. CT chest may be helpful for further evaluation
[2022-03-25 11:53] LABS: Absolute Lymphocytes (CBC) 0.3 K/uL (0.7-4.9); Lymphocytes % 9.5 % (15.3-44.8); MCV 94.7 fL (80-100); MPV 9.3 fL (7.6-11.3); RBC Red Blood Cell Count 3.38 M/uL (4.33-5.43)
[2022-03-25 12:29] LABS: Blood Morphology Comment NOT SEEN (NOT SEEN); Platelet Estimate DECR; White Blood Cell Scan OK (OK)
[2022-03-25] MEDS ORDERED: FUROSEMIDE 20 MG/ 2ML VIAL IV ONE ×3 (14:20→19:00)
--- NOTE | 2022-03-25 14:48 | RAD REPORT ---
EXAM DESCRIPTION: CT - Thorax Wo Con - 03/25/2022 2:06 pm CLINICAL HISTORY: r/o puemonia COMPARISON: CTANGIO CHEST FOR PE dated 01/22/2009; Abdomen Exam Complete dated 03/22/2022 FINDINGS: Chest Wall: No suspicious thyroid nodules or pathologic lymphadenopathy. Lungs: Atelectasis as a result of the pleural effusion. Mild paraseptal emphysema. No evidence of stanislav ma or pneumonia. Pleura: No significant effusions or pneumothorax. Mediastinum/lolly: No pathologic lymphadenopathy. Pulmonary arteries/Aorta: Limited evaluation without contrast. No aortic aneurysm. Heart: Normal heart size. Multi-vessel coronary artery disease. Small pericardial effusion Upper abdomen: Cirrhosis. Distended gallbladder with cholelithiasis. Ascites. Adrenal thickening. Bones: Remote left-sided rib fractures. Fusion hardware in the cervical spine. L3 compression fractur e is partially imaged and age indeterminate. All CT scans are performed using dose optimization technique as appropriate and may include automated exposure control or mA/KV adjustment according to patient size. IMPRESSION: Moderate right effusion with presumably underlying atelectasis. No findings to suggest a ctive in Distended gallbladder with wall thickening and cholelithiasis. Cannot exclude acute cholecystitis by CT.
[2022-03-25] MEDS: Levofloxacin500mg IV 500 MG/100 ML BAG IV SCH ×2 (14:58→15:00)
[2022-03-25] MEDS ORDERED: ALBUTEROL 2.5 MG/3 ML NEB SOL NEB PRN (16:04)
--- NOTE | 2022-03-25 17:51 | R.PN ---
PROGRESS NOTES ENCOUNTER DATE AND TIME: 03/25/2022 17:44 (CDT) NAME RUTHANN LUNDBERG DATE OF : 1940 DATE OF ADMISSION: 03/11/2022 17:46 (CDT) C79.31 Metastasis to brain of unknown originCHIEF COMPLAINT: Metastatic brain tumor SUBJECTIVE: Pt denied any Shortness of Breath. Pt denied any depression. WBC 3.4, Hgb 10.8, Plt 60, prealbumin 15.5, Na 140, BUN 44. Lactic acid 4.0, procalcitonin 0.22. UA: loaded with bacteria, WBC 10-20, esterase 2+. COVID-19 is negative. LFTs are elevated. Ammonia is nor mal. Abdominal ultrasound shows cirrhotic liver, ascites, cholelithiasis and pancreatic ductal dilat ation. GI is consulted. Mg 1.7. Will give 1 gram of IV magnesium. Repeat chest x-ray 03-23-22 showe unchanged small right-sided pleural fluid collection. Therapeutic exercised done with supervision. Thanks Dr. Higuera for nail debridement following Tinea unguium. Thanks GI for help. Chest CT shows volume overload pattern and NOT pneumonia. Give IV lasix 20 mg x 2, then 10 mg po bid. Continue Cipro 500 mg bid for 7 days. May discharge to SNF in 2 days due to need for immediate diuresis. VITAL SIGNS Temperature: 97.0 F SBP/DBP: 108/58 Pulse: 84 Resp: 16 MEDICATION ALLERGIES: No Known Drug Allergies (NKDA) ENVIRONMENTAL ALLERGIES: - Substance Allergies None Known - Other Allergies None Known NURSING: - Shower allowing shower PRECAUTIONS: - Fall Precaution Bed alarm TABS alarm Wheel chair alarm - Bleeding Risk Lovenox - DVT Risk due to restricted mobility and age - Skin Breakdown Risk due to restricted mobility and age - Cardiac Precaution Monitor blood pressure, heart rate, lower extremity edema, notify MD for shortness of breath or chest pain Monitor patient for excessive elevation of heart rate and blood pressure during therapy ACTIVITIES OOB only with supervision THERAPIES: - Dietary and Nutrition Adequate Nutrition. Nutritional Education. Nutritional Supplements. Evaluate and Treat. - Occupational Therapy Cognitive Retraining. Patient needs Occupational Therapy for a daily minimum of 1.5 hours at least 5 out of 7 days, to improve Activities of Daily Living, including: Eating, Grooming, Bathing, Dressing, Toileting, Toilet Transfers, Community Reintegration, Higher functional activities, Adaptive Equipme nt, Splinting, Household Tasks, and Other activities as determined. Visual Perceptual Training. Evalu ate and Treat. ADL Training. Household Tasks. Patient/Family Education. Safety Awareness. Transfer Tr robin. - Speech Therapy Cognitive Training. Expressive Language Skills. Memory Strategies. Patient needs Speech Therapy for a daily minimum of 1.5 hours at least 5 out of 7 days, to improve: Swallowing, Cognition, Language Ski lls, and Compensatory Strategies. Receptive Language Skills. Speech Intelligibility Training. Evaluat e and Treat. - Physical Therapy Patient needs Physical Therapy for a daily minimum of 1.5 hours at least 5 out of 7 days, to improve: Mobility, Strengthening, Transfers, Stretching, ROM, Endurance, Ability to manage stairs, Gait, and Balance. Balance Training. Evaluate and Treat. Gait Training. Safety Awareness. LE Strengthening. Mob ility Training. Transfer Training. PHYSICAL EXAM - Gen Alert and awake Lying in bed No apparent distress Oriented to: person, time, and place - Skin No skin breakdown. Normacephalicand disheveled with long stephens - Eyes No abnormalities - ENMT No abnormalities - Neck No abnormalities - CVS RRR - Chest Mildly decreased breath sounds bilaterally. - Resp No wheezing - Abd Soft - GI + bowel sounds Deferred - No abnormalities - Ext Mild bilateral lower extremity edema. - MSK 4/5 weakness in both lower extremities. - Neuro No focal deficits - Psych No abnormalities ASSESSMENT: Pt. 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 was independent/mod-I in Locomotion, Social Cognition, Balance, and Safety Awareness; and he had good Transfers Control, Sphincter Control, Self-Care, Communication , and Endurance.Currently, he has deficits of Locomotion, Social Cognition, Safety Awareness, Balance , Transfers Control, Sphincter Control, Communication, Self-Care, and Endurance.Pt. is now referred t [facility] for acute in-patient rehabilitation in order to maximize patient' s functional independence in activities of daily living, strength, ROM, and mobility.- Rehab Goal Patient has realistic goal of being discharged at assistance level 7-Ind to reside at Home with Pt s elf. MDM/PLAN: - Physical Therapy Gait dysfunction - to improve, our physical therapists will perform initial evaluation of pt's statu s upon admission and devise an individualized program for Gait Training, and Wheel Chair mobility Inability to transfer - to improve, our physical therapists will perform initial evaluation of pt's status upon admission and devise an individualized program for Bed mobility Need for home safety evaluation - to improve, our physical therapists will perform initial evaluatio n of pt's status upon admission and devise an individualized program for Home Evaluation Need in caregiver upon discharge - to improve, our physical therapists will perform initial evaluati on of pt's status upon admission and devise an individualized program for Caregiver Training New precaution - to improve, our physical therapists will perform initial evaluation of pt's status upon admission and devise an individualized program for Patient precaution education Edema - to improve, our physical therapists will perform initial evaluation of pt's status upon admi ssion and devise an individualized program for Elevation Training, and Lymphedema Therapy Poor balance - to improve, our physical therapists will perform initial evaluation of pt's status up on admission and devise an individualized program for Balance Training Poor endurance - to improve, our physical therapists will perform initial evaluation of pt's status upon admission and devise an individualized program for Endurance Training Weakness - to improve, our physical therapists will perform initial evaluation of pt's status upon a dmission and devise an individualized program for Aquatic Therapy, Neuromuscular Reeducation, and Str engthening Achieving independence - to improve, our physical therapists will perform initial evaluation of pt's status upon admission and devise an individualized program for Community Reintegration Activities - Occupational Therapy ADL deficits - to improve, our occupation therapists will perform initial evaluation of pt's status upon admission and devise an individualized program for Bathing, Bed mobility, Community Reintegratio n, Cooking, Dressing, Eating, Fine Motor Skills, Grooming, Homemaking, Kitchen Mobility, Laundry, Pat ient Education, Safety Awareness, Splinting - Positioning, Transfers(Toilet, Tub, Shower), and Wheel Chair Management Cognitive deficits - to improve, our occupation therapists will perform initial evaluation of pt's s tatus upon admission and devise an individualized program for Cognition - orientation Need for vocational childcare teacher - to improve, our occupation therapists will perform initial evaluation of pt's status upon admission and devise an individualized program for Caregiver Training Weakness - to improve, our occupation therapists will perform initial evaluation of pt's status upon admission and devise an individualized program for Aquatic Therapy, Balance, Endurance, UE ROM, and UE strengthening - Other See attached MAR (Medication Administration Record) - Diet Type Continue Regular - Diet - Liquid Texture Continue Regular - Tube Feed Continue N/A - Bleeding Risk Lovenox - DVT Risk due to restricted mobility and age - Skin Breakdown Risk due to restricted mobility and age - Cardiac Precaution Monitor blood pressure, heart rate, lower extremity edema, notify MD for shortness of breath or ches t pain Monitor patient for excessive elevation of heart rate and blood pressure during therapy - Fall Precaution Bed alarm TABS alarm Wheel chair alarm - Diet - Solid Texture Continue Regular - Shower allowing shower FUNCTIONAL STATUS: UPDATED AT WEEKLY TEAM CONFERENCE - Bladder Same accident frequency: 7-Ind - No accidents in the past 7 days - Bowel Same accident frequency: 7-Ind - No accidents in the past 7 days - Walking Same score based on distance walked: 0(N/A) - Wheelchair Same score based on distance traveled: 0(N/A) FUNCTIONAL STATUS: - Self-Care A. Eating Ind B. Grooming sup C. Bathing maxA D. Dressing - Upper Jorge E. Dressing - Lower maxA F. Toileting Jorge - Sphincter Control G. Bladder control Justin H. Bowel control Justin - Transfers Control I. Bed/Chair/Wheelchair modA J. Toilet modA K. Tub/Shower modA - Locomotion L. Walk/Wheelchair (B) modA M. Stairs ADNO - Communication N. Comprehension (B) Justin O. Expression (B) Justin - Social Cognition P. Social Interaction Ind Q. Problem Solving Jorge R. Memory Justin - Endurance Poor - Balance Poor - Safety Awareness Fair QI SCORES: - Self-Care A. Eating 04-Supervision or touching assistance B. Oral hygiene 04-Supervision or touching assistance C. Toileting hygiene 03-Partial/moderate assistance E. Shower/bathe self 03-Partial/moderate assistance F. Upper body dressing 04-Supervision or touching assistance G. Lower body dressing 03-Partial/moderate assistance H. Putting on/taking off footwear 03-Partial/moderate assistance - Mobility A. Roll left and right 04-Supervision or touching assistance B. Sit to lying 04-Supervision or touching assistance C. Lying to sitting on side of bed 04-Supervision or touching assistance D. Sit to stand 03-Partial/moderate assistance E. Chair/[id number] transfer 02-Substantial/maximal assistance F. Toilet transfer 02-Substantial/maximal assistance G. Car transfer 88-Not attempted due to medical condition or safety concerns I. Walk 10 feet 88-Not attempted due to medical condition or safety concerns J. Walk 50 feet with two turns 88-Not attempted due to medical condition or safety concerns K. Walk 150 feet 88-Not attempted due to medical condition or safety concerns L. Walking 10 feet on uneven surfaces 88-Not attempted due to medical condition or safety concerns M. 1 step (curb) 88-Not attempted due to medical condition or safety concerns N. 4 steps 88-Not attempted due to medical condition or safety concerns O. 12 steps 88-Not attempted due to medical condition or safety concerns P. Picking up object 88-Not attempted due to medical condition or safety concerns R. Wheel 50 feet with two turns 88-Not attempted due to medical condition or safety concerns S. Wheel 150 feet 88-Not attempted due to medical condition or safety concerns - Bladder and Bowel Bladder continence Bowel continence - Endurance Fair - Balance Fair - Safety Awareness Fair CURRENT [facility]. DEFICITS: Self-Care, Mobility, Endurance, Balance, and Safety Awareness SIGNATURE PANEL: (CDT)
[2022-03-25] MEDS: APIXABAN 2.5 MG TABLET PO SCH (19:53)
[2022-03-26 06:57] LABS: Absolute Lymphocytes (CBC) 0.3 K/uL (0.7-4.9); Lymphocytes % 11.6 % (15.3-44.8); MCV 94.3 fL (80-100); MPV 8.8 fL (7.6-11.3); RBC Red Blood Cell Count 3.29 M/uL (4.33-5.43)
[2022-03-26 07:13] LABS: Magnesium 1.7 mg/dL (1.8-2.4); Potassium 3.7 mmol/L (3.5-5.1)
--- NOTE | 2022-03-26 07:29 | RAD REPORT ---
EXAM DESCRIPTION: Luan Single View03/26/2022 6:05 am CLINICAL HISTORY: Shortness breath COMPARISON: March 25, 2022 FINDINGS: No change in a moderate right pleural effusion with right basilar atelectasis Remainder of lungs appear clear. Heart is normal size
[2022-03-26 07:56] LABS: Albumin 2.2 g/dL (3.4-5.0); Prealbumin 11.1 mg/dL (20-40)
[2022-03-26] MEDS ORDERED: FUROSEMIDE 20 MG/ 2ML VIAL IV SCH (08:00)
[2022-03-26] MEDS: lisinopriL 5 MG TAB PO SCH ×2 (08:00→10:47)
[2022-03-26] MEDS: ENSURE HIGH PROTEIN 237 ML CAN PO SCH (08:00)
[2022-03-26] MEDS: JUVEN PACKET PO SCH ×2 (08:00→19:23)
[2022-03-26] MEDS: TAMSULOSIN 0.4 MG SR CAP PO SCH (08:15)
[2022-03-26] MEDS: guaiFENesin 100 MG/5 ML UCUP PO SCH ×4 (08:15→20:57)
[2022-03-26] MEDS: FUROSEMIDE 20 MG TABLET PO SCH (08:16)
[2022-03-26] MEDS: CRANBERRY FRUIT EXTRACT 400 MG CAP PO SCH ×2 (08:16→19:23)
[2022-03-26] MEDS: SODIUM CHLORIDE 1 GM TAB PO SCH (08:16)
[2022-03-26] MEDS: MULTIVITAMIN TAB PO SCH (08:16)
[2022-03-26] MEDS: CIPROFLOXACIN HCL 500 MG TAB PO SCH ×2 (08:17→19:23)
[2022-03-26] MEDS: APIXABAN 2.5 MG TABLET PO SCH ×2 (08:17→19:23)
[2022-03-26] MEDS: FOLIC ACID 1 MG TABLET PO SCH (08:17)
[2022-03-26] MEDS: THIAMINE HCL 100 MG TABLET PO SCH (08:18)
[2022-03-26] MEDS: NYSTATIN PWDR 100000 UNIT/GM TOP SCH ×2 (09:41→19:24)
[2022-03-26] MEDS ORDERED: MAGNESIUM SULFATE 1 gm IVPB 1 GM/100 ML BAG IV ONE (09:59)
--- NOTE | 2022-03-26 15:09 | RAD REPORT ---
EXAM DESCRIPTION: RAD - Barium Swallow Modified - 03/26/2022 2:41 pm CLINICAL HISTORY: coughing when eating COMPARISON: Abdomen Exam Complete dated 03/22/2022 TECHNIQUE: The patient was given liquid, semi-solid and solid forms of barium. Lateral view fluorosc opic imaging was performed in conjunction with speech pathology service. FINDINGS: Laryngeal penetration cleared with thin,nectar; not cleared with nectar by spoon with pill . Aspiration with weak cough with thin; no cough with thin. Pharyngeal residue vallecular mild with t hin,nectar honey dry solid thin and puree; pyriform severe with thin,mild thin nectar. Cervical curva ture c2-c5,muscular posterior pharyngeal wall protrusion between c5-c6,medial and inferior region,eso phageal spasming,moderate dysmotility in esophagus; esophageal stenosis causing moderate retropulsion (inferior region) Fluoro time:4:50
--- NOTE | 2022-03-26 18:17 | R.PN ---
PROGRESS NOTES ENCOUNTER DATE AND TIME: 03/26/2022 18:13 (CDT) NAME RUTHANN LUNDBERG DATE OF : 1940 DATE OF ADMISSION: 03/11/2022 17:46 (CDT) C79.31 Metastasis to brain of unknown originCHIEF COMPLAINT: Metastatic brain tumor SUBJECTIVE: Pt denied any Shortness of Breath. Pt denied any depression. WBC 3.4, Hgb 10.8, Plt 60, prealbumin 15.5, Na 140, BUN 44. Lactic acid 4.0, procalcitonin 0.22. UA: loaded with bacteria, WBC 10-20, esterase 2+. COVID-19 is negative. LFTs are elevated. Ammonia is nor mal. Abdominal ultrasound shows cirrhotic liver, ascites, cholelithiasis and pancreatic ductal dilat ation. GI is consulted. Mg 1.7. Will give 1 gram of IV magnesium. Repeat chest x-ray 03-23-22 showe unchanged small right-sided pleural fluid collection. Therapeutic exercised done with supervision. Thanks Dr. Higuera for nail debridement following Tinea unguium. Thanks GI for help. Chest CT shows volume overload pattern and NOT pneumonia. Give IV lasix 20 mg x 2, then 10 mg po bid. Continue Cipro 500 mg bid for 7 days. Will discharge to SNF in the AM. VITAL SIGNS Temperature: 97.3 F SBP/DBP: 106/58 Pulse: 90 Resp: 16 MEDICATION ALLERGIES: No Known Drug Allergies (NKDA) ENVIRONMENTAL ALLERGIES: - Substance Allergies None Known - Other Allergies None Known NURSING: - Shower allowing shower PRECAUTIONS: - Fall Precaution Bed alarm TABS alarm Wheel chair alarm - Bleeding Risk Lovenox - DVT Risk due to restricted mobility and age - Skin Breakdown Risk due to restricted mobility and age - Cardiac Precaution Monitor blood pressure, heart rate, lower extremity edema, notify MD for shortness of breath or chest pain Monitor patient for excessive elevation of heart rate and blood pressure during therapy ACTIVITIES OOB only with supervision THERAPIES: - Dietary and Nutrition Adequate Nutrition. Nutritional Education. Nutritional Supplements. Evaluate and Treat. - Occupational Therapy Cognitive Retraining. Patient needs Occupational Therapy for a daily minimum of 1.5 hours at least 5 out of 7 days, to improve Activities of Daily Living, including: Eating, Grooming, Bathing, Dressing, Toileting, Toilet Transfers, Community Reintegration, Higher functional activities, Adaptive Equipme nt, Splinting, Household Tasks, and Other activities as determined. Visual Perceptual Training. Evalu ate and Treat. ADL Training. Household Tasks. Patient/Family Education. Safety Awareness. Transfer Tr robin. - Speech Therapy Cognitive Training. Expressive Language Skills. Memory Strategies. Patient needs Speech Therapy for a daily minimum of 1.5 hours at least 5 out of 7 days, to improve: Swallowing, Cognition, Language Ski lls, and Compensatory Strategies. Receptive Language Skills. Speech Intelligibility Training. Evaluat e and Treat. - Physical Therapy Patient needs Physical Therapy for a daily minimum of 1.5 hours at least 5 out of 7 days, to improve: Mobility, Strengthening, Transfers, Stretching, ROM, Endurance, Ability to manage stairs, Gait, and Balance. Balance Training. Evaluate and Treat. Gait Training. Safety Awareness. LE Strengthening. Mob ility Training. Transfer Training. PHYSICAL EXAM - Gen Alert and awake Lying in bed No apparent distress Oriented to: person, time, and place - Skin No skin breakdown. Normacephalicand disheveled with long stephens - Eyes No abnormalities - ENMT No abnormalities - Neck No abnormalities - CVS RRR - Chest Mildly decreased breath sounds bilaterally. - Resp No wheezing - Abd Soft - GI + bowel sounds Deferred - No abnormalities - Ext Mild bilateral lower extremity edema. - MSK 4/5 weakness in both lower extremities. - Neuro No focal deficits - Psych No abnormalities ASSESSMENT: Pt. 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 was independent/mod-I in Locomotion, Social Cognition, Balance, and Safety Awareness; and he had good Transfers Control, Sphincter Control, Self-Care, Communication , and Endurance.Currently, he has deficits of Locomotion, Social Cognition, Safety Awareness, Balance , Transfers Control, Sphincter Control, Communication, Self-Care, and Endurance.Pt. is now referred t [facility] for acute in-patient rehabilitation in order to maximize patient' s functional independence in activities of daily living, strength, ROM, and mobility.- Rehab Goal Patient has realistic goal of being discharged at assistance level 7-Ind to reside at Home with Pt s elf. MDM/PLAN: - Physical Therapy Gait dysfunction - to improve, our physical therapists will perform initial evaluation of pt's statu s upon admission and devise an individualized program for Gait Training, and Wheel Chair mobility Inability to transfer - to improve, our physical therapists will perform initial evaluation of pt's status upon admission and devise an individualized program for Bed mobility Need for home safety evaluation - to improve, our physical therapists will perform initial evaluatio n of pt's status upon admission and devise an individualized program for Home Evaluation Need in caregiver upon discharge - to improve, our physical therapists will perform initial evaluati on of pt's status upon admission and devise an individualized program for Caregiver Training New precaution - to improve, our physical therapists will perform initial evaluation of pt's status upon admission and devise an individualized program for Patient precaution education Edema - to improve, our physical therapists will perform initial evaluation of pt's status upon admi ssion and devise an individualized program for Elevation Training, and Lymphedema Therapy Poor balance - to improve, our physical therapists will perform initial evaluation of pt's status up on admission and devise an individualized program for Balance Training Poor endurance - to improve, our physical therapists will perform initial evaluation of pt's status upon admission and devise an individualized program for Endurance Training Weakness - to improve, our physical therapists will perform initial evaluation of pt's status upon a dmission and devise an individualized program for Aquatic Therapy, Neuromuscular Reeducation, and Str engthening Achieving independence - to improve, our physical therapists will perform initial evaluation of pt's status upon admission and devise an individualized program for Community Reintegration Activities - Occupational Therapy ADL deficits - to improve, our occupation therapists will perform initial evaluation of pt's status upon admission and devise an individualized program for Bathing, Bed mobility, Community Reintegratio n, Cooking, Dressing, Eating, Fine Motor Skills, Grooming, Homemaking, Kitchen Mobility, Laundry, Pat ient Education, Safety Awareness, Splinting - Positioning, Transfers(Toilet, Tub, Shower), and Wheel Chair Management Cognitive deficits - to improve, our occupation therapists will perform initial evaluation of pt's s tatus upon admission and devise an individualized program for Cognition - orientation Need for critical care physician assistant - to improve, our occupation therapists will perform initial evaluation of pt's status upon admission and devise an individualized program for Caregiver Training Weakness - to improve, our occupation therapists will perform initial evaluation of pt's status upon admission and devise an individualized program for Aquatic Therapy, Balance, Endurance, UE ROM, and UE strengthening - Other See attached MAR (Medication Administration Record) - Diet Type Continue Regular - Diet - Liquid Texture Continue Regular - Tube Feed Continue N/A - Bleeding Risk Lovenox - DVT Risk due to restricted mobility and age - Skin Breakdown Risk due to restricted mobility and age - Cardiac Precaution Monitor blood pressure, heart rate, lower extremity edema, notify MD for shortness of breath or ches t pain Monitor patient for excessive elevation of heart rate and blood pressure during therapy - Fall Precaution Bed alarm TABS alarm Wheel chair alarm - Diet - Solid Texture Continue Regular - Shower allowing shower FUNCTIONAL STATUS: UPDATED AT WEEKLY TEAM CONFERENCE - Bladder Same accident frequency: 7-Ind - No accidents in the past 7 days - Bowel Same accident frequency: 7-Ind - No accidents in the past 7 days - Walking Same score based on distance walked: 0(N/A) - Wheelchair Same score based on distance traveled: 0(N/A) FUNCTIONAL STATUS: - Self-Care A. Eating Ind B. Grooming sup C. Bathing maxA D. Dressing - Upper Jorge E. Dressing - Lower maxA F. Toileting Jorge - Sphincter Control G. Bladder control Justin H. Bowel control Justin - Transfers Control I. Bed/Chair/Wheelchair modA J. Toilet modA K. Tub/Shower modA - Locomotion L. Walk/Wheelchair (B) modA M. Stairs ADNO - Communication N. Comprehension (B) Justin O. Expression (B) Justin - Social Cognition P. Social Interaction Ind Q. Problem Solving Jorge R. Memory Justin - Endurance Poor - Balance Poor - Safety Awareness Fair QI SCORES: - Self-Care A. Eating 04-Supervision or touching assistance B. Oral hygiene 04-Supervision or touching assistance C. Toileting hygiene 03-Partial/moderate assistance E. Shower/bathe self 03-Partial/moderate assistance F. Upper body dressing 04-Supervision or touching assistance G. Lower body dressing 03-Partial/moderate assistance H. Putting on/taking off footwear 03-Partial/moderate assistance - Mobility A. Roll left and right 04-Supervision or touching assistance B. Sit to lying 04-Supervision or touching assistance C. Lying to sitting on side of bed 04-Supervision or touching assistance D. Sit to stand 03-Partial/moderate assistance E. Chair/isu-ld-nrags transfer 02-Substantial/maximal assistance F. Toilet transfer 02-Substantial/maximal assistance G. Car transfer 88-Not attempted due to medical condition or safety concerns I. Walk 10 feet 88-Not attempted due to medical condition or safety concerns J. Walk 50 feet with two turns 88-Not attempted due to medical condition or safety concerns K. Walk 150 feet 88-Not attempted due to medical condition or safety concerns L. Walking 10 feet on uneven surfaces 88-Not attempted due to medical condition or safety concerns M. 1 step (curb) 88-Not attempted due to medical condition or safety concerns N. 4 steps 88-Not attempted due to medical condition or safety concerns O. 12 steps 88-Not attempted due to medical condition or safety concerns P. Picking up object 88-Not attempted due to medical condition or safety concerns R. Wheel 50 feet with two turns 88-Not attempted due to medical condition or safety concerns S. Wheel 150 feet 88-Not attempted due to medical condition or safety concerns - Bladder and Bowel Bladder continence Bowel continence - Endurance Fair - Balance Fair - Safety Awareness Fair [facility] DEFIC[facility]: Self-Care, Mobility, Endurance, Balance, and Safety Awareness SIGNATURE PANEL: (CDT)
[2022-03-26] MEDS: AMINO ACIDS/PROTEIN HYDROLYS 30 ML LIQUID.PKT PO SCH (19:22)
[2022-03-26] MEDS: ENSURE ENLIVE 237 ML CAN PO SCH (19:24)
[2022-03-26 21:22] VITALS: O2SAT 96
[2022-03-27] MEDS: AMINO ACIDS/PROTEIN HYDROLYS 30 ML LIQUID.PKT PO SCH (08:00)
[2022-03-27] MEDS: JUVEN PACKET PO SCH (08:00)
[2022-03-27] MEDS: ENSURE ENLIVE 237 ML CAN PO SCH (08:00)
[2022-03-27] MEDS: CIPROFLOXACIN HCL 500 MG TAB PO SCH (09:26)
[2022-03-27] MEDS: guaiFENesin 100 MG/5 ML UCUP PO SCH (09:26)
[2022-03-27] MEDS: SODIUM CHLORIDE 1 GM TAB PO SCH (09:27)
[2022-03-27] MEDS: CRANBERRY FRUIT EXTRACT 400 MG CAP PO SCH (09:27)
[2022-03-27] MEDS: FUROSEMIDE 20 MG TABLET PO SCH (09:27)
[2022-03-27] MEDS: FOLIC ACID 1 MG TABLET PO SCH (09:28)
[2022-03-27] MEDS: TAMSULOSIN 0.4 MG SR CAP PO SCH (09:29)
[2022-03-27] MEDS: lisinopriL 5 MG TAB PO SCH (09:29)
[2022-03-27] MEDS: MULTIVITAMIN TAB PO SCH (09:29)
[2022-03-27] MEDS: APIXABAN 2.5 MG TABLET PO SCH (09:29)
[2022-03-27] MEDS: THIAMINE HCL 100 MG TABLET PO SCH (09:29)
[2022-03-27] MEDS: NYSTATIN PWDR 100000 UNIT/GM TOP SCH (09:30)
--- NOTE | 2022-03-27 09:44 | P.RH.PN ---
Estimated Length of Stay: 16 Expected Discharge Date: 03/27/22 Discharge Disposition Plan: Home Family Support: Yes Senior Care Goal: Mobility, Transfers, Self Care Vital Signs: Last Vital Signs Temp 97.4 F 03/26/22 21:21 Pulse 87 03/26/22 21:21 Resp 18 03/26/22 21:21 BP 108/51 L 03/26/22 21:21 Pulse Ox 96 03/26/22 21:21 Laboratory: Laboratory Last Values WBC 3.0 K/uL (4.3-10.9) L 03/26/22 06:40 RBC 3.29 M/uL (4.33-5.43) L 03/26/22 06:40 Hgb 10.5 g/dL (13.6-17.9) L 03/26/22 06:40 Hct 31.0 % (39.6-49.0) L 03/26/22 06:40 MCV 94.3 fL (80-100) 03/26/22 06:40 MCH 32.1 pg (27.0-35.0) 03/26/22 06:40 MCHC 34.0 g/dL (32.0-36.0) 03/26/22 06:40 RDW 15.6 % (12.1-15.2) H 03/26/22 06:40 Plt Count 57 K/uL (152-406) L 03/26/22 06:40 MPV 8.8 fL (7.6-11.3) 03/26/22 06:40 Neutrophils % 76.4 % (41.7-73.7) H 03/26/22 06:40 Lymphocytes % 11.6 % (15.3-44.8) L 03/26/22 06:40 Monocytes % 10.1 % (3.3-12.3) 03/26/22 06:40 Eosinophils % 1.5 % (0-4.4) 03/26/22 06:40 Basophils % 0.4 % (0-1.3) 03/26/22 06:40 Absolute Neutrophils 2.3 K/uL (1.8-8.0) 03/26/22 06:40 Segmented Neutrophils 86 % (40-80) H 03/23/22 05:42 Absolute Lymphocytes 0.3 K/uL (0.7-4.9) L 03/26/22 06:40 Lymphocytes 13 % (15-42) L 03/23/22 05:42 Monocytes 1 % (0-10) 03/23/22 05:42 Absolute Monocytes 0.3 K/uL (0.1-1.3) 03/26/22 06:40 Absolute Eosinophils 0.0 K/uL (0-0.5) 03/26/22 06:40 Absolute Basophils 0.0 K/uL (0-0.5) 03/26/22 06:40 Platelet Estimate Decr 03/25/22 11:35 Morphology Comment Not seen (NOT SEEN) 03/25/22 11:35 PT 23.6 SECONDS (9.5-12.5) H 03/23/22 05:42 INR 2.11 03/23/22 05:42 APTT 33.2 SECONDS (24.3-36.9) 03/23/22 05:42 Sodium 141 mmol/L (136-145) 03/26/22 06:40 Potassium 3.7 mmol/L (3.5-5.1) 03/26/22 06:40 Chloride 108 mmol/L (98-107) H 03/26/22 06:40 Carbon Dioxide 28 mmol/L (21-32) 03/26/22 06:40 Anion Gap 8.7 mEq/L (5.0-15.0) 03/26/22 06:40 BUN 52 mg/dL (7-18) H 03/26/22 06:40 Creatinine 0.73 mg/dL (0.55-1.3) 03/26/22 06:40 Est GFR (CKD-EPI) 90 ml/min (=/>90) 03/26/22 06:40 Glucose 112 mg/dL (74-106) H 03/26/22 06:40 Lactic Acid 4.0 mmol/L (0.4-2.0) H 03/23/22 14:13 Calcium 9.0 mg/dL (8.5-10.1) 03/26/22 06:40 Magnesium 1.7 mg/dL (1.8-2.4) L 03/26/22 06:40 Total Bilirubin 5.8 mg/dL (0.2-1.0) H* 03/23/22 05:42 AST 81 U/L (15-37) H 03/23/22 05:42 ALT 96 U/L (12-78) H 03/23/22 05:42 Alkaline Phosphatase 146 U/L (45-117) H 03/23/22 05:42 Ammonia 49 umol/L (19-54) 03/23/22 05:47 NT-Pro-B Natriuret Pep 801 pg/mL (<450) H 03/17/22 04:11 Serum Total Protein 5.2 g/dL (6.4-8.2) L 03/23/22 05:42 Albumin 2.2 g/dL (3.4-5.0) L 03/26/22 06:40 Globulin 3.0 g/dL (2.3-3.5) 03/23/22 05:42 Albumin/Globulin Ratio 0.7 (1.1-1.8) L 03/23/22 05:42 Prealbumin 11.1 mg/dL (20-40) L 03/26/22 06:40 Procalcitonin 0.22 ng/mL (<0.050) H 03/23/22 05:42 Urine Color Dk yellow (Yellow) 03/11/22 22:20 Urine Appearance Clear (Clear) 03/11/22 22:20 Urine pH 7.0 (5.0-7.0) 03/11/22 22:20 Ur Specific [place] 1.020 (1.005-1.030) 03/11/22 22:20 Glucose (UA)(Auto) Negative (Negative) 03/11/22 22:20 Urine Ketones Negative (Negative) 03/11/22 22:20 Urine Blood Negative (Negative) 03/11/22 22:20 Urine Nitrite Negative (Negative) 03/11/22 22:20 Urine Bilirubin Positive (Negative) H 03/11/22 22:20 Urine Urobilinogen 1.0 mg/dL (0.2-1.0) 03/11/22 22:20 Ur Leukocyte Esterase 2+ (Negative) H 03/11/22 22:20 Urine RBC <5 /HPF (NONE SEEN) 03/11/22 22:20 Urine WBC 10-20 /HPF (<5) H 03/11/22 22:20 Ur Squamous Epith Cells 5-10 /HPF (NONE SEEN) H 03/11/22 22:20 Ur Urothelial Cells Cancelled 03/11/22 18:50 Ur Urothelial Cells Cancelled 03/11/22 18:50 Calcium Oxalate Crystal Cancelled 03/11/22 18:50 Calcium Oxalate Crystal Cancelled 03/11/22 18:50 Uric Acid Crystals Cancelled 03/11/22 18:50 Uric Acid Crystals Cancelled 03/11/22 18:50 Triple Phos Crystals Cancelled 03/11/22 18:50 Triple Phos Crystals Cancelled 03/11/22 18:50 Other Crystals Cancelled 03/11/22 18:50 Other Crystals Cancelled 03/11/22 18:50 Amorphous Sediment 2+ /HPF (NONE SEEN) H 03/11/22 22:20 Glitter Cells Cancelled 03/11/22 18:50 Glitter Cells Cancelled 03/11/22 18:50 Urine Bacteria Loaded /HPF (NONE SEEN) H 03/11/22 22:20 Hyaline Casts Cancelled 03/11/22 18:50 Hyaline Casts Cancelled 03/11/22 18:50 Fine Granular Casts Cancelled 03/11/22 18:50 Fine Granular Casts Cancelled 03/11/22 18:50 Coarse Granular Casts Cancelled 03/11/22 18:50 Coarse Granular Casts Cancelled 03/11/22 18:50 Waxy Casts Cancelled 03/11/22 18:50 Waxy Casts Cancelled 03/11/22 18:50 RBC Casts Cancelled 03/11/22 18:50 RBC Casts Cancelled 03/11/22 18:50 WBC Casts Cancelled 03/11/22 18:50 WBC Casts Cancelled 03/11/22 18:50 Urine Mucus 2+ /HPF (NONE SEEN) 03/11/22 22:20 Urine Other Cancelled 03/11/22 18:50 Urine Other Cancelled 03/11/22 18:50 Urine Trichomonas Cancelled 03/11/22 18:50 Urine Trichomonas Cancelled 03/11/22 18:50 Urine Yeast Cancelled 03/11/22 18:50 Urine Yeast Cancelled 03/11/22 18:50 Ur Yeast w Hyphae Cancelled 03/11/22 18:50 Ur Yeast w Hyphae Cancelled 03/11/22 18:50 Urine Yeast (Budding) Cancelled 03/11/22 18:50 Urine Yeast (Budding) Cancelled 03/11/22 18:50 Urine Sperm Cancelled 03/11/22 18:50 Urine Sperm Cancelled 03/11/22 18:50 Urine Culture Reflexed Not needed 03/11/22 22:20 Urine Total Volume Cancelled 03/11/22 18:50 Urine Total Volume Cancelled 03/11/22 18:50 Urine Total Protein 1+ (Negative) H 03/11/22 22:20 Hepatitis A IgM Ab Cancelled 03/24/22 09:00 Hep Bs Antigen Cancelled 03/24/22 09:00 Hep Bs Ag Confirmation Cancelled 03/24/22 09:00 Hep B Core IgM Ab Cancelled 03/24/22 09:00 Hepatitis C Antibody Cancelled 03/24/22 09:00 Hep C Ab Signal/Cutoff Cancelled 03/24/22 09:00 SARS-CoV-2 Rap RNA(RT-PCR) Negative (NEGATIVE) 03/25/22 04:25 Smear Scan Ok (OK) 03/25/22 11:35 Miscellaneous Test Sent 03/23/22 14:13 Weight: 214 lb 4.8 oz Wound Present: No Closed Surgical Incision Present: No Negative Pressure Wound Therapy Present: No Physician Update: Bed mobility is min assistance. He is refusing to get out of bed. Total assistance to get out of bed. His magnesium is constantly dropping requiring IV replacement. He will be discharged to SNF today. Functional Improvement: pt. continues to work toward meeting short term goals. pt. presents with continous increased lethargy and lack of motivation towards therapy. Summary: Patient's care plan and meterman goals have been reviewed and revised as necessary. Please see the Rehabilitation Signature page for all necessary signatures.
[2022-03-27 09:45] VITALS: BP 104/50
[2022-03-27 09:56] VITALS: TEMP 96.9
--- NOTE | 2022-04-03 17:37 | R.DS ---
DISCHARGE SUMMARY FACILITY [facility] MR# [id number] NAME RUTHANN LUNDBERG ADDRESS [address] [facility] [address] [address] PHONE DATE OF 1940 AGE 81 SSN# [id number] GENDER Male MARITAL STATUS ENCOUNTER PHYSICIAN Dr. Nicolas Mckinley M.D. 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 DATE OF ADMISSION 03/11/2022 17:46 (CDT) MEDICATION ALLERGIES: No Known Drug Allergies (NKDA) ENVIRONMENTAL ALLERGIES: - Substance Allergies None Known - Other Allergies None Known DISCHARGE MEDICATIONS: Other- ContinueSee attached MAR (Medication Administration Record). NURSING: - Shower allowing shower PRECAUTIONS: - Fall Precaution Bed alarm TABS alarm Wheel chair alarm - Bleeding Risk Lovenox - DVT Risk due to restricted mobility and age - Skin Breakdown Risk due to restricted mobility and age - Cardiac Precaution Monitor blood pressure, heart rate, lower extremity edema, notify MD for shortness of breath or chest pain Monitor patient for excessive elevation of heart rate and blood pressure during therapy ACTIVITIES OOB only with supervision THERAPIES: - Dietary and Nutrition Adequate Nutrition Nutritional Education Nutritional Supplements Evaluate and Treat - Occupational Therapy Cognitive Retraining Patient needs Occupational Therapy for a daily minimum of 1.5 hours at least 5 out of 7 days, to impr ove Activities of Daily Living, including: Eating, Grooming, Bathing, Dressing, Toileting, Toilet Tra nsfers, Community Reintegration, Higher functional activities, Adaptive Equipment, Splinting, Househo ld Tasks, and Other activities as determined Visual Perceptual Training Evaluate and Treat ADL Training Household Tasks Patient/Family Education Safety Awareness Transfer Training - Speech Therapy Cognitive Training Expressive Language Skills Memory Strategies Patient needs Speech Therapy for a daily minimum of 1.5 hours at least 5 out of 7 days, to improve: S wallowing, Cognition, Language Skills, and Compensatory Strategies Receptive Language Skills Speech Intelligibility Training Evaluate and Treat - Physical Therapy Patient needs Physical Therapy for a daily minimum of 1.5 hours at least 5 out of 7 days, to improve: Mobility, Strengthening, Transfers, Stretching, ROM, Endurance, Ability to manage stairs, Gait, and Balance Balance Training Evaluate and Treat Gait Training Safety Awareness LE Strengthening Mobility Training Transfer Training HISTORY OF PRESENT ILLNESS: Pt. 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 was independent/mod-I in Locomotion, Social Cognition, Balance, and Safety Awareness; and he had good Transfers Control, Sphincter Control, Self-Care, Communication , and Endurance.Currently, he has deficits of Locomotion, Social Cognition, Safety Awareness, Balance , Transfers Control, Sphincter Control, Communication, Self-Care, and Endurance.Pt. is now referred t [facility] for acute in-patient rehabilitation in order to maximize patient' s functional independence in activities of daily living, strength, ROM, and mobility.- Rehab Goal Patient has realistic goal of being discharged at assistance level 7-Ind to reside at Home with Pt s elf. BLEEDING RISK: On 03/06/2022 the following precautions were added for the patient: Bleeding Risk - Lovenox. On 03/12/2022 the following precautions were added for the patient: Bleeding Risk - Lovenox. On 03/14/2022 the following precautions were removed for the patient: Bleeding Risk - Lovenox. On 03/16/2022 the following precautions were added for the patient: Bleeding Risk - Lovenox. On 03/06/2022 the following precautions were removed for the patient: Bleeding Risk - Lovenox, and Bl eeding Risk - Lovenox. The following precautions were added for the patient: Cardiac Precaution - Monitor blood pressure, he art rate, lower extremity edema, notify MD for shortness of breath or chest pain, and Cardiac Precaut ion - Monitor patient for excessive elevation of heart rate and blood pressure during therapy. On 03/12/2022 the following precautions were added for the patient: Cardiac Precaution - Monitor blo od pressure, heart rate, lower extremity edema, notify MD for shortness of breath or chest pain, and Cardiac Precaution - Monitor patient for excessive elevation of heart rate and blood pressure during therapy. On 03/14/2022 the following precautions were removed for the patient: Cardiac Precaution - Monitor b lood pressure, heart rate, lower extremity edema, notifjocelyn ALCAZAR for shortness of breath or chest pain, an d Cardiac Precaution - Monitor patient for excessive elevation of heart rate and blood pressure duri ng therapy. On 03/16/2022 the following precautions were added for the patient: Cardiac Precaution - Monitor blo od pressure, heart rate, lower extremity edema, notify MD for shortness of breath or chest pain, and Cardiac Precaution - Monitor patient for excessive elevation of heart rate and blood pressure during therapy. On 03/06/2022 the following precautions were removed for the patient: Cardiac Precaution - Monitor bl ood pressure, heart rate, lower extremity edema, notify MD for shortness of breath or chest pain, Car diac Precaution - Monitor patient for excessive elevation of heart rate and blood pressure during the rapy, Cardiac Precaution - Monitor blood pressure, heart rate, lower extremity edema, notify MD for shortness of breath or chest pain, and Cardiac Precaution - Monitor patient for excessive elevation of heart rate and blood pressure during therapy. The following precautions were added for the patient: DVT Risk - due to restricted mobility and age. On 03/12/2022 the following precautions were added for the patient: DVT Risk - due to restricted mob ility and age. On 03/14/2022 the following precautions were removed for the patient: DVT Risk - due to restricted m obility and age. On 03/16/2022 the following precautions were added for the patient: DVT Risk - due to restricted mob ility and age. The following precautions were removed for the patient: DVT Risk - due to restricted mobility and age , and DVT Risk - due to restricted mobility and age. On 03/06/2022 the following precautions were added for the patient: Fall Precaution - Bed alarm, Fall Precaution - TABS alarm, and Fall Precaution - Wheel chair alarm. On 03/14/2022 the following precautions were added for the patient: Fall Precaution - Bed alarm, Fal l Precaution - TABS alarm, and Fall Precaution - Wheel chair alarm. On 03/06/2022 the following precautions were removed for the patient: Fall Precaution - Bed alarm, Fa ll Precaution - TABS alarm, Fall Precaution - Wheel chair alarm, Fall Precaution - Bed alarm, Fall P recaution - TABS alarm, and Fall Precaution - Wheel chair alarm. The following precautions were added for the patient: Skin Breakdown Risk - due to restricted mobilit y and age. On 03/12/2022 the following precautions were added for the patient: Skin Breakdown Risk - due to res tricted mobility and age. On 03/14/2022 the following precautions were removed for the patient: Skin Breakdown Risk - due to r estricted mobility and age. On 03/16/2022 the following precautions were added for the patient: Skin Breakdown Risk - due to res tricted mobility and age. The following precautions were removed for the patient: Skin Breakdown Risk - due to restricted mobil ity and age, and Skin Breakdown Risk - due to restricted mobility and age. CARDIAC PRECAUTION: DVT RISK: DIET - LIQUID TEXTURE: On 03/06/2022 Pt was upgraded to Regular Diet - Liquid Texture. DIET - SOLID TEXTURE: On 03/06/2022 Pt was upgraded to Regular Diet - Solid Texture. DIET TYPE: On 03/06/2022 Pt was upgraded to Regular Diet Type. FALL PRECAUTION: SKIN BREAKDOWN RISK: TUBE FEED: On 03/06/2022 Pt was changed to N/A Tube Feed. Modified barium study 03-26-22 showed esophageal spasming, moderate dysmotility and retropulsion. DISCHARGE PHYSICAL EXAM - Gen Alert and awake Lying in bed No apparent distress Oriented to: person, time, and place - Skin No skin breakdown. Normacephalicand disheveled with long stephens - Eyes No abnormalities - ENMT No abnormalities - Neck No abnormalities - CVS RRR - Chest Mildly decreased breath sounds bilaterally. - Resp No wheezing - Abd Soft - GI + bowel sounds Deferred - No abnormalities - Ext Mild bilateral lower extremity edema. - MSK 4/5 weakness in both lower extremities. - Neuro No focal deficits - Psych No abnormalities FUNCTIONAL STATUS: - Self-Care A. Eating 7-Ind B. Grooming 5-sup C. Bathing 4-Jorge D. Dressing - Upper 4-Jorge E. Dressing - Lower 2-maxA F. Toileting 4-Jorge - Sphincter Control G. Bladder control 6-Justin H. Bowel control 6-Justin - Transfers Control I. Bed/Chair/Wheelchair 4-Jorge J. Toilet 4-Jorge K. Tub/Shower 4-Jorge - Locomotion L. Walk/Wheelchair (B) 4-Jorge M. Stairs 0-ADNO - Communication N. Comprehension (B) 6-Justin O. Expression (B) 6-Justin - Social Cognition P. Social Interaction 7-Ind Q. Problem Solving 5-sup R. Memory 6-Justin - Endurance Fair - Balance Fair - Safety Awareness Fair QI SCORES: - Self-Care A. Eating 04-Supervision or touching assistance B. Oral hygiene 04-Supervision or touching assistance C. Toileting hygiene 03-Partial/moderate assistance E. Shower/bathe self 03-Partial/moderate assistance F. Upper body dressing 04-Supervision or touching assistance G. Lower body dressing 03-Partial/moderate assistance H. Putting on/taking off footwear 03-Partial/moderate assistance - Mobility A. Roll left and right 04-Supervision or touching assistance B. Sit to lying 04-Supervision or touching assistance C. Lying to sitting on side of bed 04-Supervision or touching assistance D. Sit to stand 03-Partial/moderate assistance E. Chair/gqh-qz-hyubl transfer 02-Substantial/maximal assistance F. Toilet transfer 02-Substantial/maximal assistance G. Car transfer 88-Not attempted due to medical condition or safety concerns I. Walk 10 feet 88-Not attempted due to medical condition or safety concerns J. Walk 50 feet with two turns 88-Not attempted due to medical condition or safety concerns K. Walk 150 feet 88-Not attempted due to medical condition or safety concerns L. Walking 10 feet on uneven surfaces 88-Not attempted due to medical condition or safety concerns M. 1 step (curb) 88-Not attempted due to medical condition or safety concerns N. 4 steps 88-Not attempted due to medical condition or safety concerns O. 12 steps 88-Not attempted due to medical condition or safety concerns P. Picking up object 88-Not attempted due to medical condition or safety concerns R. Wheel 50 feet with two turns 88-Not attempted due to medical condition or safety concerns S. Wheel 150 feet 88-Not attempted due to medical condition or safety concerns - Bladder and Bowel Bladder continence Bowel continence - Endurance Fair - Balance Fair - Safety Awareness Fair DISCHARGE INSTRUCTIONS: - N/A Eliquis 2.5 mg twice daily. DISCHARGE PLAN, FOLLOW UP CARE PROVISIONS: - Estimated Length of Stay (days) 13. - Consensus on plan Discharge plan has been discussed with primary caregiver. Patient/Family is in agreement with the alisa n. Primary caregiver is in agreement with the plan. - Patient/Family Goals Return home independently. - Potential barriers to discharge Any lines must be removed or patient/caregiver needs to be educated on line care. - Planned Living Setting Upon Discharge Home, to live alone. Transitional Living. Primary caregiver: Pt self. SIGNATURE PANEL: (CDT)
== END 2022-03-27 12:45 | DRG 55 ==
LOC: 5TH 03-11 17:46
PROVIDERS: ADMIT Psychiatry & Neurology Neurology with Special Qualifications in Child Neurology; ATTEND Psychiatry & Neurology Neurology with Special Qualifications in Child Neurology
DX: C79.31 Secondary malignant neoplasm of brain (principal); J90 Pleural effusion, not elsewhere classified; R18.8 Other ascites; I10 Essential (primary) hypertension; J44.9 Chronic obstructive pulmonary disease, unspecified; B35.1 Tinea unguium; L60.2 Onychogryphosis; K74.60 Unspecified cirrhosis of liver; K80.20 Calculus of gallbladder without cholecystitis without obstruction; K86.89 Other specified diseases of pancreas; Z20.822 Contact with and (suspected) exposure to COVID-19
CPT/HCPCS: 36415; 71045; 71250; 74230; 76700; 80048; 80053; 81003; 81015; 82040; 82140; 83605; 83735; 83880; 84134; 84145; 85025; 85610; 85730; 87040; 87077; 87086; 87088; 87186; 87205; 87522; 92610; 92611; 93005; 94010; 97110; 97116; 97161; 97165; 97530; 97542; J1940; J3475; J7030; J7050; J8540; U0003

== ENCOUNTER 2022-03-31 11:25 | Inpatient (IN) | payer OTHER ==
--- OUTSIDE RECORDS SUMMARY | 2022-03-31 11:30 | XMS REPORT | Continuity of Care Document ---
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 [id number] 2002 00:00:00 MEDICARE A B [id number] 2003 00:00:00 [employer] INDEMNITY [id number] [id number] NON CONTR 00:00:00 Problems Condition Condition Condition Status Onset Resolution Last Treating Co mments Source Name Details Category Date Date Treatment Clinician Date Metabolic Metabolic Disease Active [facility] alkalosis alkalosis [facility] 00 [place] Cirrhosis Cirrhosis Disease Active [facility] Hypomagnes Hypomagnes Disease Active [facility] 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 [facility] HTN HTN Disease Active [facility] (hypertens (hypertens 03-11 [facility] ion) ion) 00:[facility] Center Alcohol Alcohol Disease Active [facility] abuse abuse [facility] 00 [place] Hypoalbumi Hypoalbumi Disease Active [facility] nemia nemia 03-11 [facility] 00 [place] Loose Loose Disease Active [facility] stools stools 03-11 [facility] 00 [place] Arm Arm Disease Active [facility] weakness weakness 02-27 [facility] Allergies, Adverse Reactions, Alerts Allergy Allergy Status Severity Reaction(s) Onset Inactive Treating Comm ents Source Name Type Date Date Clinician NO KNOWN Allergy Active [facility] ALLERGIE [facility] S [facility] Family History Family Member Diagnosis Comments Start Date Stop Date Source Natural mother Parkinsonism [facility] Social History Social Habit Start Date Stop Date Quantity Comments Source History SDOH [facility] SDOH [facility] Alcohol Std Drinks [facility] History SDOH [facility] Alcohol Binge Medical [facility] ter Alcohol intake 2017-03-11 2017-03-11 5 /d [facility] 00:00:00 00:00:00 [facility] Alcohol Comment 2017-03-11 2017-03-11 500 ml of gonzalo [facility] 00:[facility]00 00:00:00 a night [facility] History of tobacco 2015-11-[address] [facility] use 00:00:00 [facility] Sex Assigned At [address] [facility] Beth kes 00:00:00 00:00:00 [facility] Smoking Status Start Date Stop Date Source Former smoker 2017-03-03 00:00:00 2017-03-03 00:00:00 [facility] Medications Ordered Filled Start Stop Current Ordering Indication Dosage Frequency Signature Comments Components Source Medication Medication Date Date Medication? Clinician (SIG) Name Name multivitami Yes 1{tbl} QD Take [address] [facility] 07 [facility] tablet 13:22: mouth Medical 13 daily. Center multivitami Yes 1{tbl} QD Take [address] [facility] per 7-07 tablet by [facility] tablet 13:22: mouth Medical 13 daily. Center Procedures This patient has no known procedures. Encounters Start End Encounter Admission Attending Care Care Encounter Source Date/Time Date/Time Type Type Clinicians Facility Department ID 2022-03-27 Outpatient [facility] [id number] PR 15:19:24 [id number] Health 2022-02-[address] [facility] Neurology [id number] [facility] 16:38:31 [facility] Results Test Description Test Time Test Comments Results Result Comments Source HEPATITIS C PCR, QUANTITATIVE 2022-03-25 13:40:57 Test Item Value Reference Range Interpretation Comme nts HCV RESULT COMPONENT (BEAKER) (test HCV RNA not detected HCV RNA no t detected code = 2699) This test uses a Real-Time Polymerase Chain Reaction (RT-PCR) methodology and was performed using [employer] Ampliprep/KEI TaqMan HCV test kit version 2.0 ([employer]).Reportable range for this assay is 15 - 100,000,000 IU per mL (1.18 - 8.00 Log IU/mL).HEPATITIS B SURFACE ANTIGEN 2022-03-23 21:08:11 Test Item Value Reference Range Interpretation Comments HEPATITIS B SURFACE ANTIGEN (2) Nonreactive Nonreactive (BEAKER) (test code = 2585) Specimen is considered negative for HBsAg.HEPATITIS B CORE ANTIBODY, IGM 2022-03-23 21:08:11 Test Item Value Reference Range Interpretation Comments HEPATITIS B CORE IGM ANTIBODY Nonreactive Nonreactive (BEAKER) (test code = 645) Dairy Bacteriologist ID - BSHEPATITIS C [id number] 21:08:11 Test Item Value Reference Range Interpretation Comments HEPATITIS C ANTIBODY (BEAKER) Nonreactive Nonreactive (test code = 367) Dairy Bacteriologist ID - BSHEPATITIS A ANTIBODY, [id number] 21:08:11 Test Item Value Reference Range Interpretation Comments HEPATITIS A IGM ANTIBODY (BEAKER) Nonreactive Nonreactive (test code = 498) Dairy Bacteriologist ID - BSCBC W/PLT COUNT & AUTO [id number] 11:38:00 Test Item Value Reference Range Interpretation Comments WHITE BLOOD CELL COUNT (BEAKER) 2.0 K/ L 4.0-10.0 L (test code = 775) RED BLOOD CELL COUNT (BEAKER) 3.27 M/ L 4.20-5.80 L (test code = 761) HEMOGLOBIN (BEAKER) (test code = 11.2 GM/DL 13.0-16.8 L 410) HEMATOCRIT (BEAKER) (test code = 33.2 % 40.0-50.0 L 411) MEAN CORPUSCULAR VOLUME (BEAKER) 101.0 fL 82.0-98.0 H (test code = 753) MEAN CORPUSCULAR HEMOGLOBIN 34.2 pg 27.0-33.0 H (BEAKER) (test code = 751) MEAN CORPUSCULAR HEMOGLOBIN CONC 33.7 GM/DL 32.0-36.0 (BEAKER) (test code = 752) RED CELL DISTRIBUTION WIDTH 11.9 % 10.3-14.2 (BEAKER) (test code = 412) PLATELET COUNT (BEAKER) (test code 58 K/CU MM 150-430 L = 756) MEAN PLATELET VOLUME (BEAKER) 9.7 fL 6.5-10.5 (test code = 754) NUCLEATED RED BLOOD CELLS (BEAKER) 0 /100 WBC 0-0 (test code = 413) NEUTROPHILS RELATIVE PERCENT 41 % (BEAKER) (test code = 429) LYMPHOCYTES RELATIVE PERCENT 43 % (BEAKER) (test code = 430) MONOCYTES RELATIVE PERCENT 11 % (BEAKER) (test code = 431) EOSINOPHILS RELATIVE PERCENT 4 % (BEAKER) (test code = 432) BASOPHILS RELATIVE PERCENT 2 % (BEAKER) (test code = 437) NEUTROPHILS ABSOLUTE COUNT 0.81 K/ L 1.80-8.00 L (BEAKER) (test code = 670) LYMPHOCYTES ABSOLUTE COUNT 0.84 K/ L 1.48-4.50 L (BEAKER) (test code = 414) MONOCYTES ABSOLUTE COUNT (BEAKER) 0.21 K/ L 0.00-1.30 (test code = 415) EOSINOPHILS ABSOLUTE COUNT 0.09 K/ L 0.00-0.50 (BEAKER) (test code = 416) BASOPHILS ABSOLUTE COUNT (BEAKER) 0.03 K/ L 0.00-0.20 (test code = 417) 0.00(MANUAL DIFFERENTIAL)2017-04-09 11:38:00 Test Item Value Reference Range Interpretation Comments TOTAL COUNTED (BEAKER) (test code = 1351) WBC MORPHOLOGY (BEAKER) (test code = Normal 487) PLT MORPHOLOGY (BEAKER) (test code = Normal 486) RBC MORPHOLOGY (BEAKER) (test code = Normal 762) [id number] 06:45:00 Test Item Value Reference Range Interpretation Comments PHOSPHORUS (BEAKER) (test code = 3.5 mg/dL 2.3-4.7 604) [id number] 06:45:00 Test Item Value Reference Range Interpretation Comments MAGNESIUM (BEAKER) (test code = 1.7 mg/dL 1.6-2.6 627) BASIC METABOLIC [id number] 06:45:00 Test Item Value Reference Range Interpretation [...] S NOT APPLICABLE FOR DIALYSIS PATIEN TS. [id number] 07:18:00 Test Item Value Reference Range Interpretation Comments PHOSPHORUS (BEAKER) (test code = 3.4 mg/dL 2.3-4.7 604) [id number] 07:18:00 Test Item Value Reference Range Interpretation Comments MAGNESIUM (BEAKER) (test code = 1.6 mg/dL 1.6-2.6 627) BASIC METABOLIC [id number] 07:18:00 Test Item Value Reference Range Interpretation [...] S NOT APPLICABLE FOR DIALYSIS PATIEN TS. [id number] 05:47:00 Test Item Value Reference Range Interpretation Comments MAGNESIUM (BEAKER) (test code = 1.7 mg/dL 1.6-2.6 627) BASIC METABOLIC [id number] 05:47:00 Test Item Value Reference Range Interpretation [...] PATIEN TS. CBC W/PLT COUNT & AUTO [id number] 09:57:00 Test Item Value Reference Range Interpretation [...] MORPHOLOGY (BEAKER) (test code = Normal 762) [id number] 06:06:00 Test Item Value Reference Range Interpretation Comments MAGNESIUM (BEAKER) (test code = 1.7 mg/dL 1.6-2.6 627) BASIC METABOLIC [id number] 06:06:00 Test Item Value Reference Range Interpretation [...] S NOT APPLICABLE FOR DIALYSIS PATIEN TS. [id number] 06:35:00 Test Item Value Reference Range Interpretation Comments PHOSPHORUS (BEAKER) (test code = 3.0 mg/dL 2.3-4.7 604) [id number] 06:35:00 Test Item Value Reference Range Interpretation Comments MAGNESIUM (BEAKER) (test code = 1.7 mg/dL 1.6-2.6 627) BASIC METABOLIC [id number] 06:35:00 Test Item Value Reference Range Interpretation [...] S NOT APPLICABLE FOR DIALYSIS PATIEN TS. [id number] 07:59:00 Test Item Value Reference Range Interpretation Comments MAGNESIUM (BEAKER) (test code = 1.8 mg/dL 1.6-2.6 627) BASIC METABOLIC [id number] 07:59:00 Test Item Value Reference Range Interpretation [...] S NOT APPLICABLE FOR DIALYSIS PATIEN TS. [id number] 06:28:00 Test Item Value Reference Range Interpretation Comments MAGNESIUM (BEAKER) (test code = 1.7 mg/dL 1.6-2.6 627) BASIC METABOLIC [id number] 06:28:00 Test Item Value Reference Range Interpretation [...] S NOT APPLICABLE FOR DIALYSIS PATIEN TS. [id number] 05:37:00 Test Item Value Reference Range Interpretation Comments MAGNESIUM (BEAKER) (test code = 1.7 mg/dL 1.6-2.6 627) BASIC METABOLIC [id number] 05:37:00 Test Item Value Reference Range Interpretation [...] APPLICABLE FOR DIALYSIS PATIEN TS. PROTEIN ELECTROPHORESIS, [id number] 11:32:00 Test Item Value Reference Range Interpretation [...] in (BEAKER) (test code = expected distribution, 2615) with minor nonspecific changes. No monoclonal bands detected. No significant change from previous study of 03-02-17. [id number] Haritha Baptiste MD (BEAKER) (test code = (electronic signature) 6830) PROTEIN TOTAL SERUM, 5.9 gm/dL 6.0-8.3 L SPEP (BEAKER) (test code = 7890) [id number] 06:11:00 Test Item Value Reference Range Interpretation Comments MAGNESIUM (BEAKER) (test code = 1.5 mg/dL 1.6-2.6 L 627) BASIC METABOLIC [id number] 06:11:00 Test Item Value Reference Range Interpretation [...] S NOT APPLICABLE FOR DIALYSIS PATIMOHAN TS. VITAMIN D, [id number] 08:21:00 Test Item Value Reference Range Interpretation Comments VITAMIN D 25-OH (BEAKER) (test 29.5 ng/mL 13.0-47.8 code = 2764) [id number] 06:15:00 Test Item Value Reference Range Interpretation Comments MAGNESIUM (BEAKER) (test code = 1.8 mg/dL 1.6-2.6 627) BASIC METABOLIC [id number] 06:15:00 Test Item Value Reference Range Interpretation [...] S NOT APPLICABLE FOR DIALYSIS PATIEN TS. [id number] 05:52:00 Test Item Value Reference Range Interpretation Comments MAGNESIUM (BEAKER) (test code = 1.7 mg/dL 1.6-2.6 627) BASIC METABOLIC [id number] 05:52:00 Test Item Value Reference Range Interpretation [...] S NOT APPLICABLE FOR DIALYSIS PATIEN TS. [id number] 06:58:00 Test Item Value Reference Range Interpretation Comments MAGNESIUM (BEAKER) (test code = 1.6 mg/dL 1.6-2.6 627) BASIC METABOLIC [id number] 06:58:00 Test Item Value Reference Range Interpretation [...] S NOT APPLICABLE FOR DIALYSIS PATIEN TS. [id number] 04:50:00 Test Item Value Reference Range Interpretation Comments MAGNESIUM (BEAKER) (test code = 1.7 mg/dL 1.6-2.6 627) BASIC METABOLIC [id number] 04:50:00 Test Item Value Reference Range Interpretation [...] S NOT APPLICABLE FOR DIALYSIS PATIEN TS. [id number] 07:00:00 Test Item Value Reference Range Interpretation Comments MAGNESIUM (BEAKER) (test code = 1.7 mg/dL 1.6-2.6 627) BASIC METABOLIC [id number] 07:00:00 Test Item Value Reference Range Interpretation [...] APPLICABLE FOR DIALYSIS PATIEN TS. HEPATIC FUNCTION [id number] 07:00:00 Test Item Value Reference Range Interpretation [...] (test code = 38 U/L 6-55 347) [id number] 07:18:00 Test Item Value Reference Range Interpretation Comments MAGNESIUM (BEAKER) (test code = 1.7 mg/dL 1.6-2.6 627) BASIC METABOLIC [id number] 07:18:00 Test Item Value Reference Range Interpretation [...] APPLICABLE FOR DIALYSIS PATIEN TS. CREATININE, RANDOM [id number] 16:52:00 Test Item Value Reference Range Interpretation Comments CREATININE URINE (BEAKER) (test 113.2 mg/dL code = 375) Reference Range: No NormalsMAGNESIUM, RANDOM [id number] 16:52:00 Test Item Value Reference Range Interpretation Comments MAGNESIUM URINE (BEAKER) (test 17.9 mg/dL code = 834) Reference Range: No [id number] 06:52:00 Test Item Value Reference Range Interpretation Comments MAGNESIUM (BEAKER) (test code = 1.5 mg/dL 1.6-2.6 L 627) BASIC METABOLIC [id number] 06:52:00 Test Item Value Reference Range Interpretation [...] S NOT APPLICABLE FOR DIALYSIS PATIEN TS. [id number] 06:05:00 Test Item Value Reference Range Interpretation Comments MAGNESIUM (BEAKER) (test code = 1.6 mg/dL 1.6-2.6 627) BASIC METABOLIC [id number] 06:05:00 Test Item Value Reference Range Interpretation [...] NOT APPLICABLE FOR DIALYSIS PATIEN TS. HEPARIN [id number] 14:07:00 Test Item Value Reference Range Interpretation Comments HEPARIN ANTIBODY (BEAKER) (test code Negative Negative = 646) HEPARIN ANTIBODY OD (BEAKER) (test 0.062 <0.400 code = 2659) 4T TOTAL SCORE (BEAKER) (test code = 4 4445) Probability of HIT based on scoring system: 6-8 = High probability; 4-5 = intermediate probability;0-3 = low probabilityBASIC METABOLIC [id number] 05:42:00 Test Item Value Reference Range Interpretation [...] S NOT APPLICABLE FOR DIALYSIS PATIEN TS. [id number] 05:42:00 Test Item Value Reference Range Interpretation Comments MAGNESIUM (BEAKER) (test code = 1.6 mg/dL 1.6-2.6 627) CBC W/PLT COUNT & AUTO [id number] 14:48:00 Test Item Value Reference Range Interpretation [...] TOTAL COUNTED (BEAKER) (test code = 1351) [id number] 14:18:00 Test Item Value Reference Range Interpretation Comments MAGNESIUM (BEAKER) (test code = 1.5 mg/dL 1.6-2.6 L 627) [id number] 14:18:00 Test Item Value Reference Range Interpretation Comments PHOSPHORUS (BEAKER) (test code = 3.4 mg/dL 2.3-4.7 604) BASIC METABOLIC [id number] 14:17:00 Test Item Value Reference Range Interpretation [...] S NOT APPLICABLE FOR DIALYSIS PATIEN TS. [id number] 06:24:00 Test Item Value Reference Range Interpretation Comments MAGNESIUM (BEAKER) (test code = 1.3 mg/dL 1.6-2.6 L 627) BASIC METABOLIC [id number] 06:24:00 Test Item Value Reference Range Interpretation [...] S NOT APPLICABLE FOR DIALYSIS PATIEN TS. [id number] 07:11:00 Test Item Value Reference Range Interpretation Comments MAGNESIUM (BEAKER) 1.7 mg/dL 1.6-2.6 Specimen slightly (test code = 627) hemolyzed BASIC METABOLIC [id number] 07:11:00 Test Item Value Reference Range Interpretation [...] NOT APPLICABLE FOR DIALYSIS PATIEN TS. PTH, [id number] 06:59:00 Test Item Value Reference Range Interpretation Comments PARATHYROID HORMONE INTACT 27.9 pg/mL 8.5-72.5 (BEAKER) (test code = 577) Effective 08/21/2014: Reference Range ChangeNew: 8.5-72.5 Previous: 15.0-90.0 CREATININE, RANDOM [id number] 14:27:00 Test Item Value Reference Range Interpretation Comments CREATININE URINE (BEAKER) (test 174.8 mg/dL code = 375) Reference Range: No NormalsMAGNESIUM, RANDOM [id number] 14:27:00 Test Item Value Reference Range Interpretation Comments MAGNESIUM URINE (BEAKER) (test code = > mg/dL 834) Reference Range: No NormalsTISSUE [id number] 13:29:00Surgical Pathology Report Case: [id number] Authorizing Provider: Estuardo Chaparro MD Collected: 02/28/201719 Ordering Location: [address] Received: 03/02/2017 0948 Service Pathologist: Patel Burton MD Specimen: Di sc C3-4 VERTEBRAL COLUMN,INTERVERTEBRAL DISC, C3-4, DISCECTOMY:FRAGMENTS OF FIBROCARTILAGE WITH MILD DEGENERATIVE CHANGES 47928; 69237Kwhhhrxt myelopathyDisc C3-4The specimen is received in formalin-filled [...] 1.2 mg/dL 1.6-2.6 L 627) BASIC METABOLIC [id number] 04:50:00 Test Item Value Reference Range Interpretation [...] S NOT APPLICABLE FOR DIALYSIS PATIEN TS. [id number] 07:04:00 Test Item Value Reference Range Interpretation Comments MAGNESIUM (BEAKER) (test code = 1.3 mg/dL 1.6-2.6 L 627) BASIC METABOLIC [id number] 07:04:00 Test Item Value Reference Range Interpretation [...] S NOT APPLICABLE FOR DIALYSIS PATIEN TS. [id number] 11:59:00 Test Item Value Reference Range Interpretation Comments MAGNESIUM (BEAKER) (test code = 1.4 mg/dL 1.6-2.6 L 627) BASIC METABOLIC [id number] 06:16:00 Test Item Value Reference Range Interpretation [...] PATIEN TS. PERIPHERAL BLOOD SMEAR - HOLD [id number] 09:09:00 Test Item Value Reference Range Interpretation Comments PERIPHERAL SMEAR SAVE Mild (BEAKER) (test code = anisopikilocytosis. 1815) Essentially unremarkable white cells and platelets. No circulating blasts. Correlation with clinical follow up required to assess need for hematologic evaulation. URINE [id number] 08:40:00 Test Item Value Reference Range Interpretation [...] = 47) CBC W/PLT COUNT & AUTO [id number] 06:12:00 Test Item Value Reference Range Interpretation [...] K/ L 0.00-0.20 (test code = 417) [id number] 06:03:00 Test Item Value Reference Range Interpretation Comments MAGNESIUM (BEAKER) (test code = 1.2 mg/dL 1.6-2.6 L 627) BASIC METABOLIC [id number] 06:03:00 Test Item Value Reference Range Interpretation [...] PATIEN TS. CBC W/PLT COUNT & AUTO [id number] 08:37:00 Test Item Value Reference Range Interpretation [...] K/ L 0.00-0.20 (test code = 417) [id number] 06:58:00 Test Item Value Reference Range Interpretation Comments MAGNESIUM (BEAKER) (test code = 1.5 mg/dL 1.6-2.6 L 627) BASIC METABOLIC [id number] 06:58:00 Test Item Value Reference Range Interpretation [...] S NOT APPLICABLE FOR DIALYSIS PATIEN TS. [id number] 05:57:00 Test Item Value Reference Range Interpretation Comments MAGNESIUM (BEAKER) (test code = 1.3 mg/dL 1.6-2.6 L 627) COMPREHENSIVE METABOLIC [id number] 05:57:00 Test Item Value Reference Range Interpretation [...] Specimen slightly ictericCBC W/PLT COUNT & AUTO [id number] 05:49:00 Test Item Value Reference Range Interpretation [...] L 0.00-0.20 (test code = 417) 0.00PROTHROMBIN [id number] 05:38:00 Test Item Value Reference Range Interpretation Comments PROTIME (BEAKER) (test code = 14.2 seconds 11.7-14.7 759) INR (BEAKER) (test code = 370) 1.1 <=5.9 RECOMMENDED COUMADIN/WARFARIN INR THERAPY RANGESSTANDARD DOSE: 2.0 - 3.0 Includes: PROPHYLAXIS forvenous thrombosis, systemic embolization; TREATMENT for venous thrombosis and/or pulmonary embolus.HIGH RISK: Target INR is 2.5-3.5 for patients with mechanical heart valves.URINALYSIS W/ [id number] 14:55:00 Test Item Value Reference Range Interpretation [...] SOURCE(BEAKER) (test code Urine, Clean Catch = 6235) [id number] 21:24:00 Test Item Value Reference Range Interpretation Comments MAGNESIUM (BEAKER) (test code = 1.1 mg/dL 1.6-2.6 L 627) BASIC METABOLIC [id number] 21:24:00 Test Item Value Reference Range Interpretation [...] FOR DIALYSIS PATIEN TS. VITAMIN B12 AND [id number] 08:41:00 Test Item Value Reference Range Interpretation Comments VITAMIN B12 (BEAKER) (test code = 604 pg/mL 213-816 774) FOLATE (BEAKER) (test code = 362) 9.9 ng/mL >=7.0 Effective 08/21/2014: Folate Reference Range ChangeNew: >=7.0 Previous: >=5.4PERIPHERAL BLOOD SMEAR - HOLD [id number] 08:19:00 Test Item Value Reference Range Interpretation Comments PERIPHERAL SMEAR SAVE (BEAKER) (test saved code = 1815) [id number] 05:49:00 Test Item Value Reference Range Interpretation Comments PROSTATE SPECIFIC ANTIGEN (BEAKER) 5.1 ng/mL 0.0-4.0 H (test code = 844) HIV-1 ANTIGEN WITH HIV-1/2 [id number] 05:49:00 Test Item Value Reference Range Interpretation Comments HIV-1 ANTIGEN WITH HIV 1\\T\\2 Nonreactive Nonreactive ANTIBODY (2) (BEAKER) (test code = 2586) [id number] 05:43:00 Test Item Value Reference Range Interpretation Comments PHOSPHORUS (BEAKER) (test code = 2.9 mg/dL 2.3-4.7 604) [id number] 05:43:00 Test Item Value Reference Range Interpretation Comments MAGNESIUM (BEAKER) (test code = 1.4 mg/dL 1.6-2.6 L 627) BASIC METABOLIC [id number] 05:43:00 Test Item Value Reference Range Interpretation [...] PATIEN TS. CBC W/PLT COUNT & AUTO [id number] 05:25:00 Test Item Value Reference Range Interpretation [...] 0.00-0.20 (test code = 417) 0.00PROTEIN ELECTROPHORESIS, [id number] 16:22:00 Test Item Value Reference Range Interpretation [...] beta globulin fractions. No monoclonal bands detected. [id number] Haritha Baptiste MD (BEAKER) (test code = (electronic signature) 2616) PROTEIN TOTAL SERUM, 5.3 gm/dL 6.0-8.3 L SPEP (BEAKER) (test code = 3390) CBC W/PLT COUNT & AUTO [id number] 13:14:00 Test Item Value Reference Range Interpretation [...] K/ L 0.00-0.20 (test code = 417) [id number] 06:18:00 Test Item Value Reference Range Interpretation Comments MAGNESIUM (BEAKER) 1.3 mg/dL 1.6-2.6 L Specimen slightly (test code = 627) hemolyzed [id number] 06:18:00 Test Item Value Reference Range Interpretation Comments PHOSPHORUS (BEAKER) 2.3 mg/dL 2.3-4.7 Specimen slightly (test code = 604) hemolyzed BASIC METABOLIC [id number] 06:18:00 Test Item Value Reference Range Interpretation [...] APPLICABLE FOR DIALYSIS PATIEN TS. HEPATITIS PANEL, [id number] 14:32:00 Test Item Value Reference Range Interpretation Comments HEPATITIS A IGM ANTIBODY (BEAKER) Nonreactive Nonreactive (test code = 498) HEPATITIS B CORE IGM ANTIBODY Nonreactive Nonreactive (BEAKER) (test code = 645) HEPATITIS C ANTIBODY (BEAKER) Nonreactive Nonreactive (test code = 367) HEPATITIS B SURFACE ANTIGEN (2) Nonreactive Nonreactive (BEAKER) (test code = 2585) [id number] 14:13:00 Test Item Value Reference Range Interpretation Comments FIBRINOGEN LEVEL (BEAKER) (test 282 mg/dl 225-434 code = 658) LACTATE DEHYDROGENASE (LDH)2017-03-01 14:12:00 Test Item Value Reference Range Interpretation Comments LACTATE DEHYDROGENASE (BEAKER) (test 200 U/L 125-220 code = 635) HEPATIC FUNCTION [id number] 14:12:00 Test Item Value Reference Range Interpretation [...] code = 32 U/L 6-55 347) URINE [id number] 10:51:00 Test Item Value Reference Interpretation Comments [...] = 13) CBC W/PLT COUNT & AUTO [id number] 04:34:00 Test Item Value Reference Range Interpretation [...] K/ L 0.00-0.20 (test code = 417) [id number] 04:32:00 Test Item Value Reference Range Interpretation Comments MAGNESIUM (BEAKER) 1.1 mg/dL 1.6-2.6 L Specimen slightly (test code = 627) hemolyzed [id number] 04:32:00 Test Item Value Reference Range Interpretation Comments PHOSPHORUS (BEAKER) 2.6 mg/dL 2.3-4.7 Specimen slightly (test code = 604) hemolyzed BASIC METABOLIC [id number] 04:32:00 Test Item Value Reference Range Interpretation [...] S NOT APPLICABLE FOR DIALYSIS PATIEN TS. [id number] 05:03:00 Test Item Value Reference Range Interpretation Comments MAGNESIUM (BEAKER) (test code = 1.1 mg/dL 1.6-2.6 L 627) CBC W/PLT COUNT & AUTO [id number] 18:39:00 Test Item Value Reference Range Interpretation [...] 0.00-0.20 (test code = 417) 0.00URINALYSIS W/ [id number] 11:52:00 Test Item Value Reference Range Interpretation [...] 1584) SOURCE(BEAKER) (test code = Urine, Voided 8298) CBC W/PLT COUNT & AUTO [id number] 11:13:00 Test Item Value Reference Range Interpretation [...] (test code = Normal 762) COMPREHENSIVE METABOLIC [id number] 11:03:00 Test Item Value Reference Range Interpretation [...] APPLICABLE FOR DIALYSIS PATIEN TS. COMPREHENSIVE METABOLIC [id number] 11:03:00 Test Item Value Reference Range Interpretation [...] S NOT APPLICABLE FOR DIALYSIS PATIEN TS. PT/[id number] 10:45:00 Test Item Value Reference Range Interpretation [...]
[2022-03-31] MEDS ORDERED: NA CHLORIDE 0.9% 1,000 ML ONE ×3 (11:59→18:14)
[2022-03-31 12:01] LABS: Absolute Lymphocytes (CBC) 0.7 K/uL (0.7-4.9); Hematocrit 30.9 % (39.6-49.0); MCV 95.3 fL (80-100); MPV 9.2 fL (7.6-11.3); RBC Red Blood Cell Count 3.25 M/uL (4.33-5.43)
[2022-03-31 12:09] LABS: Arterial Blood Carboxyhemoglob 1.5 % (0-1.5); Blood Gas Oxyhemoglobin 90.8 % (94-97)
[2022-03-31 12:10] LABS: Protime INR 2.18
--- NOTE | 2022-03-31 12:19 | RAD REPORT ---
EXAM DESCRIPTION: RAD - Chest Single View - 03/31/2022 12:06 pm CLINICAL HISTORY: sob, hypoxia COMPARISON: Portable March 26 TECHNIQUE: AP portable chest image was obtained 03/31/2022 12:06 pm . FINDINGS: Lung volumes are low compared to the prior study. No acute left lung field finding. Patien t has chronic interstitial lung disease. Increased opacification in the right base is probably the af fects of shallow inspiration and known pleural effusion. No convincing evidence for aspiration pneumo tank. No failure or volume overload. Heart and vasculature are normal. No pneumothorax or left-sided pleural effusion. No acute bony abno rmality seen. No acute aortic findings suspected. IMPRESSION: No aspiration, focal pneumonia or other acute cardiopulmonary finding confirmed. Hazy opacification in the lower right lung field is similar to the March 26 study. This is believed to be a combination of atelectasis and pleural effusion.
[2022-03-31 12:24] LABS: Potassium 3.8 mmol/L (3.5-5.1)
[2022-03-31 12:45] LABS: Blood Morphology Comment NOT SEEN (NOT SEEN); Platelet Estimate DECR; White Blood Cell Scan OK (OK)
[2022-03-31 12:46] LABS: Protein, Total 4.7 g/dL (6.4-8.2)
[2022-03-31 12:48] LABS: Bilirubin Total 5.8 mg/dL (0.2-1.0)
[2022-03-31] MEDS ORDERED: CEFTRIAXONE 1000 MG/VIAL ONE (13:48)
[2022-03-31] MEDS ORDERED: NOREPINEPHRINE 4mg/D5W 250mL 4 MG/250 ML BAG IV ONE ×2 (14:56→21:41)
--- NOTE | 2022-03-31 14:57 | RAD REPORT ---
EXAM DESCRIPTION: US - Abdomen Exam Limited - 03/31/2022 2:37 pm CLINICAL HISTORY: elevated bilirubin Abdominal pain COMPARISON: Abdomen Exam Complete dated 03/22/2022 FINDINGS: The gallbladder demonstrates a large amount of sludge and stones present. The gallbladder wall is thickened and mildly edematous. The common bile duct is dilated measuring 13 mm. IMPRESSION: Gallbladder sludge and cholelithiasis is present. Common bile duct appears dilated measuring up to 13 mm.
--- NOTE | 2022-03-31 15:17 | ER ---
Nurse's Notes [facility] Name: Travon Melendez Age: 81 yrs Sex: Male : 1940 Arrival Date: 03/31/2022 Time: 11:26 Bed 16 Private MD: Diagnosis: Severe sepsis with septic shock;Hypoxemia;Acute kidney failure, unspecified Presentation: 03/31 11:45 Chief complaint: Patient states: Not as responsive for 3 days. Nursing facility tried ll1 to give him his meds crushed in pudding and he started aspirating. + cough,, SOB, and N/V episode. EMS states: A fib HR 85-110, BP 70/42, 63% 2 L NC, end tital 17, resp 18. Temp 94. Solumedrol 125 MG IV. Coronavirus screen: Vaccine status: Client denies travel out of the [place] in the last 14 days. cough unrelated to allergies, difficulty breathing, fatigue, nausea, shortness of breath, vomiting. Ebola Screen: Patient denies travel to an Ebola-affected area in the 21 days before illness onset. Initial Sepsis Screen: Does the patient meet any 2 criteria? Systolic BP < 90 mmHg. Altered Mental Status. Yes Does the patient have a suspected source of infection? Yes: Productive cough/pneumonia. Risk Assessment: Do you want to hurt yourself or someone else? Patient reports no desire to harm self or others. Onset of symptoms was March 29, 2022. 11:45 Method Of Arrival: EMS ll1 11:45 Acuity: EVELYN 3 ll1 Triage Assessment: 11:49 General: Appears distressed, unkempt, Behavior is cooperative, appropriate for age, ll1 listless. Pain: Denies pain. Neuro: Reports weakness. Respiratory: Reports shortness of breath cough that is labored breathing. GI: Reports nausea, vomiting. Historical: - Allergies: 11:42 No Known Allergies; ll1 - PMHx: 11:42 Hypertensive disorder; CHF; brain CA; UTI; Chronic obstructive lung disease; brain ll1 bleed; - PSHx: 11:42 Unable to Obtain; ll1 - Immunization history:: Client reports receiving the 2nd dose of the Covid vaccine. - Social history:: Smoking status: Patient/guardian denies using tobacco. - Family history:: not pertinent. - Hospitalizations: : No recent hospitalization is reported. Screenin:00 Abuse screen: Denies threats or abuse. Nutritional screening: No deficits noted. ll1 Tuberculosis screening: No symptoms or risk factors identified. Fall Risk IV access (20 points). Mental Status- Overestimates/Forgets Limitations (15 pts.). Total Becerra Fall Scale indicates High Risk Score (45 or more points). Fall prevention measures have been instituted. Side Rails Up X 2 Placed Close to Nursing Station Frequent Obs/Assessments Occuring Family Present and informed to notify staff if the need to leave the bedside As available patient and family educated on Fall Prevention Program and Strategies. Assessment: 12:45 Reassessment: No changes from previously documented assessment. Patient and/or family ll1 updated on plan of care and expected duration. Pain level reassessed. Patient states symptoms have improved. 13:30 Reassessment: No changes from previously documented assessment. Patient and/or family ll1 updated on plan of care and expected duration. Pain level reassessed. 14:30 Reassessment: No changes from previously documented assessment. Patient and/or family ll1 updated on plan of care and expected duration. Pain level reassessed. 15:30 Reassessment: No changes from previously documented assessment. Patient and/or family ll1 updated on plan of care and expected duration. Pain level reassessed. Patient states feeling better. 19:33 Reassessment: Patient appears in no apparent distress at this time. No changes from ke1 previously documented assessment. Patient and/or family updated on plan of care and expected duration. Pain level reassessed. Respiratory: Respiratory effort is even, unlabored, Respiratory pattern is regular, symmetrical. 20:11 Reassessment: report given to Ulises in ER. ke1 Vital Signs: 11:45 BP 82 / 51; Pulse 84; Resp 18; Pulse Ox 85% on NC; Weight 102.06 kg; Height 5 ft. 10 ll1 in. (177.80 cm); Pain 0/10; 11:58 BP 77 / 47; Temp 92.3(A); ll1 12:39 BP 93 / 79; Pulse 106; Resp 20; ll1 12:59 BP 86 / 47; Pulse 106; Resp 21; Temp 93.9(A); Pulse Ox 100% ; ll1 13:59 BP 103 / 65; Pulse 94; Resp 21; Temp 94.1(O); Pulse Ox 95% on R/A; ll1 15:26 BP 101 / 62; Pulse 95; Resp 20; Pulse Ox 92% on R/A; ll1 15:35 BP 114 / 64; Pulse 101; Resp 20; Temp 96.9(A); Pulse Ox 95% on 4 lpm NC; ll1 16:15 BP 105 / 49; Pulse 75; Resp 21; Pulse Ox 94% on 4 lpm NC; ll1 17:30 BP 105 / 51; Pulse 98; Resp 20; Pulse Ox 97% on 4 lpm NC; ll1 18:15 BP 111 / 45; Pulse 96; Resp 20; Pulse Ox 100% on 4 lpm NC; ll1 18:46 BP 115 / 52; Pulse 97; Resp 20; Temp 97.7; Pulse Ox 100% on 4 lpm NC; ll1 19:59 BP 103 / 53; Pulse 86; Resp 17; Temp 97.7(O); Pulse Ox 97% on 4 lpm NC; ke1 11:45 Body Mass Index 32.28 (102.06 kg, 177.80 cm) 1 ED Course: 11:26 Patient arrived in ED. rn 11:26 Shravan Caceres MD is Attending Physician. rn 11:33 Bishop Castro, ALETHEA is Primary Nurse. ll1 11:34 Arm band placed on Patient placed in an exam room, on a stretcher. ll1 11:49 Triage completed. ll1 11:49 Inserted Maintain EMS IV. Dressing intact. Good blood return noted. Site clean \\T\\ dry. ll1 Gauge \\T\\ site: 20 G R AC. 11:57 BIPAP Sent. ll1 11:58 Ptt, Activated Sent. zm 11:58 Protime (+inr) Sent. zm 11:59 Lactate Sent. zm 11:59 CMP Sent. zm 11:59 CBC with Diff Sent. zm 11:59 Blood Culture Adult (2) Sent. zm 11:59 SARS-COV-2 RT PCR (Document "Date of Onset" if Symptomatic) Sent. zm 11:59 Flu Sent. zm 12:00 Refused Krueger or straight cath. ll1 12:08 Chest Single View XRAY In Process Unspecified. EDMS 13:00 Refused Krueger still. ll1 13:01 Patient has correct armband on for positive identification. Bed in low position. Call ll1 light in reach. Side rails up X2. Client placed on continuous cardiac and pulse oximetry monitoring. NIBP monitoring applied. 14:00 Still refusing krueger. ll1 14:12 US Abdomen Limited In Process Unspecified. EDMS 15:14 Ashkan Landa MD is Hospitalizing Provider. rn 15:15 Dr. Landa convinced patient to let me put in Krueger cath. ll1 15:18 Krueger cath inserted, using sterile technique, 16 Fr., by me, balloon inflated, to ll1 gravity drainage, urine specimen collected. Patient tolerated well. 15:26 Lactate: repeat at 1500 Sent. ll1 19:56 Primary Nurse role handed off by Bishop Castro, RN mw2 19:58 Kimmie West RN is Primary Nurse. ke1 20:15 No provider procedures requiring assistance completed. Patient admitted, IV remains in ke1 place. Administered Medications: 11:51 CANCELLED (Duplicate Order): NS 0.9% (30 ml/kg) 30 ml/kg IV at bolus once; Sepsis rn Protocol 11:58 Drug: NS 0.9% (30 ml/kg) 30 ml/kg Route: IV; Rate: bolus; Site: right antecubital; ll1 15:25 Follow up: Response: No adverse reaction; IV Status: Completed infusion; IV Intake: ll1 3000ml 15:00 Drug: Levophed (norepinephrine) 0.1 mcg/kg/min Route: IV; Rate: calculated rate; Site: ll1 Other; 15:21 Drug: Rocephin (cefTRIAXone) 1 grams Route: IV; Rate: calculated rate; Site: Other; ll1 15:25 Follow up: Response: No adverse reaction; IV Status: Completed infusion; IV Intake: [id number] Medication: 13:01 VIS not applicable for this client. ll1 Intake: 15:25 IV: 3000ml; Total: 3000ml. ll1 15:25 IV: 50ml; Total: 3050ml. ll1 Outcome: 15:16 Decision to Hospitalize by Provider. rn 20:16 Admitted to ICU accompanied by nurse, accompanied by tech, via stretcher, with oxygen, ke1 on monitor, with chart, Report called to ulises CLAIRE 20:16 Condition: stable 20:16 Instructed on the need for admit. 20:40 Patient left the ED. mw2 Signatures: Dispatcher [employer] EDMS Shravan Caceres MD MD rn Westbrook, Shantel mw2 Bishop Castro, RN RN ll1 Kimmie West, RN RN ke1 Elza Shah Corrections: (The following items were deleted from the chart) 12:03 11:45 Chief complaint: Patient states: Not as responsive for 3 days. Nursing facility ll1 tried to give him his meds crushed in pudding and he started aspirating. + cough,, SOB, and N/V episode. EMS states: A fib HR 85-110, BP 70/42, 63% 2 L NC, end tital 17, resp 18. Temp 94 ll1 13:59 12:59 BP 86 / 47; Pulse 106bpm; Resp 21bpm; Pulse Ox 100%; Temp 93.9F; ll1 ll1
--- NOTE | 2022-03-31 15:17 | EDPHYS ---
Physician Documentation [facility] Name: Travon Melendez Age: 81 yrs Sex: Male : 1940 Arrival Date: 03/31/2022 Time: 11:26 Bed 16 Private MD: ED Physician Shravan Caceres HPI: 03/31 12:58 This 81 yrs old Male presents to ER via EMS with complaints of Cough, Shortness Of rn Breath. 12:58 The patient or guardian reports cough, difficulty breathing. Onset: The rn symptoms/episode began/occurred 3 day(s) ago. Severity of symptoms: At their worst the symptoms were moderate, in the emergency department the symptoms are unchanged. Modifying factors: The symptoms are alleviated by nothing, the symptoms are aggravated by nothing. Associated signs and symptoms: Pertinent positives: fever, Pertinent negatives: chest pain, diarrhea. It is unknown whether or not the patient has had similar symptoms in the past. It is unknown whether or not the patient has recently seen a physician. EMS reports correction stated 3 days of fever/chills/cough/weakness/low oxygen. Told EMS that they attempted to give meds and feed today despite AMS and decreased responsiveness, began to cough and there was concern for possible aspiration. EMS reports low BP and low temp.. Historical: - Allergies: 11:42 No Known Allergies; ll1 - PMHx: 11:42 Hypertensive disorder; CHF; brain CA; UTI; Chronic obstructive lung disease; brain ll1 bleed; - PSHx: 11:42 Unable to Obtain; ll1 - Immunization history:: Client reports receiving the 2nd dose of the Covid vaccine. - Social history:: Smoking status: Patient/guardian denies using tobacco. - Family history:: not pertinent. - Hospitalizations: : No recent hospitalization is reported. ROS: 12:58 Constitutional: + fever and chills Eyes: Negative for injury, pain, redness, and delivery rn, ENT: Negative for injury, pain, and discharge, Cardiovascular: Negative for chest pain, palpitations, and edema, Respiratory: + cough and sob Abdomen/GI: Negative for abdominal pain, nausea, vomiting, diarrhea, and constipation, Back: Negative for injury and pain, : Negative for injury, bleeding, discharge, and swelling, MS/Extremity: Negative for injury and deformity, Skin: Negative for injury, rash, and discoloration, Neuro: + generalized weakness, neg for headache Exam: 12:58 Constitutional: This is a well developed, well nourished patient who is awake, rn talkative, on non-rebreather by EMS Head/Face: Normocephalic, atraumatic. Eyes: Periorbital areas with no swelling, redness, or edema. ENT: dry MM, no stridor Cardiovascular: Tachycardic, regular Respiratory: + mild tachypnea, no retractions Abdomen/GI: soft, non-tender Skin: Warm, dry MS/ Extremity: Pulses equal, no cyanosis. Neuro: Awake and alert, GCS 15, oriented to person, place, not time. Vital Signs: 11:45 BP 82 / 51; Pulse 84; Resp 18; Pulse Ox 85% on NC; Weight 102.06 kg; Height 5 ft. 10 ll1 in. (177.80 cm); Pain 0/10; 11:58 BP 77 / 47; Temp 92.3(A); ll1 12:39 BP 93 / 79; Pulse 106; Resp 20; ll1 12:59 BP 86 / 47; Pulse 106; Resp 21; Temp 93.9(A); Pulse Ox 100% ; ll1 13:59 BP 103 / 65; Pulse 94; Resp 21; Temp 94.1(O); Pulse Ox 95% on R/A; ll1 15:26 BP 101 / 62; Pulse 95; Resp 20; Pulse Ox 92% on R/A; ll1 15:35 BP 114 / 64; Pulse 101; Resp 20; Temp 96.9(A); Pulse Ox 95% on 4 lpm NC; ll1 16:15 BP 105 / 49; Pulse 75; Resp 21; Pulse Ox 94% on 4 lpm NC; ll1 17:30 BP 105 / 51; Pulse 98; Resp 20; Pulse Ox 97% on 4 lpm NC; ll1 18:15 BP 111 / 45; Pulse 96; Resp 20; Pulse Ox 100% on 4 lpm NC; ll1 18:46 BP 115 / 52; Pulse 97; Resp 20; Temp 97.7; Pulse Ox 100% on 4 lpm NC; ll1 19:59 BP 103 / 53; Pulse 86; Resp 17; Temp 97.7(O); Pulse Ox 97% on 4 lpm NC; ke1 11:45 Body Mass Index 32.28 (102.06 kg, 177.80 cm) ll1 Procedures: 14:28 Central Line: the site was prepped with Betadine, in sterile fashion, a triple lumen rn catheter was inserted, in the right in 1 attempts. placement was verified, by blood return, the site was dressed with Tegaderm, using sterile technique, the patient tolerated the procedure, well. MDM: 11:26 Patient medically screened. rn 14:06 ED course: Pt continues to refuse to give urine sample, and refuses cath/krueger.. rn 14:28 ED course: Pt persistently hypotensive despite 30/kg fluid bolus, central line placed rn by me, started levophed. . ED course: Still no obvious source, possible UTI but waiting on patient to comply. Otherwise, clinically, patient septic; A: no source yet but declared by physician; B: hypothermic < 96.8 and RR> 20 bpm; C: elevated lactate> 2, Bilirubin > 2, SBP < 90. Meets Septic shock criteria after > 2 blood pressures < 90 SBP and MAP < 65 greater than 2 BP readings. Abx ordered and central line placed for pressors. Sepsis reevaluation complete. Will send repeat lactate. . 14:37 Differential Diagnosis: Influenza Upper Respiratory Infection Viral Syndrome Pneumonia rn Other UTI, urosepsis, COVID. 15:13 Data reviewed: vital signs, nurses notes, lab test result(s), radiologic studies, plain rn films, ultrasound, and as a result, I will admit patient. Counseling: I had a detailed discussion with the patient and/or guardian regarding: the historical points, exam findings, and any diagnostic results supporting the discharge/admit diagnosis, lab results, radiology results, the need for further work-up and treatment in the hospital. Response to treatment: the patient's symptoms have mildly improved after treatment, and as a result, I will admit patient. Admission orders: after a detailed discussion of the patient's condition and case, the admit orders are written by me. 03/31 11:28 Order name: Blood Culture Adult (2) rn 03/31 11:28 Order name: CBC with Diff; Complete Time: 12:47 rn 03/31 11:28 Order name: CMP; Complete Time: 13:33 rn 03/31 11:28 Order name: Lactate; Complete Time: 12:41 rn 03/31 11:28 Order name: Protime (+inr); Complete Time: 12:41 rn 03/31 11:28 Order name: Ptt, Activated; Complete Time: 12:41 rn 03/31 11:28 Order name: Urine Culture rn 03/31 11:28 Order name: Urine Microscopic Only rn 03/31 11:28 Order name: ABG; Complete Time: 12:41 rn 03/31 11:28 Order name: SARS-COV-2 RT PCR (Document "Date of Onset" if Symptomatic); Complete Time: rn 13:33 03/31 11:28 Order name: Flu; Complete Time: 12:47 rn 03/31 12:05 Order name: CBC Smear Scan; Complete Time: 12:47 EDMS 03/31 12:07 Order name: Glucose, Ancillary Testing; Complete Time: 12:41 EDMS 03/31 14:35 Order name: Lactate: repeat at 1500; Complete Time: 15:50 rn 03/31 11:28 Order name: Chest Single View XRAY; Complete Time: 12:41 rn 03/31 11:47 Order name: BIPAP rn 03/31 13:33 Order name: US Abdomen Limited; Complete Time: 15:12 rn 03/31 13:34 Order name: CT Abd/Pelvis - Without Contrast rn 03/31 15:33 Order name: CBC with Automated Diff EDMS 03/31 15:33 Order name: CBC with Automated Diff EDMS 03/31 15:33 Order name: CBC with Automated Diff EDMS 03/31 15:33 Order name: CBC with Automated Diff EDMS 03/31 15:33 Order name: Comprehensive Metabolic Panel EDMS 03/31 15:33 Order name: Comprehensive Metabolic Panel EDMS 03/31 15:33 Order name: Comprehensive Metabolic Panel EDMS 03/31 15:33 Order name: Comprehensive Metabolic Panel EDMS 03/31 15:33 Order name: Urine Dipstick-Ancillary; Complete Time: 15:50 EDMS 03/31 17:31 Order name: CT EDMS 03/31 18:52 Order name: Lactate Sepsis 2 HR Follow-up EDMS 03/31 11:28 Order name: Accucheck; Complete Time: 11:50 rn 03/31 11:28 Order name: Cardiac monitoring; Complete Time: 11:50 rn 03/31 11:28 Order name: EKG - Nurse/Tech; Complete Time: 11:50 rn 03/31 11:28 Order name: IV Saline Lock - Large Bore; Complete Time: 11:34 rn 03/31 11:28 Order name: Labs collected and sent; Complete Time: 11:34 rn 03/31 11:28 Order name: O2 Per Protocol; Complete Time: 11:34 rn 03/31 11:28 Order name: O2 Sat Monitoring; Complete Time: 11:34 rn 03/31 15:33 Order name: CONS Physician Consult EDMS Administered Medications: 11:51 CANCELLED (Duplicate Order): NS 0.9% (30 ml/kg) 30 ml/kg IV at bolus once; Sepsis rn Protocol 11:58 Drug: NS 0.9% (30 ml/kg) 30 ml/kg Route: IV; Rate: bolus; Site: right antecubital; ll1 15:25 Follow up: Response: No adverse reaction; IV Status: Completed infusion; IV Intake: ll1 3000ml 15:00 Drug: Levophed (norepinephrine) 0.1 mcg/kg/min Route: IV; Rate: calculated rate; Site: 1 Other; 15:21 Drug: Rocephin (cefTRIAXone) 1 grams Route: IV; Rate: calculated rate; Site: Other; 1 15:25 Follow up: Response: No adverse reaction; IV Status: Completed infusion; IV Intake: [id number] Disposition Summary: 03/31/22 15:16 Hospitalization Ordered Hospitalization Status: Inpatient Admission rn Provider: Ashkan Landa rn Location: Intensive Care Unit rn Condition: Fair rn Problem: new rn Symptoms: have improved rn Bed/Room Type: Standard rn Room Assignment: 2-(03/31/22 18:04) [facility] Diagnosis - Severe sepsis with septic shock rn - Hypoxemia rn - Acute kidney failure, unspecified rn Forms: - Medication Reconciliation Form rn - SBAR form 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 Total time: 40 rn minutes Signatures: Dispatcher [employer] EDMS Shravan Caceres MD MD rn Herrera, Deanna [facility] Bishop Castro RN RN ll1 Corrections: (The following items were deleted from the chart) 11:51 11:28 NS 0.9% (30 ml/kg) 30 ml/kg IV at bolus once; Sepsis Protocol ordered. rn rn 15:51 14:28 ED course: Still no obvious source, possible UTI but waiting on patient to rn comply. Otherwise, clinically, patient septic; A: no source yet; B: hypothermic < 96.8 and RR> 20 bpm; C: elevated lactate> 2, Bilirubin > 2, SBP < 90. Meets Septic shock criteria after > 2 blood pressures < 90 SBP and MAP < 65 greater than 2 BP readings. Abx ordered and central line placed for pressors. Sepsis reevaluation complete. Will send repeat lactate. . rn 18:04 15:16 rn dh3
[2022-03-31] MEDS ORDERED: SODIUM CHLORIDE 0.9% 10ML INJ IV PRN (15:32)
[2022-03-31 15:33] LABS: Urine Blood Trace-intact (Negative); Urine Glucose Negative (Negative); Urine Protein 1+ (Negative); Urine Specific Gravity >=1.030 (1.005-1.030); Urine pH 5.5 (5.0-7.0)
--- NOTE | 2022-03-31 15:48 | P.HP ---
Certification for Inpatient Patient admitted to: Inpatient With expected LOS: >2 Midnights Patient will require the following post-hospital care: [facility] Practitioner: I am a practitioner with admitting privileges, knowledge of patient current condition, hospital course, and medical plan of care. 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 He was recently in [facility]. had pancreatic, retropertonial and brain mass. They were biopsied and ruled carcinoma. Still waiting on the immunohisto staining for the specific type of cancer. He was transferred to the 5th floor inpt rehab. Then sent to [facility]. The patient has been struggling with swallowing. He seems to have been given his meds crushed in pudding. He then aspirated. The patient was sent to the ER. He had a clear chest xray. However low blood pressure and was started on levophed. I have called and talked to the patients daughter. His son holds his power of civil rights attorney. For now will make him full code as per the daughters wishes. Allergies No Known Allergies Allergy (Verified 03/11/22 18:33) Home Medications: Albuterol Neb [Proventil 0.083% Neb Soln] 2.5 mg NEB [id number] PRN amp 03/26/22 Amino Acids/Protein Hydrolys [Pro-Stat Awc Liquid Packet] 30 ml PO BID #60 liquid.pkt 03/26/22 Apixaban [Eliquis *] 2.5 mg PO BID tablet 03/26/22 Cranberry Fruit Extract 400 mg PO BID cap 03/26/22 Docusate/Senna [Senokot-S*] 2 tab PO BEDTIME PRN tab 03/26/22 Ensure Enlive 237 ml PO BID can 03/26/22 Furosemide [Lasix*] 10 mg PO DAILY tab 03/26/22 Gus [Gus*] 1 pkt PO BID powd.pack 03/26/22 Loperamide [Imodium*] 2 mg PO Q4H PRN cap 03/26/22 Melatonin 1 mg SL BID #60 tab.subl 03/26/22 Multivit,Ther Iron,Ca,FA & Min [Centrum Tablet*] 1 tab PO DAILY tab 03/26/22 Nystatin Powder [Mycostatin (Powder)*] 1 appl TOP BID btl 03/26/22 PE-Ep/Mo/Slov/Pet [Formulation R*] 1 appl MD BID PRN tube 03/26/22 Sodium Chloride Tab [Sodium Chloride*] 1 gm PO DAILY tab 03/26/22 Tamsulosin [Flomax*] 0.4 mg PO DAILY cap 03/26/22 Thiamine HCl [Vitamin B-1*] 100 mg PO DAILY tablet 03/26/22 guaiFENesin [Robitussin 100MG/5ML*] 5 ml PO QID ucup 03/26/22 lisinopriL [Prinivil*] 5 mg PO DAILY tab 03/26/22 - Past Medical/Surgical History Diabetic: No -: Hypertension -: Suspected COPD history of tobacco abuse -: Alcohol abuse; DT 2008 -: chf exac -: uti -: cellulitis -: BPH -: left ankle 2x Psychosocial/ Personal History: Patient is retired, lives alone - Family History Mother -: Other (see notes) Notes: parkinsons - Social History Alcohol use: Yes CD- Drugs: No Caffeine use: Yes Review of Systems 10-point ROS is otherwise unremarkable Neurological: Confusion Physical Examination - Physical Exam General: Moderate distress, Confused HEENT: Atraumatic, PERRLA, Mucous membr. moist/pink, EOMI, Sclerae nonicteric Neck: Supple, 2+ carotid pulse no bruit, No LAD, Without JVD or thyroid abnormality Respiratory: Clear to auscultation bilaterally, Normal air movement Cardiovascular: Regular rate/rhythm, Normal S1 S2 Gastrointestinal: Normal bowel sounds, No tenderness Musculoskeletal: No tenderness Integumentary: No rashes Neurological: Normal gait, Normal speech, Normal strength at 5/5 x4 extr, Normal tone, Normal affect Lymphatics: No axilla or inguinal lymphadenopathy - Studies Laboratory Data (last 24 hrs) 03/31/22 11:45: PT 24.4 H, INR 2.18, APTT 36.1 03/31/22 11:45: Sodium 141, Potassium 3.8, BUN 89 H D, Creatinine 2.14 H D, Glucose 136 H, Total Bilirubin 5.8 H*, AST 123 H, ALT 118 H, Alkaline Phosphatase 302 H 03/31/22 11:45: WBC 3.4 L, Hgb 10.3 L, Hct 30.9 L, Plt Count 61 L Microbiology Data (last 24 hrs): 03/31/22 12:00 Nasopharnyx Influenza Type A Antigen Screen - Final 03/31/22 12:00 Nasopharnyx Influenza Type B Antigen Screen - Final Assessment and Plan - Problems (Diagnosis) (1) Aspiration pneumonia Current Visit: Yes Status: Acute Plan: Consult to Dr. Sheets. Start the patient on zosyn and fluids. Repeat the cxr in the am. he will be a full code. We can start him on a bipap if he starts desaturating. Currently he has been saturating well. However he has a elevation in his pCO2. will discuss with Dr. Sheets Qualifiers: Lung location: unspecified part of lung (2) Severe sepsis Current Visit: Yes Status: Acute Plan: started on levophed in ER. Will admit to the unit start aggressive fluid therapy. Place a krueger on the patient as well. (3) Acute renal failure Current Visit: Yes Status: Acute Plan: most likely secondary to sepsis. Will continue fluids. Place a krueger. If not improvement will consult nephrology. At this time will hold the patients lisinopril Qualifiers: Acute renal failure type: unspecified Qualified Code(s): N17.9 - Acute kidney failure, unspecified (4) Metastatic cancer Current Visit: Yes Status: Acute Plan: Awaiting immunohisto stain. Work up done in [facility]. will have the patient or family sign a medical release. Try to get those reports. Qualifiers: Nervous system structure secondary neoplasm location: metastatic to brain Discharge Plan: LTAC Plan to discharge in: Greater than 2 days - Advance Directives Does patient have a Living Will: No Does patient have a Durable POA for Healthcare: No - Code Status/Comfort Care Code Status Assessed: Yes Code Status: Full Code Physician Review: Patient Assessed, Agree with Above Assessment and Plan Critical Care: Yes Time Spent Managing Pts Care (In Minutes): 60
[2022-03-31] MEDS ORDERED: NA CHLORIDE 0.9% 1,000 ML IV SCH (16:00)
[2022-03-31 16:06] LABS: Urine Bacteria <20 /HPF (NONE SEEN); Urine RBC <5 /HPF (NONE SEEN)
[2022-03-31 16:07] LABS: Urine Coarse Granular Casts 0-5 /LPF (NONE SEEN); Urine Mucus 2+ /HPF (NONE SEEN)
[2022-03-31] MEDS: METHYLPREDNISOLONE 125 MG INJ IV SCH ×2 (16:24→23:00)
--- NOTE | 2022-03-31 16:26 | P.CNS ---
Date of Consult: 04/01/22 Reason for Consult: septic shock Primary Care Provider: Syeda Chief Complaint: septic shock History of Present Illness: AGe 81 NH resident, HXof cancer awaiting path reults AW shock on vasopressore. More and responsive feeling better. HXof problsm swallowing B/C pending Allergies No Known Allergies Allergy (Verified 03/11/22 18:33) Home Medications: Albuterol Neb [Proventil 0.083% Neb Soln] 2.5 mg NEB [id number] PRN amp 03/26/22 Apixaban [Eliquis *] 2.5 mg PO BID tablet 03/26/22 Docusate/Senna [Senokot-S*] 2 tab PO BEDTIME PRN tab 03/26/22 Furosemide [Lasix*] 10 mg PO DAILY tab 03/26/22 Loperamide [Imodium*] 2 mg PO Q4H PRN cap 03/26/22 Multivit,Ther Iron,Ca,FA & Min [Centrum Tablet*] 1 tab PO DAILY tab 03/26/22 Nystatin Powder [Mycostatin (Powder)*] 1 appl TOP BID btl 03/26/22 Sodium Chloride Tab [Sodium Chloride*] 1 gm PO DAILY tab 03/26/22 Tamsulosin [Flomax*] 0.4 mg PO DAILY cap 03/26/22 Thiamine HCl [Vitamin B-1*] 100 mg PO DAILY tablet 03/26/22 lisinopriL [Prinivil*] 5 mg PO DAILY tab 03/26/22 Acetaminophen 650 mg PO Q6HR PRN 04/01/22 Ciprofloxacin HCl [Cipro 500 MG Tablet] 500 mg PO BID 04/01/22 Cranberry Fruit [Cranberry] 465 mg PO BID 04/01/22 Guaifenesin [Cough Syrup] 100 mg PO Q6H PRN 04/01/22 Melatonin 1 mg PO BEDTIME 04/01/22 - Past Medical/Surgical History Diabetic: No -: Hypertension -: Suspected COPD history of tobacco abuse -: Alcohol abuse; DT 2008 -: chf exac -: uti -: cellulitis -: BPH -: Possible cancer -: left ankle 2x Psychosocial/ Personal History: Patient is retired, lives alone - Family History Mother Medical History: Other (see notes) Notes: parkinsons - Social History Smoking Status: Unknown if ever smoked Alcohol use: Yes CD- Drugs: No Caffeine use: Yes Review of Systems 10-point ROS is otherwise unremarkable General: Weakness Respiratory: Shortness of Breath Physical Examination General: Alert, Oriented x3 Respiratory: Clear to auscultation bilaterally, Diminished Cardiovascular: Regular rate/rhythm, Edema Gastrointestinal: Normal bowel sounds, Soft and benign Laboratory Data (last 24 hrs) 03/31/22 11:45: PT 24.4 H, INR 2.18, APTT 36.1 03/31/22 11:45: Sodium 141, Potassium 3.8, BUN 89 H D, Creatinine 2.14 H D, Glucose 136 H, Total Bilirubin 5.8 H*, AST 123 H, ALT 118 H, Alkaline Phosphatase 302 H 03/31/22 11:45: WBC 3.4 L, Hgb 10.3 L, Hct 30.9 L, Plt Count 61 L - Problems (1) Septic shock Current Visit: Yes Status: Acute Plan: Age 81 Aw septic shock. CXRY bialteral haziness. CW IV fluid, AB Add vanc, Cultures pending Add steroids . Acute tesp failureCT scan liver cirrhosis. Kidneys no obstructionCW Zosyn and Vanc BC pending/ Bialteral effusion R>L / No UTIon low dose levophed (2) Renal failure, acute Current Visit: Yes Status: Acute Plan: AW ARF No changein renal function Qualifiers: Acute renal failure type: unspecified Qualified Code(s): N17.9 - Acute kidney failure, unspecified
--- NOTE | 2022-03-31 17:30 | RAD REPORT ---
EXAM DESCRIPTION: CT - Abdomen Pelvis Wo Contrast - 03/31/2022 5:20 pm CLINICAL HISTORY: Abdominal pain. abnormal LFTs COMPARISON: No comparisons TECHNIQUE: CT imaging of the abdomen and pelvis was performed without contrast. Solid organ, bowel a nd vascular assessment is limited due to lack of IV and oral contrast. All CT scans are performed using dose optimization technique as appropriate and may include automated exposure control or mA/KV adjustment according to patient size. FINDINGS: Small left and a moderate right pleural effusion is seen with atelectasis or infiltrate in both lung bases. Liver cirrhosis is noted with distended gallbladder containing a stone.Mild ascites is noted. The spl een, pancreas and kidneys are within normal limits for limited noncontrast study. Mild adrenal gland thickening is present bilaterally. No bowel obstruction, free air, free fluid or abscess. Nonvisualized appendix. 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 IMPRESSION: Liver cirrhosis with mild ascites. Prominent gallbladder distension with gallstone noted. Bibasilar lung opacities probably atelectasis or infiltrate with small left and moderate right pleura l effusion. Suspicion for bilateral femoral head AVN. A limited non-contrast examination was performed as detailed.
[2022-03-31] MEDS ORDERED: NA CHLORIDE 0.9% 250 ML ONE (18:14)
[2022-03-31] MEDS ORDERED: VANCOMYCIN 1 GM/VIAL ONE (18:14)
[2022-03-31] MEDS ORDERED: ENOXAPARIN 40 MG/0.4 ML SQ ONE (18:15)
[2022-03-31] MEDS: VANCOMYCIN 1 GM in NA CHLORIDE 0.9% 250 ML IVPB SCH (18:26)
[2022-03-31] MEDS: ENOXAPARIN 40 MG/0.4 ML SQ SCH (18:28)
[2022-03-31] MEDS: NOREPINEPHRINE 4 MG in D5W 250 ML IV SCH (20:40)
[2022-03-31] MEDS: PIPER TAZO 3.375 GM in NA CHLORIDE 0.9% 100 ML IV SCH (21:36)
[2022-04-01] MEDS: NA CHLORIDE 0.9% 1,000 ML IV SCH ×5 (02:15→21:32)
--- NOTE | 2022-04-01 07:48 | RAD REPORT ---
EXAM DESCRIPTION: RAD - Chest Single View - 04/01/2022 5:54 am CLINICAL HISTORY: routine COMPARISON: Chest Single View dated 03/31/2022; Chest Single View dated 03/26/2022; Chest Single View dated 03/25/2022; Chest Single View dated 03/23/2022; Abdomen Pelvis Wo Contrast dated 03/31/2022 FINDINGS: Lines: None. Lungs: Basilar airspace disease. Pleural: Pleural effusions, moderate on the right with a layering component. Cardiac: The heart size is within normal limits. Bones: No acute fractures. Other: IMPRESSION: Basilar airspace disease which likely represents a combination of pleural fluid and eith er atelectasis or underlying pneumonia.
--- NOTE | 2022-04-01 07:58 | P.PN ---
Subjective Date of Service: 04/01/22 Primary Care Provider: Syeda Chief Complaint: Aspiration pneumonia Subjective: Improving (complainting he is lazy for being in bed.) Review of Systems 10-point ROS is otherwise unremarkable General: Weakness Physical Examination - Vital Signs Temperature: 97.1 F Blood Pressure: 102/72 Pulse: 95 Respirations: 20 Pulse Ox (%): 97 - Physical Exam General: Alert, In no apparent distress HEENT: Atraumatic, PERRLA, EOMI Neck: Supple, JVD not distended Respiratory: Clear to auscultation bilaterally, Normal air movement Cardiovascular: Regular rate/rhythm, Normal S1 S2 Gastrointestinal: Normal bowel sounds, No tenderness Musculoskeletal: No tenderness Integumentary: No rashes Neurological: Normal speech, Normal tone, Normal affect Lymphatics: No axilla or inguinal lymphadenopathy - Studies Laboratory Data (last 24 hrs) 03/31/22 11:45: PT 24.4 H, INR 2.18, APTT 36.1 03/31/22 11:45: Sodium 141, Potassium 3.8, BUN 89 H D, Creatinine 2.14 H D, Glucose 136 H, Total Bilirubin 5.8 H*, AST 123 H, ALT 118 H, Alkaline Phosphatase 302 H 03/31/22 11:45: WBC 3.4 L, Hgb 10.3 L, Hct 30.9 L, Plt Count 61 L Microbiology Data (last 24 hrs): 03/31/22 12:00 Nasopharnyx Influenza Type A Antigen Screen - Final 03/31/22 12:00 Nasopharnyx Influenza Type B Antigen Screen - Final Assessment And Plan - Current Problems (Diagnosis) (1) Aspiration pneumonia Current Visit: Yes Status: Acute Plan: Consult to Dr. Sehets. Start the patient on zosyn and fluids. Repeat the cxr in the am. he will be a full code. We can start him on a bipap if he starts desaturating. Currently he has been saturating well. However he has a elevation in his pCO2. will discuss with Dr. Sheets 04/01 Maintaining oxygen on 2 lts. Willl continue antibiotics. Xray report is not avalble at this time. Qualifiers: Lung location: unspecified part of lung (2) Severe sepsis Current Visit: Yes Status: Acute Plan: started on levophed in ER. Will admit to the unit start aggressive fluid thera py. Place a krueger on the patient as well. 04/01 Will continue fluid resuscitation till he is off levophed. Minimal urine production. Will need his latest labs for creatine improvement (3) Acute renal failure Current Visit: Yes Status: Acute Plan: most likely secondary to sepsis. Will continue fluids. Place a krueger. If not improvement will consult nephrology. At this time will hold the patients lisinopril 04/01 awaiting most recent labs. Qualifiers: Acute renal failure type: unspecified Qualified Code(s): N17.9 - Acute kidney failure, unspecified (4) Metastatic cancer Current Visit: Yes Status: Acute Plan: Awaiting immunohisto stain. Work up done in [facility]. will have the patient or family sign a medical release. Try to get those reports. Qualifiers: Nervous system structure secondary neoplasm location: metastatic to brain Discharge Plan: LTAC Plan to discharge in: Greater than 2 days - Code Status/Comfort Care Code Status Assessed: No Physician Review: Patient Assessed, Agree with Above Assessment and Plan Critical Care: Yes Time Spent Managing PTS Care (In Minutes): 20
[2022-04-01] MEDS ORDERED: PANTOPRAZOLE 40MG TABLET PO SCH (08:00)
[2022-04-01] MEDS: PIPER TAZO 3.375 GM in NA CHLORIDE 0.9% 100 ML IV SCH ×2 (08:29→21:33)
[2022-04-01] MEDS: METHYLPREDNISOLONE 125 MG INJ IV SCH (08:33)
[2022-04-01 09:00] LABS: Albumin 1.9 g/dL (3.4-5.0); Bilirubin Total 4.9 mg/dL (0.2-1.0); Potassium 4.2 mmol/L (3.5-5.1); Protein, Total 4.6 g/dL (6.4-8.2)
[2022-04-01] MEDS ORDERED: PANTOPRAZOLE 40 MG INJ IVP SCH (09:00)
[2022-04-01 09:32] LABS: Absolute Lymphocytes (CBC) 0.2 K/uL (0.7-4.9); Hematocrit 28.7 % (39.6-49.0); Lymphocytes % 5.1 % (15.3-44.8); MCV 94.1 fL (80-100); MPV 8.7 fL (7.6-11.3); RBC Red Blood Cell Count 3.05 M/uL (4.33-5.43)
[2022-04-01] MEDS: Pantoprazole (granules) 40 MG/BLIST PACKET PO SCH (10:18)
--- NOTE | 2022-04-01 12:55 | EKG ---
Test Date: 2022-03-31 Test Time: 12:04:28 Aircraft Parts Assembler: [place] MEASUREMENT RESULTS: Intervals: Rate: 103 MD: QRSD: 78 QT: 334 QTc: 437 [place]: P: MD: QRS: 9 T: 72 INTERPRETIVE STATEMENTS: Atrial fibrillation with rapid ventricular response Low voltage QRS Septal infarct, age undetermined Abnormal ECG Compared to ECG 03/12/2022 14:19:36 No significant changes Electronically Signed On 04-01-22 12:54:00 CDT by Christopher Sims
[2022-04-01] MEDS ORDERED: ALBUTEROL 2.5 MG/3 ML NEB SOL NEB PRN (14:05)
[2022-04-01] MEDS: ENOXAPARIN 40 MG/0.4 ML SQ SCH (17:33)
[2022-04-01] MEDS: VANCOMYCIN 1 GM in NA CHLORIDE 0.9% 250 ML IVPB SCH (17:33)
[2022-04-01] MEDS: NOREPINEPHRINE 4 MG in D5W 250 ML IV SCH (18:07)
[2022-04-01] MEDS: METHYLPREDNISOLONE 40 MG INJ IV SCH (21:33)
[2022-04-01] MEDS: JUVEN PACKET PO SCH (21:33)
[2022-04-02 05:22] LABS: Absolute Lymphocytes (CBC) 0.2 K/uL (0.7-4.9); Hematocrit 29.4 % (39.6-49.0); Lymphocytes % 4.3 % (15.3-44.8); MCV 92.5 fL (80-100); MPV 8.3 fL (7.6-11.3); RBC Red Blood Cell Count 3.17 M/uL (4.33-5.43)
[2022-04-02 05:40] LABS: Bilirubin Total 4.6 mg/dL (0.2-1.0); Potassium 4.1 mmol/L (3.5-5.1); Protein, Total 4.9 g/dL (6.4-8.2)
[2022-04-02 07:10] LABS: Blood Morphology Comment NOT SEEN (NOT SEEN); Platelet Estimate DECR
[2022-04-02] MEDS: Pantoprazole (granules) 40 MG/BLIST PACKET PO SCH (09:11)
[2022-04-02] MEDS: PIPER TAZO 3.375 GM in NA CHLORIDE 0.9% 100 ML IV SCH ×2 (09:11→20:32)
[2022-04-02] MEDS: NA CHLORIDE 0.9% 1,000 ML IV SCH (09:12)
[2022-04-02] MEDS: METHYLPREDNISOLONE 40 MG INJ IV SCH ×2 (09:12→20:32)
[2022-04-02] MEDS: JUVEN PACKET PO SCH ×2 (09:13→20:35)
--- NOTE | 2022-04-02 09:15 | P.PN ---
Subjective Date of Service: 04/02/22 Primary Care Provider: Syeda Chief Complaint: septic shock Subjective: No new changes Review of Systems 10-point ROS is otherwise unremarkable General: Weakness Physical Examination - Vital Signs Temperature: 97.3 F Blood Pressure: 92/51 Pulse: 126 Respirations: 21 Pulse Ox (%): 100 - Physical Exam General: Alert, In no apparent distress HEENT: Atraumatic, PERRLA, EOMI Neck: Supple, JVD not distended Respiratory: Clear to auscultation bilaterally, Normal air movement Cardiovascular: Regular rate/rhythm, Normal S1 S2 Gastrointestinal: Normal bowel sounds, No tenderness Musculoskeletal: No tenderness Integumentary: No rashes Neurological: Normal speech, Normal tone, Normal affect Lymphatics: No axilla or inguinal lymphadenopathy Assessment And Plan - Current Problems (Diagnosis) (1) Aspiration pneumonia Current Visit: Yes Status: Acute Plan: Consult to Dr. Sheets. Start the patient on zosyn and fluids. Repeat the cxr in the am. he will be a full code. We can start him on a bipap if he starts desaturating. Currently he has been saturating well. However he has a elevation in his pCO2. will discuss with Dr. Sheets 04/01 Maintaining oxygen on 2 lts. Willl continue antibiotics. Xray report is not avalble at this time. Qualifiers: Lung location: unspecified part of lung (2) Severe sepsis Current Visit: Yes Status: Acute Plan: started on levophed in ER. Will admit to the unit start aggressive fluid therapy. Place a krueger on the patient as well. 04/01 Will continue fluid resuscitation till he is off levophed. Minimal urine production. Will need his latest labs for creatine improvement (3) Acute renal failure Current Visit: Yes Status: Acute Plan: most likely secondary to sepsis. Will continue fluids. Place a krueger. If not improvement will consult nephrology. At this time will hold the patients lisinopril 04/[address] Davidson. Qualifiers: Acute renal failure type: unspecified Qualified Code(s): N17.9 - Acute kidney failure, unspecified (4) Metastatic cancer Current Visit: Yes Status: Acute Plan: Awaiting immunohisto stain. Work up done in [facility]. will have the patient or family sign a medical release. Try to get those reports. Qualifiers: Nervous system structure secondary neoplasm location: metastatic to brain (5) Tachycardia Current Visit: Yes Status: Acute Plan: He does have a history of heart failure. Will start him on some carvediolol. Hopefully rate control will improve his heart function. Discharge Plan: Home Plan to discharge in: Greater than 2 days - Code Status/Comfort Care Code Status Assessed: No Physician Review: Patient Assessed, Agree with Above Assessment and Plan Critical Care: No Time Spent Managing PTS Care (In Minutes): 25
[2022-04-02] MEDS: NOREPINEPHRINE 4 MG in D5W 250 ML IV SCH (09:23)
--- NOTE | 2022-04-02 12:16 | EKG ---
Test Date: 2022-04-02 Test Time: 00:55:52 Battery Starter: RT Whelan MEASUREMENT RESULTS: Intervals: Rate: 122 FL: 216 QRSD: 74 QT: 292 QTc: 416 [place]: P: FL: 216 QRS: 34 T: 61 INTERPRETIVE STATEMENTS: Sinus tachycardia with 1st degree AV block Low voltage QRS Cannot rule out Anteroseptal infarct, age undetermined Abnormal ECG Compared to ECG 04/02/2022 00:53:57 First degree AV block now present Myocardial infarct finding still present Electronically Signed On 04-02-22 12:15:13 CDT by Kevin Morrison
--- NOTE | 2022-04-02 12:16 | EKG ---
Test Date: 2022-04-02 Test Time: 00:53:57 Auto Radiator Mechanic: RT Whelan MEASUREMENT RESULTS: Intervals: Rate: 128 PA: 200 QRSD: 74 QT: 300 QTc: 438 [place]: P: PA: 200 QRS: 31 T: 59 INTERPRETIVE STATEMENTS: Sinus tachycardia Low voltage QRS Cannot rule out Anteroseptal infarct, age undetermined Abnormal ECG Compared to ECG 04/02/2022 00:53:14 Atrial flutter no longer present Ventricular premature complex(es) no longer present Myocardial infarct finding still present Electronically Signed On 04-02-22 12:15:18 CDT by Kevin Morrison
--- NOTE | 2022-04-02 12:17 | EKG ---
Test Date: 2022-04-02 Test Time: 00:53:14 Wire Lather: RT Whelan MEASUREMENT RESULTS: Intervals: Rate: 128 [place]: QRSD: 76 QT: 290 QTc: 423 [place]: P: 252 NC: QRS: 23 T: 64 INTERPRETIVE STATEMENTS: Atrial fibrillation with variable AV block with premature ventricular or aberrantly conducted complexes Low voltage QRS Cannot rule out Anteroseptal infarct, age undetermined Abnormal ECG Compared to ECG 03/31/2022 12:04:28 Ventricular premature complex(es) now present Myocardial infarct finding still present Electronically Signed On 04-02-22 12:16:23 CDT by Kevin Morrison
[2022-04-02 14:15] LABS: Hematocrit 31.1 % (39.6-49.0)
[2022-04-02 14:21] LABS: Potassium 4.2 mmol/L (3.5-5.1)
[2022-04-02 14:27] LABS: Bilirubin Total 4.7 mg/dL (0.2-1.0); Protein, Total 4.8 g/dL (6.4-8.2)
--- NOTE | 2022-04-02 14:39 | P.CNS ---
Date of Consult: 04/02/22 Reason for Consult: MARANDA, oliguria Requesting Physician: Ashkan Landa Primary Care Provider: Syeda Chief Complaint: septic shock History of Present Illness: Pt is an elderly male with a hx of HTN, tobacco/Etoh use in the past, possible related COPD and liver cirrhosis as indicated by imaging, a hx of diastolic CHF per the records, past UTI/cellulitis admission who apparently was recently admitted at an OSH where there was discovered of masses in various areas concerning for malignancy with biopsy performed indicating unspecified carcinoma with immunohistochemistry pending. Pt presented to the ER 48h complaining of dyspnea, malaise and weakness and was admitted to the ICU with hypotension, hypoxic/hypercarbic resp insufficiency and MARANDA. Pt has been oligoanuric over the past 12h. Pt is on NC and low dose Levophed but otherwise remains tachycardic and tachypnec. Allergies No Known Allergies Allergy (Verified 03/11/22 18:33) Home Medications: Albuterol Neb [Proventil 0.083% Neb Soln] 2.5 mg NEB [id number] PRN amp 03/26/22 Apixaban [Eliquis *] 2.5 mg PO BID tablet 03/26/22 Docusate/Senna [Senokot-S*] 2 tab PO BEDTIME PRN tab 03/26/22 Furosemide [Lasix*] 10 mg PO DAILY tab 03/26/22 Loperamide [Imodium*] 2 mg PO Q4H PRN cap 03/26/22 Multivit,Ther Iron,Ca,FA & Min [Centrum Tablet*] 1 tab PO DAILY tab 03/26/22 Nystatin Powder [Mycostatin (Powder)*] 1 appl TOP BID btl 03/26/22 Sodium Chloride Tab [Sodium Chloride*] 1 gm PO DAILY tab 03/26/22 Tamsulosin [Flomax*] 0.4 mg PO DAILY cap 03/26/22 Thiamine HCl [Vitamin B-1*] 100 mg PO DAILY tablet 03/26/22 lisinopriL [Prinivil*] 5 mg PO DAILY tab 03/26/22 Acetaminophen 650 mg PO Q6HR PRN 04/01/22 Ciprofloxacin HCl [Cipro 500 MG Tablet] 500 mg PO BID 04/01/22 Cranberry Fruit [Cranberry] 465 mg PO BID 04/01/22 Guaifenesin [Cough Syrup] 100 mg PO Q6H PRN 04/01/22 Melatonin 1 mg PO BEDTIME 04/01/22 - Past Medical/Surgical History Diabetic: No -: Hypertension -: Suspected COPD history of tobacco abuse -: Alcohol abuse; DT 2008 -: chf exac -: uti -: cellulitis -: BPH -: Possible cancer -: left ankle 2x Psychosocial/ Personal History: Patient is retired, lives alone - Family History Mother Medical History: Other (see notes) Notes: parkinsons - Social History Smoking Status: Unknown if ever smoked Alcohol use: Yes CD- Drugs: No Caffeine use: Yes Review of Systems is unable to be obtained (Pt lethargic and unable to provide an extensive hi story or comprehensive ROS) General: Weakness, Malaise Respiratory: Shortness of Breath Physical Examination Temp Pulse Resp BP Pulse Ox 97.6 F 127 H 23 H 114/52 L 99 04/02/22 12:00 04/02/22 13:00 04/02/22 13:00 04/02/22 13:00 04/02/22 13:00 General: Disheveled, Confused HEENT: Atraumatic, Normocephalic, Other (NC present) Neck: Supple Respiratory: Diminished (Scattered wheezes, reduced BS at bases) Cardiovascular: Other (Tachy, regular, 1+ peripheral edema) Gastrointestinal: Soft and benign, Non-distended Musculoskeletal: No contractures, No erythema Integumentary: No rashes (Ecchymoses, stasis dermatitis ) Neurological: Other (Lethargic but awakens easily, responds briefly, able to answer some questions appropriately, no tremors or myclonus) Conclusions/Impression: 1. Abnormal results of kidney function studies. 2. Stage III ARF per JESSICA def given persistent oliguric state 3. Hypotension, other 4. Acute hypoxic, hypercarbic respiratory insufficiency 5. PNA, unspecified organism 6. Cirrhosis of liver unspecified 7. Anemia 2nd to chronic illnesses +/- GI bleeding, other 8. Thrombocytopenia unspecified -Pt has most likely developed ATN 2nd to hypotensive/ischemic insult in the setting of infection, sepsis 2nd to unspecified organism (although cultures neg thus far), other. Pt's labs do not show any hyperkalemia or serious acid base chemistry abnormality yet, so no emergent indication for HD yet although pt does have marked azotemia. Did discuss with pt's son/MPOA the anticipation for need for HD if aggressive medical care desired but in light of pt's recent diagnosis of metastatic malignancy, advanced age and other co-morbidities it is reasonable to elect on just medical management of conditions and switching to palliative care if he does not respond/condition further deteriorates. Case discussed with Dr. Landa and he concurs and plans to review with family. -Will attempt a Lasix challenge with a ~ 0.5 mg/kg dose and see if that augments any UOP as that has been validated as a tool to assess response, lack thereof indicating progression to more a advanced state of renal failure. -Will stop IVF as pt is several liters positive and now near anuric and given pleural effusion and reports of diastolic CHF, will seek to avoid inducing volume overload while hemodynamics stable. -Target pressor support for MAP > 65 and wean as appropriate, possible. -Dose meds for reduced CrCl. Check Vanc trough level, pt currently on reduced interval dosing. D/c Lovenox given reduced CrCl < 30 ml/min and low plt count. -Defer Abx management to the primary team. Thank you for this referral, Arnulfo Shankar MD, [facility]
[2022-04-02] MEDS ORDERED: FUROSEMIDE 100 MG/10 ML VIAL IV ONE (15:00)
[2022-04-02] MEDS: carvediloL 3.125 MG TAB PO SCH (17:35)
[2022-04-02] MEDS: VANCOMYCIN 1 GM in NA CHLORIDE 0.9% 250 ML IVPB SCH (17:35)
[2022-04-03 01:39] LABS: Hematocrit 28.6 % (39.6-49.0)
[2022-04-03 04:40] LABS: Absolute Lymphocytes (CBC) 0.2 K/uL (0.7-4.9); Hematocrit 28.2 % (39.6-49.0); Lymphocytes % 3.8 % (15.3-44.8); MCV 93.3 fL (80-100); MPV 7.9 fL (7.6-11.3); RBC Red Blood Cell Count 3.02 M/uL (4.33-5.43)
[2022-04-03 04:57] LABS: Albumin 1.9 g/dL (3.4-5.0); Bilirubin Total 4.5 mg/dL (0.2-1.0); Phosphorus 4.8 mg/dL (2.5-4.9); Potassium 4.2 mmol/L (3.5-5.1); Protein, Total 4.6 g/dL (6.4-8.2)
[2022-04-03] MEDS: carvediloL 3.125 MG TAB PO SCH (06:00)
--- NOTE | 2022-04-03 08:21 | P.PN ---
Subjective Date of Service: 04/03/22 Primary Care Provider: Syeda Chief Complaint: septic shock Subjective: Worsening (bp low) Review of Systems 10-point ROS is otherwise unremarkable General: Weakness Physical Examination - Vital Signs Temperature: 97.6 F Blood Pressure: 89/49 Pulse: 126 Respirations: 21 Pulse Ox (%): 100 - Physical Exam General: In no apparent distress, Confused HEENT: Atraumatic, PERRLA, EOMI Neck: Supple, JVD not distended Respiratory: Clear to auscultation bilaterally, Normal air movement Cardiovascular: Regular rate/rhythm, Normal S1 S2 Gastrointestinal: Normal bowel sounds, No tenderness Musculoskeletal: No tenderness Integumentary: No rashes Neurological: Normal speech, Normal tone, Normal affect Lymphatics: No axilla or inguinal lymphadenopathy - Studies Microbiology Data (last 24 hrs): 03/31/22 15:20 Catheterized Urine [place] Count - Final No growth. 03/31/22 15:20 Catheterized Urine - Final No growth. Assessment And Plan - Current Problems (Diagnosis) (1) Severe sepsis Current Visit: Yes Status: Acute Plan: started on levophed in ER. Will admit to the unit start aggressive fluid therapy. Place a krueger on the patient as well. 04/01 Will continue fluid resuscitation till he is off levophed. Minimal urine production. Will need his latest labs for creatine improvement (2) Acute renal failure Current Visit: Yes Status: Acute Plan: most likely secondary to sepsis. Will continue fluids. Place a krueger. If not improvement will consult nephrology. At this time will hold the patients lisinopril 04/03 worsening. He is making urine with lasix. Will need to give him some fluids judicially to improve his blood pressure. Qualifiers: Acute renal failure type: unspecified Qualified Code(s): N17.9 - Acute kidney failure, unspecified (3) Metastatic cancer Current Visit: Yes Status: Acute Plan: Awaiting immunohisto stain. Work [place] [facility] [place] will have the patient or family sign a medical release. Try to get those reports. 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 Will start him on some carvediolol. Hopefully rate control will improve his heart function. 04/03 Carvedilol dropped his blood pressure. Will stop that. (5) Aspiration pneumonia Current Visit: Yes Status: Acute Plan: Consult to Dr. Sheets. Start the patient on zosyn and fluids. Repeat the cxr in the am. he will be a full code. We can start him on a bipap if he starts desaturating. Currently he has been saturating well. However he has a elevation in his pCO2. will discuss with Dr. Sheets 04/01 Maintaining oxygen on 2 lts. Willl continue antibiotics. Xray report is not avalble at this time. Qualifiers: Lung location: unspecified part of lung (6) Melena Current Visit: Yes Status: Acute Plan: hb stable. No gi available. Will monitor his hb and transfuse as nececessary (7) Do not intubate, cardiopulmonary resuscitation (CPR)-only code status Current Visit: Yes Status: Acute Plan: Have discussed with the patient and his daughter. The family does not want dialysis or intubation. Would not likely improve mortality on the patient. Discharge Plan: Home Plan to discharge in: Greater than 2 days - Code Status/Comfort Care Code Status Assessed: Yes Code Status: Do Not Intubate Physician Review: Patient Assessed, Agree with Above Assessment and Plan Critical Care: Yes Time Spent Managing PTS Care (In Minutes): 25
[2022-04-03] MEDS ORDERED: NA CHLORIDE 0.9% 250 ML IV ONE (08:48)
[2022-04-03] MEDS ORDERED: NA CHLORIDE 0.9% 250 ML IV SCH (09:00)
[2022-04-03] MEDS: JUVEN PACKET PO SCH ×2 (09:00→20:21)
[2022-04-03] MEDS: ALBUMIN HUMAN 25% 100 ML IV SCH ×2 (09:57→20:20)
[2022-04-03] MEDS: METHYLPREDNISOLONE 40 MG INJ IV SCH ×2 (09:58→20:21)
[2022-04-03] MEDS: PIPER TAZO 3.375 GM in NA CHLORIDE 0.9% 100 ML IV SCH ×2 (09:58→20:21)
[2022-04-03] MEDS: NOREPINEPHRINE 4 MG in D5W 250 ML IV SCH ×2 (09:59→18:02)
[2022-04-03] MEDS: Pantoprazole (granules) 40 MG/BLIST PACKET PO SCH (09:59)
--- NOTE | 2022-04-03 10:17 | P.PN ---
Date of Service: 04/03/22 Vital Signs Temp Pulse Resp BP Pulse Ox 97.6 F 126 H 21 H 89/49 L 100 04/03/22 08:21 04/03/22 08:21 04/03/22 08:21 04/03/22 08:21 04/03/22 08:21 Medications Albuterol Sulfate (Albuterol 2.5 Mg/3 Ml Neb Cindy) 2.5 mg NEB [id number] PRN PRN Reason: WHEEZING Last Admin: 04/01/22 14:42 Dose: 2.5 mg Documented by: Piperacillin Sod/Tazobactam (Sod 3.375 gm/ Sodium Chloride) 100 mls @ 25 mls/hr IV Q12HR CHELSI; Protocol Last Admin: 04/03/22 09:58 Dose: 100 mls Documented by: Vancomycin HCl 1 gm/ Sodium (Chloride) 250 mls @ 250 mls/hr IVPB Q24H CHELSI; Protocol Last Admin: 04/02/22 17:35 Dose: 250 mls Documented by: Norepinephrine Bitartrate 4 mg (/ Dextrose) 254 mls @ 3.81 mls/hr IV TITR CHELSI; Protocol Last Admin: 04/03/22 09:59 Dose: 6 mcg/min, 22.9 mls/hr Documented by: Albumin Human (Albumin 25%) 100 mls @ 100 mls/hr IV Q12HR CHELSI Stop: 04/03/22 21:59 Last Admin: 04/03/22 09:57 Dose: 100 mls Documented by: L-Arginine/L-Glutamine/HMB (Gus Packet) 1 pkt PO BID [facility] Last Admin: 04/03/22 09:00 Dose: Not Given Documented by: Methylprednisolone Sodium Succinate (Methylprednisolone 40 Mg Inj) 40 mg IV Q12HR CHELSI Last Admin: 04/03/22 09:58 Dose: 40 mg Documented by: Pantoprazole Sodium (Pantoprazole (Granules) 40 Mg/Blist Packet) 40 mg PO DAILY [facility]; Protocol Last Admin: 04/03/22 09:59 Dose: 40 mg Documented by: Sodium Chloride (Sodium Chloride 0.9% 10ml Inj) 10 ml IV UD PRN PRN Reason: Diluant Microbiology Results 03/31/22 15:20 Catheterized Urine [place] Count - Final No growth. 03/31/22 15:20 Catheterized Urine - Final No growth. 03/31/22 12:00 Blood - Blood Aerobic Blood Culture - Preliminary No growth in 24 hours. 03/31/22 12:00 Blood - Blood Anaerobic Blood Culture - Preliminary No growth in 24 hours. 03/31/22 11:45 Blood - Blood Aerobic Blood Culture - Preliminary No growth in 24 hours. 03/31/22 11:45 Blood - Blood Anaerobic Blood Culture - Preliminary No growth in 24 hours. 03/31/22 12:00 Nasopharnyx Influenza Type A Antigen Screen - Final 03/31/22 12:00 Nasopharnyx Influenza Type B Antigen Screen - Final Assessment/ Plan: (S) Pt remains in the ICU, remains on Levophed pressor support, drip rate has been titrated up overnight as MAPs still hovering in the lower 60s to mid. UOP did mixing picker tender some and 600 cc recorded overnight and there is additional in the krueger currently. Pt is receiving NS and Albumin bolus this AM for his BP. Appetite and oral intake have been low. (O) Vitals, labs, imaging and notes reviewed in the chart General: NAD, non tachypnec HEENT: Atraumatic, Normocephalic, Other (NC present) Neck: Supple Respiratory: Diminished (Scattered wheezes, reduced BS at bases) Cardiovascular: Tachy, regular, 1+ distal peripheral edema Gastrointestinal: Soft and benign, mild distention Musculoskeletal: No contractures, No erythema Integumentary: No rashes (Ecchymoses, stasis dermatitis ) Ext: SCDs b/l Neurological: Awake, responds briefly, able to answer some questions appropriately, no tremors or myclonus) Conclusions/Impression: 1. Abnormal results of kidney function studies. 2. Stage III ARF per JESSICA def given initial persistent oliguric state for 12h or more 3. Hypotension, other 4. Acute hypoxic, hypercarbic respiratory insufficiency 5. PNA, unspecified organism 6. Cirrhosis of liver unspecified 7. Anemia 2nd to chronic illnesses +/- GI bleeding, other 8. Thrombocytopenia unspecified -Pt was thought to have developed ATN 2nd to hypotensive/ischemic insult in the setting of infection, sepsis 2nd to unspecified organism (although cultures neg thus far), other but UOP is picking up, delayed response to IV lasix challenge yesterday. Cr level is plateauing. Pt's labs do not show any hyperkalemia or serious acid base chemistry abnormality yet, so no emergent indication for HD although pt does have marked azotemia which we will monitor closely. -Did yesterday stop IVF as pt was several liters positive and then near anuric and given pleural effusion and reports of diastolic CHF, had sought to avoid inducing volume overload while hemodynamics stable but since BP remains marginal, UOP has picked up and appetite low, will start back some maintenance IVF after crystalloids/colloids bolus this AM. -Target pressor support for MAP > 65. Ordered IV Albumin 25% 100 ml q12h x 2. -Dose meds for reduced CrCl. Checked Vanc trough level yesterday evening, cont to monitor, pt currently on reduced interval dosing. Did d/c Lovenox given reduced CrCl < 30 ml/min and low plt count and placed on SCDs -Defer Abx management to the primary team. Arnulfo Shankar MD, [facility]
--- NOTE | 2022-04-03 11:59 | P.PN ---
Subjective Date of Service: 04/03/22 Primary Care Provider: Syeda Chief Complaint: septic shock No change patient is still requiring high concentrations of Levophed worsening renal function Review of Systems is unable to be obtained Physical Examination - Vital Signs Temperature: 97.6 F Blood Pressure: 97/55 Pulse: 126 Respirations: 20 Pulse Ox (%): 100 - Physical Exam General: Alert, Delirious Respiratory: Clear to auscultation bilaterally, Diminished Cardiovascular: Regular rate/rhythm, Edema - Studies Microbiology Data (last 24 hrs): 03/31/22 15:20 Catheterized Urine [place] Count - Final No growth. 03/31/22 15:20 Catheterized Urine - Final No growth. Assessment And Plan - Current Problems (Diagnosis) (1) Septic shock Current Visit: Yes Status: Acute Plan: Patient is not doing well he is back on Levophed IV fluids renal function is worsening blood cultures negative currently DO NOT INTUBATE patient has some form of metastatic cancer biopsy results are still pending prognosis is poor consider hospice care not responded to antibiotic steroids and IV fluids she has also cirrhosis of the liver history of a pleural effusion on the right side DC vancomycin (2) Renal failure, acute Current Visit: Yes Status: Acute Plan: Renal function worsening seen by nephrology Qualifiers: Acute renal failure type: unspecified Qualified Code(s): N17.9 - Acute kidney failure, unspecified Physician Review: Patient Assessed, Agree with Above Assessment and Plan
[2022-04-03] MEDS: NA CHLORIDE 0.9% 1,000 ML IV SCH (12:05)
[2022-04-03 14:11] LABS: Hematocrit 28.9 % (39.6-49.0)
[2022-04-03] MEDS ORDERED: FUROSEMIDE 40 MG/4 ML VIAL IV ONE (22:20)
[2022-04-04] MEDS: NOREPINEPHRINE 4 MG in D5W 250 ML IV SCH ×3 (01:57→23:50)
[2022-04-04] MEDS: NA CHLORIDE 0.9% 1,000 ML IV SCH (03:00)
[2022-04-04 03:45] VITALS: BMI 34.6
[2022-04-04 05:27] LABS: Absolute Lymphocytes (CBC) 0.2 K/uL (0.7-4.9); Lymphocytes % 3.4 % (15.3-44.8); MCV 93.5 fL (80-100); MPV 7.8 fL (7.6-11.3)
[2022-04-04 06:00] LABS: Albumin 2.6 g/dL (3.4-5.0); Bilirubin Total 4.8 mg/dL (0.2-1.0); Potassium 4.2 mmol/L (3.5-5.1)
[2022-04-04] MEDS: Pantoprazole (granules) 40 MG/BLIST PACKET PO SCH (07:58)
[2022-04-04] MEDS: METHYLPREDNISOLONE 40 MG INJ IV SCH ×2 (07:59→20:42)
[2022-04-04] MEDS: PIPER TAZO 3.375 GM in NA CHLORIDE 0.9% 100 ML IV SCH ×2 (07:59→20:43)
[2022-04-04] MEDS: JUVEN PACKET PO SCH ×2 (08:00→20:43)
[2022-04-04 09:12] LABS: Blood Morphology Comment NOT SEEN (NOT SEEN); White Blood Cell Scan OK (OK)
[2022-04-04 09:13] LABS: Platelet Estimate DECR
--- NOTE | 2022-04-04 09:32 | P.PN ---
Subjective Date of Service: 04/04/22 Primary Care Provider: Syeda Chief Complaint: septic shock Subjective: Worsening Review of Systems 10-point ROS is otherwise unremarkable General: Weakness Respiratory: Shortness of Breath Physical Examination - Vital Signs Temperature: 96.2 F Blood Pressure: 97/65 Pulse: 116 Respirations: 22 Pulse Ox (%): 98 - Physical Exam General: In no apparent distress, Confused HEENT: Atraumatic, PERRLA, EOMI Neck: Supple, JVD not distended Respiratory: Clear to auscultation bilaterally, Normal air movement Cardiovascular: Regular rate/rhythm, Normal S1 S2 Gastrointestinal: Normal bowel sounds, No tenderness Musculoskeletal: No tenderness Integumentary: No rashes Neurological: Normal speech, Normal tone, Normal affect Lymphatics: No axilla or inguinal lymphadenopathy - Studies Microbiology Data (last 24 hrs): 03/31/22 15:20 Catheterized Urine Dilworth Count - Final No growth. 03/31/22 15:20 Catheterized Urine - Final No growth. Assessment And Plan - Current Problems (Diagnosis) (1) Severe sepsis Current Visit: Yes Status: Acute Plan: started on levophed in ER. Will admit to the unit start aggressive fluid therapy. Place a krueger on the patient as well. 7/ continues to require increasing dosage of pressors. (2) Acute renal failure Current Visit: Yes Status: Acute Plan: most likely secondary to sepsis. Will continue fluids. Place a krueger. If not improvement will consult nephrology. At this time will hold the patients lisinopril 7/ creatine worsening. He has made approx 1.5 lts of urine since admission. Weight is going up. Will need to be very careful about the fluid resuscitation as he has gained approx 26 lbs since admission Qualifiers: Acute renal failure type: unspecified Qualified Code(s): N17.9 - Acute kidney failure, unspecified (3) Metastatic cancer Current Visit: Yes Status: Acute Plan: Awaiting immunohisto stain. Work up done in [facility]. will have the patient or family sign a medical release. Try to get those reports. 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 Will start him on some carvediolol. Hopefully rate control will improve his heart function. 04/03 Carvedilol dropped his blood pressure. Will stop that. (5) Aspiration pneumonia Current Visit: Yes Status: Acute Plan: Consult to Dr. Sheets. Start the patient on zosyn and fluids. Repeat the cxr in the am. he will be a full code. We can start him on a bipap if he starts desaturating. Currently he has been saturating well. However he has a elevation in his pCO2. will discuss with Dr. Sheets 04/01 Maintaining oxygen on 2 lts. Willl continue antibiotics. Xray report is not avalble at this time. Qualifiers: Lung location: unspecified part of lung (6) Melena Current Visit: Yes Status: Acute Plan: hb stable. No gi available. Will monitor his hb and transfuse as nececessary (7) Do not intubate, cardiopulmonary resuscitation (CPR)-only code status Current Visit: Yes Status: Acute Plan: Have discussed with the patient and his daughter. The family does not want dialysis or intubation. Would not likely improve mortality on the patient. (8) End of life care Current Visit: Yes Status: Acute Plan: Have called his son. The family made him a dnr last night. The patient continues to worsen. Have discussed his poor prognosis with his son. Will continue treatment plan. However discussed the possibility of withdrawing care Discharge Plan: Home Plan to discharge in: Greater than 2 days - Code Status/Comfort Care Code Status Assessed: Yes Code Status: Do Not Attempt Resuscitat Physician Review: Patient Assessed, Agree with Above Assessment and Plan Critical Care: No Time Spent Managing PTS Care (In Minutes): 30
[2022-04-04 13:51] LABS: Hematocrit 28.5 % (39.6-49.0)
--- NOTE | 2022-04-05 00:40 | PN ---
Date of Progress Note: 04/04/2022 Subjective: The patient is seen at the bedside. He remains in the ICU. The patient is able to answer some simple questions and verbalize some needs. However, his mentation has been waxing and waning throughout the day. Family meeting was held with the primary team and at this point, the patient remains DNR without intubation and also no dialysis if renal function is worsening. That conversation was reviewed with the floor nurse. The patient otherwise remains on IV pressors. Objective: Vital Signs: Blood pressure is 193/67, pulse 95, afebrile. Input and output, 2823 in, 900 out. General: Elderly, in no acute distress. Heart: Tachycardic, regular. Lungs: Diminished breath sounds at the bases. Abdomen: Soft. Extremities: Trace edema. Laboratory Data: CBC, hemoglobin 9.4, hematocrit 28. Serum chemistry, sodium 141, potassium 4.2, chloride 113, CO2 22, BUN 114, creatinine 2.84. Bilirubin is 4.8. Current Medications: Reviewed. Impression: 1. Acute kidney injury. 2. Septic shock. 3. Cirrhosis of liver. Plan: The patient will continue IV pressors. Recommend discontinuing IV fluids. Maintain MAP over 70. The patient has overall poor prognosis and moving toward comfort measures. We will continue to support as needed. SE/MODL Voice ID: [id number] Report ID: [id number] CARLOS
[2022-04-05 01:29] LABS: Hematocrit 30.5 % (39.6-49.0)
[2022-04-05 05:14] LABS: Absolute Lymphocytes (CBC) 0.3 K/uL (0.7-4.9); Hematocrit 29.9 % (39.6-49.0); Lymphocytes % 3.8 % (15.3-44.8); MCV 93.5 fL (80-100); MPV 8.2 fL (7.6-11.3)
[2022-04-05 05:40] LABS: Albumin 2.5 g/dL (3.4-5.0); Potassium 4.4 mmol/L (3.5-5.1); Protein, Total 4.9 g/dL (6.4-8.2)
[2022-04-05 05:42] LABS: Bilirubin Total 5.8 mg/dL (0.2-1.0)
[2022-04-05] MEDS: NOREPINEPHRINE 4 MG in D5W 250 ML IV SCH ×5 (07:10→23:10)
[2022-04-05] MEDS ORDERED: LIDOCAINE 1% 20 ML MDV ONE (08:30)
[2022-04-05] MEDS ORDERED: 0.9 % SODIUM CHLORIDE 0 ML ONE (08:30)
[2022-04-05] MEDS: Pantoprazole (granules) 40 MG/BLIST PACKET PO SCH (08:50)
[2022-04-05] MEDS: PIPER TAZO 3.375 GM in NA CHLORIDE 0.9% 100 ML IV SCH ×2 (08:51→19:55)
[2022-04-05] MEDS: METHYLPREDNISOLONE 40 MG INJ IV SCH ×2 (08:51→19:55)
[2022-04-05] MEDS: JUVEN PACKET PO SCH ×2 (08:51→19:55)
--- NOTE | 2022-04-05 10:37 | P.OP ---
Preoperative diagnosis: Need for Central Venous Access Postoperative diagnosis: Need for Central Venous Access Primary procedure: Placement of LEFT femoral Triple lumen central line Anesthesia: 1% Lidocaine Estimated blood loss: <5cc Specimen: none Findings: dark, non-pulsatile blood returned Complications: None Implants: Triple lumen catheter Transferred to: Recovery Room Condition: Good
--- NOTE | 2022-04-05 10:55 | P.PN ---
Subjective Date of Service: 04/05/22 Primary Care Provider: Syeda Chief Complaint: septic shock Subjective: Worsening Review of Systems is unable to be obtained Physical Examination - Vital Signs Temperature: 96.9 F Blood Pressure: 77/50 Pulse: 120 Respirations: 20 Pulse Ox (%): 100 - Physical Exam General: Alert, In no apparent distress HEENT: Atraumatic, PERRLA, EOMI Neck: Supple, JVD not distended Respiratory: Clear to auscultation bilaterally, Normal air movement Cardiovascular: Regular rate/rhythm, Normal S1 S2 Gastrointestinal: Normal bowel sounds, No tenderness Musculoskeletal: No tenderness Integumentary: No rashes Neurological: Normal speech, Normal tone, Normal affect Lymphatics: No axilla or inguinal lymphadenopathy Assessment And Plan - Current Problems (Diagnosis) (1) Severe sepsis Current Visit: Yes Status: Acute Plan: started on levophed in ER. Will admit to the unit start aggressive fluid therapy. Place a krueger on the patient as well. 04/05 Dr. Love has replaced a central line. Will continue his levophed. (2) Acute renal failure Current Visit: Yes Status: Acute Plan: most likely secondary to sepsis. Will continue fluids. Place a krueger. If not improvement will consult nephrology. At this time will hold the patients lisinopril 04/05 continue to worsening. He has family decided against dialysis. Qualifiers: Acute renal failure type: unspecified Qualified Code(s): N17.9 - Acute kidney failure, unspecified (3) Metastatic cancer Current Visit: Yes Status: Acute Plan: Awaiting immunohisto stain. Work up done in [facility]. will have the patient or family sign a medical release. Try to get those reports. 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 Will start him on some carvediolol. Hopefully rate control will improve his heart function. 04/03 Carvedilol dropped his blood pressure. Will stop that. (5) Aspiration pneumonia Current Visit: Yes Status: Acute Plan: Consult to Dr. Sheets. Start the patient on zosyn and fluids. Repeat the cxr in the am. he will be a full code. We can start him on a bipap if he starts desaturating. Currently he has been saturating well. However he has a elevation in his pCO2. will discuss with Dr. Sheets 04/01 Maintaining oxygen on 2 lts. Willl continue antibiotics. Xray report is not avalble at this time. Qualifiers: Lung location: unspecified part of lung (6) Melena Current Visit: Yes Status: Acute Plan: hb stable. No gi available. Will monitor his hb and transfuse as nececessary (7) Do not intubate, cardiopulmonary resuscitation (CPR)-only code status Current Visit: Yes Status: Acute Plan: Have discussed with the patient and his daughter. The family does not want dialysis or intubation. Would not likely improve mortality on the patient. (8) End of life care Current Visit: Yes Status: Acute Plan: Have called his son. The family made him a dnr last night. The patient continues to worsen. Have discussed his poor prognosis with his son. Will continue treatment plan. However discussed the possibility of withdrawing care 04/05 Discussed with the daughter. The family is discussing withdrawal of care. Discharge Plan: Home - Code Status/Comfort Care Code Status Assessed: No Physician Review: Patient Assessed, Agree with Above Assessment and Plan Critical Care: No Time Spent Managing PTS Care (In Minutes): 30
--- NOTE | 2022-04-05 11:06 | OP ---
Date of Procedure: 04/05/2022 Surgeon: Josh Love MD, Preoperative Diagnosis: Need for central venous access. Postoperative Diagnosis: Need for central venous access. Procedures Performed: Placement of a left femoral triple-lumen central venous catheter. Anesthesia: 1% lidocaine utilized. Estimated Blood Loss: Less than 5 cc. Specimen: None. Findings: Dark nonpulsatile blood return. Complications: None. Implants: Triple-lumen central venous catheter placed. Disposition: The patient remained in the ICU in critical condition. Procedure In Detail: After informed consent was obtained from the patient's family, the patient was prepped and draped in the usual sterile fashion after adequate anesthesia achieved. I palpated using anatomic landmarks in the area of the left femoral vein. Using a microintroducer set, I cannulated the left femoral vein on the first attempt. Dark red nonpulsatile blood return. I advanced a wire a t this point and removed the needle. At this point, I made a small alireza incision overlying the inser tion site after adding additional anesthesia to the skin level. I then advanced the microintroducer sheath into the femoral vein. The inner cannula and microwire were removed. Dark red nonpulsatile b lood was returned. I then advanced a standard wire into the introducer sheath and removed the introd ucer sheath. At this point, I performed sequential dilatation using the dilator and advanced the cat heter into the femoral vein without evidence of complication. The wire was removed at this point. A ll ports judith back of dark red nonpulsatile blood and were flushed quite easily with sterile saline. At this point, I secured the catheter to the skin with the attached silk suture and a sterile dressi ng placed over top. The patient tolerated the procedure well without evidence of complication, matt osullivan in the ICU in critical condition at the end of the procedure. All counts were correct at the end of the case. TK/MODL Voice ID: [id number] Report ID: [id number]
--- NOTE | 2022-04-05 11:15 | CON ---
Date of Consultation: 04/05/2022 Reason For Consultation: The patient removed his central venous catheter and is on pressors includin g Levophed/norepinephrine. Brief History Of Present Illness: Information is obtained from chart as the patient is currently non verbal. The patient is an 81-year-old gentleman, of Dr. Blackman, who was recently in [facility] with a history of metastatic pancreatic cancer. He came into the hospital and was brought to the [facility] floor for inpatient rehab. He was having difficulty with swallowing and had been decompensated slowly. Apparently, there was an aspiration episode and as such he was sent from a intermediate [facility] after he left the hospital to the ER after aspiration episode. He had hypotension in the ER a nd as such, was brought to the hospital in the ICU for higher level of care. He has been maintained on pressor support since his admission. He had a central line placed; however, he pulled it out at t his point and as such, needs central venous access to continue his pressor support. Past Medical History: Metastatic pancreatic cancer, hypertension, COPD, alcohol abuse with delirium tremens in 2008, congestive heart failure, recurrent urinary tract infections, cellulitis, BPH. Past Surgical History: Includes only ankle surgery x2 and placement of a right femoral central venou s line as described. Family History: Positive for alcohol use, tobacco, but there was no evidence or documentation of rec reational drug use. Allergies: NO KNOWN DRUG ALLERGIES. Home Medications: Include Proventil, Eliquis, cranberry fruit extract, Senokot, Ensure, Lasix, Gus , Imodium, melatonin, multivitamin with Centrum, nystatin powder, sodium chloride, Flomax, vitamin B1 , Robitussin, Prinivil. Review of Systems: Ten-point review of systems unable to obtain. Physical Examination: General: At the time of my examination; the patient is lethargic, but moves to noxious stimuli and m akes moaning noises, but is nonresponsive with verbal cues. HEENT: Otherwise normocephalic. His mucous membranes were somewhat dry with an open oropharynx and very poor dentition with obviously significant dental caries. Respiratory: Decreased breath sounds bilaterally. Cardiovascular: Tachycardic. Abdomen: Soft. He has generalized anasarca over his body. Laboratory Data: His laboratory exam revealed a white blood cell count of 9.1, hemoglobin 10.2, ling tocrit of 29.9, platelet count was 74, neutrophils are 91%. His coagulation cascade showed a PT 24.4 , INR 2.18, PTT was 36. This was from 03/31. He had a chemistry which showed a sodium of 140, potas sium 4.4, chloride 113, carbon dioxide 19, BUN was 126, creatinine 3.1. His glucose is 165. His jayy cium was 8.8. His total bilirubin 5.8, AST was 111, ALT 109, alkaline phosphatase 132. His COVID sc reen was negative. He had a chest x-ray performed on 04/01, which was read as bibasilar airspace dis ease, which likely represents combination of pleural fluid, either atelectasis or underlying pneumoni a. He additionally had an abdomen and pelvis CT on 03/31, which was officially read as liver cirrhos is with mild ascites, prominent gallbladder distention with gallstone noted, bibasilar lung opacities probably atelectasis or infiltrate with small left and moderate right pleural effusion suspicion for bilateral femoral head AVN, avascular necrosis. Abdominal ultrasound was also performed, which show ed gallbladder sludge and cholelithiasis present, common bile duct appears dilated measuring 13 mm. Assessment And Plan: This is an 81-year-old male, who has multiple medical problems as described and needs for central venous access. 1.Continue medical management. 2.I will place a left femoral central venous catheter. The risks, benefits, and alternatives have b een explained to the family and they agree to proceed. We will place it emergently as the patient is currently in need of pressors. Thank you for this interesting consult. LOBO/LIAM Voice ID: [id number] Report ID: [id number]
[2022-04-05 13:23] LABS: Hematocrit 26.1 % (39.6-49.0)
[2022-04-05] MEDS ORDERED: NA CHLORIDE 0.9% 250 ML IV ONE (18:13)
[2022-04-05] MEDS ORDERED: ALBUMIN HUMAN 25% 100 ML IV ONE (18:14)
[2022-04-05] MEDS ORDERED: NA CHLORIDE 0.9% 100 ML ONE (20:11)
[2022-04-06] MEDS: NOREPINEPHRINE 4 MG in D5W 250 ML IV SCH ×6 (01:36→13:24)
[2022-04-06 04:51] LABS: Absolute Lymphocytes (CBC) 0.5 K/uL (0.7-4.9); Hematocrit 29.7 % (39.6-49.0); Lymphocytes % 3.5 % (15.3-44.8); MCV 97.2 fL (80-100); MPV 8.4 fL (7.6-11.3); RBC Red Blood Cell Count 3.06 M/uL (4.33-5.43)
[2022-04-06 05:22] LABS: Albumin 2.8 g/dL (3.4-5.0); Potassium 5.1 mmol/L (3.5-5.1); Protein, Total 5.1 g/dL (6.4-8.2)
[2022-04-06 05:23] LABS: Bilirubin Total 6.3 mg/dL (0.2-1.0)
[2022-04-06] MEDS ORDERED: NOREPINEPHRINE 4mg/D5W 250mL 4 MG/250 ML BAG IV ONE (06:20)
[2022-04-06] MEDS: PIPER TAZO 3.375 GM in NA CHLORIDE 0.9% 100 ML IV SCH (08:51)
[2022-04-06] MEDS: JUVEN PACKET PO SCH (08:52)
[2022-04-06] MEDS: Pantoprazole (granules) 40 MG/BLIST PACKET PO SCH (08:52)
[2022-04-06] MEDS: METHYLPREDNISOLONE 40 MG INJ IV SCH (08:52)
[2022-04-06 09:36] VITALS: O2SAT 93
--- NOTE | 2022-04-06 09:53 | P.PN ---
Subjective Date of Service: 04/06/22 Primary Care Provider: Syeda Chief Complaint: septic shock Subjective: Worsening (hypothermic, hypotensive, hypoxic, non responsive.) Review of Systems is unable to be obtained Physical Examination - Vital Signs Temperature: 90.4 F Blood Pressure: 88/43 Pulse: 78 Respirations: 18 Pulse Ox (%): 92 - Physical Exam General: Unresponsive HEENT: Atraumatic, PERRLA, EOMI Neck: Supple, JVD not distended Respiratory: Clear to auscultation bilaterally, Normal air movement Cardiovascular: Regular rate/rhythm, Normal S1 S2 Gastrointestinal: Normal bowel sounds, No tenderness Musculoskeletal: No tenderness Integumentary: No rashes Neurological: Normal speech, Normal tone, Normal affect Lymphatics: No axilla or inguinal lymphadenopathy - Studies Microbiology Data (last 24 hrs): 03/31/22 12:00 Blood - Blood Aerobic Blood Culture - Final No growth in 5 days. 03/31/22 12:00 Blood - Blood Anaerobic Blood Culture - Final No growth in 5 days. 03/31/22 11:45 Blood - Blood Aerobic Blood Culture - Final No growth in 5 days. 03/31/22 11:45 Blood - Blood Anaerobic Blood Culture - Final No growth in 5 days. Assessment And Plan - Current Problems (Diagnosis) (1) Severe sepsis Current Visit: Yes Status: Acute Plan: started on levophed in ER. Will admit to the unit start aggressive fluid therapy. Place a krueger on the patient as well. 04/06. patient is most likely to pass away in the next 24hrs. The family is aware of this and expect this. (2) Acute renal failure Current Visit: Yes Status: Acute Plan: most likely secondary to sepsis. Will continue fluids. Place a krueger. If not improvement will consult nephrology. At this time will hold the patients lisinopril / continue to worsening. He has family decided against dialysis. Qualifiers: Acute renal failure type: unspecified Qualified Code(s): N17.9 - Acute kidney failure, unspecified (3) Metastatic cancer Current Visit: Yes Status: Acute Plan: Awaiting immunohisto stain. Work up done in [facility]. will have the patient or family sign a medical release. Try to get those reports. 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 Will start him on some carvediolol. Hopefully rate control will improve his heart function. 04/03 Carvedilol dropped his blood pressure. Will stop that. (5) Aspiration pneumonia Current Visit: Yes Status: Acute Plan: Consult to Dr. Sheets. Start the patient on zosyn and fluids. Repeat the cxr in the am. he will be a full code. We can start him on a bipap if he starts desaturating. Currently he has been saturating well. However he has a elevation in his pCO2. will discuss with Dr. Sheets 04/01 Maintaining oxygen on 2 lts. Willl continue antibiotics. Xray report is not avalble at this time. Qualifiers: Lung location: unspecified part of lung (6) Melena Current Visit: Yes Status: Acute Plan: hb stable. No gi available. Will monitor his hb and transfuse as nececessary (7) Do not intubate, cardiopulmonary resuscitation (CPR)-only code status Current Visit: Yes Status: Acute Plan: Have discussed with the patient and his daughter. The family does not want dialysis or intubation. Would not likely improve mortality on the patient. (8) End of life care Current Visit: Yes Status: Acute Plan: Have called his son. The family made him a dnr last night. The patient continues to worsen. Have discussed his poor prognosis with his son. Will continue treatment plan. However discussed the possibility of withdrawing care 04/05 Discussed with the daughter. The family is discussing withdrawal of care. Discharge Plan: Home Plan to discharge in: 24 Hours - Code Status/Comfort Care Code Status Assessed: No Physician Review: Patient Assessed, Agree with Above Assessment and Plan Critical Care: Yes Time Spent Managing PTS Care (In Minutes): 20
[2022-04-06 17:16] VITALS: TEMP 98.6
[2022-04-06 17:23] VITALS: BP 95/50
--- NOTE | 2022-04-07 08:22 | P.DS ---
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 He was recently in [facility]. had pancreatic, retropertonial and brain mass. They were biopsied and ruled carcinoma. Still waiting on the immunohisto staining for the specific type of cancer. He was transferred to the 5th floor inpt rehab. Then sent to [facility]. The patient has been struggling with swallowing. He seems to have been given his meds crushed in pudding. He then aspirated. The patient was sent to the ER. He had a clear chest xray. However low blood pressure and was started on levophed. I have called and talked to the patients daughter. His son holds his power of contract attorney. For now will make him full code as per the daughters wishes. Hospital Course: Patient was admitted on levophed. Admitted to the ICU. His kidney function and urine output continued to decrease. Had multiple discussions with the family. They agreed to DNR. He continued to weaken and . Thank you for allowing me to take part in his care. Vital Signs/Physical Exam: Temp Pulse Resp BP Pulse Ox 98.6 F 115 H 30 H 95/50 L 95 04/06/22 14:00 04/06/22 15:45 04/06/22 15:45 04/06/22 15:45 04/06/22 15:45 General: Alert, In no apparent distress HEENT: Atraumatic, PERRLA, EOMI Neck: Supple, JVD not distended Respiratory: Clear to auscultation bilaterally, Normal air movement Cardiovascular: Regular rate/rhythm, Normal S1 S2 Gastrointestinal: Normal bowel sounds, No tenderness Musculoskeletal: No tenderness Integumentary: No rashes Neurological: Normal speech, Normal tone, Normal affect Lymphatics: No axilla or inguinal lymphadenopathy Laboratory Data at Discharge: WBC 14.3 K/uL (4.3-10.9) H D 04/06/22 04:20 Hgb 9.6 g/dL (13.6-17.9) L 04/06/22 04:20 Hct 29.7 % (39.6-49.0) L 04/06/22 04:20 Plt Count 88 K/uL (152-406) L 04/06/22 04:20 PT 24.4 SECONDS (9.5-12.5) H 03/31/22 11:45 INR 2.18 03/31/22 11:45 APTT 36.1 SECONDS (24.3-36.9) 03/31/22 11:45 Sodium 136 mmol/L (136-145) 04/06/22 04:20 Potassium 5.1 mmol/L (3.5-5.1) 04/06/22 04:20 BUN 130 mg/dL (7-18) H 04/06/22 04:20 Creatinine 3.67 mg/dL (0.55-1.3) H 04/06/22 04:20 Glucose 222 mg/dL (74-106) H 04/06/22 04:20 Phosphorus Cancelled 04/03/22 05:00 Total Bilirubin 6.3 mg/dL (0.2-1.0) H* 04/06/22 04:20 AST 336 U/L (15-37) H* D 04/06/22 04:20 ALT 202 U/L (12-78) H 04/06/22 04:20 Alkaline Phosphatase 126 U/L (45-117) H 04/06/22 04:20 Home Medications: Albuterol Neb [Proventil 0.083% Neb Soln] 2.5 mg NEB [id number] PRN amp 03/26/22 Apixaban [Eliquis *] 2.5 mg PO BID tablet 03/26/22 Docusate/Senna [Senokot-S*] 2 tab PO BEDTIME PRN tab 03/26/22 Furosemide [Lasix*] 10 mg PO DAILY tab 03/26/22 Loperamide [Imodium*] 2 mg PO Q4H PRN cap 03/26/22 Multivit,Ther Iron,Ca,FA & Min [Centrum Tablet*] 1 tab PO DAILY tab 03/26/22 Nystatin Powder [Mycostatin (Powder)*] 1 appl TOP BID btl 03/26/22 Sodium Chloride Tab [Sodium Chloride*] 1 gm PO DAILY tab 03/26/22 Tamsulosin [Flomax*] 0.4 mg PO DAILY cap 03/26/22 Thiamine HCl [Vitamin B-1*] 100 mg PO DAILY tablet 03/26/22 lisinopriL [Prinivil*] 5 mg PO DAILY tab 03/26/22 Acetaminophen 650 mg PO Q6HR PRN 04/01/22 Ciprofloxacin HCl [Cipro 500 MG Tablet] 500 mg PO BID 04/01/22 Cranberry Fruit [Cranberry] 465 mg PO BID 04/01/22 Guaifenesin [Cough Syrup] 100 mg PO Q6H PRN 04/01/22 Melatonin 1 mg PO BEDTIME 04/01/22 Followup: Ashkan Landa MD [Primary Care Provider] - Time spent managing pt's care (in minutes): 45
== END 2022-04-06 13:37 | disposition expired | DRG 871 ==
LOC: ER 11:25 → SUPCPDRO 11:25 → ERHOLD 15:29 → 3RD-ICU 20:12
PROVIDERS: ADMIT Internal Medicine; ATTEND Internal Medicine
PROC: 5A09457 Assistance with Respiratory Ventilation, 24-96 Consecutive Hours, Continuous Positive Airway Pressure (ICD-10-PCS; 2022-03-31)
PROC: 06HN33Z Insertion of Infusion Device into Left Femoral Vein, Percutaneous Approach (ICD-10-PCS; principal; 2022-04-05)
DX: A41.9 Sepsis, unspecified organism (principal); R65.21 Severe sepsis with septic shock; J18.9 Pneumonia, unspecified organism; J69.0 Pneumonitis due to inhalation of food and vomit; J96.02 Acute respiratory failure with hypercapnia; J96.01 Acute respiratory failure with hypoxia; C25.9 Malignant neoplasm of pancreas, unspecified; C78.6 Secondary malignant neoplasm of retroperitoneum and peritoneum; C79.31 Secondary malignant neoplasm of brain; N17.9 Acute kidney failure, unspecified; K92.1 Melena; I50.32 Chronic diastolic (congestive) heart failure; L89.322 Pressure ulcer of left buttock, stage 2; L89.312 Pressure ulcer of right buttock, stage 2; K74.60 Unspecified cirrhosis of liver; D69.6 Thrombocytopenia, unspecified; I95.9 Hypotension, unspecified; I11.0 Hypertensive heart disease with heart failure; J44.9 Chronic obstructive pulmonary disease, unspecified; F10.11 Alcohol abuse, in remission; Z66 Do not resuscitate; Z87.891 Personal history of nicotine dependence; Z20.822 Contact with and (suspected) exposure to COVID-19
CPT/HCPCS: 36415; 51702; 71045; 74176; 76705; 80048; 80053; 80076; 80202; 81003; 81015; 82274; 82805; 82947; 83605; 84100; 85014; 85018; 85025; 85610; 85730; 86850; 86900; 86901; 87040; 87086; 87088; 87804; 92610; 93005; 94640; 94660; 96365; 96366; 96375; 99285; J1650; J1940; J2543; J2920; J2930; J3370; J7030; J7050; J7060; P9047; U0003